=== PATIENT | male | born 1970 | race Caucasian/White ===

== ENCOUNTER 2018-03-16 13:43 | Outpatient (CLI) | payer MEDICARE, MEDICAID, SELFPAY ==
--- NOTE | 2018-03-16 13:32 | DI.RAD_ITS ---
SYMPTOM/DIAGNOSIS: RT KNEE PAIN RIGHT KNEE: Three views. Comparison 07/05/15 Mild spurring is seen at the posterior patella and medial femoral tibial joint space. The joint spaces are otherwise well maintained. The bones are intact and normally mineralized. The soft tissues are unremarkable. IMPRESSION: Mild degenerative changes of the right knee.
== END 2018-03-16 14:03 ==
PROVIDERS: PCP Family Medicine; Visit Provider Physician Assistant
DX: M25.561 Pain in right knee (principal); M17.11 Unilateral primary osteoarthritis, right knee
CPT/HCPCS: 73562

== ENCOUNTER 2018-04-29 10:59 | Outpatient (CLI) | payer MEDICARE, MEDICAID, SELFPAY ==
--- NOTE | 2018-04-29 10:54 | DI.RAD_ITS ---
SYMPTOMS/DIAGNOSIS: RT KNEE PAIN BILATERAL MERCHANT VIEWS OF THE KNEES: Comparison is made with right knee dated 3Dec18. There is mild to moderate narrowing of the right patellofemoral joint. There is some lateral patellar subluxation and lateral patellar tilt as well as periarticular spurring. The left patellar femoral joint appears well maintained. Periarticular spurring is noted to a lesser extent of the left patellofemoral joint. IMPRESSION: Lateral patellofemoral degenerative changes.
== END 2018-04-29 11:19 ==
PROVIDERS: PCP Nurse Practitioner; Visit Provider Physician Assistant
DX: M25.561 Pain in right knee (principal); M17.11 Unilateral primary osteoarthritis, right knee
CPT/HCPCS: 73565

== ENCOUNTER 2018-05-10 20:34 | Emergency (ER) | payer MEDICARE, MEDICAID, SELFPAY ==
[2018-05-10] VITALS (30 sets, daily range): BP systolic 127–162; BP diastolic 83–102; PULSE 41–69; RESP 10–19; TEMP 36.8; O2SAT 96–100
--- NOTE | 2018-05-10 20:49 | DI.CT_ITS ---
SYMPTOMS/DIAGNOSIS: CONFUSION, HX OF SHUNT, ANEURYSM, BRAIN CANCER NONCONTRAST HEAD CT: Comparison is made with [id number]. A high right frontal craniotomy defect is now present. There is a chronic appearing fluid collection in the anterior right frontal lobe. No acute hemorrhage, infarct or mass is seen. The ventricles are unchanged in size. 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 These findings appear stable. IMPRESSION: Status post right frontal craniotomy. No acute abnormality is seen. CTA OF THE HEAD: CT angiography was performed with multi slice acquisition and multi planar and 3D reconstruction. There is no evidence of vascular occlusion, dissection or significant stenosis. IMPRESSION: CT Angiography of the head.
[2018-05-10] MEDS: Omnipaque 350 MG/ML 100 ML BTL IJ (21:17)
[2018-05-10 21:18] LABS: BE (Venous) 3.3 mmol/L (-3-3); HCO3 (Venous) 29 mmol/L (22-28); O2 Sat (Venous) 77 % (70-80); TCO2 (Venous) 26 mmol/L (22-29); pCO2 (Venous) 52 mm/Hg (34-47); pH (Venous) 7.35 (7.32-7.43); pO2 (Venous) 43 mm/Hg (28-44)
[2018-05-10] MEDS: Normal Saline Flush 10 ML SYR IVP ×2 (21:18→21:46)
[2018-05-10 21:23] LABS: Abs Immature Grans 0.01 k/cumm (0.0-0.09); Absolute Basophil Count 0.02 k/cumm (0.0-0.2); Absolute Eosinophil Count 0.05 k/cumm (0.0-0.7); Absolute Lymphocyte Count 1.66 k/cumm (1.2-3.4); Absolute Monocyte Count 0.32 k/cumm (0.11-0.7); Absolute Neutrophil Count 2.51 k/cumm (1.2-6.7); Basophils % 0.4; Eosinophils % 1.1; HCT 42.8 % (40.0-50.0); HGB 15.5 g/dL (13.5-17.5); Immature Grans % 0.2; Lymphocytes % 36.3; Mean Corp. HGB Concentration 36.2 g/dL (32.0-36.0); Mean Corpuscular Hemoglobin 31.3 pg (27.0-33.0); Mean Corpuscular Volume 86.3 fL (80-95); Mean Platelet Volume 10.1 fL (8.0-11.0); Platelet Count 159 x1000/uL (130-400); RBC 4.96 m/cumm (4.50-6.00); RBC Distribution Width 12.8 % (11.8-14.1); White Blood Cell Count 4.57 k/cumm (4.4-10.8)
[2018-05-10 21:27] LABS: INR 1.1 (0.9-1.1); Prothrombin Time 11.1 sec (9.3-11.0)
[2018-05-10 21:30] LABS: Ammonia 35 umol/L (11-32)
[2018-05-10 21:38] LABS: PTT Activated 26.8 sec (21.0-31.4)
[2018-05-10 21:39] LABS: ALT 16 U/L (12-78); AST 15 U/L (15-37); Albumin 3.6 g/dL (3.4-5.0); Alkaline Phosphatase 70 U/L (46-116); Anion Gap 8.7 mmol/L (3-11); BUN 12 mg/dL (7-18); Bilirubin, Total 0.3 mg/dL (0.2-1.0); CO2 29.3 mmol/L (21.0-32.0); CREATININE 0.84 mg/dL (0.70-1.30); Chloride 91 mmol/L (98-107); Glucose 113 mg/dL (70-100); Potassium 4.3 mmol/L (3.5-5.1); Salicylate < 2.8 mg/dL (2.8-20.0); Sodium 129 mmol/L (136-145)
[2018-05-10 21:43] LABS: Acetaminophen < 2 ug/mL (10-30)
[2018-05-10] MEDS: Normal Saline 1,000 ML 1000 ML IV (21:46)
[2018-05-10 21:48] LABS: Calcium 8.7 mg/dL (8.5-10.1)
[2018-05-10 21:58] LABS: ETHANOL BLOOD < 3.0 mg/dL (<3)
--- NOTE | 2018-05-10 21:59 | DI.VRAD_ITS ---
EXAM: CT Head Without Contrast EXAM DATE/TIME: 05/10/2018 8:53 PM CLINICAL HISTORY: 47 years old, male; Signs and symptoms; Altered mental status/memory loss; Confusion or disorientation; Patient HX: Confusion, HX of shunt, aneurysm, and brain cancer. TECHNIQUE: Axial computed tomography images of the head/brain without contrast. All CT scans at this facility use at least one of these dose optimization techniques: automated exposure control; mA and/or kV adjustment per patient size (includes targeted exams where dose is matched to clinical indication); or iterative reconstruction. Coronal and sagittal reformatted images were created and reviewed. COMPARISON: CT HEAD WITHOUT CONTRAST 09/14/2017 5:53 PM FINDINGS: Brain: Right frontal ventriculostomy shunt catheter tract with surrounding gliosis. 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 No evidence for acute transcortical infarct. No midline shift. No acute extra-axial collection. No acute intracranial hemorrhage. Basal cisterns are patent. Ventricles: No ventriculomegaly. Bones/joints: Right frontal craniotomy changes. No acute calvarial fracture. Sinuses: Mucosal thickening involving the left maxillary sinus. Mastoid air cells: Normal as visualized. No mastoid effusion. Soft tissues: Normal. IMPRESSION: No evidence for acute transcortical infarct or acute intracranial hemorrhage. No midline shift. Dictated and Authenticated by: Michel Brown MD. Ordering:JORDI Davis MD
--- NOTE | 2018-05-10 22:10 | DI.VRAD_ITS ---
EXAM: CT Angiography Head With Contrast EXAM DATE/TIME: 05/10/2018 8:53 PM CLINICAL HISTORY: 47 years old, male; Signs and symptoms; Other: Confusion, HX of shunt, aneurysm, and brain CA TECHNIQUE: Axial computed tomographic angiography images of the head with intravenous contrast using CT angiography protocol. Coronal and sagittal reformatted images were subsequently obtained and reviewed. All CT scans at this facility use at least one of these dose optimization techniques: automated exposure control; mA and/or kV adjustment per patient size (includes targeted exams where dose is matched to clinical indication); or iterative reconstruction. MIP reconstructed images were created and reviewed. CONTRAST: 85 ml of Omnipaque 350 administered intravenously. COMPARISON: CT HEAD WO 05/10/2018 9:13 PM FINDINGS: Right internal carotid artery: Intracranial segment is patent with no significant stenosis. No aneurysm. Right anterior cerebral artery: No occlusion or significant stenosis. No aneurysm. Right middle cerebral artery: No occlusion or significant stenosis. No aneurysm. Right posterior cerebral artery: No occlusion or significant stenosis. No aneurysm. Right vertebral artery: No occlusion or significant stenosis. No aneurysm. Left internal carotid artery: Intracranial segment is patent with no significant stenosis. No aneurysm. Left anterior cerebral artery: No occlusion or significant stenosis. No aneurysm. Left middle cerebral artery: No occlusion or significant stenosis. No aneurysm. Left posterior cerebral artery: No occlusion or significant stenosis. No aneurysm. Left vertebral artery: No occlusion or significant stenosis. No aneurysm. Basilar artery: No occlusion or significant stenosis. No aneurysm. IMPRESSION: No significant stenosis or aneurysm. Dictated and Authenticated by: Michel Brown MD. Ordering:JORDI Davis MD
[2018-05-10 23:00] LABS: Anion Gap 5.3 mmol/L (3-11); BUN 11 mg/dL (7-18); CO2 29.7 mmol/L (21.0-32.0); CREATININE 0.86 mg/dL (0.70-1.30); Calcium 7.8 mg/dL (8.5-10.1); Chloride 94 mmol/L (98-107); Glucose 88 mg/dL (70-100); Potassium 4.6 mmol/L (3.5-5.1); Sodium 129 mmol/L (136-145)
[2018-05-10 23:14] LABS: Bilirubin Negative (Negative); Blood Trace-intact (Negative); Clarity Clear; Glucose Negative (Negative); Ketones Negative (Negative); Leukocyte Esterase Negative (Negative); Nitrite Negative (Negative); Specific Gravity 1.015 (1.005-1.025); Urobilinogen 0.2 EU/dL (Up TO 0.2)
[2018-05-10 23:15] LABS: *AMPHETAMINES SCREEN URINE Negative (Negative); *BARBITURATES SCREEN URINE Negative (Negative); *BENZODIAZEPINES SCREEN URINE Negative (Negative); Cannabinoids THC POSITIVE (Negative); Cocaine Screen,Urine Negative (Negative); METHADONE URINE SCREEN Negative (Negative); OPIATES URINE SCREEN Negative (Negative)
[2018-05-10 23:19] LABS: Tricyclic Antidepressants Negative (Negative)
[2018-05-10 23:24] LABS: Bacteria Rare HPF (Negative); C & S Indicated? No; Casts Negative LPF (Negative); Crystals Negative HPF (Negative); Epithelial Cells Rare HPF (Negative); Mucus Negative (Negative); RBC 0-2 (0-2); WBC 0-2 HPF (0-5)
--- NOTE | 2018-05-10 23:54 | ED.GENADUL_ITS ---
Discharge Plan Disposition Patient Disposition: HOME Condition: Good Discharge Details Chief Complaint: Dizzy/Sync Clinical Impression: Weakness, Acute hyponatremia Primary Care Provider: Colleen Mercado ED Provider: Ryan Rowell Home Meds and New Rx's Prescriptions: No Action clonazepam 0.5 mg tablet 0.5 mg PO BID RF: 0 meloxicam 15 mg tablet 15 mg PO DAILY PRN (Reason: right knee pain) Qty: 30 RF: 0 gabapentin 800 mg tablet 800 mg PO TID Qty: 90 RF: 5 PROVENTIL HFA 18 GM HFA.AER.AD 1 puff Inhalation Q4H PRN 7 Days Qty: 2 RF: 6 sennosides [senna] 8.6 MG tablet 2 tab-cap PO DAILY RF: 0 levetiracetam [Keppra] 500 MG tablet 500 mg PO BID RF: 0 Myrbetriq 25 MG tablet extended release 24 hr 25 mg PO DAILY 1 Days Qty: 30 RF: 11 underpads [Air Permeable Underpad] 1 EACH pad 1 ea Miscellaneous Q4H PRN PRNQty: 300 RF: 12 Depend Underwear For Women S-M 1 EACH misc 1 ea Miscellaneous Q4H PRN PRNQty: 300 RF: 12 aripiprazole [Abilify] 5 MG tablet 5 mg PO DAILY Qty: 90 RF: 3 fluoxetine 40 mg capsule 80 mg PO DAILY Qty: 60 RF: 6 tamsulosin [Flomax] 0.4 mg capsule 0.4 mg PO DAILY Qty: 90 RF: 3 clonidine HCl 0.2 mg tablet 0.4 mg PO DAILY Qty: 180 RF: 3 divalproex [Depakote ER] 500 mg tablet extended release 24 hr 1,500 mg PO HS Qty: 270 RF: 0 Discharge Instructions Instructions: Hyponatremia (ED), Weakness (ED) Additional Instructions: Please eat notably salty foods over the next 2-3 days including Ibarra's, condensed soups, or potato chips. Please follow-up with your primary care provider immediately. Case management should be calling you within the next day or 2 to help with assistance at home. If you notice any worsening of your symptoms, or any new symptoms such as vomiting, diarrhea, fever, chills, shortness of breath, chest pain, numbness, weakness, or fainting , please return immediately to the emergency department for reevaluation. Please follow up with your primary care provider as soon as possible for reassessment and reevaluation. As always, it was a pleasure participating in your medical care today. Referrals: Colleen Mercado NP [Primary Care Provider] - Medical Decision Making This is a very pleasant 47-year-old male with a concerning past medical history of brain cancer which was removed in September 2007 and aneurysm that is being watched by [facility] neurology, but has never required any intervention, who presents today for evaluation of uneasiness, mild weakness and mild fatigue for the last 2-3 days. He states that he feels slightly more confused compared to normal, but is able to remember pertinent things and is able to perform his ADLs at home without significant difficulty. Physical exam shows no significant signs of trauma. Neurologic exam is very reassuring and shows no evidence of focal neurologic deficits or abnormalities. Patient ambulates well throughout the emergency department without any signs of ataxia. He has no vertical or horizontal or rotatory nystagmus. Signs and symptoms are inconsistent with cerebellar stroke. Because of his history I am concern for potential hydrocephalus, new brain tumor, or worsening aneurysm. Signs and symptoms are clinically inconsistent with aneurysmal rupture with no symptoms of headache, nuchal rigidity, or neck tightness on exam. He does have a history of hyponatremia. We will evaluate for potential causes of mild fatigue, weakness, and mild confusion. We will get a CT scan to rule out any acute intracranial process. 11:30 PM Patient's laboratory workup demonstrates slightly low sodium at 129, normal potassium, normal renal function, normal liver function. Ammonia is minimally elevated at 35 and I feel that this is inconsistent with the cause of his symptoms. His PCO2 is minimally elevated at 52, but I also feel that this is inconsistent with his symptoms. With his sodium being slightly low at 129 this may very well be the cause of his symptomatology. Urine is negative for any signs of infection, UDS is negative for any significant abnormalities. Salicylates and acetaminophen are also negative. CT scan as well as CT angiogram of his head demonstrate no acute process. There is a chronic old well improved subdural that is stable, showing no signs of shift, or significant problem on the brain per the radiology. I did contact the radiologist and personally discussed this with him, and he feels that the findings are all consistent with chronic and improving pathology from his previous surgery. No evidence of hydrocephalus or other significant abnormalities. No evidence of acute bleed. It was given 1 L of normal saline here. After laboratory and imaging workup was completed to go and reassess the patient he continues to demonstrate normal mentation to me, normal neurologic exam and no abnormality that I can appreciate. I had a long discussion with the patient and family member who is at bedside discussing admission versus discharge, and through shared decision making process we feel that the patient be safely discharged home as not feel inpatient admission would be of any benefit to the patient at this time, with a relatively benign workup aside for mild hyponatremia. We will hold off on prescription of salt tabs, but recommend a high salt diet for the next 2-3 days with close follow-up and repeat laboratory eval. Patient and family do feel comfortable with this plan. Patient does have an outpatient MRI scheduled within the month for [facility]. We will contact case management, and have them follow-up with the patient on an outpatient basis to see if he would like any assistance. At this time family does feel safe with the patient, and the patient does feel that he is able to accomplish his home ADLs without significant difficulty. I have extensively reviewed the treatment plan and discharge instructions with the patient and their family. I have addressed all patient concerns at this time. The patient and family was made aware of what symptoms to monitor for that would warrant a return to the emergency department. Discussed the plan with the patient and family, they demonstrate verbal understanding and agreement with our assessment and plan at this time. Comparison: CT HEAD WITHOUT CONTRAST 09/14/2017 5:53 PM Findings: Brain: Right frontal ventriculostomy shunt catheter tract with surrounding gliosis. 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 No evidence for acute transcortical infarct. No midline shift. No acute extra-axial collection. No acute intracranial hemorrhage. Basal cisterns are patent. Ventricles: No ventriculomegaly. Bones/joints: Right frontal craniotomy changes. No acute calvarial fracture. Sinuses: Mucosal thickening involving the left maxillary sinus. Mastoid air cells: Normal as visualized. No mastoid effusion. Soft tissues: Normal. Impression: No evidence for acute transcortical infarct or acute intracranial hemorrhage. No midline shift. Dictated and Authenticated by: Michel Brown MD. FINDINGS: Right internal carotid artery: Intracranial segment is patent with no significant stenosis. No aneurysm. Right anterior cerebral artery: No occlusion or significant stenosis. No aneurysm. Right middle cerebral artery: No occlusion or significant stenosis. No aneurysm. Right posterior cerebral artery: No occlusion or significant stenosis. No aneurysm. Right vertebral artery: No occlusion or significant stenosis. No aneurysm. Left internal carotid artery: Intracranial segment is patent with no significant stenosis. No aneurysm. Left anterior cerebral artery: No occlusion or significant stenosis. No aneurysm. Left middle cerebral artery: No occlusion or significant stenosis. No aneurysm. Left posterior cerebral artery: No occlusion or significant stenosis. No aneurysm. Left vertebral artery: No occlusion or significant stenosis. No aneurysm. Basilar artery: No occlusion or significant stenosis. No aneurysm. IMPRESSION: No significant stenosis or aneurysm. Dictated and Authenticated by: Michel Brown MD. Ordering:JORDI Davis MD HPI General Date/Time Provider Initiated Documentation: 05/10/18 20:49 . HPI Narrative: This is a 47-year-old male with a past medical history of brain tumor, and secondary seizures and intracranial aneurysm that had no rupture, or need for intervention, and surgery back in September 2017 for his brain tumor. Past medical history is also positive for hyponatremia. Patient presents today for fatigue, mild dizziness, mild weakness for the last 2-3 days. He states that the weakness is generalized and not focal. He does admit to falling occasionally, but denies any significant trauma to his head. He denies any vomiting, diarrhea, chest pain, neck pain, headache, abdominal pain, shortness of breath, numbness, tingling. He denies any recent change to his medications. He does admit to occasional blurry vision but denies any significant visual changes in general. He denies dark curtain coming down over his vision, spots, or lack of vision in his eyes. He denies any aggravating or relieving factors. He denies any pertinent family history. He denies any IV or illicit drug use. Related Data Home Medications Medication Instructions Recorded Confirmed sennosides [Senna] 2 tab-cap PO DAILY tab-cap 10/14/17 05/10/18 levetiracetam [Keppra] 500 mg PO BID tab-cap 11/18/17 05/10/18 mirabegron [Myrbetriq] 25 mg PO DAILY 1 Days #30 tab-cap 11/19/17 05/10/18 diaper,brief,adult,disposable #300 ea 12/09/17 04/29/18 [Depend] underpads [Underpad] #300 ea 12/09/17 04/29/18 aripiprazole [Abilify] 5 mg PO DAILY #90 tab-cap 12/10/17 05/10/18 fluoxetine 40 mg capsule 80 mg PO DAILY #60 tab-cap 02/18/18 05/10/18 clonazepam 0.5 mg tablet 0.5 mg PO BID tab 02/23/18 05/10/18 tamsulosin 0.4 mg capsule 0.4 mg PO DAILY #90 tab-cap 03/11/18 05/10/18 clonidine HCl 0.2 mg tablet 0.4 mg PO DAILY #180 tab-cap 04/01/18 05/10/18 divalproex ER 500 mg 1,500 mg PO HS #270 tab-cap 04/23/18 05/10/18 tablet,extended release 24 hr gabapentin 800 mg tablet 800 mg PO TID #90 tab-cap 04/23/18 05/10/18 meloxicam 15 mg tablet 15 mg PO DAILY PRN #30 tab 04/23/18 05/10/18 Previous Rx's Medication Instructions Recorded mirabegron [Myrbetriq] 25 mg PO DAILY 1 Days #30 tab-cap 11/19/17 aripiprazole [Abilify] 5 mg PO DAILY #90 tab-cap 12/10/17 fluoxetine 40 mg capsule 80 mg PO DAILY #60 tab-cap 02/18/18 tamsulosin 0.4 mg capsule 0.4 mg PO DAILY #90 tab-cap 03/11/18 clonidine HCl 0.2 mg tablet 0.4 mg PO DAILY #180 tab-cap 04/01/18 divalproex ER 500 mg 1,500 mg PO HS #270 tab-cap 04/23/18 tablet,extended release 24 hr gabapentin 800 mg tablet 800 mg PO TID #90 tab-cap 04/23/18 meloxicam 15 mg tablet 15 mg PO DAILY PRN #30 tab 04/23/18 Allergies Allergy/AdvReac Type Severity Reaction Status Date / Time oxycodone HCl [From Percocet] AdvReac Intermediate VOMITING Verified 05/10/18 20:54 General Stated Complaint: Dizzy/Sync MIRIAM: 3 Review of Systems Review of Systems All systems reviewed & are unremarkable except as noted in HPI and below PFSH Social History adopted: No foster care: No household members: spouse and children lives independently: Yes number of children: 5 current occupational status: unemployed and disabled pets and animals: Yes pets and animals: dog(s) Smoking/Tobacco Use Status: Former Tobacco Use quit date: 09/12/17 quit status: not considering quitting alcohol intake: never substance use type: marijuana seatbelt use: always drive intox or ride w/ intox corporate driver: No water heater temp set < 120 deg: Yes working smoke detector in home: Yes carbon monox detector in home: Yes Exam Narrative Exam Narrative: 1.Const: Well-nourished, Well-developed, appearing stated age 2.Eyes: PERRL, no conjunctival injection, and symmetrical lids. No evidence of horizontal or vertical nystagmus. Cerebellar function testing is normal. 3.ENT: Atraumatic external nose and ears. Moist MM. Neck: Symmetric, trachea midline, No thyromegaly. Patient demonstrates good movement of cervical neck. There is no nuchal rigidity, no nuchal tenderness. Patient is able to flex the neck without any difficulty or significant pain. Negative Kernig's and Brudzinski sign. 4.CVS: +S1/S2, No murmurs or gallops. Peripheral pulses 2+ and equal in all extremities. Brisk capillary refill in all extremities. 5.RESP: Unlabored respiratory effort. Clear to auscultation bilaterally. No wheezes rales or rhonchi 6.GI: Soft, Nontender/Nondistended, No hepatosplenomegaly. No guarding or rebound. 7.MSK: Normocephalic/Atraumatic, Extremities w/o deformity or ttp No cyanosis or clubbing, Normal movement of all extremities 8.Skin: Warm, Dry. No rashes or lesions. Notable previous scar with the patient's right scalp secondary to his craniectomy. 9.Neuro: applied behavior science specialist II-XII grossly intact. Sensation grossly intact, no focal neurologic deficits. All 6 cardinal planes of vision are fully intact. No evidence of rotatory or vertical nystagmus. The patient demonstrated a normal [id number], good dexterity. There was no evidence of dysdiadochokinesia. Patient was able to ambulate without difficulty. There was no wide-based gait. The patient ambulates well throughout the ED. Romberg, and [id number] are both normal on testing. Sensation was intact bilaterally as well as muscle strength bilaterally for all extremities. Patient was able to verbalize butter cup with no slurring, or miss pronunciation. 10.Psych: (AAO) x3. Appropriate mood and affect Course Vital Signs Temperature 36.8 C 05/10/18 20:42 Pulse 62 05/10/18 20:42 Respiratory Rate 19 05/10/18 20:42 Blood Pressure 127/91 H 05/10/18 20:42 Pulse Oximetry 99 05/10/18 20:42 Temperature 36.8 C 05/10/18 20:42 Temperature Source Temporal Artery Scan 05/10/18 20:42 Pulse 62 05/10/18 20:42 Respiratory Rate 19 05/10/18 20:49 Respiratory Effort 05/10/18 20:49 Respiratory Depth Normal 05/10/18 20:49 Blood Pressure 127/91 H 05/10/18 20:42 Pulse Oximetry 99 05/10/18 20:42 Oxygen Delivery Method Room Air 05/10/18 20:42 Oxygen Flow Rate 0 05/10/18 20:42 Pain Level 0 05/10/18 20:42 Lab/Test Results Lab/Test Results: Laboratory Tests Range/Units 05/10/18 05/10/18 05/10/18 20:55 20:55 20:55 WBC (4.4-10.8) k/cumm RBC (4.50-6.00) m/cumm Hgb (13.5-17.5) g/dL Hct (40.0-50.0) % MCV (80-95) fL MCH (27.0-33.0) pg MCHC (32.0-36.0) g/dL RDW (11.8-14.1) % Plt Count (130-400) x1000/uL MPV (8.0-11.0) fL Immature Gran % Neutrophils % Lymphocytes % Monocytes % Eosinophils % Basophils % Absolute Neutrophils (1.2-6.7) k/cumm Absolute Lymphocytes (1.2-3.4) k/cumm Absolute Monocytes (0.11-0.7) k/cumm Absolute Eosinophils (0.0-0.7) k/cumm Absolute Basophils (0.0-0.2) k/cumm PT (9.3-11.0) sec INR (0.9-1.1) APTT (21.0-31.4) sec VBG pH (7.32-7.43) VBG pCO2 (34-47) mm/Hg VBG pO2 (28-44) mm/Hg VBG HCO3 (22-28) mmol/L VBG Total CO2 (22-29) mmol/L VBG O2 Saturation (70-80) % VBG Base Excess (-3-3) mmol/L Sodium (136-145) mmol/L 129 L Potassium (3.5-5.1) mmol/L 4.3 Chloride (98-107) mmol/L 91 L Carbon Dioxide (21.0-32.0) mmol/L 29.3 Anion Gap (3-11) mmol/L 8.7 BUN (7-18) mg/dL 12 Creatinine (0.70-1.30) mg/dL 0.84 Estimated GFR/1.73 m2 (mL/min/1.73m2) >= 60.00 Glucose (70-100) mg/dL 113 H Calcium (8.5-10.1) mg/dL 8.7 Total Bilirubin (0.2-1.0) mg/dL 0.3 AST (15-37) U/L 15 ALT (12-78) U/L 16 Alkaline Phosphatase (46-116) U/L 70 Ammonia (11-32) umol/L 35 H Total Protein (6.4-8.2) g/dL 7.0 Albumin (3.4-5.0) g/dL 3.6 Urine Color (Yellow) Urine Clarity Urine pH (5-8) Ur Specific [place] (1.005-1.025) Urine Protein (Negative) mg/dL Urine Ketones (Negative) mg/dL Urine Blood (Negative) Urine Nitrite (Negative) Urine Bilirubin (Negative) Urine Urobilinogen (Up TO 0.2) EU/dL Ur Leukocyte Esterase (Negative) Urine RBC (0-2) Urine WBC (0-5) HPF Ur Epithelial Cells (Negative) HPF Urine Crystals (Negative) HPF Urine Bacteria (Negative) HPF Urine Casts (Negative) LPF Urine Mucus (Negative) Ur Culture Indicated? Urine Glucose (Negative) mg/dL Salicylates (2.8-20.0) mg/dL < 2.8 L Urine Opiates Screen (Negative) Urine Methadone Screen (Negative) Acetaminophen (10-30) ug/mL < 2 L Ur Barbiturates Screen (Negative) Ur Tricyclics Screen (Negative) Ur Amphetamines Screen (Negative) U Benzodiazepines Scrn (Negative) Urine Cocaine Screen (Negative) Ur THC Screen (Negative) Ethyl Alcohol (<3) mg/dL < 3.0 Range/Units 05/10/18 05/10/18 05/10/18 20:55 20:55 20:55 WBC (4.4-10.8) k/cumm 4.57 RBC (4.50-6.00) m/cumm 4.96 Hgb (13.5-17.5) g/dL 15.5 Hct (40.0-50.0) % 42.8 MCV (80-95) fL 86.3 MCH (27.0-33.0) pg 31.3 MCHC (32.0-36.0) g/dL 36.2 H RDW (11.8-14.1) % 12.8 Plt Count (130-400) x1000/uL 159 MPV (8.0-11.0) fL 10.1 Immature Gran % 0.2 Neutrophils % 55.0 Lymphocytes % 36.3 Monocytes % 7.0 Eosinophils % 1.1 Basophils % 0.4 Absolute Neutrophils (1.2-6.7) k/cumm 2.51 Absolute Lymphocytes (1.2-3.4) k/cumm 1.66 Absolute Monocytes (0.11-0.7) k/cumm 0.32 Absolute Eosinophils (0.0-0.7) k/cumm 0.05 Absolute Basophils (0.0-0.2) k/cumm 0.02 PT (9.3-11.0) sec 11.1 H INR (0.9-1.1) 1.1 APTT (21.0-31.4) sec VBG pH (7.32-7.43) 7.35 VBG pCO2 (34-47) mm/Hg 52 H VBG pO2 (28-44) mm/Hg 43 VBG HCO3 (22-28) mmol/L 29 H VBG Total CO2 (22-29) mmol/L 26 VBG O2 Saturation (70-80) % 77 VBG Base Excess (-3-3) mmol/L 3.3 H Sodium (136-145) mmol/L Potassium (3.5-5.1) mmol/L Chloride (98-107) mmol/L Carbon Dioxide (21.0-32.0) mmol/L Anion Gap (3-11) mmol/L BUN (7-18) mg/dL Creatinine (0.70-1.30) mg/dL Estimated GFR/1.73 m2 (mL/min/1.73m2) Glucose (70-100) mg/dL Calcium (8.5-10.1) mg/dL Total Bilirubin (0.2-1.0) mg/dL AST (15-37) U/L ALT (12-78) U/L Alkaline Phosphatase (46-116) U/L Ammonia (11-32) umol/L Total Protein (6.4-8.2) g/dL Albumin (3.4-5.0) g/dL Urine Color (Yellow) Urine Clarity Urine pH (5-8) Ur Specific [place] (1.005-1.025) Urine Protein (Negative) mg/dL Urine Ketones (Negative) mg/dL Urine Blood (Negative) Urine Nitrite (Negative) Urine Bilirubin (Negative) Urine Urobilinogen (Up TO 0.2) EU/dL Ur Leukocyte Esterase (Negative) Urine RBC (0-2) Urine WBC (0-5) HPF Ur Epithelial Cells (Negative) HPF Urine Crystals (Negative) HPF Urine Bacteria (Negative) HPF Urine Casts (Negative) LPF Urine Mucus (Negative) Ur Culture Indicated? Urine Glucose (Negative) mg/dL Salicylates (2.8-20.0) mg/dL Urine Opiates Screen (Negative) Urine Methadone Screen (Negative) Acetaminophen (10-30) ug/mL Ur Barbiturates Screen (Negative) Ur Tricyclics Screen (Negative) Ur Amphetamines Screen (Negative) U Benzodiazepines Scrn (Negative) Urine Cocaine Screen (Negative) Ur THC Screen (Negative) Ethyl Alcohol (<3) mg/dL Range/Units 05/10/18 05/10/18 05/10/18 20:55 22:47 22:55 WBC (4.4-10.8) k/cumm RBC (4.50-6.00) m/cumm Hgb (13.5-17.5) g/dL Hct (40.0-50.0) % MCV (80-95) fL MCH (27.0-33.0) pg MCHC (32.0-36.0) g/dL RDW (11.8-14.1) % Plt Count (130-400) x1000/uL MPV (8.0-11.0) fL Immature Gran % Neutrophils % Lymphocytes % Monocytes % Eosinophils % Basophils % Absolute Neutrophils (1.2-6.7) k/cumm Absolute Lymphocytes (1.2-3.4) k/cumm Absolute Monocytes (0.11-0.7) k/cumm Absolute Eosinophils (0.0-0.7) k/cumm Absolute Basophils (0.0-0.2) k/cumm PT (9.3-11.0) sec INR (0.9-1.1) APTT (21.0-31.4) sec 26.8 VBG pH (7.32-7.43) VBG pCO2 (34-47) mm/Hg VBG pO2 (28-44) mm/Hg VBG HCO3 (22-28) mmol/L VBG Total CO2 (22-29) mmol/L VBG O2 Saturation (70-80) % VBG Base Excess (-3-3) mmol/L Sodium (136-145) mmol/L 129 L Potassium (3.5-5.1) mmol/L 4.6 Chloride (98-107) mmol/L 94 L Carbon Dioxide (21.0-32.0) mmol/L 29.7 Anion Gap (3-11) mmol/L 5.3 BUN (7-18) mg/dL 11 Creatinine (0.70-1.30) mg/dL 0.86 Estimated GFR/1.73 m2 (mL/min/1.73m2) >= 60.00 Glucose (70-100) mg/dL 88 Calcium (8.5-10.1) mg/dL 7.8 L Total Bilirubin (0.2-1.0) mg/dL AST (15-37) U/L ALT (12-78) U/L Alkaline Phosphatase (46-116) U/L Ammonia (11-32) umol/L Total Protein (6.4-8.2) g/dL Albumin (3.4-5.0) g/dL Urine Color (Yellow) Urine Clarity Urine pH (5-8) Ur Specific [place] (1.005-1.025) Urine Protein (Negative) mg/dL Urine Ketones (Negative) mg/dL Urine Blood (Negative) Urine Nitrite (Negative) Urine Bilirubin (Negative) Urine Urobilinogen (Up TO 0.2) EU/dL Ur Leukocyte Esterase (Negative) Urine RBC (0-2) Urine WBC (0-5) HPF Ur Epithelial Cells (Negative) HPF Urine Crystals (Negative) HPF Urine Bacteria (Negative) HPF Urine Casts (Negative) LPF Urine Mucus (Negative) Ur Culture Indicated? Urine Glucose (Negative) mg/dL Salicylates (2.8-20.0) mg/dL Urine Opiates Screen (Negative) Negative Urine Methadone Screen (Negative) Negative Acetaminophen (10-30) ug/mL Ur Barbiturates Screen (Negative) Negative Ur Tricyclics Screen (Negative) Negative Ur Amphetamines Screen (Negative) Negative U Benzodiazepines Scrn (Negative) Negative Urine Cocaine Screen (Negative) Negative Ur THC Screen (Negative) Positive Ethyl Alcohol (<3) mg/dL Range/Units 05/10/18 22:55 WBC (4.4-10.8) k/cumm RBC (4.50-6.00) m/cumm Hgb (13.5-17.5) g/dL Hct (40.0-50.0) % MCV (80-95) fL MCH (27.0-33.0) pg MCHC (32.0-36.0) g/dL RDW (11.8-14.1) % Plt Count (130-400) x1000/uL MPV (8.0-11.0) fL Immature Gran % Neutrophils % Lymphocytes % Monocytes % Eosinophils % Basophils % Absolute Neutrophils (1.2-6.7) k/cumm Absolute Lymphocytes (1.2-3.4) k/cumm Absolute Monocytes (0.11-0.7) k/cumm Absolute Eosinophils (0.0-0.7) k/cumm Absolute Basophils (0.0-0.2) k/cumm PT (9.3-11.0) sec INR (0.9-1.1) APTT (21.0-31.4) sec VBG pH (7.32-7.43) VBG pCO2 (34-47) mm/Hg VBG pO2 (28-44) mm/Hg VBG HCO3 (22-28) mmol/L VBG Total CO2 (22-29) mmol/L VBG O2 Saturation (70-80) % VBG Base Excess (-3-3) mmol/L Sodium (136-145) mmol/L Potassium (3.5-5.1) mmol/L Chloride (98-107) mmol/L Carbon Dioxide (21.0-32.0) mmol/L Anion Gap (3-11) mmol/L BUN (7-18) mg/dL Creatinine (0.70-1.30) mg/dL Estimated GFR/1.73 m2 (mL/min/1.73m2) Glucose (70-100) mg/dL Calcium (8.5-10.1) mg/dL Total Bilirubin (0.2-1.0) mg/dL AST (15-37) U/L ALT (12-78) U/L Alkaline Phosphatase (46-116) U/L Ammonia (11-32) umol/L Total Protein (6.4-8.2) g/dL Albumin (3.4-5.0) g/dL Urine Color (Yellow) Yellow Urine Clarity Clear Urine pH (5-8) 7.0 Ur Specific [place] (1.005-1.025) 1.015 Urine Protein (Negative) mg/dL Negative Urine Ketones (Negative) mg/dL Negative Urine Blood (Negative) Trace-intact H Urine Nitrite (Negative) Negative Urine Bilirubin (Negative) Negative Urine Urobilinogen (Up TO 0.2) EU/dL 0.2 Ur Leukocyte Esterase (Negative) Negative Urine RBC (0-2) 0-2 Urine WBC (0-5) HPF 0-2 Ur Epithelial Cells (Negative) HPF Rare Urine Crystals (Negative) HPF Negative Urine Bacteria (Negative) HPF Rare Urine Casts (Negative) LPF Negative Urine Mucus (Negative) Negative Ur Culture Indicated? No Urine Glucose (Negative) mg/dL Negative Salicylates (2.8-20.0) mg/dL Urine Opiates Screen (Negative) Urine Methadone Screen (Negative) Acetaminophen (10-30) ug/mL Ur Barbiturates Screen (Negative) Ur Tricyclics Screen (Negative) Ur Amphetamines Screen (Negative) U Benzodiazepines Scrn (Negative) Urine Cocaine Screen (Negative) Ur THC Screen (Negative) Ethyl Alcohol (<3) mg/dL
[2018-05-11 00:02] VITALS: BP 134/89; PULSE 52; RESP 14; O2SAT 98
--- NOTE | 2018-05-11 12:06 | CMPROGNOTE_ITS ---
Care Management Progress Note 05/11-Dr. Rowell requested assistance with a home health care. Colleen Mercado is PCP. Referral faxed to [facility] requesting that [facility] Transfer Pumper discuss home health services with patient and set up.
== END 2018-05-11 00:03 | disposition home or self-care (01) ==
PROVIDERS: Emergency Provider Student in an Organized Health Care Education/Training Program; PCP Nurse Practitioner
DX: R53.1 Weakness (principal); R42 Dizziness and giddiness; E87.6 Hypokalemia; R53.83 Other fatigue
CPT/HCPCS: 36415; 70496; 80048; 80053; 80307; 82805; 96360; 99285; 70450; 80320; 80329; 81003; 81015; 82140; 85025; 85610; 85730; 99284; J3490

== ENCOUNTER 2018-06-01 09:34 | Outpatient (CLI) | payer MEDICARE, MEDICAID, SELFPAY ==
[2018-06-01 11:08] LABS: Anion Gap 9.7 mmol/L (3-11); BUN 8 mg/dL (7-18); CO2 25.3 mmol/L (21.0-32.0); CREATININE 0.71 mg/dL (0.70-1.30); Calcium 8.8 mg/dL (8.5-10.1); Chloride 95 mmol/L (98-107); Glucose 83 mg/dL (70-100); Potassium 4.7 mmol/L (3.5-5.1); Sodium 130 mmol/L (136-145)
[2018-06-01 13:05] LABS: ESR 3 MM/HR (0-15)
[2018-06-02 10:48] LABS: Lyme Ab w Rflx to Lyme Confirm Negative
[2018-06-02 23:41] LABS: Anaplasma phagocytophilum Negative (Negative); B. miyamotoi PCR Negative (Negative); Babesia divergens/MO-1 Negative (Negative); Babesia duncani Negative (Negative); Babesia microti Negative (Negative); Ehrlichia chaffeensis Negative (Negative); Ehrlichia ewingii/canis Negative (Negative); Ehrlichia muris eauclairensis Negative (Negative)
== END 2018-06-01 09:54 ==
PROVIDERS: Family Medicine; PCP Nurse Practitioner; Visit Provider Nurse Practitioner
DX: M13.0 Polyarthritis, unspecified (principal); E87.1 Hypo-osmolality and hyponatremia
CPT/HCPCS: 36415; 80048; 80061; 83721; 85652; 86618; 87798

== ENCOUNTER 2018-06-02 09:31 | Emergency (ER) | payer MEDICARE, MEDICAID, SELFPAY ==
[2018-06-02] VITALS (39 sets, daily range): BP systolic 106–147; BP diastolic 71–92; PULSE 53–73; RESP 8–21; TEMP 37–37.1; O2SAT 86–100
[2018-06-02] MEDS: Normal Saline 250 ML 1000 ML IV (09:50)
--- NOTE | 2018-06-02 09:50 | DI.CT_ITS ---
SYMPTOM/DIAGNOSIS: S/P FALL, H/O BRAIN TUMOR WITH RESECTION NONCONTRAST HEAD CT: A noncontrast examination was performed. Comparison is made with 05/10/18. The ventricles and sulci are consistent with the patient's age. No intracranial hemorrhage, acute mid shift or mass effect is identified. The ventricles are intact. The basilar cisterns are patent. There is no evidence of an acute calvarial fracture. The patient has a right parietal craniotomy. Mucosal thickening is seen in the left maxillary sinus. The remaining visualized paranasal sinuses are clear. No fluid levels are seen. The mastoid air cells are well pneumatized. IMPRESSION: No acute intracranial process. CERVICAL SPINE CT: Multiple contiguous axial images of the cervical spine were obtained. Sagittal and coronal reformatted images were evaluated on the [facility]emens work station. There is normal alignment of the cervical spine. No acute fractures or subluxations are seen. Minimal degenerative changes are seen in the spine. The prevertebral soft tissues are unremarkable. The lung apices are clear. IMPRESSION: No acute fractures or subluxations in the cervical spine. The findings were discussed with the ER on the date of the examination.
--- NOTE | 2018-06-02 09:53 | ED.GENADUL_ITS ---
Discharge Plan Disposition Patient Disposition: HOME Condition: Stable Discharge Details Chief Complaint: Seizure Clinical Impression: Dizziness, Memory difficulties, Fatigue, History of brain tumor, Chronic hyponatremia, Hypoglycemia Primary Care Provider: Colleen Mercado ED Provider: Ivanna Yarbrough Home Meds and New Rx's Prescriptions: Continued clonazepam 0.5 mg tablet 0.5 mg PO BID RF: 0 meloxicam 15 mg tablet 15 mg PO DAILY PRN (Reason: right knee pain) Qty: 30 RF: 0 gabapentin 800 mg tablet 800 mg PO TID Qty: 90 RF: 5 hydrocodone-acetaminophen 5-325 mg tablet 1 tab PO BID MDD 2 tabs PRN (Reason: pain) Qty: 20 RF: 0 PROVENTIL HFA 18 GM HFA.AER.AD 1 puff Inhalation Q4H PRN 7 Days Qty: 2 RF: 6 sennosides [senna] 8.6 MG tablet 2 tab-cap PO DAILY RF: 0 levetiracetam [Keppra] 500 MG tablet 500 mg PO BID RF: 0 Myrbetriq 25 MG tablet extended release 24 hr 25 mg PO DAILY 1 Days Qty: 30 RF: 11 underpads [Air Permeable Underpad] 1 EACH pad 1 ea Miscellaneous Q4H PRN PRNQty: 300 RF: 12 Depend Underwear For Women S-M 1 EACH misc 1 ea Miscellaneous Q4H PRN PRNQty: 300 RF: 12 aripiprazole [Abilify] 5 MG tablet 5 mg PO DAILY Qty: 90 RF: 3 fluoxetine 40 mg capsule 80 mg PO DAILY Qty: 60 RF: 6 tamsulosin [Flomax] 0.4 mg capsule 0.4 mg PO DAILY Qty: 90 RF: 3 clonidine HCl 0.2 mg tablet 0.4 mg PO DAILY Qty: 180 RF: 3 divalproex [Depakote ER] 500 mg tablet extended release 24 hr 1,500 mg PO HS Qty: 270 RF: 0 Discharge Instructions Instructions: Hyponatremia (ED), Dizziness (ED), Fatigue (ED) Additional Instructions: Drink plenty of fluids. Follow a well-balanced diet. Take your regular medications as directed. Follow-up with your scheduled appointment with your neurologist on June 16. Follow-up with your primary care doctor in 1 week for reevaluation. Return immediately to the emergency department any worsening or new concerning symptoms. You will be contacted by home health regarding a follow-up evaluation. 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 Glucose 48 per EMS. Given sugar, increased to 108. Patient is cared for by ex- at home, recently refused home health after ED visit for hyponatremia and difficulty with ADLs. Vitals within normal limits. Patient is at baseline mental status per . Patient has generalized weakness. Patient states he cannot concentrate his eyes and thus unable to assess EOM. Remainder of cranial nerves and motor sensory function grossly intact. No focal deficits. No acute trauma on exam. Midline C-spine tender. Chest and abdomen nontender. Moves all extremities. Discussed with ex- that his symptoms could possibly be due to his hypoglycemia, worsening neurological status post his brain tumor resection, electrolyte abnormality, possible seizure. EKG notes a rate of 67 in sinus and no acute findings. Will place an IV, bolus IV fluids, labs, urinalysis, CT head and C-spine, chest x-ray. Records from [facility] note that patient was seen by neurosurgery in the last 2 weeks and was found to have a stable MRI brain. He was referred to follow-up with his neurologist Dr. Easley for his hyponatremia, chronic memory problems and shaking. He has a scheduled appoint with Dr. Easley on June 16. Will follow up on labs and call neurology for any recommendations. 1130 -- labs and imaging reviewed. White blood cell count 3.88, was 4.57 last month. Sodium stable at 129. Calcium 8, was 7.8 last month. Troponin negative. Urinalysis negative for infection. Negative salicylate and Tylenol. THC in UDS. CT head and chest x-ray unremarkable for acute findings. Discussed with Dr. Easley and she has no other acute recommendations regarding medication changes, and will evaluate patient on appointment on June 16. It appears that his symptoms have been chronic for the past several months. His presentation today likely associated with hypoglycemia. Presentation does not sound consistent with seizure. Patient was able to eat a tray of food and drink and appears much more alert and able to sit up. Recheck glucose 103. He states he feels good to go home. Ex- feels comfortable taking patient home. Patient had previously refused home health, but now is agreeable to this. Discussed with care management and will plan for home health evaluation for weakness and fall risk assessment. Patient instructed to drink plenty of fluids, eat a balanced diet, follow-up with his appointment with Dr. Lama on June 16 and return at any time if worse per Medical Records Medical records reviewed: Yes I reviewed the patient's medical records. Imaging Data Radiologic Study: Radiologist's impression: NONCONTRAST HEAD CT: A noncontrast examination was performed. Comparison is made with 05/10/18. The ventricles and sulci are consistent with the patient's age. No intracranial hemorrhage, acute mid shift or mass effect is identified. The ventricles are intact. The basilar cisterns are patent. There is no evidence of an acute calvarial fracture. The patient has a right parietal craniotomy. Mucosal thickening is seen in the left maxillary sinus. The remaining visualized paranasal sinuses are clear. No fluid levels are seen. The mastoid air cells are well pneumatized. IMPRESSION: No acute intracranial process. CERVICAL SPINE CT: Multiple contiguous axial images of the cervical spine were obtained. Sagittal and coronal reformatted images were evaluated on the siemens work station. There is normal alignment of the cervical spine. No acute fractures or subluxations are seen. Minimal degenerative changes are seen in the spine. The prevertebral soft tissues are unremarkable. The lung apices are clear. IMPRESSION: No acute fractures or subluxations in the cervical spine. Lab Data Lab results reviewed: Yes I reviewed the patient's lab results. Laboratory Tests Range/Units 06/02/18 06/02/18 06/02/18 09:44 09:44 10:20 WBC (4.4-10.8) k/cumm 3.88 L RBC (4.50-6.00) m/cumm 4.87 Hgb (13.5-17.5) g/dL 15.2 Hct (40.0-50.0) % 42.1 MCV (80-95) fL 86.4 MCH (27.0-33.0) pg 31.2 MCHC (32.0-36.0) g/dL 36.1 H RDW (11.8-14.1) % 13.0 Plt Count (130-400) x1000/uL 158 MPV (8.0-11.0) fL 10.1 Immature Gran % 0.3 Neutrophils % 68.1 Lymphocytes % 23.5 Monocytes % 7.5 Eosinophils % 0.3 Basophils % 0.3 Absolute Neutrophils (1.2-6.7) k/cumm 2.64 Absolute Lymphocytes (1.2-3.4) k/cumm 0.91 L Absolute Monocytes (0.11-0.7) k/cumm 0.29 Absolute Eosinophils (0.0-0.7) k/cumm 0.01 Absolute Basophils (0.0-0.2) k/cumm 0.01 Sodium Cancelled Potassium Cancelled Chloride Cancelled Carbon Dioxide Cancelled Anion Gap Cancelled BUN Cancelled Creatinine Cancelled Estimated GFR/1.73 m2 Cancelled Glucose Cancelled Calcium Cancelled Magnesium Cancelled Total Bilirubin Cancelled AST Cancelled ALT Cancelled Alkaline Phosphatase Cancelled Troponin I Cancelled Total Protein Cancelled Albumin Cancelled Urine Color (Yellow) Yellow Urine Clarity Clear Urine pH (5-8) 7.5 Ur Specific [place] (1.005-1.025) 1.015 Urine Protein (Negative) mg/dL Negative Urine Ketones (Negative) mg/dL Negative Urine Blood (Negative) Trace-intact H Urine Nitrite (Negative) Negative Urine Bilirubin (Negative) Negative Urine Urobilinogen (Up TO 0.2) EU/dL 0.2 Ur Leukocyte Esterase (Negative) Negative Urine RBC (0-2) 5-10 H Urine WBC (0-5) HPF Negative Ur Epithelial Cells (Negative) HPF Negative Urine Crystals (Negative) HPF Negative Urine Bacteria (Negative) HPF Few Urine Casts (Negative) LPF Negative Urine Mucus (Negative) Trace Ur Culture Indicated? No Urine Glucose (Negative) mg/dL 250 H Salicylates (2.8-20.0) mg/dL Urine Opiates Screen (Negative) Urine Methadone Screen (Negative) Acetaminophen (10-30) ug/mL Ur Barbiturates Screen (Negative) Ur Tricyclics Screen (Negative) Ur Amphetamines Screen (Negative) U Benzodiazepines Scrn (Negative) Urine Cocaine Screen (Negative) Ur THC Screen (Negative) Range/Units 06/02/18 06/02/18 06/02/18 10:20 10:25 10:25 WBC (4.4-10.8) k/cumm RBC (4.50-6.00) m/cumm Hgb (13.5-17.5) g/dL Hct (40.0-50.0) % MCV (80-95) fL MCH (27.0-33.0) pg MCHC (32.0-36.0) g/dL RDW (11.8-14.1) % Plt Count (130-400) x1000/uL MPV (8.0-11.0) fL Immature Gran % Neutrophils % Lymphocytes % Monocytes % Eosinophils % Basophils % Absolute Neutrophils (1.2-6.7) k/cumm Absolute Lymphocytes (1.2-3.4) k/cumm Absolute Monocytes (0.11-0.7) k/cumm Absolute Eosinophils (0.0-0.7) k/cumm Absolute Basophils (0.0-0.2) k/cumm Sodium 129 L Potassium 4.3 Chloride 96 L Carbon Dioxide 26.3 Anion Gap 6.7 BUN 8 Creatinine 0.74 Estimated GFR/1.73 m2 >= 60.00 Glucose 110 H Calcium 8.0 L Magnesium 1.8 Total Bilirubin 0.5 AST 6 L ALT 10 L Alkaline Phosphatase 53 Troponin I 0.02 Total Protein 6.2 L Albumin 3.1 L Urine Color (Yellow) Urine Clarity Urine pH (5-8) Ur Specific [place] (1.005-1.025) Urine Protein (Negative) mg/dL Urine Ketones (Negative) mg/dL Urine Blood (Negative) Urine Nitrite (Negative) Urine Bilirubin (Negative) Urine Urobilinogen (Up TO 0.2) EU/dL Ur Leukocyte Esterase (Negative) Urine RBC (0-2) Urine WBC (0-5) HPF Ur Epithelial Cells (Negative) HPF Urine Crystals (Negative) HPF Urine Bacteria (Negative) HPF Urine Casts (Negative) LPF Urine Mucus (Negative) Ur Culture Indicated? Urine Glucose (Negative) mg/dL Salicylates (2.8-20.0) mg/dL < 2.8 L Urine Opiates Screen (Negative) Negative Urine Methadone Screen (Negative) Negative Acetaminophen (10-30) ug/mL < 2 L Ur Barbiturates Screen (Negative) Negative Ur Tricyclics Screen (Negative) Negative Ur Amphetamines Screen (Negative) Negative U Benzodiazepines Scrn (Negative) Negative Urine Cocaine Screen (Negative) Negative Ur THC Screen (Negative) Positive HPI General Mode of arrival: ambulatory . Date/Time Provider Initiated Documentation: 06/02/18 09:31 . Limitations to Documentation: no limitations . Information obtained by: patient and family . 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 Ex- states that patient seemed spacey, twitchy, and shaking this morning. She states that patient laid on the couch this morning, and when she checked on him again he was lying on the ground nearby the couch unresponsive. She states he was breathing, but was not responding to voice. She states he was then able to open his eyes and communicate sounds but seemed dopey . She denies any new medications, including aspirin, Tylenol, narcotics. She states he has been taking all of his regular medications as directed except for his gabapentin which he ran out of 1 week ago. She states his last seizure was in November 2017. Patient last had an MRI at [facility] in the last 2 weeks for recheck of his brain which ex states she was told was normal. Per EMS, they checked a glucose this morning upon their arrival, and it was 48. Patient was given a shot of maple syrup and rechecked and was 108. Patient states he remembers getting up this morning and feeling weak getting out of bed, and remembers laying on the couch, and then remembers sitting up with EMS. He denies any pain from his fall, fever, vomiting, diarrhea, chest pain, shortness of breath, abdominal pain, headache, back pain. Patient was seen here last month for similar fatigue and weakness and was found to have hyponatremia of 129. He was advised to increase salt in his diet. Patient and ex- states that he has not been eating much recently. He had been referred for home health to help at home with his ADLs but ex states that patient refused this. Related Data Home Medications Medication Instructions Recorded Confirmed sennosides [senna] 2 tab-cap PO DAILY tab-cap 10/14/17 06/02/18 levetiracetam [Keppra] 500 mg PO BID tab-cap 11/18/17 06/02/18 Myrbetriq 25 mg PO DAILY 1 Days #30 tab-cap 11/19/17 06/02/18 Depend Underwear For Women S-M #300 ea 12/09/17 05/14/18 underpads [Air Permeable Underpad] #300 ea 12/09/17 05/14/18 aripiprazole [Abilify] 5 mg PO DAILY #90 tab-cap 12/10/17 06/02/18 fluoxetine 40 mg capsule 80 mg PO DAILY #60 tab-cap 02/18/18 06/02/18 clonazepam 0.5 mg tablet 0.5 mg PO BID tab 02/23/18 06/02/18 tamsulosin 0.4 mg capsule 0.4 mg PO DAILY #90 tab-cap 03/11/18 06/02/18 clonidine HCl 0.2 mg tablet 0.4 mg PO DAILY #180 tab-cap 04/01/18 06/02/18 divalproex ER 500 mg 1,500 mg PO HS #270 tab-cap 04/23/18 06/02/18 tablet,extended release 24 hr gabapentin 800 mg tablet 800 mg PO TID #90 tab-cap 04/23/18 06/02/18 meloxicam 15 mg tablet 15 mg PO DAILY PRN #30 tab 04/23/18 06/02/18 hydrocodone 5 mg-acetaminophen 325 1 tab PO BID PRN #20 tab MDD 2 tabs 05/14/18 06/02/18 mg tablet Previous Rx's Medication Instructions Recorded Myrbetriq 25 mg PO DAILY 1 Days #30 tab-cap 11/19/17 aripiprazole [Abilify] 5 mg PO DAILY #90 tab-cap 12/10/17 fluoxetine 40 mg capsule 80 mg PO DAILY #60 tab-cap 02/18/18 tamsulosin 0.4 mg capsule 0.4 mg PO DAILY #90 tab-cap 03/11/18 clonidine HCl 0.2 mg tablet 0.4 mg PO DAILY #180 tab-cap 04/01/18 divalproex ER 500 mg 1,500 mg PO HS #270 tab-cap 04/23/18 tablet,extended release 24 hr gabapentin 800 mg tablet 800 mg PO TID #90 tab-cap 04/23/18 meloxicam 15 mg tablet 15 mg PO DAILY PRN #30 tab 04/23/18 hydrocodone 5 mg-acetaminophen 325 1 tab PO BID PRN #20 tab MDD 2 tabs 05/14/18 mg tablet Allergies Allergy/AdvReac Type Severity Reaction Status Date / Time oxycodone HCl [From Percocet] AdvReac Intermediate VOMITING Verified 06/02/18 09:54 General Stated Complaint: Seizure MIRIAM: 2 Review of Systems Review of Systems All systems reviewed & are unremarkable except as noted in HPI and below Constitutional Reports as per HPI, Denies chills, Reports fatigue, Denies fever(s), Reports lethargy, Reports poor appetite and Reports weakness Eyes Denies blurry vision ENT Denies dizziness, Denies sore throat and Denies throat swelling Cardiovascular Denies chest pain and Denies dyspnea Respiratory Denies cough and Denies dyspnea Gastrointestinal Denies abdominal pain, Denies diarrhea and Denies vomiting Genitourinary Denies hematuria and Denies dysuria Musculoskeletal Denies back pain and Denies numbness Integumentary/Breasts Denies lesions and Denies rash Neurologic Denies dizziness, Denies focal weakness, Denies numbness and Reports weakness Endocrine Reports fatigue Allergic/Immunologic Denies throat swelling PFSH Medical History Right knee pain (Chronic) Knee pain (Chronic) Urinary incontinence (Chronic 11/18/17) Tourette disease (Chronic 11/19/16) Tobacco use disorder (Chronic 07/03/16) Primary osteoarthritis of right knee (Chronic 03/31/17) Meningioma, cerebral (Chronic 10/22/17) Mass, brain (Chronic 09/24/17) IVH (intraventricular hemorrhage) (Chronic 09/24/17) Cerebral tumor (Chronic 06/26/17) BPH (benign prostatic hyperplasia) (Chronic 08/13/17) Anxiety (Chronic 11/19/16) Bipolar depression (Chronic 03/31/17) Seizure disorder (Chronic 11/19/16) Hydrocephalus (Resolved 06/26/17) Migraine (Chronic 07/02/16) Anxiety Carpal tunnel syndrome Depression Diverticulitis Surgical History S/P craniotomy (Chronic 10/22/17) 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) Hernia Repair-L (04/13/94) rgt craiotomy for mass (09/24/17) Family History Mother Essential hypertension Cerebral aneurysm Father Neoplasm Maternal Grandfather Heart disease Neoplasm Maternal Grandmother Neoplasm Social History adopted: No foster care: No household members: spouse and children lives independently: Yes number of children: 5 highest education level completed: high school graduate current occupational status: unemployed and disabled pets and animals: Yes pets and animals: dog(s) current gender identity: male what type of physical activity do you participate in: none Smoking and Tabacco status: Current every day quit status: not considering quitting alcohol intake: never substance use type: marijuana Seatbelt use: always Drives intoxicated or rides with intoxicated utility worker driver: No water heater temp set < 120 deg: Yes working smoke detector in home: Yes carbon monox detector in home: Yes Exam Const General: cooperative, no acute distress, disheveled and other (smells strong of tobacco smoke) Orientation: alert, awake, oriented to person, oriented to place and not oriented to time HENMT Head: normal to inspection Ears: hearing grossly normal bilaterally, external ears normal and TM's normal bilaterally General nose exam: external nose normal Face and sinus: normal facial exam Mouth: oral mucosae normal Teeth and gingiva: poor dentition Throat: posterior oropharynx normal Eyes General: appearance normal, both eyes and all related structures Eyelids: eyelids normal Pupils: PERRL Neck Neck: normal visual inspection Lymphatic: no lymphadenopathy noted Chest Chest: normal inspection of the chest, normal palpation of entire chest wall and no tenderness Resp Effort & Inspection: normal respiratory effort and able to speak in complete sentences Auscultation: clear to auscultation bilaterally Cardio Rate: regular rate Rhythm: regular rhythm GI Inspection: normal to inspection Palpation: soft, not firm, no guarding, no hepatosplenomegaly, no masses and nontender Auscultation: normal bowel sounds Back/Spine/Pelvis Cervical Spine: No cervical muscular tenderness and cervical spinal tenderness Thoracic/Lumbar Spine: No thoracic spinal tenderness and No lumbar spinal tenderness Skin General skin exam: no rashes or lesions noted Neuro General: alert, awake and oriented Patient Orientation: Person and Place Cranial Nerves: other (not able to follow EOM, remainder of CN intact. ) Cognition: normal cognition Speech: speech normal Motor: muscle tone normal throughout and strength 5/5 throughout Sensory Exam: no sensory deficits noted Extrem General: normal to inspection, full ROM and normal capillary refill Psych Appearance: grossly normal Mental Status: mental status grossly normal Speech and Movement: speech and movement normal Affect: blunted Thought Process: normal Course Vital Signs Temperature 98.8 F 06/02/18 09:35 Pulse 65 06/02/18 09:35 Respiratory Rate 14 06/02/18 09:35 Blood Pressure 134/84 06/02/18 09:35 Pulse Oximetry 98 06/02/18 09:35 Temperature 98.8 F 06/02/18 09:35 Temperature Source Temporal Artery Scan 06/02/18 09:35 Pulse 65 06/02/18 09:35 Respiratory Rate 14 06/02/18 09:35 Respiratory Effort Non-Labored 06/02/18 09:35 Blood Pressure 134/84 06/02/18 09:35 Pulse Oximetry 98 06/02/18 09:35 Oxygen Delivery Method Room Air 06/02/18 09:35 Oxygen Flow Rate 0 06/02/18 09:35 Pain Level 0 06/02/18 09:35
[2018-06-02 10:02] LABS: Abs Immature Grans 0.01 k/cumm (0.0-0.09); Absolute Basophil Count 0.01 k/cumm (0.0-0.2); Absolute Eosinophil Count 0.01 k/cumm (0.0-0.7); Absolute Lymphocyte Count 0.91 k/cumm (1.2-3.4); Absolute Monocyte Count 0.29 k/cumm (0.11-0.7); Basophils % 0.3; Eosinophils % 0.3; HCT 42.1 % (40.0-50.0); HGB 15.2 g/dL (13.5-17.5); Immature Grans % 0.3; Lymphocytes % 23.5; Mean Corp. HGB Concentration 36.1 g/dL (32.0-36.0); Mean Corpuscular Hemoglobin 31.2 pg (27.0-33.0); Mean Corpuscular Volume 86.4 fL (80-95); Mean Platelet Volume 10.1 fL (8.0-11.0); Monocytes % 7.5; Neutrophils % 68.1; Platelet Count 158 x1000/uL (130-400); RBC 4.87 m/cumm (4.50-6.00); White Blood Cell Count 3.88 k/cumm (4.4-10.8)
[2018-06-02 10:13] LABS: Absolute Neutrophil Count 2.64 k/cumm (1.2-6.7)
[2018-06-02 10:36] LABS: Bilirubin Negative (Negative); Blood Trace-intact (Negative); Clarity Clear; Glucose 250 mg/dL (Negative); Ketones Negative (Negative); Leukocyte Esterase Negative (Negative); Nitrite Negative (Negative); Specific Gravity 1.015 (1.005-1.025); Urobilinogen 0.2 EU/dL (Up TO 0.2); pH 7.5 (5-8)
[2018-06-02 10:55] LABS: *AMPHETAMINES SCREEN URINE Negative (Negative); *BARBITURATES SCREEN URINE Negative (Negative); *BENZODIAZEPINES SCREEN URINE Negative (Negative); Cannabinoids THC POSITIVE (Negative); Cocaine Screen,Urine Negative (Negative); METHADONE URINE SCREEN Negative (Negative); OPIATES URINE SCREEN Negative (Negative)
--- NOTE | 2018-06-02 10:55 | DI.RAD_ITS ---
SYMPTOMS/DIAGNOSIS: ALTERED MENTAL STATUS, ? ACUTE PROCESS PA AND LATERAL CHEST: Comparison 09/24/14. The heart is normal in size. The lungs are clear. The mediastinal structures and pleura appear intact. CONCLUSION: Normal chest.
[2018-06-02 10:56] LABS: Tricyclic Antidepressants Negative (Negative)
[2018-06-02 10:59] LABS: ALT 10 U/L (12-78); AST 6 U/L (15-37); Albumin 3.1 g/dL (3.4-5.0); Alkaline Phosphatase 53 U/L (46-116); Anion Gap 6.7 mmol/L (3-11); BUN 8 mg/dL (7-18); Bilirubin, Total 0.5 mg/dL (0.2-1.0); CO2 26.3 mmol/L (21.0-32.0); CREATININE 0.74 mg/dL (0.70-1.30); Chloride 96 mmol/L (98-107); Glucose 110 mg/dL (70-100); Magnesium 1.8 mg/dL (1.8-2.4); Potassium 4.3 mmol/L (3.5-5.1); Salicylate < 2.8 mg/dL (2.8-20.0); Sodium 129 mmol/L (136-145); Total Protein 6.2 g/dL (6.4-8.2); Troponin I 0.02 ng/mL (0.00-0.06)
[2018-06-02 11:06] LABS: Bacteria Few HPF (Negative); C & S Indicated? No; Casts Negative LPF (Negative); Crystals Negative HPF (Negative); Epithelial Cells Negative HPF (Negative); Mucus Trace (Negative); WBC Negative HPF (0-5)
[2018-06-02 11:06] LABS: Acetaminophen < 2 ug/mL (10-30)
[2018-06-02] MEDS: Normal Saline 1,000 ML 1000 ML IV (11:51)
--- NOTE | 2018-06-02 14:46 | PDOC.ERCMPRO ---
Care Management Progress Note 06/02-Received phone call from Shahnaz, Chronic pesticide use medical coordinator at [facility]. Shahnaz stated that Colleen Mercado called patient this am with lab results. Reported that he collapsed and had a blood sugar of 40. Patient is reportedly sleeping on the bottom bunk bed in his daughter's room. Shahnaz reports that Wayne does not show up for his appts. Discussed with Dr. Yarbrough. Patient has been evaluated and is being discharged home. Please see provider note. Patient receptive to home health services, PT/OT for weakness and fall risk assessment. Face to face completed and signed by Dr. Yarbrough, faxed to home health. Called home health and spoke with Tiana to confirm receipt of face to face.
--- NOTE | 2018-06-02 14:55 | CMPROGNOTE_ITS ---
Care Management Progress Note 06/02-Received phone call from Shahnaz, Chronic air traffic coordinator at [facility]. Shahnaz stated that Colleen Mercado called patient this am with lab results. Reported that he collapsed and had a blood sugar of 40. Patient is reportedly sleeping on the bottom bunk bed in his daughter's room. Shahnaz reports that Wayne does not show up for his appts. Discussed with Dr. Yarbrough. Patient has been evaluated and is being discharged home. Please see provider note. Patient receptive to home health services, PT/OT for weakness and fall risk assessment. Face to face completed and signed by Dr. Yarbrough, faxed to home health. Called home health and spoke with Tiana to confirm receipt of face to face.
== END 2018-06-02 13:37 | disposition home or self-care (01) ==
PROVIDERS: Emergency Provider Physician Assistant; PCP Nurse Practitioner
DX: R42 Dizziness and giddiness (principal); R41.3 Other amnesia; R53.83 Other fatigue; E16.2 Hypoglycemia, unspecified; E87.1 Hypo-osmolality and hyponatremia; Z98.890 Other specified postprocedural states
CPT/HCPCS: 36415; 36416; 80053; 80307; 82962; 93005; 96360; 99285; 70450; 71046; 72125; 80329; 81003; 81015; 83735; 84484; 85025; 93010

== ENCOUNTER → 2018-06-16 08:36 | Outpatient (BNVA) | payer MEDICARE, MEDICAID, SELFPAY | PROVIDERS: PCP Nurse Practitioner; Visit Provider Psychiatry & Neurology Neurology | DX: D32.0 Benign neoplasm of cerebral meninges (principal); G43.909 Migraine, unspecified, not intractable, without status migrainosus; R56.9 Unspecified convulsions; R25.1 Tremor, unspecified; E87.1 Hypo-osmolality and hyponatremia; R41.3 Other amnesia; F32.9 Major depressive disorder, single episode, unspecified | CPT/HCPCS: 99215 ==

== ENCOUNTER 2018-06-17 12:56 | Outpatient (CLI) | payer MEDICARE, MEDICAID, SELFPAY | END 2018-06-17 13:16 | PROVIDERS: PCP Nurse Practitioner; Visit Provider Student in an Organized Health Care Education/Training Program | DX: M25.561 Pain in right knee (principal); M17.11 Unilateral primary osteoarthritis, right knee; Z01.818 Encounter for other preprocedural examination ==

== ENCOUNTER 2018-06-17 13:45 | Outpatient (CLI) | payer MEDICARE, MEDICAID, SELFPAY ==
[2018-06-17 14:06] LABS: HCT 41.5 % (40.0-50.0); Mean Corp. HGB Concentration 36.1 g/dL (32.0-36.0); Mean Corpuscular Hemoglobin 31.4 pg (27.0-33.0); Mean Platelet Volume 9.9 fL (8.0-11.0); Platelet Count 182 x1000/uL (130-400); RBC 4.77 m/cumm (4.50-6.00)
[2018-06-17 15:03] LABS: Anion Gap 4.6 mmol/L (3-11); BUN 7 mg/dL (7-18); CO2 30.4 mmol/L (21.0-32.0); CREATININE 0.75 mg/dL (0.70-1.30); Calcium 8.9 mg/dL (8.5-10.1); Chloride 91 mmol/L (98-107); Glucose 80 mg/dL (70-100); Potassium 4.6 mmol/L (3.5-5.1); Sodium 126 mmol/L (136-145)
== END 2018-06-17 14:05 ==
PROVIDERS: PCP Nurse Practitioner; Visit Provider Student in an Organized Health Care Education/Training Program
DX: Z01.812 Encounter for preprocedural laboratory examination (principal); M17.11 Unilateral primary osteoarthritis, right knee
CPT/HCPCS: 36415; 80048; 85027

== ENCOUNTER 2018-06-23 08:04 | Inpatient (IN) | payer MEDICARE, MEDICAID, SELFPAY ==
[2018-06-17 13:21] VITALS: BP 121/84; PULSE 67; RESP 19; TEMP 36.7; O2SAT 96
--- NOTE | 2018-06-17 13:44 | NUR.NOTE ---
manager revenue unavailable to see pt. Pt had gone for blood work, Renard Farah, HUMAN SERVICE SPECIALIST came down reviewed patient's record, was okay not seeing the pt, but would like records regarding cerebral meningioma. yemi whalen
[2018-06-23] VITALS (15 sets, daily range): BP systolic 71–126; BP diastolic 39–84; PULSE 65–81; RESP 11–18; TEMP 35.8–36.6; O2SAT 93–98
[2018-06-23] MEDS: Gabapentin 300 MG CAP PO (09:01)
[2018-06-23] MEDS: Acetaminophen 500 MG TAB 1000 MG PO ×3 (09:01→19:50)
[2018-06-23] MEDS: Celecoxib 200 MG CAP 400 MG PO (09:01)
[2018-06-23] MEDS: Lactated Ringers 1,000 ML 80 ML IV ×3 (09:14→17:09)
[2018-06-23] MEDS: Bupivacaine 0.5% Pres-Free 30 ML VIAL (11:10)
[2018-06-23] MEDS: Bupivacaine LIPOSOME/PF 133 MG/10 ML VIAL IJ ×2 (11:10→13:02)
[2018-06-23] MEDS: Ketorolac 30 MG/ML VIAL (13:02)
[2018-06-23] MEDS: Normal Saline 20 ML VIAL (13:02)
[2018-06-23] MEDS: Bupivacaine 0.25% Pres-Free 30 ML VIAL (13:02)
[2018-06-23] MEDS: Gabapentin 800 MG TAB PO ×2 (17:06→19:49)
[2018-06-23] MEDS: Aspirin E.C. 81 MG TABEC PO (19:50)
[2018-06-23] MEDS: Celecoxib 100 MG CAP 200 MG PO (19:50)
[2018-06-23] MEDS: Divalproex Sodium 500 MG TAB.ER.24H 1500 MG PO (21:40)
[2018-06-24 03:20] VITALS: BP 123/72; PULSE 64; RESP 16; TEMP 36.1; O2SAT 96
[2018-06-24] MEDS: Lactated Ringers 1,000 ML 80 ML IV (06:40)
[2018-06-24] MEDS: Celecoxib 100 MG CAP 200 MG PO (07:24)
[2018-06-24] MEDS: Acetaminophen 500 MG TAB 1000 MG PO (07:24)
[2018-06-24] MEDS: Gabapentin 800 MG TAB PO (07:24)
[2018-06-24] MEDS: Aspirin E.C. 81 MG TABEC PO (07:25)
[2018-06-24] MEDS: ARIPiprazole 5 MG TAB PO (07:31)
[2018-06-24] MEDS: FLUoxetine 20 MG CAP 80 MG PO (07:32)
[2018-06-24] MEDS: Tamsulosin 0.4 MG CAPCR PO (07:32)
--- NOTE | 2018-06-24 07:32 | PDOC.CMIN ---
- If Service Date Differs Date of service: 06/24/18 Time of Service: 07:32 Care Management Initial Assess REASON FOR HOSPITALIZATION:: (R) Knee DJD PAST MEDICAL HISTORY/PAST SURGICAL HISTORY:: Osteoarthritis of (R) patellofemoral joint, (R) knee pain, Urinary incontinence, Tourette disease, Tobacco use disorder, S/P Craniotomy, Primary osteoarthritis of (R) knee, Meningioma, Brain mass, IVH, Cerebral tumor, BPH, Anxiety, Bipolar depression, Seizure disorder, Hydrocephalus, Migraine PREVIOUS FUNCTIONAL STATUS/SOCIAL/FAMILY SUPPORTS:: Wayne resides in [facility] with his ex Edith and three of their adult children. Wayne states that he has four children, and that they are all supportive. Wayne does not drive, and states that he is on disability for an aneurysm. CURRENT FUNCTIONAL STATUS:: Currently Wayne is sitting up in bed eating breakfast when this technical document writer visits. He is pleasant and open to discussion. ADVANCE DIRECTIVES:: None on file Has patient been provided with information about the portal?: Yes Did the patient sign up for the portal?: No CODE STATUS:: Full Code INSURANCE COVERAGE / FINANCIAL ISSUES:: Medicare, Medicaid CURRENT HOME/COMMUNITY SERVICES/EQUIPMENT:: Currently Wayne has home health PT/OT in the community. He states that he has a cane at home for DME. PRIMARY CARE PHYSICIAN:: Colleen Mercado POTENTIAL DISCHARGE NEEDS:: F/U appointment with Dr. Hillman. PT - Home Health. DME - FWW ([facility]) per patient choice PATIENT/FAMILY EDUCATION NEEDS:: Review DC instructions, any limitations, and ongoing DC planning discussion. Discuss 'Ask Me Three' ANTICIPATED BARRIERS TO DISCHARGE:: None identified at this time TRANSPORTATION:: Wayne's son Ethel will transport when ready. PLAN:: Wayne will return home with a resumption of PT/OT services. He will F/U with Dr. Hillman and plan of care as prescribed. Wayne will require a FWW at time of DC, which will be distributed by [facility] per patient choice. His son Ethel to transport when ready.
--- NOTE | 2018-06-24 07:38 | INITIAL_ITS ---
- If Service Date Differs Date of service: 06/24/18 Time of Service: 07:32 Care Management Initial Assess REASON FOR HOSPITALIZATION:: (R) Knee DJD PAST MEDICAL HISTORY/PAST SURGICAL HISTORY:: Osteoarthritis of (R) patellofemoral joint, (R) knee pain, Urinary incontinence, Tourette disease, Tobacco use disorder, S/P Craniotomy, Primary osteoarthritis of (R) knee, Meningioma, Brain mass, IVH, Cerebral tumor, BPH, Anxiety, Bipolar depression, Seizure disorder, Hydrocephalus, Migraine PREVIOUS FUNCTIONAL STATUS/SOCIAL/FAMILY SUPPORTS:: Wayne resides in [facility] with his ex Edith and three of their adult children. Wayne states that he has four children, and that they are all supportive. Wayne does not drive, and states that he is on disability for an aneurysm. CURRENT FUNCTIONAL STATUS:: Currently Wayne is sitting up in bed eating breakfast when this junior copywriter visits. He is pleasant and open to discussion. ADVANCE DIRECTIVES:: None on file Has patient been provided with information about the portal?: Yes Did the patient sign up for the portal?: No CODE STATUS:: Full Code INSURANCE COVERAGE / FINANCIAL ISSUES:: Medicare, Medicaid CURRENT HOME/COMMUNITY SERVICES/EQUIPMENT:: Currently Wayne has home health PT/OT in the community. He states that he has a cane at home for DME. PRIMARY CARE PHYSICIAN:: Colleen Mercado POTENTIAL DISCHARGE NEEDS:: F/U appointment with Dr. Hillman. PT - Home Healt h. DME - FWW ([facility]) per patient choice PATIENT/FAMILY EDUCATION NEEDS:: Review DC instructions, any limitations, and ongoing DC planning discussion. Discuss 'Ask Me Three' ANTICIPATED BARRIERS TO DISCHARGE:: None identified at this time TRANSPORTATION:: Wayne's son Ethel will transport when ready. PLAN:: Wayne will return home with a resumption of PT/OT services. He will F/U with Dr. Hillman and plan of care as prescribed. Wayne will require a FWW at time of DC, which will be distributed by [facility] per patient choice. His son Ethel to transport when ready.
--- NOTE | 2018-06-24 07:52 | W.PM.OP ---
Date of service: 06/23/18 Time of Service: 14:52 Operative Note DATE OF PROCEDURE: 06/23/18 PRE-OP DIAGNOSIS: Right knee osteoarthritis POST-OP DIAGNOSIS: same PROCEDURE: Right knee patellofemoral replacement SURGEON: Hermes Hillman [employer]TERS DISPATCHER: Elvis Sanchez ANESTHESIA: regional and spinal ESTIMATED BLOOD LOSS: 100 PATHOLOGY: none sent TOURNIQUET TIME: 0 COMPLICATIONS: None Patient was transported to: PACU Patient's condition: stable Implants: 1. Arthrosurface PF Wave 8.5x4 trochlear component 2. Depuy Attune 35mm patella Indications: I have seen Wayne in clinic for symptoms of RIGHT knee arthritis, confirmed with radiographic findings. His pain was primarily over the anterior aspect of the knee with weightbearing, stairs, and deep flexion. Wayne has exhausted nonoperative methods and was having significant limitations in daily function and desired better function and less pain. I discussed the technical details of a patellofemoral knee replacement. I explained the risks of the procedure to include, but not limited to, bleeding, infection, pain, stiffness, fracture, damage to nerves and vessels, damage to muscles and tendons, loosening, need for repeat procedure, blood clot and cardiopulmonary demise. Despite these risks, he elected to proceed. 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 There is arthrosis seen within the trochlea, especially laterally. There is also significant arthritis of the patella. The medial lateral compartments were inspected visually and did not show any signs of full-thickness cartilage loss either focally or globally. ACL, PCL, and bilateral menisci were intact. Procedure Description: Wayne was greeted in the preoperative holding area where the correct side was identified and marked. The consent was reviewed with the patient and signed. The history and physical was updated. All questions were answered. Preoperative mediacations were administered: Acetaminophen 1000mg, Celebrex 400mg, Gabapentin 300mg. An adductor canal block was then administered by the anesthesia team in the PACU. Wayne was taken back to the operating room. General anesthetic was administered. The patient was placed into the supine position on the operating room table. A nonsterile tourniquet was placed high onto the leg but only used for cementing. Posts were placed for positioning during the procedure. All bony prominences were well padded. Prophylactic antibiotics in the form of cefazolin were administered. 1g of Tranxemic Acid was given intravenously within 30 minutes of incision. The right leg was then prepped with Chloraprep and draped in a standard fashion with impervious stockinette and extremity drape with Iodine impregnated skin protection. A timeout to confirm correct identity, side and site, procedure, allergies, anesthesia, and medical concerns was performed. With the knee in some flexion, a midline incision was made overlying the knee. Full thickness skin flaps were raised once the extensor mechanism was encountered. These were raised medially and laterally. Any bleeding was controlled with electrocautery. No tourniquet was used. Synovitis from around the patella and from around the superior aspect of the trochlear was then resected. Care was made sure to not violate either meniscus or the intermeniscal ligament. The medial and lateral compartments of the knee were inspected with retraction which did not show any full-thickness cartilage loss nor any global signs of arthritic change. The ACL, PCL, medial meniscus and lateral meniscus were intact without significant damage. The patella was able to be subluxed for exposure of the trochlear. There was notable arthritic changes seen on the trochlear, especially over the lateral aspect. The patella had a scalloped appearance, where it was riding on the lateral trochlear ridge. The trochlea itself was dysplastic with no true groove, type B. With exposure of the trochlear, we then performed the Arthrosurface trochlear component procedure. Using the placement handle, the starting point was defined. A pin was placed in the starting point. Using the starting point, the sizing guides were used to measure the size implant, which measured a size 4 in the medial lateral dimension and a size 8.5 in the superior inferior dimension. The initial reamer was then used to ream to a depth of 4 mm. The appropriately sized guide was then inserted with good positioning, and then secured into position. Using the various reamers and edge cutters the space for the trochlear implant was created. This was cleaned with a curette, as well as a rongeur and irrigated thoroughly. The trial component was then inserted and had an excellent fit into the space prepared. It was not rocking, it was secured with light mallet blows. Accessory pins were then placed to secure the trial component into position. The central hole was then drilled, reamed and then tapped. The trial components were removed. The screw was then inserted to the premeasured depth. The Arthrosurface 4x8.5 trochlear PF Wave component was then placed over the screw. Light mallet blows secured it in position. It was noted to be in an excellent position, flushly mounted to the surrounding surfaces. Attention was then turned to the patella. A patellar clamp was used to resect down the patella. Excess synovium was removed from around the patella. A size 35-mm DePuy medial body patellar component was then placed and trialed. The tracking was much improved but there still was some significant lateral tilt. Therefore a lateral release was performed of any tight connections between the IT band and the lateral patella as well as the lateral capsule of the patella. This release was done systematically with small releases, partial thickness, and advanced as needed for appropriate positioning. Once I was able to stand the patella on his medial side in the middle of the trochlea, I had reached enough release and the tracking was much improved. With this in position, the patellar component lug holes were drilled. The lateral excess of the patella was resected for a lateral facetectomy. On the back table, one batch of antibiotic laden cement was prepared, once this was mixed under vacuum as well, it was then used to implant the patellar component into the patella. It was clamped in place and held until the cement was cured. The soft tissues of the knee, both superficially and deep, were injected with a mixture of 50 cc of 0.25% bupivacaine and 10 cc of Exparel. The arthrotomy was then closed with #1-Vicryl followed by a #2-Stratafix. The deep tissues were closed with a 0-Vicryl, followed by #2-0 Vicryl, and a #3-0 Monocryl. Skin glue was applied followed by Mepilex silver dressing and a [id number] SARA wrap. A CryoCuff was applied. Wayne was transferred to the hospital bed without difficulty an suffering no apparent complication. He has a good prognosis. Physical therapy will start today and without restrictions, weight-bearing as tolerated. Aspirin 81mg BID will be used for DVT prophylaxis.
[2018-06-24 08:04] VITALS: BP 133/82; PULSE 72; RESP 16; TEMP 36.7; O2SAT 99
[2018-06-24] MEDS: HYDROmorphone 2 MG TAB PO (09:29)
[2018-06-24] MEDS: Normal Saline Flush 10 ML SYR IV (10:13)
[2018-06-24 10:29] VITALS: RESP 16
--- NOTE | 2018-06-24 10:42 | CHAPLAIN ---
Wayne was in bed when I visited. He was reserved, but engaged in conversation, telling me about his surgery. He expects family to be in to visit later today. I explained my role and offered support.
--- NOTE | 2018-06-24 11:28 | PT.INIE ---
Date of service: 06/24/18 Time of Service: 10:15 PT Notes Inpatient Physical Therapy Evaluation Date: 06/24/2018 Referring Doctor: Hermes Hillman MD PT Orders: PT CONSULT: S/P right patellofemoral replacement Precautions: Fall. Standard. Patient Profile/Admitting Diagnosis: Orders were received for this 47-year-old male status post right patellofemoral replacement due to right knee osteoarthritis on 06/23/2018. No movement restrictions given weightbearing as tolerated on the right LE. PMHX: Medical Histor :Right knee arthritis/chondromalacia, seizures, confusion, memory loss, IVH, brain lesion, acquired obstructive hydrocephalus, atypical intracranial meningioma. He smokes 1 pack/day. History of illicit druguse about 5 times per week, he utilizes alcohol. History of utilizing chewing tobacco, quit 3 years ago. Social History/Home Situation: Patient lives with ex- Edith and 2 sons in a two-story house with 12 steps to the second floor where his bedroom is, 3 steps to enter with rails on both sides. Family will be providing assistance with meal preparation and chores. Prior to admission, patient has been independent with all aspects of ADLs. Equipment Owned/DME: Straight cane Subjective: Patient states that he is a little lightheaded and could not entirely feel his left leg. He is agreeable to a PT consult though. Objective: General Observation: Patient is seen resting in bed at the time of evaluation, HOB elevated 30 degrees. IV in right UE. Posey catheter has just been removed. Mental Status: Alert and oriented x3. Pain: Denies. ROM: Right Upper Extremity: WFL Left Upper Extremity: WFL Right Lower Extremity: Patient able to slide heel upward to about 80-90 degrees of knee flexion an in that position, he is able to resist minimally rolling of the knee outward and inward without any pain. About 5 degrees of terminal knee extension lacking. He is able to do 5 straight leg raises without report of pain or discomfort. Other joints WFL. Left Lower Extremity: WFL Strength: Right Upper Extremity: WFL Left Upper Extremity: WFL Right Lower Extremity: Hip flexors 4-/5/5. Knee flexors 4-/5/5. Knee extensors 3--/5. Ankle dorsiflexors/plantar flexors 5/5. Left Lower Extremity: WFL Bed Mobility/Transfers: Rolling supervision Supine to sit supervision Sit to supine supervision Sit to stand supervision Stand to sit supervision Bed to chair SBA Chair to bed SBA Gait: Patient able to tolerate level surface ambulation of about 20-30 feet using FWW with report of lightheadedness, CGA given for safety and during directional changes, still no pain reported with activity with blood pressure at 121/70 9 mmHg, pulse at 79 bpm and oxygen saturation 97% in room air.. Patient also completed 3x4 inch steps and 2 x6 inch steps while holding on to both rails using a step to pattern, reported 1/10 pain on the right knee after activity with blood pressure at 129/80 2 mmHg, pulse 79 bpm, and oxygen saturation 97% in room air. Balance: Static Sitting: Good Dynamic Sitting: Good Static Standing: Fair Dynamic Standing: Fair Special Tests: Patient was able to perform partial sit to stand x 8 reps while holding onto Stedymachine handle Mobility Limitations Standardized Measure [facility] AM-PAC 6 clicks Basic Mobility Inpatient Short Form: Raw Score: 1 CMS Score: 29 % deficit Informed Consent/Education: Patient instructed in purpose of PT consult and plan of care. Assessment: Patient is a 47 year old female referred to physical therapy services with the diagnosis of primary unilateral osteoarthritis of the knee status post right patellofemoral replacement. Patient presents with clinical signs and symptoms consistent with mobility decline, balance impairment, and weakness as demonstrated by the following impairment level findings: 1. Impaired active range of motion both lower extremities 2. Impaired strength to right lower extremities 3. Impaired static/dynamic balance in standing 4. Reduced activity tolerance Impairments are contributing to the following functional limitations: 1. Increase dependence with bed mobility 2. Reduced independence with transfer skills 3. Decreased safety of mobility ADL 4. Increase completion time mobility ADLs 5. Increase fall risk Patient is assessed as a Moderate 51542 complexity based on the following: History: Patient is a 47-year-old female presenting with impairments and functional limitations resulting from postoperative status. Comorbidities and past medical history as noted above. Examination: Functional limitations as noted above Presentation: Evolving Decision Making: Moderate complexity 9716 Goals: Goals X1 week 1. Supine-Sit modified independent 2. Sit-Supine modified independent 3. Sit-Stand modified independent 4. Stand-Sit modified independent 5. Bed-Chair modified independent 6. Chair-Bed modified independent 7. Independent with home exercise program 8. Balance good 9. Stairs for 12 steps using B rails for support using step through pattern 10 Gait 300 feet with SC modified independent Plan of Care/Treatment Plan: 1-2x/day, 7 days/week x 1 week. Plan of care has been reviewed with the PUMPER GAGER APPRENTICE providing the service under Physical Therapy direction. Initiate Physical Therapy intervention for strengthening, bed mobility, transfers, gait, stairs, balance training, use of assistive device. DISCHARGE RECOMMENDATIONS: Return home with family as previously. Patient has a cane at home which she may be able to use. Patient may benefit from a short-term home health services once discharged in order to facilitate a smoother transition to home, to evaluate home safety, and to reduce fall risk. TREATMENT CODE/TIME: 82101 25 minutes, 35096 20 minutes, 93608 10 minutes beginning at 10:15 AM and 10:41 AM. Thank you for this referral. Pinky Hopper, PT, DPT, CLT [facility]
--- NOTE | 2018-06-24 11:34 | IN_ITS ---
Date of service: 06/24/18 Time of Service: 10:15 PT Notes Inpatient Physical Therapy Evaluation Date: 06/24/2018 Referring Doctor: Hermes Hillman MD PT Orders: PT CONSULT: S/P right patellofemoral replacement Precautions: Fall. Standard. Patient Profile/Admitting Diagnosis: Orders were received for this 47-year-old male status post right patellofemoral replacement due to right knee osteoarthritis on 06/23/2018. No movement restrictions given weightbearing as tolerated on the right LE. PMHX: Medical Histor :Right knee arthritis/chondromalacia, seizures, confusion, memory loss, IVH, brain lesion, acquired obstructive hydrocephalus, atypical intracranial meningioma. He smokes 1 pack/day. History of illicit druguse about 5 times per week, he utilizes alcohol. History of utilizing chewing tobacco, quit 3 years ago. Social History/Home Situation: Patient lives with ex- Edith and 2 sons in a two-story house with 12 steps to the second floor where his bedroom is, 3 steps to enter with rails on both sides. Family will be providing assistance with meal preparation and chores. Prior to admission, patient has been independent with all aspects of ADLs. Equipment Owned/DME: Straight cane Subjective: Patient states that he is a little lightheaded and could not entirely feel his left leg. He is agreeable to a PT consult though. Objective: General Observation: Patient is seen resting in bed at the time of evaluation, HOB elevated 30 degrees. IV in right UE. Posey catheter has just been removed. Mental Status: Alert and oriented x3. Pain: Denies. ROM: Right Upper Extremity: WFL Left Upper Extremity: WFL Right Lower Extremity: Patient able to slide heel upward to about 80-90 degrees of knee flexion an in that position, he is able to resist minimally rolling of the knee outward and inward without any pain. About 5 degrees of terminal knee extension lacking. He is able to do 5 straight leg raises without report of pain or discomfort. Other joints WFL. Left Lower Extremity: WFL Strength: Right Upper Extremity: WFL Left Upper Extremity: WFL Right Lower Extremity: Hip flexors 4-/5/5. Knee flexors 4-/5/5. Knee extensors 3--/5. Ankle dorsiflexors/plantar flexors 5/5. Left Lower Extremity: WFL Bed Mobility/Transfers: Rolling supervision Supine to sit supervision Sit to supine supervision Sit to stand supervision Stand to sit supervision Bed to chair SBA Chair to bed SBA Gait: Patient able to tolerate level surface ambulation of about 20-30 feet using FWW with report of lightheadedness, CGA given for safety and during directional changes, still no pain reported with activity with blood pressure at 121/70 9 mmHg, pulse at 79 bpm and oxygen saturation 97% in room air.. Patient also completed 3x4 inch steps and 2 x6 inch steps while holding on to both rails using a step to pattern, reported 1/10 pain on the right knee after activity with blood pressure at 129/80 2 mmHg, pulse 79 bpm, and oxygen saturation 97% in room air. Balance: Static Sitting: Good Dynamic Sitting: Good Static Standing: Fair Dynamic Standing: Fair Special Tests: Patient was able to perform partial sit to stand x 8 reps while holding onto Stedymachine handle Mobility Limitations Standardized Measure [facility] AM-PAC 6 clicks Basic Mobility Inpatient Short Form: Raw Score: 1 CMS Score: 29 % deficit Informed Consent/Education: Patient instructed in purpose of PT consult and plan of care. Assessment: Patient is a 47 year old female referred to physical therapy services with the diagnosis of primary unilateral osteoarthritis of the knee status post right patellofemoral replacement. Patient presents with clinical signs and symptoms consistent with mobility decline, balance impairment, and weakness as demonstrated by the following impairment level findings: 1. Impaired active range of motion both lower extremities 2. Impaired strength to right lower extremities 3. Impaired static/dynamic balance in standing 4. Reduced activity tolerance Impairments are contributing to the following functional limitations: 1. Increase dependence with bed mobility 2. Reduced independence with transfer skills 3. Decreased safety of mobility ADL 4. Increase completion time mobility ADLs 5. Increase fall risk Patient is assessed as a Moderate 43212 complexity based on the following: History: Patient is a 47-year-old female presenting with impairments and functional limitations resulting from postoperative status. Comorbidities and past medical history as noted above. Examination: Functional limitations as noted above Presentation: Evolving Decision Making: Moderate complexity 9716 Goals: Goals X1 week 1. Supine-Sit modified independent 2. Sit-Supine modified independent 3. Sit-Stand modified independent 4. Stand-Sit modified independent 5. Bed-Chair modified independent 6. Chair-Bed modified independent 7. Independent with home exercise program 8. Balance good 9. Stairs for 12 steps using B rails for support using step through pattern 10 Gait 300 feet with SC modified independent Plan of Care/Treatment Plan: 1-2x/day, 7 days/week x 1 week. Plan of care has been reviewed with the DIVISION OPERATIONS MANAGER providing the service under Physical Therapy direction. Initiate Physical Therapy intervention for strengthening, bed mobility, transfers, gait, stairs, balance training, use of assistive device. DISCHARGE RECOMMENDATIONS: Return home with family as previously. Patient has a cane at home which she may be able to use. Patient may benefit from a short- term home health services once discharged in order to facilitate a smoother transition to home, to evaluate home safety, and to reduce fall risk. TREATMENT CODE/TIME: 15863 25 minutes, 36748 20 minutes, 67778 10 minutes beginning at 10:15 AM and 10:41 AM. Thank you for this referral. Pinky Hopper, PT, DPT, CLT [facility]
--- NOTE | 2018-06-24 12:15 | PT.INIE ---
Date of service: 06/24/18 Time of Service: 10:15 PT Notes Physical Therapy Inpatient Evaluation Date: 06/24/2018 Referring Doctor: Hermes Hillman MD PT Orders: PT CONSULT: S/P right patellofemoral replacement Precautions: Fall. Standard. Patient Profile/Admitting Diagnosis: Orders were received for this 47-year-old male status post right patellofemoral replacement due to right knee osteoarthritis on 06/23/2018. No movement restrictions given weightbearing as tolerated on the right LE. PMHX: Medical Histor :Right knee arthritis/chondromalacia, seizures, confusion, memory loss, IVH, brain lesion, acquired obstructive hydrocephalus, atypical intracranial meningioma. He smokes 1 pack/day. History of illicit drug use about 5 times per week. History of ETOH use. History of utilizing chewing tobacco, quit 3 years ago. Social History/Home Situation: Patient lives with ex- Edith and 2 sons in a two-story house with 12 steps to the second floor where his bedroom is, 3 steps to enter with rails on both sides. Family will be providing assistance with meal preparation and chores. Prior to admission, patient has been independent with all aspects of ADLs. Equipment Owned/DME: Straight cane Subjective: Patient states that he is a little lightheaded and could not entirely feel his left leg. He is agreeable to a PT consult though. Objective: General Observation: Patient is seen resting in bed at the time of evaluation, HOB elevated 30 degrees. IV in right UE. Posey catheter has just been removed. Mental Status: Alert and oriented x3. Pain: Denies. ROM: Right Upper Extremity: WFL Left Upper Extremity: WFL Right Lower Extremity: Patient able to slide heel upward to about 80-90 degrees of knee flexion an in that position, he is able to resist minimally rolling of the knee outward and inward without any pain. About 5 degrees of terminal knee extension lacking. He is able to do 5 straight leg raises without report of pain or discomfort. Other joints WFL. Left Lower Extremity: WFL Strength: Right Upper Extremity: WFL Left Upper Extremity: WFL Right Lower Extremity: Hip flexors 4-/5/5. Knee flexors 4-/5/5. Knee extensors 3--/5. Ankle dorsiflexors/plantar flexors 5/5. Left Lower Extremity: WFL Bed Mobility/Transfers: Rolling supervision Supine to sit supervision Sit to supine supervision Sit to stand supervision Stand to sit supervision Bed to chair SBA Chair to bed SBA Gait: Patient able to tolerate level surface ambulation of about 20-30 feet using FWW with report of lightheadedness, CGA given for safety and during directional changes, still no pain reported with activity, blood pressure at 121/70 9 mmHg, pulse at 79 bpm and oxygen saturation 97% in room air. Patient also completed 3x4 inch steps and 2 x6 inch steps while holding on to both rails using a step to pattern, reported 1/10 pain on the right knee after activity with blood pressure at 129/80 2 mmHg, pulse 79 bpm, and oxygen saturation 97% in room air. Balance: Static Sitting: Good Dynamic Sitting: Good Static Standing: Fair Dynamic Standing: Fair Special Tests: Patient was able to perform partial sit to stand x 8 reps while holding onto Stedymachine handle Mobility Limitations Standardized Measure [facility] AM-PAC 6 clicks Basic Mobility Inpatient Short Form: Raw Score: 21 CMS Score: 29 % deficit Informed Consent/Education: Patient instructed in purpose of PT consult and plan of care. Assessment: Patient is a 47 year old male referred to physical therapy services with the diagnosis of primary unilateral osteoarthritis of the knee status post right patellofemoral replacement. Patient presents with clinical signs and symptoms consistent with mobility decline, balance impairment, and weakness as demonstrated by the following impairment level findings: 1. Impaired active range of motion both lower extremities 2. Impaired strength to right lower extremities 3. Impaired static/dynamic balance in standing 4. Reduced activity tolerance Impairments are contributing to the following functional limitations: 1. Increase dependence with bed mobility 2. Reduced independence with transfer skills 3. Decreased safety of mobility ADL 4. Increase completion time mobility ADLs 5. Increase fall risk Patient is assessed as a Moderate 50328 complexity based on the following: History: Patient is a 47-year-old male presenting with impairments and functional limitations resulting from postoperative status. Co-morbidities and past medical history as noted above. Examination: Functional limitations as noted above Presentation: Evolving Decision Making: Moderate complexity 9716 Goals: Goals X1 week 1. Supine-Sit modified independent 2. Sit-Supine modified independent 3. Sit-Stand modified independent 4. Stand-Sit modified independent 5. Bed-Chair modified independent 6. Chair-Bed modified independent 7. Independent with home exercise program 8. Balance good 9. Stairs for 12 steps using B rails for support using step through pattern 10 Gait 300 feet with SC modified independent Plan of Care/Treatment Plan: 1-2x/day, 7 days/week x 1 week. Plan of care has been reviewed with the SENIOR RESEARCH EXECUTIVE providing the service under Physical Therapy direction. Initiate Physical Therapy intervention for strengthening, bed mobility, transfers, gait, stairs, balance training, use of assistive device. DISCHARGE RECOMMENDATIONS: Return home with family as previously. Patient has a cane at home which she may be able to use. Patient may benefit from a short-term home health services once discharged in order to facilitate a smoother transition to home, to evaluate home safety, and to reduce fall risk. TREATMENT CODE/TIME: 69563 25 minutes, 21924 20 minutes, 17654 10 minutes beginning at 10:15 AM and 10:41 AM. Thank you for this referral. Pinky Hopper, PT, DPT, CLT [facility]
--- NOTE | 2018-06-24 12:20 | IN_ITS ---
Date of service: 06/24/18 Time of Service: 10:15 PT Notes Physical Therapy Inpatient Evaluation Date: 06/24/2018 Referring Doctor: Hermes Hillman MD PT Orders: PT CONSULT: S/P right patellofemoral replacement Precautions: Fall. Standard. Patient Profile/Admitting Diagnosis: Orders were received for this 47-year-old male status post right patellofemoral replacement due to right knee osteoarthritis on 06/23/2018. No movement restrictions given weightbearing as tolerated on the right LE. PMHX: Medical Histor :Right knee arthritis/chondromalacia, seizures, confusion, memory loss, IVH, brain lesion, acquired obstructive hydrocephalus, atypical intracranial meningioma. He smokes 1 pack/day. History of illicit drug use about 5 times per week. History of ETOH use. History of utilizing chewing tobacco, quit 3 years ago. Social History/Home Situation: Patient lives with ex- Edith and 2 sons in a two-story house with 12 steps to the second floor where his bedroom is, 3 steps to enter with rails on both sides. Family will be providing assistance with meal preparation and chores. Prior to admission, patient has been independent with all aspects of ADLs. Equipment Owned/DME: Straight cane Subjective: Patient states that he is a little lightheaded and could not entirely feel his left leg. He is agreeable to a PT consult though. Objective: General Observation: Patient is seen resting in bed at the time of evaluation, HOB elevated 30 degrees. IV in right UE. Posey catheter has just been removed. Mental Status: Alert and oriented x3. Pain: Denies. ROM: Right Upper Extremity: WFL Left Upper Extremity: WFL Right Lower Extremity: Patient able to slide heel upward to about 80-90 degrees of knee flexion an in that position, he is able to resist minimally rolling of the knee outward and inward without any pain. About 5 degrees of terminal knee extension lacking. He is able to do 5 straight leg raises without report of pain or discomfort. Other joints WFL. Left Lower Extremity: WFL Strength: Right Upper Extremity: WFL Left Upper Extremity: WFL Right Lower Extremity: Hip flexors 4-/5/5. Knee flexors 4-/5/5. Knee extensors 3--/5. Ankle dorsiflexors/plantar flexors 5/5. Left Lower Extremity: WFL Bed Mobility/Transfers: Rolling supervision Supine to sit supervision Sit to supine supervision Sit to stand supervision Stand to sit supervision Bed to chair SBA Chair to bed SBA Gait: Patient able to tolerate level surface ambulation of about 20-30 feet using FWW with report of lightheadedness, CGA given for safety and during directional changes, still no pain reported with activity, blood pressure at 121/70 9 mmHg, pulse at 79 bpm and oxygen saturation 97% in room air. Patient also completed 3x4 inch steps and 2 x6 inch steps while holding on to both rails using a step to pattern, reported 1/10 pain on the right knee after activity with blood pressure at 129/80 2 mmHg, pulse 79 bpm, and oxygen saturation 97% in room air. Balance: Static Sitting: Good Dynamic Sitting: Good Static Standing: Fair Dynamic Standing: Fair Special Tests: Patient was able to perform partial sit to stand x 8 reps while holding onto Stedymachine handle Mobility Limitations Standardized Measure [facility] AM-PAC 6 clicks Basic Mobility Inpatient Short Form: Raw Score: 21 CMS Score: 29 % deficit Informed Consent/Education: Patient instructed in purpose of PT consult and plan of care. Assessment: Patient is a 47 year old male referred to physical therapy services with the diagnosis of primary unilateral osteoarthritis of the knee status post right patellofemoral replacement. Patient presents with clinical signs and symptoms consistent with mobility decline, balance impairment, and weakness as demonstrated by the following impairment level findings: 1. Impaired active range of motion both lower extremities 2. Impaired strength to right lower extremities 3. Impaired static/dynamic balance in standing 4. Reduced activity tolerance Impairments are contributing to the following functional limitations: 1. Increase dependence with bed mobility 2. Reduced independence with transfer skills 3. Decreased safety of mobility ADL 4. Increase completion time mobility ADLs 5. Increase fall risk Patient is assessed as a Moderate 05129 complexity based on the following: History: Patient is a 47-year-old male presenting with impairments and functional limitations resulting from postoperative status. Co-morbidities and past medical history as noted above. Examination: Functional limitations as noted above Presentation: Evolving Decision Making: Moderate complexity 9716 Goals: Goals X1 week 1. Supine-Sit modified independent 2. Sit-Supine modified independent 3. Sit-Stand modified independent 4. Stand-Sit modified independent 5. Bed-Chair modified independent 6. Chair-Bed modified independent 7. Independent with home exercise program 8. Balance good 9. Stairs for 12 steps using B rails for support using step through pattern 10 Gait 300 feet with SC modified independent Plan of Care/Treatment Plan: 1-2x/day, 7 days/week x 1 week. Plan of care has been reviewed with the TALENT SOLUTIONS MANAGER providing the service under Physical Therapy direction. Initiate Physical Therapy intervention for strengthening, bed mobility, transfers, gait, stairs, balance training, use of assistive device. DISCHARGE RECOMMENDATIONS: Return home with family as previously. Patient has a cane at home which she may be able to use. Patient may benefit from a short- term home health services once discharged in order to facilitate a smoother transition to home, to evaluate home safety, and to reduce fall risk. TREATMENT CODE/TIME: 45522 25 minutes, 70776 20 minutes, 43049 10 minutes beginning at 10:15 AM and 10:41 AM. Thank you for this referral. Pinky Hopper, PT, DPT, CLT [facility]
--- NOTE | 2018-06-24 12:31 | W.PM.DS.N ---
Date of service: 06/24/18 Time of Service: 12:31 DS: Diagnosis Discharge Diagnosis (1) Osteoarthritis of right patellofemoral joint: Status: Chronic Discharge Plan Disposition Patient Disposition: HOME Condition: Good Discharge Details Reason For Visit: RIGHT KNEE DJD Admit Date/Time: 06/23/18 08:04 Admit Provider: Hermes Hillman Attending Provider: Hermes Hillman Primary Care Provider: Colleen Mercado Hospital Course Hospital Course: Patient was admitted to the medical/surgical floor following the procedure. It was tolerated well without any notable medical, surgical, or anesthetic complications. Mobilization began postoperatively. The kraft catheter was removed and voiding spontaneously. Vitals were stable. Physical therapy worked with the patient and was cleared for discharge home. No acute medical issues. Home Meds and New Rx's Prescriptions: New acetaminophen 500 mg tablet 500 mg PO Q6H PRN PRN (Reason: pain) Qty: 90 RF: 3 hydromorphone 2 mg tablet 2 mg PO Q4H PRN (Reason: pain) Qty: 18 RF: 0 aspirin [Aspir-81] 81 mg tablet,delayed release (DR/EC) 81 mg PO BID PRN (Reason: dvt) Qty: 60 RF: 0 meloxicam 7.5 mg tablet 7.5 mg PO BID Qty: 60 RF: 0 Continued clonazepam 0.5 mg tablet 0.5 mg PO BID PRNRF: 0 gabapentin 800 mg tablet 800 mg PO TID Qty: 90 RF: 5 PROVENTIL HFA 18 GM HFA.AER.AD 1 puff Inhalation Q4H PRN 7 Days Qty: 2 RF: 6 levetiracetam [Keppra] 500 MG tablet 500 mg PO BID RF: 0 Myrbetriq 25 MG tablet extended release 24 hr 25 mg PO DAILY 1 Days Qty: 30 RF: 11 underpads [Air Permeable Underpad] 1 EACH pad 1 ea Miscellaneous Q4H PRN PRNQty: 300 RF: 12 Depend Underwear For Women S-M 1 EACH misc 1 ea Miscellaneous Q4H PRN PRNQty: 300 RF: 12 aripiprazole [Abilify] 5 MG tablet 5 mg PO DAILY Qty: 90 RF: 3 fluoxetine 40 mg capsule 80 mg PO DAILY Qty: 60 RF: 6 tamsulosin [Flomax] 0.4 mg capsule 0.4 mg PO DAILY Qty: 90 RF: 3 divalproex [Depakote ER] 500 mg tablet extended release 24 hr 1,500 mg PO HS Qty: 270 RF: 0 Discontinued meloxicam 15 mg tablet 15 mg PO DAILY PRN (Reason: right knee pain) Qty: 30 RF: 0 Discharge Instructions Instructions: Knee Replacement (DC) Additional Instructions: Dr. Hillman?s Total Knee Discharge Instructions Activity: The most important activity is to walk. You should try to take short walks a few times a day. It is important that when resting you work on keeping the knee straight. Avoid putting a pillow behind the knee as this will encourage flexion. Work on range of motion exercises as provided by Physical Therapy. - Start home health physical therapy. - You should wear the BEATRICE hose on both legs for 4 weeks. Dressing: Keep the surgical dressing in place for at least one week. After the first week it may be removed and replace with light gauze and tape or nothing. It may get wet after 3 days but avoid soaking the dressing. If it gets wet, just lightly pat dry. Medications: - You should take Tylenol and anti-inflammatory (Meloxicam) as your primary pain control medications - You have been prescribed a stronger pain medication (Dilaudid) for breakthrough pain, take as needed as prescribed. - You will be taking Aspirin 81mg twice a day for DVT prevention unless instructed otherwise. - If you have constipation you should take Colace or Miralax (both [id number]). It takes most people 3-4 days to have a bowel movement. Follow-up: 2 weeks 1. Encounter Date and Reason I certify that WAYNE HUDSON was seen by Hermes Hillman MD on 06/24/18 and that I had a [id number] encounter with this patient that meets the physician face to face encounter requirements. 2. Clinical Findings Supporting Skilled Need and Homebound Status I certify that home health services are medically necessary, include either intermittent long-term and/or physical/speech therapy, and that this patient is homebound in that absences from the home require considerable and taxing effort and are infrequent or of short duration, or are attributable to the need to receive medical care. [X] (a) Attached documentation from encounter provides clinical findings supporting skilled need and homebound status (including what assistance patient requires to leave the home). The encounter with the patient was in whole, or in part, for the following medical condition, which is the primary reason for home health care: RIGHT KNEE DJD Alf: Physical Therapy: Wayne requires home based physical therapy to assist with recovery after a right patellofemoral replacement. He has significant weakness and motion restrictions which limit his ability to ambulate and perform activities of daily living without significant assistance. Exercise should focus primarily on range of motion to start, with an emphasis on extension, followed by gradual strengthening. Speech Therapy: Homebound: Wayne is unable to leave home due to significant limitations with gait and strength. He is also unable to drive due to other medical issues. He is unable to leave his home without assistance. 3. Certification and Authentication I certify that I composed the above information based on my clinical judgement relating to this patient's medical condition and, if applicable, clinical findings communicated to me by the NPP or inpatient physician who performed the Home Health Referral. All further orders will be obtained through Dr. Hillman Stand Alone Forms: Nursing Discharge Form Referrals: Hermes Hillman MD [ [facility] ST[facility]FF PHYSICIAN] - (r knee 2 weeks) Activity:: Activity as Tolerated Equipment/Supplies:: Walker Diet:: As Tolerated Discharge Orders Discharge Orders: Discharge Order (Routine); Ordered 06/24/18 Ordered By: Hermes Hillman DS: Data Vitals/I&O Vitals and I&O: Vital Signs Temperature 36.7 C 06/24/18 08:04 Temperature Source Tympanic 06/24/18 08:04 Pulse 72 06/24/18 08:04 Pulse Rhythm Regular 06/24/18 07:52 Respiratory Rate 16 06/24/18 10:29 Respiratory Effort Non-Labored 06/24/18 07:52 Respiratory Depth Normal 06/24/18 07:52 Respiratory Pattern Normal 06/24/18 07:52 Blood Pressure 133/82 06/24/18 08:04 Pulse Oximetry 99 06/24/18 08:04 Oxygen Delivery Method Room Air 06/24/18 08:04 Oxygen Flow Rate 0 06/24/18 08:04 Pain Level 0 06/24/18 10:29 Intake & Output 06/23/18 06/24/18 06/24/18 23:59 11:59 23:59 Intake Total 2036.667 / 2086.667 1674.667 / 1674.667 Output Total 1275 / 1275 1400 / 1400 Balance 761.667 / 811.667 274.667 / 274.667 Intake: IV 2036.667 / 2086.667 1284.667 / 1284.667 Oral 390 / 390 Output: Urine 1175 / 1175 1400 / 1400 Estimated Blood Loss 100 / 100 Other: Urine Color Yellow Yellow Urine Appearance Clear Clear Urine Odor Normal Comment PACU. Emesis Description None Voiding Methods Urinal [facility] Medical History Right knee pain (Chronic) Knee pain (Chronic) Urinary incontinence (Chronic 11/18/17) Tourette disease (Chronic 11/19/16) Tobacco use disorder (Chronic 07/03/16) Primary osteoarthritis of right knee (Chronic 03/31/17) Meningioma, cerebral (Chronic 10/22/17) Mass, brain (Chronic 09/24/17) IVH (intraventricular hemorrhage) (Chronic 09/24/17) Cerebral tumor (Chronic 06/26/17) BPH (benign prostatic hyperplasia) (Chronic 08/13/17) Anxiety (Chronic 11/19/16) Bipolar depression (Chronic 03/31/17) Seizure disorder (Chronic 11/19/16) Hydrocephalus (Resolved 06/26/17) Migraine (Chronic 07/02/16) Anxiety Carpal tunnel syndrome Depression Diverticulitis Surgical History S/P craniotomy (Chronic 10/22/17) 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) Hernia Repair-L (04/13/94) rgt craiotomy for mass (09/24/17) Family History Mother Essential hypertension Cerebral aneurysm Father Neoplasm Maternal Grandfather Heart disease Neoplasm Maternal Grandmother Neoplasm Social History adopted: No foster care: No household members: spouse and children lives independently: Yes number of children: 5 highest education level completed: high school graduate current occupational status: unemployed and disabled pets and animals: Yes pets and animals: dog(s) current gender identity: male what type of physical activity do you participate in: none Smoking and Tabacco status: Current every day quit status: not considering quitting alcohol intake: never substance use type: marijuana Seatbelt use: always Drives intoxicated or rides with intoxicated courtesy driver: No water heater temp set < 120 deg: Yes working smoke detector in home: Yes carbon monox detector in home: Yes
--- NOTE | 2018-06-25 15:06 | PT.INDS ---
Date of service: 06/25/18 PT Notes Inpatient Physical Therapy Discharge Summary Date: 06/24/2018 Referring Doctor: Hermes Hillman MD PT Orders: PT CONSULT: S/P right patellofemoral replacement Precautions: Fall. Standard. Patient Profile/Admitting Diagnosis: Orders were received for this 47-year-old male status post right patellofemoral replacement due to right knee osteoarthritis on 06/23/2018. No movement restrictions given, weightbearing as tolerated on the right LE. PMHX: Medical Histor :Right knee arthritis/chondromalacia, seizures, confusion, memory loss, IVH, brain lesion, acquired obstructive hydrocephalus, atypical intracranial meningioma. He smokes 1 pack/day. History of illicit drug use about 5 times per week. History of ETOH use. History of utilizing chewing tobacco, quit 3 years ago. Social History/Home Situation: Patient lives with ex- Edith and 2 sons in a two-story house with 12 steps to the second floor where his bedroom is, 3 steps to enter with rails on both sides. Family will be providing assistance with meal preparation and chores. Prior to admission, patient has been independent with all aspects of ADLs. Equipment Owned/DME: Straight cane Subjective: Patient states that he is a little lightheaded and could not entirely feel his left leg. He is agreeable to a PT consult though. Objective: General Observation: Patient is seen resting in bed at the time of evaluation, HOB elevated 30 degrees. IV in right UE. Posey catheter has just been removed. Mental Status: Alert and oriented x3. Pain: Denies. ROM: Right Upper Extremity: WFL Left Upper Extremity: WFL Right Lower Extremity: Patient able to slide heel upward to about 80-90 degrees of knee flexion an in that position, he is able to resist minimally rolling of the knee outward and inward without any pain. About 5 degrees of terminal knee extension lacking. He is able to do 5 straight leg raises without report of pain or discomfort. Other joints WFL. Left Lower Extremity: WFL Strength: Right Upper Extremity: WFL Left Upper Extremity: WFL Right Lower Extremity: Hip flexors 4-/5. Knee flexors 4-/5. Knee extensors 3-/5. Ankle dorsiflexors/plantar flexors 5/5. Left Lower Extremity: WFL Bed Mobility/Transfers: Rolling supervision Supine to sit supervision Sit to supine supervision Sit to stand supervision Stand to sit supervision Bed to chair SBA Chair to bed SBA Gait: Patient able to tolerate level surface ambulation of about 20-30 feet using FWW with report of lightheadedness, CGA given for safety and during directional changes, still no pain reported with activity, blood pressure at 121/70 9 mmHg, pulse at 79 bpm and oxygen saturation 97% in room air. Patient also completed 3x4 inch steps and 2 x6 inch steps while holding on to both rails using a step to pattern, reported 1/10 pain on the right knee after activity with blood pressure at 129/80 2 mmHg, pulse 79 bpm, and oxygen saturation 97% in room air. Balance: Static Sitting: Good Dynamic Sitting: Good Static Standing: Fair Dynamic Standing: Fair Special Tests: Patient was able to perform partial sit to stand x 8 reps while holding onto Stedymachine handle Mobility Limitations Standardized Measure [facility] AM-PAC 6 clicks Basic Mobility Inpatient Short Form: Raw Score: 21 CMS Score: 29 % deficit Informed Consent/Education: Patient instructed in purpose of PT consult and plan of care. Assessment: Patient is a 47 year old male referred to physical therapy services with the diagnosis of primary unilateral osteoarthritis of the knee status post right patellofemoral replacement. Patient presents with clinical signs and symptoms consistent with mobility decline, balance impairment, and weakness as demonstrated by the following impairment level findings: 1. Impaired active range of motion both lower extremities 2. Impaired strength to right lower extremities 3. Impaired static/dynamic balance in standing 4. Reduced activity tolerance Impairments are contributing to the following functional limitations: 1. Increase dependence with bed mobility 2. Reduced independence with transfer skills 3. Decreased safety of mobility ADL 4. Increase completion time mobility ADLs 5. Increase fall risk Patient is assessed as a Moderate 34808 complexity based on the following: History: Patient is a 47-year-old male presenting with impairments and functional limitations resulting from postoperative status. Co-morbidities and past medical history as noted above. Examination: Functional limitations as noted above Presentation: Evolving Decision Making: Moderate complexity 19207 Goals: Goals X1 week 1. Supine-Sit modified independent NOT MET 2. Sit-Supine modified independent NOT MET 3. Sit-Stand modified independent NOT MET 4. Stand-Sit modified independent NOT MET 5. Bed-Chair modified independent NOT MET 6. Chair-Bed modified independent NOT MET 7. Independent with home exercise program NOT MET 8. Balance good NOT MET 9. Stairs for 12 steps using B rails for support using step through pattern MET 10 Gait 300 feet with SC modified independent NOT MET DISCHARGE RECOMMENDATIONS: Patient goes home today with significant other to place of residence as previously. Patient has a cane at home which he may be able to use. Patient may benefit from a short-term home health services once discharged in order to facilitate a smoother transition to home, to evaluate home safety, and to reduce fall risk. TREATMENT CODE/TIME: 17441 25 minutes, 20873 20 minutes, 02754 10 minutes beginning at 10:15 AM and 10:41 AM. Thank you for this referral. Pinky Hopper, PT, DPT, CLT [facility]
--- NOTE | 2018-06-25 15:11 | INDS_ITS ---
Date of service: 06/25/18 PT Notes Inpatient Physical Therapy Discharge Summary Date: 06/24/2018 Referring Doctor: Hermes Hillman MD PT Orders: PT CONSULT: S/P right patellofemoral replacement Precautions: Fall. Standard. Patient Profile/Admitting Diagnosis: Orders were received for this 47-year-old male status post right patellofemoral replacement due to right knee osteoarthritis on 06/23/2018. No movement restrictions given, weightbearing as tolerated on the right LE. PMHX: Medical Histor :Right knee arthritis/chondromalacia, seizures, confusion, memory loss, IVH, brain lesion, acquired obstructive hydrocephalus, atypical intracranial meningioma. He smokes 1 pack/day. History of illicit drug use about 5 times per week. History of ETOH use. History of utilizing chewing tobacco, quit 3 years ago. Social History/Home Situation: Patient lives with ex- Edith and 2 sons in a two-story house with 12 steps to the second floor where his bedroom is, 3 steps to enter with rails on both sides. Family will be providing assistance with meal preparation and chores. Prior to admission, patient has been independent with all aspects of ADLs. Equipment Owned/DME: Straight cane Subjective: Patient states that he is a little lightheaded and could not entirely feel his left leg. He is agreeable to a PT consult though. Objective: General Observation: Patient is seen resting in bed at the time of evaluation, HOB elevated 30 degrees. IV in right UE. Posey catheter has just been removed. Mental Status: Alert and oriented x3. Pain: Denies. ROM: Right Upper Extremity: WFL Left Upper Extremity: WFL Right Lower Extremity: Patient able to slide heel upward to about 80-90 degrees of knee flexion an in that position, he is able to resist minimally rolling of the knee outward and inward without any pain. About 5 degrees of terminal knee extension lacking. He is able to do 5 straight leg raises without report of pain or discomfort. Other joints WFL. Left Lower Extremity: WFL Strength: Right Upper Extremity: WFL Left Upper Extremity: WFL Right Lower Extremity: Hip flexors 4-/5. Knee flexors 4-/5. Knee extensors 3- /5. Ankle dorsiflexors/plantar flexors 5/5. Left Lower Extremity: WFL Bed Mobility/Transfers: Rolling supervision Supine to sit supervision Sit to supine supervision Sit to stand supervision Stand to sit supervision Bed to chair SBA Chair to bed SBA Gait: Patient able to tolerate level surface ambulation of about 20-30 feet using FWW with report of lightheadedness, CGA given for safety and during directional changes, still no pain reported with activity, blood pressure at 121/70 9 mmHg, pulse at 79 bpm and oxygen saturation 97% in room air. Patient also completed 3x4 inch steps and 2 x6 inch steps while holding on to both rails using a step to pattern, reported 1/10 pain on the right knee after activity with blood pressure at 129/80 2 mmHg, pulse 79 bpm, and oxygen saturation 97% in room air. Balance: Static Sitting: Good Dynamic Sitting: Good Static Standing: Fair Dynamic Standing: Fair Special Tests: Patient was able to perform partial sit to stand x 8 reps while holding onto Stedymachine handle Mobility Limitations Standardized Measure [facility] AM-PAC 6 clicks Basic Mobility Inpatient Short Form: Raw Score: 21 CMS Score: 29 % deficit Informed Consent/Education: Patient instructed in purpose of PT consult and plan of care. Assessment: Patient is a 47 year old male referred to physical therapy services with the diagnosis of primary unilateral osteoarthritis of the knee status post right patellofemoral replacement. Patient presents with clinical signs and symptoms consistent with mobility decline, balance impairment, and weakness as demonstrated by the following impairment level findings: 1. Impaired active range of motion both lower extremities 2. Impaired strength to right lower extremities 3. Impaired static/dynamic balance in standing 4. Reduced activity tolerance Impairments are contributing to the following functional limitations: 1. Increase dependence with bed mobility 2. Reduced independence with transfer skills 3. Decreased safety of mobility ADL 4. Increase completion time mobility ADLs 5. Increase fall risk Patient is assessed as a Moderate 99312 complexity based on the following: History: Patient is a 47-year-old male presenting with impairments and functional limitations resulting from postoperative status. Co-morbidities and past medical history as noted above. Examination: Functional limitations as noted above Presentation: Evolving Decision Making: Moderate complexity 71549 Goals: Goals X1 week 1. Supine-Sit modified independent NOT MET 2. Sit-Supine modified independent NOT MET 3. Sit-Stand modified independent NOT MET 4. Stand-Sit modified independent NOT MET 5. Bed-Chair modified independent NOT MET 6. Chair-Bed modified independent NOT MET 7. Independent with home exercise program NOT MET 8. Balance good NOT MET 9. Stairs for 12 steps using B rails for support using step through pattern MET 10 Gait 300 feet with SC modified independent NOT MET DISCHARGE RECOMMENDATIONS: Patient goes home today with significant other to place of residence as previously. Patient has a cane at home which he may be able to use. Patient may benefit from a short-term home health services once discharged in order to facilitate a smoother transition to home, to evaluate home safety, and to reduce fall risk. TREATMENT CODE/TIME: 03750 25 minutes, 02504 20 minutes, 84313 10 minutes beginning at 10:15 AM and 10:41 AM. Thank you for this referral. Pinky Hopper, PT, DPT, CLT [facility]
== END 2018-06-24 13:25 | disposition home or self-care (01) | DRG 470 ==
LOC: PDS 10:47 → MS 16:06
PROVIDERS: Admitting Provider Student in an Organized Health Care Education/Training Program; PCP Nurse Practitioner; Visit Provider Student in an Organized Health Care Education/Training Program
PROC: 0SRC0N9 Replacement of Right Knee Joint with Patellofemoral Synthetic Substitute, Cemented, Open Approach (ICD-10-PCS; CPT 27447; principal; 2018-06-23 11:30)
DX: M17.11 Unilateral primary osteoarthritis, right knee (principal); Z96.651 Presence of right artificial knee joint; F17.210 Nicotine dependence, cigarettes, uncomplicated; F32.9 Major depressive disorder, single episode, unspecified
CPT/HCPCS: 27442; 64447; 76942; 97110; 97162; 97530; NC; J0690; J1100; J1885; J2370; J2405; J3490

== ENCOUNTER → 2018-06-23 08:10 | Outpatient (BNVA) | payer MEDICARE, MEDICAID, SELFPAY | PROVIDERS: PCP Nurse Practitioner; Referring Provider Nurse Practitioner; Visit Provider Student in an Organized Health Care Education/Training Program | DX: R69 Illness, unspecified (principal) | CPT/HCPCS: 27442 ==

== ENCOUNTER 2018-08-05 12:18 | Outpatient (REF) | payer MEDICAID, SELFPAY ==
[2018-08-05 12:45] LABS: Clarity CLEAR; Nucleated Cells 283 /MM3 (0-0); Source R KNEE
[2018-08-05 13:28] LABS: Mononuclear Cells 85 % (0-0); Polynuclear Cells 12 % (0-0)
[2018-08-05 13:29] LABS: Other Cells 3 0 (0-0)
== END 2018-08-05 12:38 ==
LOC: LBN 12:18
PROVIDERS: PCP Nurse Practitioner; Visit Provider Student in an Organized Health Care Education/Training Program
DX: M25.461 Effusion, right knee (principal); T84.84XA Pain due to internal orthopedic prosthetic devices, implants and grafts, initial encounter
CPT/HCPCS: 87070; 87205; 89051

== ENCOUNTER 2018-08-13 09:19 | Outpatient (CLI) | payer MEDICARE, MEDICAID, SELFPAY ==
[2018-08-13 09:47] LABS: VALPROIC ACID 117.7 ug/mL (50-100)
== END 2018-08-13 09:39 ==
PROVIDERS: PCP Nurse Practitioner; Visit Provider Psychiatry & Neurology Neurology
DX: F31.30 Bipolar disorder, current episode depressed, mild or moderate severity, unspecified (principal); Z51.81 Encounter for therapeutic drug level monitoring
CPT/HCPCS: 36415; 80164

== ENCOUNTER → 2018-08-24 12:40 | Outpatient (BNVA) | payer MEDICARE, MEDICAID, SELFPAY | PROVIDERS: PCP Nurse Practitioner; Visit Provider Psychiatry & Neurology Neurology | DX: D32.0 Benign neoplasm of cerebral meninges (principal); G40.909 Epilepsy, unspecified, not intractable, without status epilepticus; G43.909 Migraine, unspecified, not intractable, without status migrainosus; E22.2 Syndrome of inappropriate secretion of antidiuretic hormone; R25.1 Tremor, unspecified; R53.83 Other fatigue; E87.1 Hypo-osmolality and hyponatremia; R41.3 Other amnesia | CPT/HCPCS: 99214 ==

== ENCOUNTER 2018-08-26 16:45 | Outpatient (REF) | payer MEDICARE, MEDICAID, SELFPAY ==
[2018-08-26 19:41] LABS: Anion Gap 8.6 mmol/L (3-11); BUN 5 mg/dL (7-18); CO2 26.4 mmol/L (21.0-32.0); CREATININE 0.62 mg/dL (0.70-1.30); Calcium 8.7 mg/dL (8.5-10.1); Chloride 91 mmol/L (98-107); Glucose 91 mg/dL (70-100); Potassium 4.4 mmol/L (3.5-5.1); Sodium 126 mmol/L (136-145)
== END 2018-08-26 17:05 ==
LOC: LBN 16:45
PROVIDERS: PCP Nurse Practitioner; Visit Provider Nurse Practitioner
DX: E87.1 Hypo-osmolality and hyponatremia (principal)
CPT/HCPCS: 80048

== ENCOUNTER 2018-08-31 04:17 | Inpatient (IN) | payer MEDICARE, MEDICAID, SELFPAY ==
[2018-08-31] VITALS (24 sets, daily range): BP systolic 106–122; BP diastolic 62–90; PULSE 55–79; RESP 12–16; TEMP 35.5–36.6; O2SAT 95–99
--- NOTE | 2018-08-31 04:32 | DI.CT_ITS ---
SYMPTOMS/DIAGNOSIS: SEIZURE-LIKE ACTIVITY, H/O CEREBRAL TUMOR S/P CRANIOTOMY IN 09/[address]: Comparison is made with May,. A right superior frontal craniotomy is again noted. There is a stable area of encephalomalacia in the superior right frontal region, which may be related to a previous ventricular shunt. No acute hemorrhage, mass or infarct is seen. There is no change in ventricular size. The orbits, sinuses and mastoid air cells are unremarkable. IMPRESSION: Right frontal craniotomy and small area of encephalomalacia. No acute abnormality.
--- NOTE | 2018-08-31 04:33 | W.ED.GENAD ---
Discharge Plan Disposition Patient Disposition: [facility] INPATIENT Condition: Stable Discharge Details Chief Complaint: Seizure Clinical Impression: Acute hyponatremia Admit Date/Time: 08/31/18 05:47 Admit Provider: Jamie Mireles Attending Provider: Jamie Mireles Primary Care Provider: Colleen Mercado ED Provider: Luis Duvall Discharge Data Discharge Date/Time-TO BE ENTERED AT DEPARTURE: 08/31/18 06:19 Medical Decision Making 47-year-old male presents from home with his partner. He has a history of partial complex seizures in which he closes his eyes and is unresponsive. He will note a recent taper off of Depakote while continuing levetiracetam. Tonight he had a series of seizures at home in which he became unresponsive and appeared mildly confused. There was no tonic-clonic seizure. He arrives with normal vital signs, he is interactive and conversant. Differential diagnosis includes hyponatremia, breakthrough seizure, dehydration. IV access established, patient given fluid bolus, referred for laboratory testing. CT of the head obtained given history of meningioma. CT scan without acute intra-or cranial findings. There is right frontal encephalomalacia. Patient sodium is 121. 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 I do feel this merits admission criteria as it is moderate to severe hyponatremia. Levetiracetam level is pending. The valproic acid level is 62. Lab Data Lab results reviewed: Yes I reviewed the patient's lab results. Laboratory Results - last 24 hr 08/31/18 08/31/18 08/31/18 04:20 04:20 04:20 WBC 5.88 RBC 4.86 Hgb 15.3 Hct 41.9 MCV 86.2 MCH 31.5 MCHC 36.5 H RDW 13.1 Plt Count 197 MPV 9.8 Immature Gran % 0.2 Neutrophils % 62.5 Lymphocytes % 28.2 Monocytes % 7.8 Eosinophils % 1.0 Basophils % 0.3 Absolute Neutrophils 3.67 Absolute Lymphocytes 1.66 Absolute Monocytes 0.46 Absolute Eosinophils 0.06 Absolute Basophils 0.02 Sodium 121 L* Potassium 4.2 Chloride 87 L Carbon Dioxide 25.9 Anion Gap 8.1 BUN 11 Creatinine 0.78 Estimated GFR/1.73 m2 >= 60.00 Glucose 91 Calcium 8.6 Magnesium 1.8 Total Bilirubin 0.5 AST 11 L ALT 14 Alkaline Phosphatase 73 Total Protein 7.1 Albumin 4.0 Total Valproic Acid 62.4 HPI General Mode of arrival: ambulatory. Date/Time Provider Initiated Documentation: 08/31/18 04:23. Limitations to Documentation: no limitations. Information obtained by: patient and family. History of Present Illness 47 year old M presents to the emergency department with the chief complaint of Seizure-like activity at home, recent decrease in Depakote, described as moderate, Patient started experiencing this hour(s) and it has been intermittent. No relieving factors improve symptom(s), No exacerbating factors reported . Patient notes no other symptoms.; denies fever/chills and headaches. Patient did receive the following treatments prior to arrival, none Related Data Home Medications Medication Instructions Recorded Confirmed Depend Underwear For Women S-M #300 ea 12/09/17 08/26/18 underpads [Air Permeable Underpad] #300 ea 12/09/17 08/26/18 naloxone [Narcan] 1 spray KRYSTAL ONCE PRN #2 each 06/24/18 08/31/18 aripiprazole 5 mg tablet 5 mg PO DAILY #30 tab-cap 07/29/18 08/31/18 fluoxetine 40 mg capsule 80 mg PO DAILY #60 tab-cap 07/29/18 08/31/18 levetiracetam 500 mg tablet 500 mg PO BID #60 tab-cap 07/29/18 08/31/18 mirabegron ER 25 mg 25 mg PO DAILY 1 Days #30 tab-cap 07/29/18 08/31/18 tablet,extended release 24 hr tamsulosin 0.4 mg capsule 0.4 mg PO DAILY #30 tab-cap 07/29/18 08/31/18 hydrocodone 5 mg-acetaminophen 325 1 tab PO Q8H PRN #15 tab MDD 15mg 08/24/18 08/31/18 mg tablet methylphenidate 10 mg tablet 10 mg PO DIRECTED #60 tab MDD 08/24/18 08/31/18 20mg daily meloxicam 7.5 mg PO DAILY PRN 08/31/18 08/31/18 Previous Rx's Medication Instructions Recorded naloxone [Narcan] 1 spray KRYSTAL ONCE PRN #2 each 06/24/18 aripiprazole 5 mg tablet 5 mg PO DAILY #30 tab-cap 07/29/18 fluoxetine 40 mg capsule 80 mg PO DAILY #60 tab-cap 07/29/18 levetiracetam 500 mg tablet 500 mg PO BID #60 tab-cap 07/29/18 mirabegron ER 25 mg 25 mg PO DAILY 1 Days #30 tab-cap 07/29/18 tablet,extended release 24 hr tamsulosin 0.4 mg capsule 0.4 mg PO DAILY #30 tab-cap 07/29/18 hydrocodone 5 mg-acetaminophen 325 1 tab PO Q8H PRN #15 tab MDD 15mg 08/24/18 mg tablet methylphenidate 10 mg tablet 10 mg PO DIRECTED #60 tab MDD 08/24/18 20mg daily Allergies Allergy/AdvReac Type Severity Reaction Status Date / Time oxycodone HCl [From Percocet] AdvReac Intermediate VOMITING Verified 08/31/18 04:28 General Stated Complaint: CVA/TIA MIRIAM: 2 Review of Systems Review of Systems No fever, no fall, no injury. Has chronic low sodium. 6 systems reviewed and otherwise - [facility] Medical History Right knee pain (Chronic) Knee pain (Chronic) Urinary incontinence (Chronic 11/18/17) Tourette disease (Chronic 11/19/16) Tobacco use disorder (Chronic 07/03/16) Primary osteoarthritis of right knee (Chronic 03/31/17) Meningioma, cerebral (Chronic 10/22/17) Mass, brain (Chronic 09/24/17) IVH (intraventricular hemorrhage) (Chronic 09/24/17) Cerebral tumor (Chronic 06/26/17) BPH (benign prostatic hyperplasia) (Chronic 08/13/17) Anxiety (Chronic 11/19/16) Bipolar depression (Chronic 03/31/17) Seizure disorder (Chronic 11/19/16) Hydrocephalus (Resolved 06/26/17) Migraine (Chronic 07/02/16) Anxiety Carpal tunnel syndrome Depression Diverticulitis Surgical History S/P craniotomy (Chronic 10/22/17) 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) Hernia Repair-L (04/13/94) rgt craiotomy for mass (09/24/17) Family History Mother Essential hypertension Cerebral aneurysm Father Neoplasm Maternal Grandfather Heart disease Neoplasm Maternal Grandmother Neoplasm Social History Smoking/Tobacco Use Status: Current every day Tobacco Type: cigarettes Quit status: not considering quitting Alcohol Intake: never Drug use: Never Substance use type: marijuana Adopted: No Foster care: No Household members: spouse and children Number of Children: 5 Pets and animals: Yes Pets and animals: dog(s) Current gender identity: male What type of physical activity do you participate in: none Seatbelt use: always Drive intox or ride w/intox subway train driver: No Water heater temp set <120 deg: Yes Working smoke detector in home: Yes Carbon monox detector in home: Yes Do you feel safe at home: Yes Do you feel safe in your relationship?: Yes Exam Narrative Exam Narrative: GEN: awake, alert, oriented 3. Pleasant, well groomed, interactive. HEAD: Normocephalic, atraumatic ENT: Mucous membranes moist, oropharynx unremarkable, External ear exam unremarkable EYES: PERRL, EOMI NECK: Full ROM, no JAYSHREE, no menigismus CHEST/RESP: Nontender, good air movement bilaterally with few scattered bilateral end expiratory wheeze wheeze. CARDIOVASCULAR: RRR, no murmur, rub trudy. 2+ Rad pulse bilateral ABDOMEN: Soft, nontender, no mass. +Bowel sounds EXT: Full ROM, no edema, no rash Neuro: Grossly normal neurologic exam, conversant, interactive. Psych: Speech fluent, thoughts congruent, affect flat Course Vital Signs Temperature 36.5 C 08/31/18 04:23 Pulse 67 08/31/18 04:23 Respiratory Rate 14 08/31/18 04:23 Blood Pressure 119/82 08/31/18 04:23 Pulse Oximetry 99 08/31/18 04:23 Temperature 36.5 C 08/31/18 04:23 Temperature Source Skin 08/31/18 04:23 Pulse 67 08/31/18 04:23 Respiratory Rate 14 08/31/18 04:23 Respiratory Effort Non-Labored 08/31/18 04:25 Blood Pressure 119/82 08/31/18 04:23 Blood Pressure Position Supine 08/31/18 04:23 Pulse Oximetry 99 08/31/18 04:23 Oxygen Delivery Method Room Air 08/31/18 04:23 Oxygen Flow Rate 0 08/31/18 04:23 Pain Level 0 08/31/18 04:23
--- NOTE | 2018-08-31 04:36 | ED.GENADUL_ITS ---
Discharge Plan Disposition Patient Disposition: [facility] INPATIENT Condition: Stable Discharge Details Chief Complaint: Seizure Clinical Impression: Acute hyponatremia Admit Date/Time: 08/31/18 05:47 Admit Provider: Jamie Mireles Attending Provider: Jamie Mireles Primary Care Provider: Colleen Mercado ED Provider: Luis Duvall Discharge Data Discharge Date/Time-TO BE ENTERED AT DEPARTURE: 08/31/18 06:19 Medical Decision Making 47-year-old male presents from home with his partner. He has a history of partial complex seizures in which he closes his eyes and is unresponsive. He will note a recent taper off of Depakote while continuing levetiracetam. Tonight he had a series of seizures at home in which he became unresponsive and appeared mildly confused. There was no tonic-clonic seizure. He arrives with normal vital signs, he is interactive and conversant. Differential diagnosis includes hyponatremia, breakthrough seizure, dehydration. IV access established, patient given fluid bolus, referred for laboratory testing. CT of the head obtained given history of meningioma. CT scan without acute intra-or cranial findings. There is right frontal encephalomalacia. Patient sodium is 121. 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 I do feel this merits admission criteria as it is moderate to severe hyponatremia. Levetiracetam leve l is pending. The valproic acid level is 62. Lab Data Lab results reviewed: Yes I reviewed the patient's lab results. Laboratory Results - last 24 hr 08/31/18 08/31/18 08/31/18 04:20 04:20 04:20 WBC 5.88 RBC 4.86 Hgb 15.3 Hct 41.9 MCV 86.2 MCH 31.5 MCHC 36.5 H RDW 13.1 Plt Count 197 MPV 9.8 Immature Gran % 0.2 Neutrophils % 62.5 Lymphocytes % 28.2 Monocytes % 7.8 Eosinophils % 1.0 Basophils % 0.3 Absolute Neutrophils 3.67 Absolute Lymphocytes 1.66 Absolute Monocytes 0.46 Absolute Eosinophils 0.06 Absolute Basophils 0.02 Sodium 121 L* Potassium 4.2 Chloride 87 L Carbon Dioxide 25.9 Anion Gap 8.1 BUN 11 Creatinine 0.78 Estimated GFR/1.73 m2 >= 60.00 Glucose 91 Calcium 8.6 Magnesium 1.8 Total Bilirubin 0.5 AST 11 L ALT 14 Alkaline Phosphatase 73 Total Protein 7.1 Albumin 4.0 Total Valproic Acid 62.4 HPI General Mode of arrival: ambulatory . Date/Time Provider Initiated Documentation: 08/31/18 04:23 . Limitations to Documentation: no limitations . Information obtained by: patient and family . History of Present Illness 47 year old M presents to the emergency department with the chief complaint of Seizure-like activity at home, recent decrease in Depakote, described as moderate, Patient started experiencing this hour(s) and it has been intermittent. No relieving factors improve symptom(s), No exacerbating factors reported . Patient notes no other symptoms.; denies fever/chills and headaches. Patient did receive the following treatments prior to arrival, none Related Data Home Medications Medication Instructions Recorded Confirmed Depend Underwear For Women S-M #300 ea 12/09/17 08/26/18 underpads [Air Permeable Underpad] #300 ea 12/09/17 08/26/18 naloxone [Narcan] 1 spray KRYSTAL ONCE PRN #2 each 06/24/18 08/31/18 aripiprazole 5 mg tablet 5 mg PO DAILY #30 tab-cap 07/29/18 08/31/18 fluoxetine 40 mg capsule 80 mg PO DAILY #60 tab-cap 07/29/18 08/31/18 levetiracetam 500 mg tablet 500 mg PO BID #60 tab-cap 07/29/18 08/31/18 mirabegron ER 25 mg 25 mg PO DAILY 1 Days #30 tab-cap 07/29/18 08/31/18 tablet,extended release 24 hr tamsulosin 0.4 mg capsule 0.4 mg PO DAILY #30 tab-cap 07/29/18 08/31/18 hydrocodone 5 mg-acetaminophen 325 1 tab PO Q8H PRN #15 tab MDD 15mg 08/24/18 08/31/18 mg tablet methylphenidate 10 mg tablet 10 mg PO DIRECTED #60 tab MDD 08/24/18 08/31/18 20mg daily meloxicam 7.5 mg PO DAILY PRN 08/31/18 08/31/18 Previous Rx's Medication Instructions Recorded naloxone [Narcan] 1 spray KRYSTAL ONCE PRN #2 each 06/24/18 aripiprazole 5 mg tablet 5 mg PO DAILY #30 tab-cap 07/29/18 fluoxetine 40 mg capsule 80 mg PO DAILY #60 tab-cap 07/29/18 levetiracetam 500 mg tablet 500 mg PO BID #60 tab-cap 07/29/18 mirabegron ER 25 mg 25 mg PO DAILY 1 Days #30 tab-cap 07/29/18 tablet,extended release 24 hr tamsulosin 0.4 mg capsule 0.4 mg PO DAILY #30 tab-cap 07/29/18 hydrocodone 5 mg-acetaminophen 325 1 tab PO Q8H PRN #15 tab MDD 15mg 08/24/18 mg tablet methylphenidate 10 mg tablet 10 mg PO DIRECTED #60 tab MDD 08/24/18 20mg daily Allergies Allergy/AdvReac Type Severity Reaction Status Date / Time oxycodone HCl [From Percocet] AdvReac Intermediate VOMITING Verified 08/31/18 04:28 General Stated Complaint: CVA/TIA MIRIAM: 2 Review of Systems Review of Systems No fever, no fall, no injury. Has chronic low sodium. 6 systems reviewed and otherwise - [facility] Medical History Right knee pain (Chronic) Knee pain (Chronic) Urinary incontinence (Chronic 11/18/17) Tourette disease (Chronic 11/19/16) Tobacco use disorder (Chronic 07/03/16) Primary osteoarthritis of right knee (Chronic 03/31/17) Meningioma, cerebral (Chronic 10/22/17) Mass, brain (Chronic 09/24/17) IVH (intraventricular hemorrhage) (Chronic 09/24/17) Cerebral tumor (Chronic 06/26/17) BPH (benign prostatic hyperplasia) (Chronic 08/13/17) Anxiety (Chronic 11/19/16) Bipolar depression (Chronic 03/31/17) Seizure disorder (Chronic 11/19/16) Hydrocephalus (Resolved 06/26/17) Migraine (Chronic 07/02/16) Anxiety Carpal tunnel syndrome Depression Diverticulitis Surgical History S/P craniotomy (Chronic 10/22/17) 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) Hernia Repair-L (04/13/94) rgt craiotomy for mass (09/24/17) Family History Mother Essential hypertension Cerebral aneurysm Father Neoplasm Maternal Grandfather Heart disease Neoplasm Maternal Grandmother Neoplasm Social History Smoking/Tobacco Use Status: Current every day Tobacco Type: cigarettes Quit status: not considering quitting Alcohol Intake: never Drug use: Never Substance use type: marijuana Adopted: No Foster care: No Household members: spouse and children Number of Children: 5 Pets and animals: Yes Pets and animals: dog(s) Current gender identity: male What type of physical activity do you participate in: none Seatbelt use: always Drive intox or ride w/intox cdl company flatbed driver: No Water heater temp set <120 deg: Yes Working smoke detector in home: Yes Carbon monox detector in home: Yes Do you feel safe at home: Yes Do you feel safe in your relationship?: Yes Exam Narrative Exam Narrative: GEN: awake, alert, oriented 3. Pleasant, well groomed, interactive. HEAD: Normocephalic, atraumatic ENT: Mucous membranes moist, oropharynx unremarkable, External ear exam unrema rkable EYES: PERRL, EOMI NECK: Full ROM, no JAYSHREE, no menigismus CHEST/RESP: Nontender, good air movement bilaterally with few scattered bilateral end expiratory wheeze wheeze. CARDIOVASCULAR: RRR, no murmur, rub trudy. 2+ Rad pulse bilateral ABDOMEN: Soft, nontender, no mass. +Bowel sounds EXT: Full ROM, no edema, no rash Neuro: Grossly normal neurologic exam, conversant, interactive. Psych: Speech fluent, thoughts congruent, affect flat Course Vital Signs Temperature 36.5 C 08/31/18 04:23 Pulse 67 08/31/18 04:23 Respiratory Rate 14 08/31/18 04:23 Blood Pressure 119/82 08/31/18 04:23 Pulse Oximetry 99 08/31/18 04:23 Temperature 36.5 C 08/31/18 04:23 Temperature Source Skin 08/31/18 04:23 Pulse 67 08/31/18 04:23 Respiratory Rate 14 08/31/18 04:23 Respiratory Effort Non-Labored 08/31/18 04:25 Blood Pressure 119/82 08/31/18 04:23 Blood Pressure Position Supine 08/31/18 04:23 Pulse Oximetry 99 08/31/18 04:23 Oxygen Delivery Method Room Air 08/31/18 04:23 Oxygen Flow Rate 0 08/31/18 04:23 Pain Level 0 08/31/18 04:23
[2018-08-31] MEDS: Normal Saline 1,000 ML 1000 ML IV (04:37)
[2018-08-31 04:47] LABS: Abs Immature Grans 0.01 k/cumm (0.0-0.09); Absolute Basophil Count 0.02 k/cumm (0.0-0.2); Absolute Eosinophil Count 0.06 k/cumm (0.0-0.7); Absolute Lymphocyte Count 1.66 k/cumm (1.2-3.4); Absolute Monocyte Count 0.46 k/cumm (0.11-0.7); Absolute Neutrophil Count 3.67 k/cumm (1.2-6.7); Basophils % 0.3; HCT 41.9 % (40.0-50.0); HGB 15.3 g/dL (13.5-17.5); Immature Grans % 0.2; Lymphocytes % 28.2; Mean Corp. HGB Concentration 36.5 g/dL (32.0-36.0); Mean Corpuscular Hemoglobin 31.5 pg (27.0-33.0); Mean Corpuscular Volume 86.2 fL (80-95); Mean Platelet Volume 9.8 fL (8.0-11.0); Monocytes % 7.8; Neutrophils % 62.5; Platelet Count 197 x1000/uL (130-400); RBC 4.86 m/cumm (4.50-6.00); RBC Distribution Width 13.1 % (11.8-14.1); White Blood Cell Count 5.88 k/cumm (4.4-10.8)
[2018-08-31 05:06] LABS: VALPROIC ACID 62.4 ug/mL (50-100)
--- NOTE | 2018-08-31 05:07 | DI.VRAD_ITS ---
EXAM: CT Head Without Contrast EXAM DATE/TIME: 08/31/2018 4:34 AM CLINICAL HISTORY: 47 years old, male; Signs and symptoms; Other: Seizure like activity; Prior surgery; Surgery date: 6+ months; Surgery type: Craniotomy for mass, multiple surgeries 09/2017; Patient HX: HX of cerebral mass TECHNIQUE: Imaging protocol: Axial computed tomography images of the head without contrast. Coronal and sagittal reformatted images were created and reviewed. Radiation optimization: All CT scans at this facility use at least one of these dose optimization techniques: automated exposure control; mA and/or kV adjustment per patient size (includes targeted exams where dose is matched to clinical indication); or iterative reconstruction. COMPARISON: CT HEAD CERVICAL SPINE WO 06/02/2018 10:37 AM FINDINGS: Brain: Minimal right frontal encephalomalacia may be from a prior ENVIRONMENTAL EMERGENCIES ASSISTANT shunt.. No hemorrhage. No evidence of acute infarct. No mass. Ventricles: No ventriculomegaly. Bones/joints: Right frontal craniotomy changes. Sinuses: No sinus fluid. Mastoid air cells: Unremarkable. Soft tissues: Unremarkable. IMPRESSION: No evidence of any acute intracranial process. Dictated and Authenticated by: Shahid Chris MD. Ordering:GLORIA Smith MD
[2018-08-31 05:08] LABS: ALT 14 U/L (12-78); AST 11 U/L (15-37); Alkaline Phosphatase 73 U/L (46-116); Anion Gap 8.1 mmol/L (3-11); BUN 11 mg/dL (7-18); Bilirubin, Total 0.5 mg/dL (0.2-1.0); CO2 25.9 mmol/L (21.0-32.0); CREATININE 0.78 mg/dL (0.70-1.30); Calcium 8.6 mg/dL (8.5-10.1); Chloride 87 mmol/L (98-107); Glucose 91 mg/dL (70-100); Magnesium 1.8 mg/dL (1.8-2.4); Potassium 4.2 mmol/L (3.5-5.1); Total Protein 7.1 g/dL (6.4-8.2)
[2018-08-31 05:15] LABS: Sodium 121 mmol/L (136-145)
--- NOTE | 2018-08-31 06:34 | W.PM.HP.N ---
Date of service: 08/31/18 Time of Service: 06:34 Assessment and Plan (1) Hyponatremia: Start date: 08/31/18 Current visit: Yes Status: Acute Patient does have chronic hyponatremia but more in the range of just below 130 now at 120. He does have SIADH and does not drink water at home according to the patient with questioning. This most likely is not causing seizure activity but may be altering his mental status. Will hydrate with IV normal saline at 150 cc an hour and follow-up lab closely. Consider further evaluation if persists. CT scan of the head is stable. The been no recent procedures which would have caused the fluid fluctuation though he has had a recent right TKA. (2) SIADH (syndrome of inappropriate ADH production): Start date: 08/31/18 Current visit: Yes Status: Chronic Continue fluid restriction of free water to 1000 cc/day and follow-up clinically. (3) Seizure disorder: Start date: 08/31/18 Current visit: Yes Status: Chronic Partial complex seizures with acute exacerbation according to family though not a new type of seizure this is having increased frequency the director financial analysis of admission. Consider consultation with his local neurologist and for now continue present medical regimen of Depakote and on Keppra. History of Present Illness Chief Complaint: Hyponatremia, Uncontrolled Seizures, Right Meningioma Resection Narrative: This is a 47-year-old gentleman with a history of a right frontal meningioma which was resected and partial complex seizures with recent weaning off of Depakote though he still has a blood level and continuation of Keppra. About 1 in the morning the patient began to have increased amount of seizures according to his partner which are manifested by his eyes being closed and the patient becoming more confused. He has no tonic-clonic type seizures. He was brought to emergency room for evaluation and in the emergency room was found to have a stable CT of the head and hyponatremia which had worsened. He does have SIADH on fluid restrictions at home. Because of his hyponatremia and increased seizures he was admitted for IV fluids with normal saline at 150 cc an hour and we could consider having his neurologist consulted. His medication list at this time does not include Depakote. When I interviewed the patient without his partner present, he had his eyes closed but was responding to questions appropriately. Was also responding to verbal demands during the exam. He was not able to offer any further complaints. I did review the ED review of systems where his partner was interviewed as well. Review of Systems Review of Systems 13 point review of systems otherwise unrevealing or stable with patient not able to offer further review of systems other than review of the ED report. [facility] Medical History Right knee pain (Chronic) Knee pain (Chronic) Urinary incontinence (Chronic 11/18/17) Tourette disease (Chronic 11/19/16) Tobacco use disorder (Chronic 07/03/16) Primary osteoarthritis of right knee (Chronic 03/31/17) Meningioma, cerebral (Chronic 10/22/17) Mass, brain (Chronic 09/24/17) IVH (intraventricular hemorrhage) (Chronic 09/24/17) Cerebral tumor (Chronic 06/26/17) BPH (benign prostatic hyperplasia) (Chronic 08/13/17) Anxiety (Chronic 11/19/16) Bipolar depression (Chronic 03/31/17) Seizure disorder (Chronic 11/19/16) Hydrocephalus (Resolved 06/26/17) Migraine (Chronic 07/02/16) Anxiety Carpal tunnel syndrome Depression Diverticulitis Surgical History S/P craniotomy (Chronic 10/22/17) 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) Hernia Repair-L (04/13/94) rgt craiotomy for mass (09/24/17) Family History Mother Essential hypertension Cerebral aneurysm Father Neoplasm Maternal Grandfather Heart disease Neoplasm Maternal Grandmother Neoplasm Social History Smoking/Tobacco Use Status: Current every day Tobacco Type: cigarettes Quit status: not considering quitting Alcohol Intake: never Drug use: Never Substance use type: marijuana Adopted: No Foster care: No Household members: spouse and children Number of Children: 5 Pets and animals: Yes Pets and animals: dog(s) Current gender identity: male What type of physical activity do you participate in: none Seatbelt use: always Drive intox or ride w/intox dedicated intermodal truck driver: No Water heater temp set <120 deg: Yes Working smoke detector in home: Yes Carbon monox detector in home: Yes Do you feel safe at home: Yes Do you feel safe in your relationship?: Yes Meds Home Medications Medication Instructions Recorded Confirmed Type Proventil Hfa 1 puff INHALATION Q4H PRN 7 Days 06/03/17 08/31/18 Clinic #2 inhaler Depend Underwear For Women S-M #300 ea 12/09/17 08/26/18 History underpads [Air Permeable Underpad] #300 ea 12/09/17 08/26/18 History naloxone [Narcan] 1 spray KRYSTAL ONCE PRN #2 each 06/24/18 08/31/18 Rx aripiprazole 5 mg tablet 5 mg PO DAILY #30 tab-cap 07/29/18 08/31/18 Rx fluoxetine 40 mg capsule 80 mg PO DAILY #60 tab-cap 07/29/18 08/31/18 Rx levetiracetam 500 mg tablet 500 mg PO BID #60 tab-cap 07/29/18 08/31/18 Rx mirabegron ER 25 mg 25 mg PO DAILY 1 Days #30 tab-cap 07/29/18 08/31/18 Rx tablet,extended release 24 hr tamsulosin 0.4 mg capsule 0.4 mg PO DAILY #30 tab-cap 07/29/18 08/31/18 Rx hydrocodone 5 mg-acetaminophen 325 1 tab PO Q8H PRN #15 tab MDD 15mg 08/24/18 08/31/18 Rx mg tablet methylphenidate 10 mg tablet 10 mg PO DIRECTED #60 tab MDD 08/24/18 08/31/18 Rx 20mg daily meloxicam 7.5 mg PO DAILY PRN 08/31/18 08/31/18 History Allergies Allergy/AdvReac Type Severity Reaction Status Date / Time oxycodone HCl [From Percocet] AdvReac Intermediate VOMITING Verified 08/31/18 04:28 Exam Narrative Exam Narrative: General: Patient is lying in bed with his eyes closed but does respond to questions appropriately and follows commands appropriately. He appears to be in no acute distress with flattened affect. He is at least oriented to place and person. He does not appear to be postictal at this time. HEENT: Normocephalic with eyes closed but when opened pupils are equal and reactive to light symmetrically and extraocular movement is intact and conjugate. Sclera anicteric. Oropharynx with dry oral mucosa. External ears normal. Neck: Supple without JVD. No carotid bruits. Back: Slightly stooped posture. Lungs: Fair aeration and clear to auscultation with no focalizing rales or rhonchi. Heart: Regular rate and rhythm with no appreciable murmurs or gallop. Heart sounds are distant. Abdomen: Obese contour and slightly protuberant, soft and nontender with no palpable hepatosplenomegaly or masses. Genitalia and rectal: Deferred. Extremities: Without clubbing cyanosis or pitting edema. Right knee is swollen with effusion and recent surgical scar which is clean and healed. Neuro: Patient moves all extremities but when left alone lie still in bed with his eyes closed. Cranial nerves II through XII appear to be grossly intact. Motor strength testing grossly normal with no focalizing. There are no Babinski's. Skin: Slightly pale, warm and dry. Psych: Flattened affect with memory testing not possible with patient's withdrawn state. Results Imaging Imaging Studies: EXAM: CT Head Without Contrast EXAM DATE/TIME: 08/31/2018 4:34 AM CLINICAL HISTORY: 47 years old, male; Signs and symptoms; Other: Seizure like activity; Prior surgery; Surgery date: 6+ months; Surgery type: Craniotomy for mass, multiple surgeries 09/2017; Patient HX: HX of cerebral mass TECHNIQUE: Imaging protocol: Axial computed tomography images of the head without contrast. Coronal and sagittal reformatted images were created and reviewed. Radiation optimization: All CT scans at this facility use at least one of these dose optimization techniques: automated exposure control; mA and/or kV adjustment per patient size (includes targeted exams where dose is matched to clinical indication); or iterative reconstruction. COMPARISON: CT HEAD CERVICAL SPINE WO 06/02/2018 10:37 AM FINDINGS: Brain: Minimal right frontal encephalomalacia may be from a prior MANAGER GYN shunt.. No hemorrhage. No evidence of acute infarct. No mass. Ventricles: No ventriculomegaly. Bones/joints: Right frontal craniotomy changes. Sinuses: No sinus fluid. Mastoid air cells: Unremarkable. Soft tissues: Unremarkable. IMPRESSION: No evidence of any acute intracranial process. Dictated and Authenticated by: Shahid Chris MD. Labs : 08/31/18 04:20 08/31/18 04:20 Laboratory Results - last 24 hr 08/31/18 08/31/18 08/31/18 04:20 04:20 04:20 WBC 5.88 RBC 4.86 Hgb 15.3 Hct 41.9 MCV 86.2 MCH 31.5 MCHC 36.5 H RDW 13.1 Plt Count 197 MPV 9.8 Immature Gran % 0.2 Neutrophils % 62.5 Lymphocytes % 28.2 Monocytes % 7.8 Eosinophils % 1.0 Basophils % 0.3 Absolute Neutrophils 3.67 Absolute Lymphocytes 1.66 Absolute Monocytes 0.46 Absolute Eosinophils 0.06 Absolute Basophils 0.02 Sodium 121 L* Potassium 4.2 Chloride 87 L Carbon Dioxide 25.9 Anion Gap 8.1 BUN 11 Creatinine 0.78 Estimated GFR/1.73 m2 >= 60.00 Glucose 91 Calcium 8.6 Magnesium 1.8 Total Bilirubin 0.5 AST 11 L ALT 14 Alkaline Phosphatase 73 Total Protein 7.1 Albumin 4.0 Total Valproic Acid 62.4 Last Vital Signs Temp 36.5 C 08/31/18 04:23 Pulse 55 L 08/31/18 05:30 Resp 15 08/31/18 05:40 BP 107/74 08/31/18 05:30 Pulse Ox 95 08/31/18 05:40
[2018-08-31] MEDS: Normal Saline 1,000 ML 150 ML IV (07:13)
[2018-08-31] MEDS: FLUoxetine 20 MG CAP 80 MG PO (08:08)
[2018-08-31] MEDS: Tamsulosin 0.4 MG CAPCR PO (08:08)
[2018-08-31] MEDS: levETIRAcetam 500 MG TAB PO (08:08)
[2018-08-31] MEDS: Methylphenidate 10 MG TAB PO (08:08)
[2018-08-31] MEDS: Heparin 5,000 UNITS/ML VIAL 5000 UNITS SC ×2 (08:09→16:35)
[2018-08-31] MEDS: Mirabegron 25 MG TABCR PO (09:05)
[2018-08-31] MEDS: ARIPiprazole 5 MG TAB PO (09:05)
[2018-08-31 10:37] LABS: *AMPHETAMINES SCREEN URINE Negative (Negative); *BARBITURATES SCREEN URINE Negative (Negative); *BENZODIAZEPINES SCREEN URINE Negative (Negative); Cannabinoids THC POSITIVE (Negative); Cocaine Screen,Urine Negative (Negative); METHADONE URINE SCREEN Negative (Negative); OPIATES URINE SCREEN Negative (Negative)
[2018-08-31 10:38] LABS: Tricyclic Antidepressants Negative (Negative)
[2018-08-31 10:42] LABS: Anion Gap 8.4 mmol/L (3-11); BUN 8 mg/dL (7-18); CO2 25.6 mmol/L (21.0-32.0); CREATININE 0.55 mg/dL (0.70-1.30); Calcium 8.2 mg/dL (8.5-10.1); Chloride 94 mmol/L (98-107); Glucose 98 mg/dL (70-100); Sodium 128 mmol/L (136-145)
[2018-08-31] MEDS: Meloxicam 15 MG TAB 7.5 MG PO (12:57)
[2018-08-31] MEDS: Acetaminophen 500 MG TAB PO (14:32)
--- NOTE | 2018-08-31 14:50 | CHAPLAIN ---
Wayne was visiting with family when I stopped in. I introduced myself, explained my role and offered support.
--- NOTE | 2018-08-31 14:57 | W.NEUROCONSU ---
Date of service: 08/31/18 Time of Service: 14:57 Assessment and Plan (1) Hyponatremia: Current visit: Yes Status: Acute (2) Seizure disorder: Current visit: Yes Status: Chronic Mr. 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 He was admitted for acute on chronic hyponatremia as well as questionable seizures. He has not been taking a salt tablet outpatient and, in my opinion, cannot comply with fluid restriction as an outpatient given his mood and memory deficits. His sodium and cognition have improved. Will defer to the hospitalist service on treatment of his SIADH. Otherwise, based on the description of events provided by his ex-, the events overnight do not sound epileptic to me. He has had various spells throughout the years with no epileptic findings thus far. However, he has multiple risk factors for epileptic seizures. Therefore, to be prudent, I would recommend increasing Keppra to 1000 mg twice daily. He should discontinue Depakote. He should follow-up in the neurology clinic in the next several weeks as scheduled. Please call with any further questions or concerns. DISCLAIMER: This note was created using [employer] voice recognition software. History of Present Illness Chief Complaint: seizures Narrative: Handedness: right. HPI: Mr. 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 He is well-known to me as I see him in clinic on a regular basis and in fact had just seen him last week on August 24, 2018. Recommendations at that time were to wean off Depakote for parkinsonian features on exam and severe tremors clinically though not ever seen on exam. He was on Keppra 500 mg twice daily in addition to Depakote for seizure control. He has had extensive EEG monitoring in 2016 and 2017, all of which was unremarkable. He has not had any EEG monitoring since his hemorrhage. He has a known history of psychogenic spells and is thought to likely have epileptic seizures as well, though this has never been confirmed. He reduced his Depakote to 500 mg at bedtime x1 week and took his last dose last night. At around midnight last night, his ex- noticed several events. He was sitting and suddenly collapsed in his chair with eyes closed. He had some mild tremulousness of his body. This lasted approximately 1 minute. She was able to move him inside and lay him down. He proceeded to have recurrent events of unresponsiveness with eyes closed and generalized mild twitching for the next 3 hours. She reports approximately 8-9 total events. As the night went on, he seemed to be somewhat confused, so she called 911. He was brought to the [facility] emergency room and later admitted. He had a CT head which I was able to review and was unremarkable. Laboratory work-up was significant for sodium of 120 which has since increased to 128. His urine drug screen was positive for THC. His Depakote level was 62.4. His mental status seems improved with IV fluids today. He has not had any further events. Consults Requesting physician: Georgia Sung Review of Systems Review of Systems All systems reviewed & are unremarkable except as noted in HPI and below PFSH Medical History Right knee pain (Chronic) Knee pain (Chronic) Urinary incontinence (Chronic 11/18/17) Tourette disease (Chronic 11/19/16) Tobacco use disorder (Chronic 07/03/16) Primary osteoarthritis of right knee (Chronic 03/31/17) Meningioma, cerebral (Chronic 10/22/17) Mass, brain (Chronic 09/24/17) IVH (intraventricular hemorrhage) (Chronic 09/24/17) Cerebral tumor (Chronic 06/26/17) BPH (benign prostatic hyperplasia) (Chronic 08/13/17) Anxiety (Chronic 11/19/16) Bipolar depression (Chronic 03/31/17) Seizure disorder (Chronic 11/19/16) Hydrocephalus (Resolved 06/26/17) Migraine (Chronic 07/02/16) Anxiety Carpal tunnel syndrome Depression Diverticulitis Surgical History S/P craniotomy (Chronic 10/22/17) 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) Hernia Repair-L (04/13/94) rgt craiotomy for mass (09/24/17) Family History Mother Essential hypertension Cerebral aneurysm Father Neoplasm Maternal Grandfather Heart disease Neoplasm Maternal Grandmother Neoplasm Social History Smoking/Tobacco Use Status: Current every day Tobacco Type: cigarettes Quit status: not considering quitting Alcohol Intake: never Drug use: Never Substance use type: marijuana Adopted: No Foster care: No Household members: spouse and children Number of Children: 5 Pets and animals: Yes Pets and animals: dog(s) Current gender identity: male What type of physical activity do you participate in: none Seatbelt use: always Drive intox or ride w/intox compactor driver: No Water heater temp set <120 deg: Yes Working smoke detector in home: Yes Carbon monox detector in home: Yes Do you feel safe at home: Yes Do you feel safe in your relationship?: Yes Visit Medication and Allergies Active Medications Generic Name Dose Route Start Last Admin Trade Name Freq PRN Reason Stop Dose Admin Acetaminophen 0 mg 08/31/18 14:19 08/31/18 14:32 Tylenol PO 1,000 mg Q4H PRN PRN Administration Hydrocodone Bitart/Acetaminophen 1 tab 08/31/18 08:30 [place] 5/325 PO Q8H PRN PRN pain Al Hydrox/Mg Hydrox/Simethicone 30 ml 08/31/18 06:27 Mylanta Liquid PO Q2H PRN PRN Albuterol Sulfate 2 puff 08/31/18 06:45 Ventolin Hfa IH Q4H PRN PRN Aripiprazole 5 mg 08/31/18 08:30 08/31/18 09:05 Abilify PO 5 mg DAILY ELIS Administration Dimethicone/Zinc Oxide 0 gm 08/31/18 06:27 Yuli Protect Cream TP PRN PRN Docusate Sodium 100 mg 08/31/18 06:27 Colace PO TID PRN PRN Fluoxetine HCl 80 mg 08/31/18 08:30 08/31/18 08:08 Prozac PO 80 mg QAM ELIS Administration Heparin Sodium (Porcine) 5,000 units 08/31/18 08:00 08/31/18 08:09 SC 5,000 units Q8H ELIS Administration IV Miscellaneous Supplies 1 each 08/31/18 06:00 IV DIRECTED ELIS Levetiracetam 500 mg 08/31/18 08:30 08/31/18 08:08 Keppra PO 500 mg BID ELIS Administration Magnesium Hydroxide 30 ml 08/31/18 06:27 Milk Of Magnesia PO DAILY PRN PRN Meloxicam 7.5 mg 08/31/18 08:30 08/31/18 12:57 Mobic PO 7.5 mg DAILY PRN PRN Administration Inflammation Methylphenidate HCl 10 mg 08/31/18 08:30 08/31/18 08:08 Ritalin PO 10 mg DAILY ELIS Administration Methylphenidate HCl 10 mg 08/31/18 12:00 Ritalin PO DAILY PRN PRN Mirabegron 25 mg 08/31/18 08:30 08/31/18 09:05 Myrbetriq PO 25 mg DAILY ELIS Administration Polyethylene Glycol 17 gm 08/31/18 06:27 Miralax PO DAILY PRN PRN Constipation Sodium Chloride 0 ml 08/31/18 05:46 Saline Flush 10 Ml Syringe IVP PRN PRN Tamsulosin HCl 0.4 mg 08/31/18 08:30 08/31/18 08:08 Flomax PO 0.4 mg DAILY ELIS Administration Allergies oxycodone HCl [From Percocet] Adverse Reaction (Intermediate, Verified 08/31/18 04:28) VOMITING Exam Narrative Exam Narrative: Physical Exam: Gen: Patient of apparent stated age, NAD Head and face: no facial or cranial abnormalities Neck: Supple, no meningismus, no occipital tenderness CV: + S1, S2, RRR, no murmur Resp: CTA B/L Abd: soft, nontender, nondistended Ext: No edema. No clubbing or cyanosis. No bony deformity. Neuro Exam: Language: fluency, naming, repetition, and comprehension intact; Mental Status: AAOx3, current events intact, fund of knowledge intact; Speech: no dysarthria Cranial nerves: Funduscopy: not performed CN II: visual sherman intact CN III, IV, : extraocular movements intact, sustained left end-gaze horizontal nystagmus, pupils symmetric and reactive to light CN V: face sensation intact to LT CN VII: no facial asymmetry noted CN VIII: hearing intact bilaterally CN IX, X: palate rises symmetrically CN XI: trapezius/SCM 5/5 bilaterally CN XII: protrudes tongue symmetrically Sensory: intact to LT in all extremities Motor: bulk intact. Mild R>L UE cogwheel rigidity. Fine motor movements intact bilaterally. No pronator drift. Strength 5/5 throughout including the deltoids, biceps, triceps, wrist extensors, hip flexors, knee flexors, knee extensors, ankle flexors, and ankle extensors. No significant postural or action tremor. Reflexes: hypreflexic throughout; toes down going bilaterally; Coordination: FTN intact bilaterally Gait: deferred Results Last Vital Signs Temp 35.9 C L 08/31/18 11:30 Pulse 72 08/31/18 11:30 Resp 16 08/31/18 11:30 BP 120/90 08/31/18 11:30 Pulse Ox 99 08/31/18 11:30 Labs : 08/31/18 04:20 08/31/18 16:17 Laboratory Results - last 24 hr 08/31/18 08/31/18 08/31/18 04:20 04:20 04:20 WBC 5.88 RBC 4.86 Hgb 15.3 Hct 41.9 MCV 86.2 MCH 31.5 MCHC 36.5 H RDW 13.1 Plt Count 197 MPV 9.8 Immature Gran % 0.2 Neutrophils % 62.5 Lymphocytes % 28.2 Monocytes % 7.8 Eosinophils % 1.0 Basophils % 0.3 Absolute Neutrophils 3.67 Absolute Lymphocytes 1.66 Absolute Monocytes 0.46 Absolute Eosinophils 0.06 Absolute Basophils 0.02 Sodium 121 L* Potassium 4.2 Chloride 87 L Carbon Dioxide 25.9 Anion Gap 8.1 BUN 11 Creatinine 0.78 Estimated GFR/1.73 m2 >= 60.00 Glucose 91 Calcium 8.6 Magnesium 1.8 Total Bilirubin 0.5 AST 11 L ALT 14 Alkaline Phosphatase 73 Total Protein 7.1 Albumin 4.0 Urine Opiates Screen Urine Methadone Screen Ur Barbiturates Screen Total Valproic Acid 62.4 Ur Tricyclics Screen Ur Amphetamines Screen U Benzodiazepines Scrn Urine Cocaine Screen Ur THC Screen 08/31/18 08/31/18 10:00 10:15 WBC RBC Hgb Hct MCV MCH MCHC RDW Plt Count MPV Immature Gran % Neutrophils % Lymphocytes % Monocytes % Eosinophils % Basophils % Absolute Neutrophils Absolute Lymphocytes Absolute Monocytes Absolute Eosinophils Absolute Basophils Sodium 128 L Potassium 4.0 Chloride 94 L Carbon Dioxide 25.6 Anion Gap 8.4 BUN 8 Creatinine 0.55 L Estimated GFR/1.73 m2 >= 60.00 Glucose 98 Calcium 8.2 L Magnesium Total Bilirubin AST ALT Alkaline Phosphatase Total Protein Albumin Urine Opiates Screen Negative Urine Methadone Screen Negative Ur Barbiturates Screen Negative Total Valproic Acid Ur Tricyclics Screen Negative Ur Amphetamines Screen Negative U Benzodiazepines Scrn Negative Urine Cocaine Screen Negative Ur THC Screen Positive
--- NOTE | 2018-08-31 16:38 | PHARADMIT ---
Admission Pharmacy Clinical Review hyponatremia Code Status Full Code Current Weight 79.8 kg Renally Cleared and Narrow Therapeutic Index Meds Crcl ~110.0 mL/min current meds okay QTc Value / Action Taken none BP Control, Fever BP 120/90 afebrile Electrolytes reviewed Na 128 (up from 121) Cl 94 DVT Prophylaxis heparin Opiate Usage / Scheduled Bowel Regimen Ordered prn/prn Plt/SCr for Heparin / Enoxaparin plt 197 SCr 0.55 INR for Warfarin n/a H/H stable, WBC/Bands h/h 15.3/41.9 WBC 5.88 Antibiotic appropriateness n/a Cultures and Sensitivities n/a Surgical ABX d/c within 24 hr n/a DM control / Insulin Dosing BG 98 none Heart Failure (Check EF%) (SARA's, B-Block, Diuretics) none IV to PO Switch n/a Home Meds Reviewed -multiple [employer] depressants- hydrocodone/APAP, aripiprazole, clonidine, cyclobenzaprine, gabapentin, levetiracetam, -fluoxetine may enhance the adverse/toxic effects of aripiprazole -fluoxetine may enhance the antiplatelet effects of meloxicam Home Meds Not Ordered clonidine, cyclobenzaprine, divalproex(see neuro note), gabapentin, naloxone Comments continue to watch Na levels neuro consult note recommends increasing levetiracetam dose and discontinuing divalproex dose.
[2018-08-31 16:56] LABS: Anion Gap 6.8 mmol/L (3-11); BUN 9 mg/dL (7-18); CO2 26.2 mmol/L (21.0-32.0); CREATININE 0.74 mg/dL (0.70-1.30); Calcium 8.3 mg/dL (8.5-10.1); Chloride 96 mmol/L (98-107); Glucose 88 mg/dL (70-100); Potassium 4.5 mmol/L (3.5-5.1); Sodium 129 mmol/L (136-145)
--- NOTE | 2018-08-31 18:19 | W.PM.PROGNOT ---
Date of Service Date of service: 08/31/18 Time of Service: 18:19 Subjective Interval history since last seen: Patient seen and examined; labs reviewed, and case was discussed with Dr Easley. His sodium improved to 128 from 121 just after 6 hours of NS. NS was d/c'ed immediately after results became known. F/u Sodium was 129. Patient's mentation has improved tremendously. He is A&Ox3, following commands, denies any numbness/tingling/headache/visual changes, able to move all 4 extremities. I do note an expiratory wheeze and I have ordered a CXR as well as a neb treatment. Per Dr Easley's recommendation, I have increased his keppra to 1000 mg PO BID. She also informed me that the patient used to take salt tablets - but had been off them for a while. These will have to be resumed tomorrow. Objective Objective Clinical Data: Abnormal lab results 08/31/18 08/31/18 08/31/18 Range/Units 04:20 04:20 10:15 MCHC 36.5 H (32.0-36.0) g/dL Sodium 121 L* 128 L (136-145) mmol/L Chloride 87 L 94 L (98-107) mmol/L Creatinine 0.55 L (0.70-1.30) mg/dL Calcium 8.2 L (8.5-10.1) mg/dL AST 11 L (15-37) U/L 08/31/18 Range/Units 16:17 MCHC (32.0-36.0) g/dL Sodium 129 L (136-145) mmol/L Chloride 96 L (98-107) mmol/L Creatinine (0.70-1.30) mg/dL Calcium 8.3 L (8.5-10.1) mg/dL AST (15-37) U/L Vital Signs Temperature 35.9 C L 08/31/18 11:30 Temperature Source Tympanic 08/31/18 11:30 Pulse 71 08/31/18 15:15 Pulse Rhythm Regular 08/31/18 16:04 Pulse 56 L 08/31/18 05:40 Respiratory Rate 16 08/31/18 11:30 Respiratory Effort Non-Labored 08/31/18 16:04 Respiratory Depth Normal 08/31/18 16:04 Respiratory Pattern Normal 08/31/18 16:04 Blood Pressure 120/90 08/31/18 11:30 Blood Pressure Mean 82 08/31/18 05:30 Blood Pressure Position Supine 08/31/18 04:23 Pulse Oximetry 99 08/31/18 11:30 Oxygen Delivery Method Room Air 08/31/18 11:30 Oxygen Flow Rate 0 08/31/18 11:30 Pain Level 8 08/31/18 14:32 Intake & Output 08/30/18 08/31/18 08/31/18 23:59 11:59 23:59 Intake Total 1580 / 2612.5 1032.5 / 2612.5 Output Total 2210 / 3050 840 / 3050 Balance -630 / -437.5 192.5 / -437.5 Weight 79.8 kg Intake: IV 1000 / 1792.5 792.5 / 1792.5 Oral 580 / 820 240 / 820 Output: Urine 2210 / 3050 840 / 3050 Other: Urine Color Pale Pale Yellow Yellow Urine Appearance Clear Clear Urine Odor Normal Normal Voiding Methods Urinal Urinal Laboratory Results WBC 5.88 k/cumm (4.4-10.8) 08/31/18 04:20 RBC 4.86 m/cumm (4.50-6.00) 08/31/18 04:20 Hgb 15.3 g/dL (13.5-17.5) 08/31/18 04:20 Hct 41.9 % (40.0-50.0) 08/31/18 04:20 MCV 86.2 fL (80-95) 08/31/18 04:20 MCH 31.5 pg (27.0-33.0) 08/31/18 04:20 MCHC 36.5 g/dL (32.0-36.0) H 08/31/18 04:20 RDW 13.1 % (11.8-14.1) 08/31/18 04:20 Plt Count 197 x1000/uL (130-400) 08/31/18 04:20 MPV 9.8 fL (8.0-11.0) 08/31/18 04:20 Immature Gran % 0.2 08/31/18 04:20 Neutrophils % 62.5 08/31/18 04:20 Lymphocytes % 28.2 08/31/18 04:20 Monocytes % 7.8 08/31/18 04:20 Eosinophils % 1.0 08/31/18 04:20 Basophils % 0.3 08/31/18 04:20 Absolute Neutrophils 3.67 k/cumm (1.2-6.7) 08/31/18 04:20 Absolute Lymphocytes 1.66 k/cumm (1.2-3.4) 08/31/18 04:20 Absolute Monocytes 0.46 k/cumm (0.11-0.7) 08/31/18 04:20 Absolute Eosinophils 0.06 k/cumm (0.0-0.7) 08/31/18 04:20 Absolute Basophils 0.02 k/cumm (0.0-0.2) 08/31/18 04:20 Sodium 129 mmol/L (136-145) L 08/31/18 16:17 Potassium 4.5 mmol/L (3.5-5.1) 08/31/18 16:17 Chloride 96 mmol/L (98-107) L 08/31/18 16:17 Carbon Dioxide 26.2 mmol/L (21.0-32.0) 08/31/18 16:17 Anion Gap 6.8 mmol/L (3-11) 08/31/18 16:17 BUN 9 mg/dL (7-18) 08/31/18 16:17 Creatinine 0.74 mg/dL (0.70-1.30) 08/31/18 16:17 Estimated GFR/1.73 m2 >= 60.00 (mL/min/1.73m2) 08/31/18 16:17 Glucose 88 mg/dL (70-100) 08/31/18 16:17 Calcium 8.3 mg/dL (8.5-10.1) L 08/31/18 16:17 Magnesium 1.8 mg/dL (1.8-2.4) 08/31/18 04:20 Total Bilirubin 0.5 mg/dL (0.2-1.0) 08/31/18 04:20 AST 11 U/L (15-37) L 08/31/18 04:20 ALT 14 U/L (12-78) 08/31/18 04:20 Alkaline Phosphatase 73 U/L (46-116) 08/31/18 04:20 Total Protein 7.1 g/dL (6.4-8.2) 08/31/18 04:20 Albumin 4.0 g/dL (3.4-5.0) 08/31/18 04:20 Urine Opiates Screen Negative (Negative) 08/31/18 10:00 Urine Methadone Screen Negative (Negative) 08/31/18 10:00 Ur Barbiturates Screen Negative (Negative) 08/31/18 10:00 Total Valproic Acid 62.4 ug/mL (50-100) 08/31/18 04:20 Ur Tricyclics Screen Negative (Negative) 08/31/18 10:00 Ur Amphetamines Screen Negative (Negative) 08/31/18 10:00 U Benzodiazepines Scrn Negative (Negative) 08/31/18 10:00 Urine Cocaine Screen Negative (Negative) 08/31/18 10:00 Ur THC Screen Positive (Negative) 08/31/18 10:00
[2018-08-31] MEDS: levETIRAcetam 500 MG TAB 1000 MG PO (19:35)
--- NOTE | 2018-08-31 20:15 | DI.RAD_ITS ---
SYMPTOM/DIAGNOSIS: WHEEZING PORTABLE AP CHEST: The heart is normal in size. The lungs are clear. The mediastinal structures and pleura appear intact. CONCLUSION: Normal chest. No evidence of acute cardiopulmonary disease.
--- NOTE | 2018-08-31 20:36 | DI.VRAD_ITS ---
EXAM: XR Chest, 1 View EXAM DATE/TIME: 08/31/2018 6:22 PM CLINICAL HISTORY: 47 years old, male; Signs and symptoms; Wheezing TECHNIQUE: Imaging protocol: XR of the chest, 1 view. COMPARISON: CR XR CHEST 2V PA LATERAL 06/02/2018 10:43 AM FINDINGS: Lungs: No infiltrates. Question mild bronchial thickening which may relate to bronchitis. Pleural space: No pleural effusion. No pneumothorax. Heart/Mediastinum: Heart size normal. No mediastinal widening. Pulmonary vaculature normal. No tracheal shift. Bones/joints: No acute osseous abnormalities are identified. IMPRESSION: 1. No infiltrates. 2. Mild peribronchial thickening suspicious for bronchitis. Dictated and Authenticated by: Beny Cervantes MD. Ordering:LAVELLE Ho MD
[2018-08-31 22:17] LABS: Anion Gap 5.8 mmol/L (3-11); BUN 10 mg/dL (7-18); CO2 27.2 mmol/L (21.0-32.0); CREATININE 0.68 mg/dL (0.70-1.30); Calcium 8.4 mg/dL (8.5-10.1); Chloride 98 mmol/L (98-107); Glucose 88 mg/dL (70-100); Potassium 4.4 mmol/L (3.5-5.1); Sodium 131 mmol/L (136-145)
[2018-09-01] MEDS: Heparin 5,000 UNITS/ML VIAL 5000 UNITS SC ×2 (00:28→08:24)
[2018-09-01 03:01] VITALS: PULSE 66
[2018-09-01 03:16] VITALS: BP 123/85; PULSE 65; RESP 17; TEMP 37; O2SAT 97
[2018-09-01] MEDS: HYDROcodone 5/Acetaminophen 325 TAB PO (03:28)
[2018-09-01 07:05] VITALS: PULSE 60
[2018-09-01 07:05] LABS: HCT 41.5 % (40.0-50.0); HGB 14.8 g/dL (13.5-17.5); Mean Corp. HGB Concentration 35.7 g/dL (32.0-36.0); Mean Corpuscular Hemoglobin 31.3 pg (27.0-33.0); Mean Corpuscular Volume 87.7 fL (80-95); Mean Platelet Volume 9.9 fL (8.0-11.0); Platelet Count 170 x1000/uL (130-400); RBC 4.73 m/cumm (4.50-6.00); RBC Distribution Width 13.1 % (11.8-14.1); White Blood Cell Count 3.16 k/cumm (4.4-10.8)
[2018-09-01 07:22] LABS: Anion Gap 7.9 mmol/L (3-11); BUN 9 mg/dL (7-18); CO2 27.1 mmol/L (21.0-32.0); CREATININE 0.59 mg/dL (0.70-1.30); Calcium 8.4 mg/dL (8.5-10.1); Chloride 97 mmol/L (98-107); Glucose 79 mg/dL (70-100); Potassium 4.1 mmol/L (3.5-5.1); Sodium 132 mmol/L (136-145)
[2018-09-01 07:25] VITALS: BP 149/94; PULSE 60; RESP 17; TEMP 37; O2SAT 96
[2018-09-01] MEDS: levETIRAcetam 500 MG TAB 1000 MG PO (08:22)
[2018-09-01] MEDS: Docusate Sodium 100 MG CAP PO (08:23)
[2018-09-01] MEDS: Mirabegron 25 MG TABCR PO (08:23)
[2018-09-01] MEDS: FLUoxetine 20 MG CAP 80 MG PO (08:23)
[2018-09-01] MEDS: Tamsulosin 0.4 MG CAPCR PO (08:23)
[2018-09-01] MEDS: Methylphenidate 10 MG TAB PO (08:23)
[2018-09-01] MEDS: ARIPiprazole 5 MG TAB PO (08:23)
[2018-09-01] MEDS: Normal Saline Flush 10 ML SYR IVP (08:24)
--- NOTE | 2018-09-01 11:11 | W.PM.DS.N ---
Date of service: 09/01/18 Time of Service: 11:11 DS: Diagnosis Discharge Diagnosis (1) Hyponatremia: Status: Chronic Asessment and Plan: Acute on chronic, Likely SIADH (2) Seizure disorder: Status: Chronic Discharge Plan Disposition Patient Disposition: HOME Condition: Stable Discharge Details Reason For Visit: HYPONATREMIA Admit Date/Time: 08/31/18 05:47 Admit Provider: Jamie Mireles Attending Provider: Jamie Mireles Primary Care Provider: Colleen Mercado Hospital Course Hospital Course: Mr Salazar is a 47 year old male with PMHx of seizure disorder, hyponatremia presumably due to SIADH, h/o IVH and hydrocephalus, s/p meningioma resection, who was admitted to [facility] on 08/31/18 with encephalopathy in setting of recent anticonvulsant change as outpatient as well as reported increased seizure activity by . On admission, he was found to have a sodium of 121. He was initiated on NS, which within several hours had improved the sodium to the point that IVF had to be stopped. With this, the patient's mental status also improved, also raising the possibility that his mental status was affected by sodium shifts. He was evaluated by Dr Easley, who recommended that, in addition to correcting the patient's sodium, we increase his keppra to 1000 mg PO BID. By hospital day 2, the patient's sodium is 132, he is at his neurologic baseline and feels ready for discharge. He does request sodium tablets rather than dietary sodium to keep his sodium levels stable. He verbalizes understanding of my instructions to have bloodwork checked on 09/03/18. 35 minutes were spent on assessment of the patient on the day of discharge as well as the discharge process. Home Meds and New Rx's Prescriptions: New levetiracetam [Keppra] 1,000 mg tablet 1,000 mg PO BID Qty: 60 RF: 0 sodium chloride 1 gram tablet 1,000 mg PO BID Qty: 60 RF: 0 Continued methylphenidate HCl 10 mg tablet 10 mg PO DIRECTED MDD 20mg daily Qty: 60 RF: 0 aripiprazole [Abilify] 5 mg tablet 5 mg PO DAILY Qty: 30 RF: 12 fluoxetine 40 mg capsule 80 mg PO DAILY Qty: 60 RF: 6 Myrbetriq 25 mg tablet extended release 24 hr 25 mg PO DAILY 1 Days Qty: 30 RF: 11 tamsulosin [Flomax] 0.4 mg capsule 0.4 mg PO DAILY Qty: 30 RF: 12 PROVENTIL HFA 18 GM HFA.AER.AD 1 puff Inhalation Q4H PRN 7 Days Qty: 2 RF: 6 underpads [Air Permeable Underpad] 1 EACH pad 1 ea Miscellaneous Q4H PRN PRNQty: 300 RF: 12 Depend Underwear For Women S-M 1 EACH misc 1 ea Miscellaneous Q4H PRN PRNQty: 300 RF: 12 hydrocodone-acetaminophen 5-325 mg tablet 1 tab PO Q8H MDD 15mg PRN (Reason: pain) Qty: 15 RF: 0 Narcan 4 mg/actuation spray,non-aerosol 1 spray KRYSTAL ONCE PRN (Reason: opioid overdose) Qty: 2 RF: 0 meloxicam 7.5 mg tablet 7.5 mg PO DAILY PRN (Reason: Inflammation) RF: 0 Discontinued levetiracetam [Keppra] 500 mg tablet 500 mg PO BID Qty: 60 RF: 6 Discharge Instructions Instructions: Levetiracetam (By mouth), Hyponatremia (DC), Recurrent Seizures in Adults (DC) Additional Instructions: Return to the hospital with any more uncontrollable seizures, fever, bleeding, chest pain, or shortness of breath. Follow up with your PCP as below. Follow up with Dr Easley in 2-4 weeks as scheduled. Stand Alone Forms: Nursing Discharge Form Referrals: Colleen Mercado NP [Primary Care Provider] - 09/10/18 9:30 am Activity:: Activity as Tolerated Equipment/Supplies:: No Equipment Needed Diet:: Normal Diet Discharge Orders Discharge Orders: Discharge Order (Routine); Ordered 09/01/18 Ordered By: Georgia Sung Other Ambulatory Orders: Basic Metabolic Panel (Routine) Timeframe: [id number] Facility: [facility] - Location: Laboratory Outpatient Ordered By: Georgia Sung Exam Narrative Exam Narrative: General: Very pleasant middle-aged male, A&Ox3, laying comfortably in bed, conversant, very alert, able to follow commands, move all 4 extremities HEENT: EOMI, MMM Heart: RRR, no m/r/g Lungs: CTAB GI: adbomen is soft, nontender, nondistended Extremities: no e/c/c BLE's DS: Data Vitals/I&O Vitals and I&O: Vital Signs Temperature 37.0 C 09/01/18 07:25 Temperature Source Tympanic 09/01/18 07:25 Pulse 60 09/01/18 07:25 Pulse Rhythm Regular 09/01/18 08:20 Pulse 56 L 08/31/18 05:40 Respiratory Rate 17 09/01/18 07:25 Respiratory Effort Non-Labored 09/01/18 08:20 Respiratory Depth Normal 09/01/18 08:20 Respiratory Pattern Normal 09/01/18 08:20 Blood Pressure 149/94 H 09/01/18 07:25 Blood Pressure Mean 82 08/31/18 05:30 Blood Pressure Position Supine 08/31/18 04:23 Pulse Oximetry 96 09/01/18 07:25 Oxygen Delivery Method Room Air 09/01/18 07:25 Oxygen Flow Rate 0 09/01/18 07:25 Pain Level 7 09/01/18 07:25 Intake & Output 08/31/18 08/31/18 09/01/18 11:59 23:59 11:59 Intake Total 1580 / 2662.5 1082.5 / 2662.5 240 / 240 Output Total 2210 / 3820 1610 / 3820 400 / 400 Balance -630 / -1157.5 -527.5 / -1157.5 -160 / -160 Weight 79.8 kg 80.1 kg Intake: IV 1000 / 1792.5 792.5 / 1792.5 Oral 580 / 870 290 / 870 240 / 240 Output: Urine 2210 / 3820 1610 / 3820 400 / 400 Other: Urine Color Pale Yellow Yellow Yellow Urine Appearance Clear Clear Clear Urine Odor Normal Normal Normal Voiding Methods Urinal Urinal Urinal Completed studies during hospitalization [Text1]: CT head w/o contrast: Right frontal craniotomy and small area of encephalomalacia. No acute abnormality. CXR: Normal chest. No evidence of acute cardiopulmonary disease. Pending studies at discharge: [facility] 09/03/18 - results to Colleen Mercado Labs on day of discharge: Labs from last 24 hours 09/01/18 09/01/18 08/31/18 06:22 06:22 21:55 WBC 3.16 L D RBC 4.73 Hgb 14.8 Hct 41.5 MCV 87.7 MCH 31.3 MCHC 35.7 RDW 13.1 Plt Count 170 MPV 9.9 Sodium 132 L 131 L Potassium 4.1 4.4 Chloride 97 L 98 Carbon Dioxide 27.1 27.2 Anion Gap 7.9 5.8 BUN 9 10 Creatinine 0.59 L 0.68 L Estimated GFR/1.73 m2 >= 60.00 >= 60.00 Glucose 79 88 Calcium 8.4 L 8.4 L 08/31/18 16:17 WBC RBC Hgb Hct MCV MCH MCHC RDW Plt Count MPV Sodium 129 L Potassium 4.5 Chloride 96 L Carbon Dioxide 26.2 Anion Gap 6.8 BUN 9 Creatinine 0.74 Estimated GFR/1.73 m2 >= 60.00 Glucose 88 Calcium 8.3 L PFSH Medical History Right knee pain (Chronic) Knee pain (Chronic) Urinary incontinence (Chronic 11/18/17) Tourette disease (Chronic 11/19/16) Tobacco use disorder (Chronic 07/03/16) Primary osteoarthritis of right knee (Chronic 03/31/17) Meningioma, cerebral (Chronic 10/22/17) Mass, brain (Chronic 09/24/17) IVH (intraventricular hemorrhage) (Chronic 09/24/17) Cerebral tumor (Chronic 06/26/17) BPH (benign prostatic hyperplasia) (Chronic 08/13/17) Anxiety (Chronic 11/19/16) Bipolar depression (Chronic 03/31/17) Seizure disorder (Chronic 11/19/16) Hydrocephalus (Resolved 06/26/17) Migraine (Chronic 07/02/16) Anxiety Carpal tunnel syndrome Depression Diverticulitis Surgical History S/P craniotomy (Chronic 10/22/17) 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) Hernia Repair-L (04/13/94) rgt craiotomy for mass (09/24/17) Family History Mother Essential hypertension Cerebral aneurysm Father Neoplasm Maternal Grandfather Heart disease Neoplasm Maternal Grandmother Neoplasm Social History Smoking/Tobacco Use Status: Current every day Tobacco Type: cigarettes Quit status: not considering quitting Alcohol Intake: never Drug use: Never Substance use type: marijuana Adopted: No Foster care: No Household members: spouse and children Number of Children: 5 Pets and animals: Yes Pets and animals: dog(s) Current gender identity: male What type of physical activity do you participate in: none Seatbelt use: always Drive intox or ride w/intox tractor driver: No Water heater temp set <120 deg: Yes Working smoke detector in home: Yes Carbon monox detector in home: Yes Do you feel safe at home: Yes Do you feel safe in your relationship?: Yes
[2018-09-01 11:25] VITALS: BP 135/90; PULSE 70; RESP 18; TEMP 36; O2SAT 96
[2018-09-01 11:55] VITALS: PULSE 70
[2018-09-01 14:01] LABS: Levetiracetam 8.5 mcg/mL
--- NOTE | 2018-09-01 16:23 | PT.INIE ---
Date of service: 09/02/18 Time of Service: 12:26 PT Notes Inpatient Physical Therapy Evaluation Date: 09/01/2018 Referring Doctor: Georgia Sung MD PT Orders: PT CONSULT: Evaluate ambulation/safety of discharge Precautions: Fall. Standard. Recurrent seizures. Patient Profile/Admitting Diagnosis: Referral for physical therapy was received on 09/01/2018 at 11:18 AM for assessment of appropriate assistive ambulatory device to ensure safety of discharge. Patient presented at the ED on 08/31/2018 with chief complaints of hyponatremia and uncontrolled seizures. PMHX: Medical History Right knee pain (Chronic) Knee pain (Chronic) Urinary incontinence (Chronic 11/18/17) Tourette disease (Chronic 11/19/16) Tobacco use disorder (Chronic 07/03/16) Primary osteoarthritis of right knee (Chronic 03/31/17) Meningioma, cerebral (Chronic 10/22/17) Mass, brain (Chronic 09/24/17) IVH (intraventricular hemorrhage) (Chronic 09/24/17) Cerebral tumor (Chronic 06/26/17) BPH (benign prostatic hyperplasia) (Chronic 08/13/17) Anxiety (Chronic 11/19/16) Bipolar depression (Chronic 03/31/17) Seizure disorder (Chronic 11/19/16) Hydrocephalus (Resolved 06/26/17) Migraine (Chronic 07/02/16) Anxiety Carpal tunnel syndrome Depression Diverticulitis Surgical History S/P craniotomy (Chronic 10/22/17) 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) Hernia Repair-L (04/13/94) rgt craiotomy for mass (09/24/17) Social History/Home Situation: Lives with ex- in an apartment with a flight of stairs. Current Functional Limitations: Requires use of assistive device for all ambulation task performance to reduce fall risk. Equipment Owned/DME: [employer], [employer] Subjective: Patient looks forward to going home today and is receptive to home health PT physical therapy come in and in order to further assess home safety. Objective: General Observation: Patient seen sitting on chair all dressed up ready to go home with ex- inside the room as well. Mental Status: Alert and oriented x3 Pain: Report mild pain on the right knee aggravated by weightbearing ROM: Right Upper Extremity: Shoulder Flexion WFL. Shoulder abduction WFL. Elbow flexion WFL. Wrist flexion WFL. Functional opening and closing of hand WFL. Left Upper Extremity: Shoulder Flexion WFL. Shoulder abduction WFL. Elbow flexion WFL. Wrist flexion WFL. Functional opening and closing of hand WFL. Right Lower Extremity: Hip flexion WFL. Hip abduction WFL. Knee flexion 0-105. Ankle dorsiflexion WFL. Ankle plantarflexion WFL. Left Lower Extremity: Hip flexion WFL. Hip abduction WFL. Knee flexion WFL. Ankle dorsiflexion WFL. Ankle plantarflexion WFL. Strength: Right Upper Extremity: Shoulder flexors 5/5. Shoulder abductors 5/5. Elbow flexors 5/5. Elbow extensors 5/5. Aircraft Delivery Checker strong. Left Upper Extremity: Shoulder flexors 5/5. Shoulder abductors 5/5. Elbow flexors 5/5. Elbow extensors 5/5. Aircraft Delivery Checker strong. Right Lower Extremity: Hip flexors 4/5. Hip abductors 4/5. Knee flexors 3-/5. Knee extensors 4/5. Ankle dorsiflexors 4/5. Ankle plantarflexors 4/5. Left Lower Extremity:Hip flexors 4/5. Hip abductors 4/5. Knee flexors 4/5. Knee extensors 4/5. Ankle dorsiflexors 4/5. Ankle plantarflexors 4/5. Bed Mobility/Transfers: Patient requires standby assist for all transfer task performance using straight cane. Gait: He was able to tolerate level surface ambulation of about 30 feet using the straight cane requiring standby assist by this PT. Balance: Static Sitting: Good Dynamic Sitting: Good Static Standing: Fair Dynamic Standing: Fair Informed Consent/Education: Patient instructed in purpose of PT consult and plan of care. Patient was instructed on safe strategies during turning using SC and on making sure that needed rest is taken in order to reduce seizure recurrence, maximize activity tolerance, and reduce onset of fatigue. Assessment: Patient presents with clinical signs and symptoms consistent with current/admitting diagnoses that have resulted to mobility limitations, gait instability, generalized weakness, and impairment of motor control as demonstrated by the following impairment level findings: 1. Decreased strength to B LE major muscle groups 2. Impaired sitting/standing balance 3. Impaired activity tolerance 4. Limitation of joint range of motion in right knee Impairments are contributing to the following functional limitations: 1. Inability to safely ambulate without assistive device and physical assistance 2. Increase completion time for mobility ADL performance 3. Increased fall risk 4. Inability to negotiate steps alone safely Patient is assessed as a 22387 moderate complexity based on the following: History: 47-year-old female requiring assessment for appropriate ambulatory device in order to reduce fall risk at home Examination: Underlying impairments and functional limitations as noted above Presentation: Stable Decision Makin moderate complexity Plan of Care/Treatment Plan: Patient goes home today with ex-. He states he has a straight cane that he can use at home for safety and stability. DISCHARGE RECOMMENDATIONS: Patient will benefit from home health PT services in order to progress mobility level using least restrictive assistive ambulatory device/using no device, assess home safety, identify additional equipment needs, and establish a functional maintenance program that will increase ability of patient to remain at home. TREATMENT CODE/TIME: 71025 x26 minutes beginning at 12:26 PM. Thank you very much for this referral. Pinky Hopper PT, DPT, CLT [facility]
== END 2018-09-01 13:34 | disposition home or self-care (01) | DRG 92 ==
LOC: ER 06:01 → MS 06:26
PROVIDERS: Admitting Provider Family Medicine; Emergency Provider Emergency Medicine; PCP Nurse Practitioner; Visit Provider Internal Medicine
DX: G92 Toxic encephalopathy (principal); E87.1 Hypo-osmolality and hyponatremia; E22.2 Syndrome of inappropriate secretion of antidiuretic hormone; T42.75XA Adverse effect of unspecified antiepileptic and sedative-hypnotic drugs, initial encounter; R06.2 Wheezing; Z86.69 Personal history of other diseases of the nervous system and sense organs; Z98.890 Other specified postprocedural states; F17.210 Nicotine dependence, cigarettes, uncomplicated; N40.0 Benign prostatic hyperplasia without lower urinary tract symptoms; Z91.19 Patient's noncompliance with other medical treatment and regimen; G40.909 Epilepsy, unspecified, not intractable, without status epilepticus
CPT/HCPCS: 36415; 80048; 80053; 80307; 85027; 96360; 97162; 99223; 99239; 99285; NC; 70450; 71045; 80164; 80177; 83735; 85025; 99284; J1644

== ENCOUNTER 2018-09-03 11:38 | Outpatient (CLI) | payer MEDICARE, MEDICAID, SELFPAY ==
[2018-09-03 12:53] LABS: Anion Gap 9.3 mmol/L (3-11); BUN 6 mg/dL (7-18); CO2 25.7 mmol/L (21.0-32.0); CREATININE 0.65 mg/dL (0.70-1.30); Calcium 8.8 mg/dL (8.5-10.1); Chloride 95 mmol/L (98-107); Glucose 100 mg/dL (70-100); Potassium 4.3 mmol/L (3.5-5.1); Sodium 130 mmol/L (136-145)
== END 2018-09-03 11:58 ==
PROVIDERS: PCP Nurse Practitioner; Visit Provider Internal Medicine
DX: E22.2 Syndrome of inappropriate secretion of antidiuretic hormone (principal); E87.1 Hypo-osmolality and hyponatremia
CPT/HCPCS: 36415; 80048

== ENCOUNTER → 2018-09-04 08:20 | Outpatient (BNVA) | payer MEDICARE, MEDICAID, SELFPAY | PROVIDERS: PCP Nurse Practitioner; Referring Provider Nurse Practitioner; Visit Provider Student in an Organized Health Care Education/Training Program | DX: Z47.1 Aftercare following joint replacement surgery (principal); M25.561 Pain in right knee; M25.461 Effusion, right knee; Z96.651 Presence of right artificial knee joint | CPT/HCPCS: 20610; 99211; J1040 ==

== ENCOUNTER 2018-09-21 11:57 | Outpatient (REF) | payer MEDICARE, MEDICAID, SELFPAY ==
[2018-09-21 19:10] LABS: HCT 42.2 % (40.0-50.0); HGB 15.1 g/dL (13.5-17.5); Mean Corp. HGB Concentration 35.8 g/dL (32.0-36.0); Mean Corpuscular Hemoglobin 31.5 pg (27.0-33.0); Mean Corpuscular Volume 87.9 fL (80-95); Mean Platelet Volume 10.4 fL (8.0-11.0); Platelet Count 258 x1000/uL (130-400); RBC Distribution Width 13.3 % (11.8-14.1); White Blood Cell Count 4.29 k/cumm (4.4-10.8)
[2018-09-21 19:14] LABS: Chloride 96 mmol/L (98-107); Potassium 4.6 mmol/L (3.5-5.1)
[2018-09-21 19:26] LABS: Anion Gap 9.3 mmol/L (3-11); BUN 9 mg/dL (7-18); CO2 25.7 mmol/L (21.0-32.0); CREATININE 0.65 mg/dL (0.70-1.30); Calcium 9.3 mg/dL (8.5-10.1); Glucose 94 mg/dL (70-100); Sodium 131 mmol/L (136-145)
== END 2018-09-21 12:17 ==
LOC: LBN 11:57
PROVIDERS: PCP Nurse Practitioner; Visit Provider Nurse Practitioner
DX: E87.1 Hypo-osmolality and hyponatremia (principal); R79.9 Abnormal finding of blood chemistry, unspecified
CPT/HCPCS: 80048; 85027

== ENCOUNTER → 2018-10-02 09:12 | Outpatient (BNVA) | payer MEDICARE, MEDICAID, SELFPAY | PROVIDERS: PCP Nurse Practitioner; Referring Provider Nurse Practitioner; Visit Provider Student in an Organized Health Care Education/Training Program | DX: Z98.890 Other specified postprocedural states (principal); M17.11 Unilateral primary osteoarthritis, right knee; M25.461 Effusion, right knee; Z09 Encounter for follow-up examination after completed treatment for conditions other than malignant neoplasm; M25.561 Pain in right knee; G89.29 Other chronic pain; Z47.89 Encounter for other orthopedic aftercare | CPT/HCPCS: 99213 ==

== ENCOUNTER 2018-10-05 10:47 | Outpatient (CLI) | payer MEDICARE, MEDICAID, SELFPAY ==
[2018-10-05 12:09] LABS: Anion Gap 8.9 mmol/L (3-11); BUN 5 mg/dL (7-18); CO2 26.1 mmol/L (21.0-32.0); CREATININE 0.71 mg/dL (0.70-1.30); Calcium 9.2 mg/dL (8.5-10.1); Chloride 100 mmol/L (98-107); Glucose 97 mg/dL (70-100); Potassium 4.5 mmol/L (3.5-5.1); Sodium 135 mmol/L (136-145)
== END 2018-10-05 11:07 ==
PROVIDERS: PCP Nurse Practitioner; Visit Provider Nurse Practitioner
DX: E87.1 Hypo-osmolality and hyponatremia (principal)
CPT/HCPCS: 36415; 80048

== ENCOUNTER → 2018-10-07 13:15 | Outpatient (BNVA) | payer MEDICARE, MEDICAID, SELFPAY | PROVIDERS: PCP Nurse Practitioner; Visit Provider Psychiatry & Neurology Neurology | DX: R56.9 Unspecified convulsions (principal); D32.0 Benign neoplasm of cerebral meninges; R40.0 Somnolence; R41.3 Other amnesia; E87.1 Hypo-osmolality and hyponatremia; E22.2 Syndrome of inappropriate secretion of antidiuretic hormone; R25.1 Tremor, unspecified; R53.83 Other fatigue; G43.709 Chronic migraine without aura, not intractable, without status migrainosus | CPT/HCPCS: 99214 ==

== ENCOUNTER 2018-10-30 15:28 | Observation (INO) | payer MEDICARE, MEDICAID, SELFPAY ==
[2018-10-30] VITALS (48 sets, daily range): BP systolic 92–136; BP diastolic 62–95; PULSE 44–78; RESP 8–18; TEMP 35.7–36.8; O2SAT 94–100
[2018-10-30] MEDS: Normal Saline 1,000 ML 125 ML IV ×2 (15:45→21:13)
--- NOTE | 2018-10-30 15:48 | DI.CT_ITS ---
SYMPTOM/DIAGNOSIS: H/O BRAIN TUMOR, ASSESS FOR MASS/EDEMA CT BRAIN: Noncontrast examination. Comparison 08/2017 The ventricles and sulci are consistent with the patient's age. There is an area of encephalomalacia in the right frontal lobe. There is unchanged size of the ventricular system. No acute intracranial hemorrhage, midline shift or mass effect is identified. Areas of decreased attenuation are seen in the white matter which might reflect small vessel ischemic disease. The visualized paranasal sinuses show no fluid levels. There is nonmucosal thickening in the left maxillary sinus. The mastoid air cells are well pneumatized. No acute fracture seen. There is an old right frontal craniotomy defect. IMPRESSION: No acute intracranial process.
[2018-10-30 16:00] LABS: Abs Immature Grans 0.01 k/cumm (0.0-0.09); Absolute Basophil Count 0.03 k/cumm (0.0-0.2); Absolute Eosinophil Count 0.05 k/cumm (0.0-0.7); Absolute Lymphocyte Count 1.66 k/cumm (1.2-3.4); Absolute Monocyte Count 0.42 k/cumm (0.11-0.7); Absolute Neutrophil Count 2.76 k/cumm (1.2-6.7); Basophils % 0.6; HCT 40.2 % (40.0-50.0); HGB 14.2 g/dL (13.5-17.5); Immature Grans % 0.2; Lymphocytes % 33.7; Mean Corp. HGB Concentration 35.3 g/dL (32.0-36.0); Mean Corpuscular Hemoglobin 30.7 pg (27.0-33.0); Mean Platelet Volume 10.1 fL (8.0-11.0); Monocytes % 8.5; Platelet Count 267 x1000/uL (130-400); RBC 4.62 m/cumm (4.50-6.00); RBC Distribution Width 13.1 % (11.8-14.1); White Blood Cell Count 4.93 k/cumm (4.4-10.8)
--- NOTE | 2018-10-30 16:03 | W.ED.GENAD ---
Discharge Plan Disposition Patient Disposition: [facility] INPATIENT Condition: Stable Discharge Details Chief Complaint: GenMedical Clinical Impression: Dizziness, Somnolence, History of brain tumor Admit Date/Time: 10/30/18 19:14 Admit Provider: Jamie Zambrano Attending Provider: Jamie Zambrano Primary Care Provider: Colleen Mercado ED Provider: Ivanna Yarbrough Hospital Course Hospital Course: Chief Complaint: Fatigue HPI: 47 year old man with a prior history significant for Bipolar Disorder and anxiety, with chronic complains of fatigue, admitted from [facility] Emergency Department on 10/30 with a complaint of fatigue. Mr. Salazar has a prior history of Meningioma s/p resection with a reported subsequent Seizure Disorder on AED. He also has noted prior history of Hydrocephalus and Intraventricular Hemorrhage, SIADH, Bipolar disorder, and anxiety. He presented to the ED with complaints of fatigue, dizziness, and nonspecific weakness. He was however neurologically intact and following commands. Work-up included a normal CBC, CMP (Minimal Hyponatremia that appears chronic), negative troponin, normal TSH, and a negative urinalysis. His Urine Drug Screen was positive for THC only, which he reports to chronically using. Imaging with a CXR was unremarkable, and CT of the head was stable, unchanged, and without acute findings. He was admitted overnight for observation. This morning Mr. Salazar admits to chronic fatigue, ongoing for at least one year. He also reports improvement since time of admission. As he has remains stable and without any obvious acute source for his symptoms, the patient is being discharged in stable condition. Of note, the patient is also chronically maintained on Clonidine and SSRI therapy as 2 potential sources of his fatigue. A Tick Panel was also sent but not yet available for review at time of discharge. Patient was advised to follow-up with his PCP and neurologist regarding his symptoms. Discharge Instructions Instructions: Weakness (GEN) Additional Instructions: Please see your primary care provider within 1-2 weeks of discharge. Forms: Nursing Discharge Form Referrals: Colleen Mercado, JOSEPH [Primary Care Provider] - (Please call the office first thing Friday morning to schedule a follow up appointment for 1-2 weeks) Discharge Data Discharge Date/Time-TO BE ENTERED AT DEPARTURE: 10/30/18 19:56 Medical Decision Making Patient is a 47-year-old male with a history of meningioma, previous history of hydrocephalus and intraventricular hemorrhage who presents with fatigue, dizziness and generalized weakness since last night. States his presentation is similar as to when he has low sodium Blood pressure mildly low, systolic in the 90s, remainder vitals within normal limits. Patient appears very drowsy. He is able to open his eyes and follow commands and demonstrates no focal deficits. EKG notes a rate of 67, sinus, no acute ST elevation or depression. Differential diagnosis includes hyponatremia, other metabolic disturbance, dehydration, infection, stroke. Will place an IV, start normal saline infusion, check screening labs, CT head, chest x-ray. 1800 -- CT head and chest x-ray negative. Labs reviewed and unremarkable. Sodium 134. Normal white blood cell count. Trop negative. UA negative. Pt denies any alcohol or drug use. He has vicodin on his list but states he hasn't had any for 2 days. He is c/o spinning sensation. Ex- states this is different from pt's baseline. He is still quite drowsy. Arousable and able to answer questions. No signs of airway compromise. Will give dose of meclizine, continue IVF, check UDS and admit for somnolence and altered mental status in setting of h/o brain tumor/surgery for observation to see if symptoms improve with fluids. 1830 -- d/w hospitalist - accepts pt for admission. Medical Records Medical records reviewed: Yes I reviewed the patient's medical records. Imaging Data Radiologic Study: Radiologist's impression: XR Chest, 2 Views EXAM DATE/TIME: 10/30/2018 4:37 PM CLINICAL HISTORY: 47 years old, male; Pain; Other: Lethargyweakness R/O acute disease; Additional info: H/o brain tumor; Assess for mass/edema TECHNIQUE: Imaging protocol: XR of the chest, 2 views. COMPARISON: SC XR PORTABLE CHEST AP 08/31/2018 8:16 PM FINDINGS: Lungs: Unremarkable. No consolidation. Pleural space: Unremarkable. No pleural effusion. No pneumothorax. Heart/Mediastinum: Unremarkable. No cardiomegaly. Bones/joints: Degenerative changes are seen in the thoracic spine IMPRESSION: No acute findings. CT Head Without Contrast EXAM DATE/TIME: 10/30/2018 3:50 PM CLINICAL HISTORY: 47 years old, male; Dizziness and other: Drowsiness, general weakness; Patient HX: Drowsiness, dizziness, fatigue since today; Additional info: H/o brain tumor; Assess for mass/edema TECHNIQUE: Imaging protocol: Computed tomography images of the head without contrast. Coronal and sagittal reformatted images were created and reviewed. COMPARISON: CT HEAD WO 08/31/2018 4:38 AM FINDINGS: Brain: Ventricles and sulci are unchanged when compared with the patient's prior exam. There is cavitary encephalomalacia noted in the right frontal lobe extending to the right lateral ventricle. This was also previously identified. There is minimal low attenuation also seen within the right frontal periventricular and subcortical white matter. There is mild ex vacuo enlargement of the frontal horn of the left lateral ventricle. The ventricles and sulci are unchanged. There is no acute hemorrhage, mass or shift. There is no evidence of acute cortical or major vascular territory infarct. No new extra-axial collections are identified. Ventricles: Ventricular size is stable Bones/joints: There is no acute bony abnormality. There is a remote right frontal craniotomy which is unchanged. Sinuses: There is no significant sinus opacification. Minimal mucoperiosteal thickening is seen in the left maxillary antrum. Mastoid air cells: There is no significant mastoid opacification Soft tissues: Unremarkable. IMPRESSION: Stable CT appearance of the head. No new or acute findings identified. Lab Data Lab results reviewed: Yes I reviewed the patient's lab results. Laboratory Tests Range/Units 10/30/18 10/30/18 10/30/18 15:50 15:50 16:55 WBC (4.4-10.8) k/cumm 4.93 RBC (4.50-6.00) m/cumm 4.62 Hgb (13.5-17.5) g/dL 14.2 Hct (40.0-50.0) % 40.2 MCV (80-95) fL 87.0 MCH (27.0-33.0) pg 30.7 MCHC (32.0-36.0) g/dL 35.3 RDW (11.8-14.1) % 13.1 Plt Count (130-400) x1000/uL 267 MPV (8.0-11.0) fL 10.1 Immature Gran % 0.2 Neutrophils % 56.0 Lymphocytes % 33.7 Monocytes % 8.5 Eosinophils % 1.0 Basophils % 0.6 Absolute Neutrophils (1.2-6.7) k/cumm 2.76 Absolute Lymphocytes (1.2-3.4) k/cumm 1.66 Absolute Monocytes (0.11-0.7) k/cumm 0.42 Absolute Eosinophils (0.0-0.7) k/cumm 0.05 Absolute Basophils (0.0-0.2) k/cumm 0.03 Sodium (136-145) mmol/L 134 L Potassium (3.5-5.1) mmol/L 3.9 Chloride (98-107) mmol/L 99 Carbon Dioxide (21.0-32.0) mmol/L 26.7 Anion Gap (3-11) mmol/L 8.3 BUN (7-18) mg/dL 8 Creatinine (0.70-1.30) mg/dL 0.65 L Estimated GFR/1.73 m2 (mL/min/1.73m2) >= 60.00 Glucose (70-100) mg/dL 99 Calcium (8.5-10.1) mg/dL 8.6 Magnesium (1.8-2.4) mg/dL 1.9 Total Bilirubin (0.2-1.0) mg/dL 0.4 AST (15-37) U/L 7 L ALT (12-78) U/L 17 Alkaline Phosphatase (46-116) U/L 81 Troponin I (0.00-0.06) ng/mL < 0.05 Total Protein (6.4-8.2) g/dL 6.3 L Albumin (3.4-5.0) g/dL 3.4 Urine Color (Yellow) Yellow Urine Clarity (Clear) Clear Urine pH (5-8) 6.5 Ur Specific [place] (1.005-1.025) 1.015 Urine Protein (Negative) mg/dL Negative Urine Ketones (Negative) mg/dL Negative Urine Blood (Negative) Negative Urine Nitrite (Negative) Negative Urine Bilirubin (Negative) Negative Urine Urobilinogen (Up TO 0.2) EU/dL 0.2 Ur Leukocyte Esterase (Negative) Negative Urine Glucose (Negative) mg/dL 100 ECG Data Attestation: I personally reviewed and interpreted this ECG (s) as follows: Interpretation: #1 --Rate of 67, sinus, interpreted as ST elevation in V2 and V3 but this appears consistent with repolarization and has been seen in previous EKG. No acute ST depression. QTc 393. QRS 90. Repeat EKG done to reassess ST segments and appears unchanged and both appear similar to previous EKG May 2018 #2 -- heart rate 46, sinus, appears consistent with early repolarization. No acute ST elevation or depression. QTc 385. QRS 92 HPI General Mode of arrival: ambulatory. Date/Time Provider Initiated Documentation: 10/30/18 15:30. Limitations to Documentation: no limitations. Information obtained by: patient. HPI Narrative: Patient is a 47-year-old male with a history of meningioma and prior craniotomy with history of intraventricular hemorrhage who presents with excessive fatigue, lethargy, dizziness and weakness since yesterday, worse this morning. He denies fever, blurry vision, sore throat, chest pain, shortness of breath, abdominal pain, vomiting, diarrhea, urinary symptoms, headache, unilateral extremity weakness or numbness. Ex- who presents with patient states that patient has had similar symptoms in the past with low sodium so they wanted this to be checked in him to be evaluated. Ex- states that patient's excessive fatigue is unlike his baseline. She states that with his history of brain tumor and surgery he can occasionally have muscle jerks but usually not this excessive fatigue. Related Data Home Medications Medication Instructions Recorded Confirmed Depend Underwear For Women S-M #300 ea 12/09/17 10/30/18 underpads [Air Permeable Underpad] #300 ea 12/09/17 10/30/18 Narcan 1 spray KRYSTAL ONCE PRN #2 each 06/24/18 10/30/18 aripiprazole 5 mg tablet 5 mg PO HS #30 tab-cap 07/29/18 10/30/18 fluoxetine 40 mg capsule 80 mg PO DAILY #60 tab-cap 07/29/18 10/30/18 mirabegron 25 mg tablet,extended 25 mg PO DAILY 1 Days #30 tab-cap 07/29/18 10/30/18 release 24 hr tamsulosin 0.4 mg capsule 0.4 mg PO HS #30 tab-cap 07/29/18 10/30/18 meloxicam 7.5 mg PO DAILY PRN 08/31/18 10/30/18 sodium chloride 1,000 mg PO BID #60 tab 09/01/18 10/30/18 clonidine HCl 0.2 mg tablet 0.4 mg PO BID #120 tab 09/10/18 10/30/18 levetiracetam 1,000 mg tablet 1,000 mg PO BID #60 tab 09/10/18 10/30/18 albuterol sulfate 90 mcg/actuation 2 inh IH Q6H PRN #1 each 09/21/18 10/30/18 breath activated powder inhaler hydrocodone 5 mg-acetaminophen 325 1 tab PO Q8H PRN #12 tab MDD 15mg 10/22/18 10/30/18 mg tablet methylphenidate HCl 10 mg tablet 10 mg PO DIRECTED #60 tab MDD 10/22/18 10/30/18 20mg daily Previous Rx's Medication Instructions Recorded Narcan 1 spray KRYSTAL ONCE PRN #2 each 06/24/18 aripiprazole 5 mg tablet 5 mg PO HS #30 tab-cap 07/29/18 fluoxetine 40 mg capsule 80 mg PO DAILY #60 tab-cap 07/29/18 mirabegron 25 mg tablet,extended 25 mg PO DAILY 1 Days #30 tab-cap 07/29/18 release 24 hr tamsulosin 0.4 mg capsule 0.4 mg PO HS #30 tab-cap 07/29/18 sodium chloride 1,000 mg PO BID #60 tab 09/01/18 clonidine HCl 0.2 mg tablet 0.4 mg PO BID #120 tab 09/10/18 levetiracetam 1,000 mg tablet 1,000 mg PO BID #60 tab 09/10/18 albuterol sulfate 90 mcg/actuation 2 inh IH Q6H PRN #1 each 09/21/18 breath activated powder inhaler hydrocodone 5 mg-acetaminophen 325 1 tab PO Q8H PRN #12 tab MDD 15mg 10/22/18 mg tablet methylphenidate HCl 10 mg tablet 10 mg PO DIRECTED #60 tab MDD 10/22/18 20mg daily Allergies Allergy/AdvReac Type Severity Reaction Status Date / Time oxycodone HCl [From Percocet] AdvReac Intermediate VOMITING Verified 10/30/18 15:34 General Stated Complaint: GenMedical MIRIAM: 3 Review of Systems Review of Systems All systems reviewed & are unremarkable except as noted in HPI and below Constitutional Reports as per HPI, Denies chills, Reports fatigue, Denies fever(s), Reports headache(s) and Reports weakness Eyes Denies blurry vision ENT Reports dizziness, Reports headache(s), Denies sore throat and Denies throat swelling Cardiovascular Reports chest pain and Reports dyspnea Respiratory Denies cough and Reports dyspnea Gastrointestinal Denies abdominal pain, Denies diarrhea and Denies vomiting Genitourinary Denies hematuria and Denies dysuria Musculoskeletal Denies back pain and Denies numbness Integumentary/Breasts Denies lesions and Denies rash Neurologic Reports dizziness, Reports headache(s), Denies focal weakness, Denies numbness and Reports weakness Endocrine Reports fatigue Allergic/Immunologic Denies throat swelling PFSH Medical History Anxiety (Chronic 11/19/16) Bipolar depression (Chronic 03/31/17) BPH (benign prostatic hyperplasia) (Chronic 08/13/17) Carpal tunnel syndrome Cerebral tumor (Chronic 06/26/17) Chronic fatigue (Acute) Depression Diverticulitis Hydrocephalus (Resolved 06/26/17) IVH (intraventricular hemorrhage) (Chronic 09/24/17) Knee pain (Chronic) Mass, brain (Chronic 09/24/17) Meningioma, cerebral (Chronic 10/22/17) Migraine (Chronic 07/02/16) Primary osteoarthritis of right knee (Chronic 03/31/17) Right knee pain (Chronic) Seizure disorder (Chronic 11/19/16) Tobacco use disorder (Chronic 07/03/16) Tourette disease (Chronic 11/19/16) Urinary incontinence (Chronic 11/18/17) Surgical History 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) Hernia Repair-L (04/13/94) rgt craiotomy for mass (09/24/17) S/P craniotomy (Chronic 10/22/17) Family History Mother Essential hypertension Cerebral aneurysm Father Neoplasm Maternal Grandfather Heart disease Neoplasm Maternal Grandmother Neoplasm Social History Smoking/Tobacco Use Status: Former Tobacco Use Quit Date: 10/12/18 Quit status: not considering quitting Alcohol Intake: never Drug use: Daily Substance use type: marijuana Details: uses marijuana for pain Adopted: No Foster care: No Household members: spouse and children Number of Children: 5 Pets and animals: Yes Pets and animals: dog(s) Current gender identity: male What type of physical activity do you participate in: none Seatbelt use: always Drive intox or ride w/intox 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 Water heater temp set <120 deg: Yes Working smoke detector in home: Yes Carbon monox detector in home: Yes Do you feel safe at home: Yes Do you feel safe in your relationship?: Yes Exam Const General: cooperative and healthy appearing Orientation: alert and awake HENMA Head: normal to inspection Ears: hearing grossly normal bilaterally, external ears normal and TM's normal bilaterally General nose exam: external nose normal Face and sinus: normal facial exam Mouth: oral mucosae normal Teeth and gingiva: dentition normal Throat: posterior oropharynx normal Eyes General: appearance normal, both eyes and all related structures Eyelids: eyelids normal Pupils: PERRL EOM: EOM intact bilaterally Neck Neck: normal visual inspection Lymphatic: no lymphadenopathy noted Chest Chest: normal inspection of the chest Resp Effort & Inspection: normal respiratory effort and able to speak in complete sentences Auscultation: clear to auscultation bilaterally Cardio Rate: regular rate Rhythm: regular rhythm GI Inspection: normal to inspection Palpation: soft, not firm, no guarding, no hepatosplenomegaly, no masses and nontender Auscultation: normal bowel sounds Back/Spine/Pelvis Back: no CVA tenderness Skin General skin exam: no rashes or lesions noted Neuro General: oriented x3 and other (lethargic, drowsy but arousable) Cranial Nerves: CN's II-XI intact bilaterally Cognition: normal cognition Speech: speech normal Motor: muscle tone normal throughout and strength 5/5 throughout Sensory Exam: no sensory deficits noted Extrem General: normal to inspection, full ROM and normal capillary refill Psych Appearance: grossly normal Mental Status: mental status grossly normal Speech and Movement: speech and movement normal Affect: normal affect Thought Process: normal Course Vital Signs Temperature 98.2 F 10/30/18 15:31 Pulse 62 10/30/18 15:31 Respiratory Rate 13 10/30/18 15:31 Blood Pressure 106/73 10/30/18 15:31 Pulse Oximetry 97 10/30/18 15:31 Temperature 98.2 F 10/30/18 15:31 Temperature Source Temporal Artery Scan 10/30/18 15:31 Pulse 63 10/30/18 15:46 Pulse 66 10/30/18 15:46 Respiratory Rate 13 10/30/18 16:00 Respiratory Effort Non-Labored 10/30/18 16:00 Respiratory Depth Normal 10/30/18 16:00 Respiratory Pattern Normal 10/30/18 16:00 Blood Pressure 92/63 L 10/30/18 15:46 Blood Pressure Mean 70 10/30/18 15:46 Blood Pressure Position Sitting 10/30/18 15:31 Pulse Oximetry 96 10/30/18 15:46 Pain Level 0 10/30/18 15:31 Lab/Test Results Lab/Test Results: Laboratory Tests Range/Units 10/30/18 15:50 WBC (4.4-10.8) k/cumm 4.93 RBC (4.50-6.00) m/cumm 4.62 Hgb (13.5-17.5) g/dL 14.2 Hct (40.0-50.0) % 40.2 MCV (80-95) fL 87.0 MCH (27.0-33.0) pg 30.7 MCHC (32.0-36.0) g/dL 35.3 RDW (11.8-14.1) % 13.1 Plt Count (130-400) x1000/uL 267 MPV (8.0-11.0) fL 10.1 Immature Gran % 0.2 Neutrophils % 56.0 Lymphocytes % 33.7 Monocytes % 8.5 Eosinophils % 1.0 Basophils % 0.6 Absolute Neutrophils (1.2-6.7) k/cumm 2.76 Absolute Lymphocytes (1.2-3.4) k/cumm 1.66 Absolute Monocytes (0.11-0.7) k/cumm 0.42 Absolute Eosinophils (0.0-0.7) k/cumm 0.05 Absolute Basophils (0.0-0.2) k/cumm 0.03
[2018-10-30 16:18] LABS: ALT 17 U/L (12-78); AST 7 U/L (15-37); Albumin 3.4 g/dL (3.4-5.0); Alkaline Phosphatase 81 U/L (46-116); Anion Gap 8.3 mmol/L (3-11); BUN 8 mg/dL (7-18); Bilirubin, Total 0.4 mg/dL (0.2-1.0); CO2 26.7 mmol/L (21.0-32.0); CREATININE 0.65 mg/dL (0.70-1.30); Calcium 8.6 mg/dL (8.5-10.1); Chloride 99 mmol/L (98-107); Glucose 99 mg/dL (70-100); Magnesium 1.9 mg/dL (1.8-2.4); Potassium 3.9 mmol/L (3.5-5.1); Sodium 134 mmol/L (136-145); Total Protein 6.3 g/dL (6.4-8.2)
[2018-10-30 16:19] LABS: Troponin I < 0.05 ng/mL (0.00-0.06)
--- NOTE | 2018-10-30 16:36 | DI.RAD_ITS ---
SYMPTOM/DIAGNOSIS: LETHARGY, WEAKNESS, R/O ACUTE DISEASE CHEST X-RAY: Frontal and lateral views. Comparison 08/31/18 The heart is normal in size. The lungs are clear. The mediastinal structures and pleura appear intact. CONCLUSION: Normal chest.
--- NOTE | 2018-10-30 16:40 | DI.VRAD_ITS ---
EXAM: CT Head Without Contrast EXAM DATE/TIME: 10/30/2018 3:50 PM CLINICAL HISTORY: 47 years old, male; Dizziness and other: Drowsiness, general weakness; Patient HX: Drowsiness, dizziness, fatigue since today; Additional info: H/o brain tumor; Assess for mass/edema TECHNIQUE: Imaging protocol: Computed tomography images of the head without contrast. Coronal and sagittal reformatted images were created and reviewed. COMPARISON: CT HEAD WO 08/31/2018 4:38 AM FINDINGS: Brain: Ventricles and sulci are unchanged when compared with the patient's prior exam. There is cavitary encephalomalacia noted in the right frontal lobe extending to the right lateral ventricle. This was also previously identified. There is minimal low attenuation also seen within the right frontal periventricular and subcortical white matter. There is mild ex vacuo enlargement of the frontal horn of the left lateral ventricle. The ventricles and sulci are unchanged. There is no acute hemorrhage, mass or shift. There is no evidence of acute cortical or major vascular territory infarct. No new extra-axial collections are identified. Ventricles: Ventricular size is stable Bones/joints: There is no acute bony abnormality. There is a remote right frontal craniotomy which is unchanged. Sinuses: There is no significant sinus opacification. Minimal mucoperiosteal thickening is seen in the left maxillary antrum. Mastoid air cells: There is no significant mastoid opacification Soft tissues: Unremarkable. IMPRESSION: Stable CT appearance of the head. No new or acute findings identified. Dictated and Authenticated by: Maria De Jesus Lane MD. Ordering:MARLENY Goncalves MD
[2018-10-30 17:03] LABS: Bilirubin Negative (Negative); Blood Negative (Negative); Clarity Clear (Clear); Glucose 100 mg/dL (Negative); Ketones Negative (Negative); Leukocyte Esterase Negative (Negative); Nitrite Negative (Negative); Specific Gravity 1.015 (1.005-1.025); Urobilinogen 0.2 EU/dL (Up TO 0.2); pH 6.5 (5-8)
--- NOTE | 2018-10-30 17:14 | DI.VRAD_ITS ---
EXAM: XR Chest, 2 Views EXAM DATE/TIME: 10/30/2018 4:37 PM CLINICAL HISTORY: 47 years old, male; Pain; Other: Lethargyweakness R/O acute disease; Additional info: H/o brain tumor; Assess for mass/edema TECHNIQUE: Imaging protocol: XR of the chest, 2 views. COMPARISON: SC XR PORTABLE CHEST AP 08/31/2018 8:16 PM FINDINGS: Lungs: Unremarkable. No consolidation. Pleural space: Unremarkable. No pleural effusion. No pneumothorax. Heart/Mediastinum: Unremarkable. No cardiomegaly. Bones/joints: Degenerative changes are seen in the thoracic spine IMPRESSION: No acute findings Dictated and Authenticated by: Maria De Jesus Lane MD. Ordering:MARLENY Goncalves MD
--- NOTE | 2018-10-30 18:59 | HPE_ITS ---
Date of service: 10/30/18 Time of Service: 18:59 Assessment and Plan (1) Lethargy: Current visit: Yes Status: Acute Lethargy, etiology not evident. R/O early infection; r/o toxic (on any number of meds with potential ACCOUNT SERVICES REPRESENTATIVE toxicity, but no h/o to suggest this; need to also r/o illicit drug use). Will obtain UDS and otherwise observe overnight. Will hold meds that can be safely withheld that could be contributing (Abilify, will decrease Clonidine, hold Prozac, will continue Keppra as is but check level). History of Present Illness Chief Complaint: sleepiness Narrative: 47 male with h/o meningioma, seizure disorder, depression, anxiety and chrronic pain -- here with one day of drrowsiness. Work up in ER essentially negative, including head CT, CBC, metabolic paneel, U/A. Patient denies any new medications, cchange in dosing or illicit drrug use (save for marijuana). Does have h/o prn opiates for chronic pain but syas last dose onew week ago (ex- confirms). Due to continued sleepiness he was admittedd for further observation. Review of Systems Review of Systems All systems reviewed & are unremarkable except as noted in HPI and below PFSH Medical History Anxiety Anxiety (Chronic 11/19/16) Bipolar depression (Chronic 03/31/17) BPH (benign prostatic hyperplasia) (Chronic 08/13/17) Carpal tunnel syndrome Cerebral tumor (Chronic 06/26/17) Depression Diverticulitis Hydrocephalus (Resolved 06/26/17) IVH (intraventricular hemorrhage) (Chronic 09/24/17) Knee pain (Chronic) Mass, brain (Chronic 09/24/17) Meningioma, cerebral (Chronic 10/22/17) Migraine (Chronic 07/02/16) Primary osteoarthritis of right knee (Chronic 03/31/17) Right knee pain (Chronic) Seizure disorder (Chronic 11/19/16) Tobacco use disorder (Chronic 07/03/16) Tourette disease (Chronic 11/19/16) Urinary incontinence (Chronic 11/18/17) Surgical History 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) Hernia Repair-L (04/13/94) rgt craiotomy for mass (09/24/17) S/P craniotomy (Chronic 10/22/17) Family History Mother Essential hypertension Cerebral aneurysm Father Neoplasm Maternal Grandfather Heart disease Neoplasm Maternal Grandmother Neoplasm Social History Smoking/Tobacco Use Status: Former Tobacco Use Quit Date: 10/12/18 Quit status: not considering quitting Alcohol Intake: never Drug use: Daily Substance use type: marijuana Details: uses marijuana for pain Adopted: No Foster care: No Household members: spouse and children Number of Children: 5 Pets and animals: Yes Pets and animals: dog(s) Current gender identity: male What type of physical activity do you participate in: none Seatbelt use: always Drive intox or ride w/intox driver utility 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: No Water heater temp set <120 deg: Yes Working smoke detector in home: Yes Carbon monox detector in home: Yes Do you feel safe at home: Yes Do you feel safe in your relationship?: Yes Meds Home Medications Medication Instructions Recorded Confirmed Type Depend Underwear For Women S-M #300 ea 12/09/17 10/30/18 History underpads [Air Permeable Underpad] #300 ea 12/09/17 10/30/18 History Narcan 1 spray KRYSTAL ONCE PRN #2 each 06/24/18 10/30/18 Rx aripiprazole 5 mg tablet 5 mg PO HS #30 tab-cap 07/29/18 10/30/18 Rx fluoxetine 40 mg capsule 80 mg PO DAILY #60 tab-cap 07/29/18 10/30/18 Rx mirabegron 25 mg tablet,extended 25 mg PO DAILY 1 Days #30 tab-cap 07/29/18 10/30/18 Rx release 24 hr tamsulosin 0.4 mg capsule 0.4 mg PO HS #30 tab-cap 07/29/18 10/30/18 Rx meloxicam 7.5 mg PO DAILY PRN 08/31/18 10/30/18 History sodium chloride 1,000 mg PO BID #60 tab 09/01/18 10/30/18 Rx clonidine HCl 0.2 mg tablet 0.4 mg PO BID #120 tab 09/10/18 10/30/18 Rx levetiracetam 1,000 mg tablet 1,000 mg PO BID #60 tab 09/10/18 10/30/18 Rx albuterol sulfate 90 mcg/actuation 2 inh IH Q6H PRN #1 each 09/21/18 10/30/18 Rx breath activated powder inhaler hydrocodone 5 mg-acetaminophen 325 1 tab PO Q8H PRN #12 tab MDD 15mg 10/22/18 10/30/18 Rx mg tablet methylphenidate HCl 10 mg tablet 10 mg PO DIRECTED #60 tab MDD 10/22/18 10/30/18 Rx 20mg daily Allergies Allergy/AdvReac Type Severity Reaction Status Date / Time oxycodone HCl [From Percocet] AdvReac Intermediate VOMITING Verified 10/30/18 15:34 Exam Narrative Exam Narrative: 120/84, 69, 12, 36.8. HEENT atraumatic; neck supple; lungs scattered wheeze; heart RRR w/o M/R/G; abdomen soft NT; /rectal deferred; extr no edema; neuro: sleepy but easily arrouses to voice, Ox3, pupils 3 mm/reacctive, EOMI w/o nystagmus, no facial asymmetry, moves all 4s Results Labs : 10/30/18 15:50 10/30/18 15:50 Laboratory Results - last 24 hr 10/30/18 10/30/18 10/30/18 15:50 15:50 16:55 WBC 4.93 RBC 4.62 Hgb 14.2 Hct 40.2 MCV 87.0 MCH 30.7 MCHC 35.3 RDW 13.1 Plt Count 267 MPV 10.1 Immature Gran % 0.2 Neutrophils % 56.0 Lymphocytes % 33.7 Monocytes % 8.5 Eosinophils % 1.0 Basophils % 0.6 Absolute Neutrophils 2.76 Absolute Lymphocytes 1.66 Absolute Monocytes 0.42 Absolute Eosinophils 0.05 Absolute Basophils 0.03 Sodium 134 L Potassium 3.9 Chloride 99 Carbon Dioxide 26.7 Anion Gap 8.3 BUN 8 Creatinine 0.65 L Estimated GFR/1.73 m2 >= 60.00 Glucose 99 Calcium 8.6 Magnesium 1.9 Total Bilirubin 0.4 AST 7 L ALT 17 Alkaline Phosphatase 81 Troponin I < 0.05 Total Protein 6.3 L Albumin 3.4 Urine Color Yellow Urine Clarity Clear Urine pH 6.5 Ur Specific [place] 1.015 Urine Protein Negative Urine Ketones Negative Urine Blood Negative Urine Nitrite Negative Urine Bilirubin Negative Urine Urobilinogen 0.2 Ur Leukocyte Esterase Negative Urine Glucose 100 Last Vital Signs Temp 36.8 C 10/30/18 15:31 Pulse 69 10/30/18 18:46 Resp 12 10/30/18 18:46 BP 120/84 10/30/18 18:46 Pulse Ox 96 10/30/18 18:46
[2018-10-30] MEDS: Meclizine 25 MG TAB PO (19:01)
[2018-10-30 19:24] LABS: *AMPHETAMINES SCREEN URINE Negative (Negative); *BARBITURATES SCREEN URINE Negative (Negative); *BENZODIAZEPINES SCREEN URINE Negative (Negative); Cannabinoids THC POSITIVE (Negative); Cocaine Screen,Urine Negative (Negative); METHADONE URINE SCREEN Negative (Negative); OPIATES URINE SCREEN Negative (Negative)
[2018-10-30 20:06] LABS: Tricyclic Antidepressants Negative (Negative)
[2018-10-30] MEDS: Tamsulosin 0.4 MG CAPCR PO (21:14)
[2018-10-30] MEDS: cloNIDine 0.1 MG TAB 0.2 MG PO (21:14)
[2018-10-30] MEDS: Normal Saline Flush 10 ML SYR IVP (21:14)
[2018-10-30] MEDS: levETIRAcetam 500 MG TAB 1000 MG PO (21:14)
[2018-10-31] MEDS: Normal Saline 1,000 ML 125 ML IV ×2 (04:15→11:54)
--- NOTE | 2018-10-31 08:13 | PHARADMIT ---
Admission Pharmacy Clinical Review LETHARGY Code Status Full Code Current Weight Wgt- 78.4 kg Renally Cleared and Narrow Therapeutic Index Meds CrCl~ 114 mL/min Meds-OK QTc Value / Action Taken None current BP Control, Fever BP- 136/84 Tmax- 35.7C Electrolytes reviewed Na-134 K+3.9 Mag-1.9 DVT Prophylaxis None Opiate Usage / Scheduled Bowel Regimen Ordered No No Plt/SCr for Heparin / Enoxaparin Plts-267 SCr-0.65 INR for Warfarin NA H/H stable, WBC/Bands H&H- 14.2/40.2 WBC- 4.93 Antibiotic appropriateness none Cultures and Sensitivities none Surgical ABX d/c within 24 hr NA DM control / Insulin Dosing BG-99 Heart Failure (Check EF%) (SARA's, B-Block, Diuretics) Clonidine, IV to PO Switch No Home Meds Reviewed Yes Home Meds Not Ordered Abilify, Flexeril, Depakote-ER, Prozac, Gabapentin Comments
[2018-10-31 08:17] VITALS: BP 126/80; PULSE 95; RESP 17; TEMP 36.7; O2SAT 99
[2018-10-31 08:39] LABS: TSH 1.96 uIU/mL (0.358-3.74)
[2018-10-31] MEDS: Methylphenidate 10 MG TAB PO (09:14)
[2018-10-31] MEDS: Salt Supplement (BUFFERED) TAB 1 TAB PO (09:14)
[2018-10-31] MEDS: levETIRAcetam 500 MG TAB 1000 MG PO (09:14)
[2018-10-31] MEDS: Mirabegron 25 MG TABCR PO (09:15)
[2018-10-31] MEDS: cloNIDine 0.1 MG TAB 0.2 MG PO (09:15)
--- NOTE | 2018-10-31 13:05 | DSE_ITS ---
Date of service: 10/31/18 Time of Service: 13:05 Discharge Plan Disposition Patient Disposition: HOME Condition: Stable Discharge Details Chief Complaint: GenMedical Clinical Impression: Dizziness, Somnolence, History of brain tumor Reason For Visit: LETHARGY Admit Date/Time: 10/30/18 19:14 Admit Provider: Jamie Zambrano Attending Provider: Jamie Zambrano Primary Care Provider: Colleen Mercado ED Provider: Ivanna Yarbrough Hospital Course Hospital Course: Chief Complaint: Fatigue HPI: 47 year old man with a prior history significant for Bipolar Disorder and anxiety, with chronic complains of fatigue, admitted from [facility] Emergency Department on 10/30 with a complaint of fatigue. Mr. Salazar has a prior history of Meningioma s/p resection with a reported subsequent Seizure Disorder on AED. He also has noted prior history of Hydrocephalus and Intraventricular Hemorrhage, SIADH, Bipolar disorder, and anxiety. He presented to the ED with complaints of fatigue, dizziness, and nonspecific weakness. He was however neurologically intact and following commands. Work-up included a normal CBC, CMP (Minimal Hyponatremia that appears chronic), negative troponin, normal TSH, and a negative urinalysis. His Urine Drug Screen was positive for THC only, which he reports to chronically using. Imaging with a CXR was unremarkable, and CT of the head was stable, unchanged, and without acute findings. He was admitted overnight for observation. This morning Mr. Salazar admits to chronic fatigue, ongoing for at least one year. He also reports improvement since time of admission. As he has remains stable and without any obvious acute source for his symptoms, the patient is being discharged in stable condition. Of note, the patient is also chronically maintained on Clonidine and SSRI therapy as 2 potential sources of his fatigue. A Tick Panel was also sent but not yet available for review at time of discharge. Patient was advised to follow-up with his PCP and neurologist regarding his symptoms. Home Meds and New Rx's Prescriptions: Continued aripiprazole [Abilify] 5 mg tablet 5 mg PO HS Qty: 30 RF: 12 fluoxetine 40 mg capsule 80 mg PO DAILY Qty: 60 RF: 6 Myrbetriq 25 mg tablet extended release 24 hr 25 mg PO DAILY 1 Days Qty: 30 RF: 11 tamsulosin [Flomax] 0.4 mg capsule 0.4 mg PO HS Qty: 30 RF: 12 albuterol sulfate 90 mcg/actuation aerosol powdr breath activated 2 inh IH Q6H PRN (Reason: shortness of breath or wheezing) Qty: 1 RF: 12 (DME) underpads [Air Permeable Underpad] 1 EACH pad 1 ea Miscellaneous Q4H PRN Qty: 300 RF: 12 (DME) Depend Underwear For Women S-M 1 EACH misc 1 ea Miscellaneous Q4H PRN Qty: 300 RF: 12 levetiracetam [Keppra] 1,000 mg tablet 1,000 mg PO BID Qty: 60 RF: 3 clonidine HCl 0.2 mg tablet 0.4 mg PO BID Qty: 120 RF: 3 hydrocodone-acetaminophen 5-325 mg tablet 1 tab PO Q8H MDD 15mg PRN (Reason: pain) Qty: 12 RF: 0 methylphenidate HCl 10 mg tablet 10 mg PO DIRECTED MDD 20mg daily Qty: 60 RF: 0 Narcan 4 mg/actuation spray,non-aerosol 1 spray KRYSTAL ONCE PRN (Reason: opioid overdose) Qty: 2 RF: 0 meloxicam 7.5 mg tablet 7.5 mg PO DAILY PRN (Reason: Inflammation) RF: 0 sodium chloride 1 gram tablet 1,000 mg PO BID Qty: 60 RF: 0 Discharge Instructions Additional Instructions: Please see your primary care provider within 1-2 weeks of discharge. Activity:: No strenuous activity Equipment/Supplies:: No Equipment Needed Diet:: As Tolerated Discharge Orders Discharge Orders: Discharge Order (Routine); Ordered 10/31/18 Ordered By: Geovanny Zambrano DS: Data Vitals/I&O Vitals and I&O: Vital Signs Temperature 36.7 C 10/31/18 08:17 Temperature Source Tympanic 10/31/18 08:17 Pulse 95 H 10/31/18 08:17 Pulse Rhythm Regular 10/31/18 09:15 Pulse 72 10/30/18 19:01 Respiratory Rate 17 10/31/18 08:17 Respiratory Effort 10/31/18 09:15 Respiratory Depth Normal 10/31/18 09:15 Respiratory Pattern Normal 10/31/18 09:15 Blood Pressure 126/80 10/31/18 08:17 Blood Pressure Mean 102 10/30/18 19:01 Blood Pressure Position Sitting 10/30/18 15:31 Pulse Oximetry 99 10/31/18 08:17 Oxygen Delivery Method Room Air 10/31/18 08:17 Oxygen Flow Rate 0 10/31/18 08:17 Pain Level 0 10/31/18 09:15 Intake & Output 10/30/18 10/31/18 10/31/18 23:59 11:59 23:59 Intake Total 1000.000 / 1220.249 2236.417 / 1935.417 Output Total 1375 / 1375 Balance 1000.000 / 1000.000 560.417 / 560.417 Weight 78.4 kg Intake: IV 1000.000 / 2034.733 3299.417 / 1835.417 Oral 100 / 100 Output: Urine 1375 / 1375 Other: Urine Color Pale Yellow Urine Appearance Clear Clear Urine Odor None Voiding Methods Urinal Completed studies during hospitalization [Text1]: Exam(s) EXAM: CT Head Without Contrast EXAM DATE/TIME: 10/30/2018 3:50 PM CLINICAL HISTORY: 47 years old, male; Dizziness and other: Drowsiness, general weakness; Patient HX: Drowsiness, dizziness, fatigue since today; Additional info: H/o brain tumor; Assess for mass/edema TECHNIQUE: Imaging protocol: Computed tomography images of the head without contrast. Coronal and sagittal reformatted images were created and reviewed. COMPARISON: CT HEAD WO 08/31/2018 4:38 AM FINDINGS: Brain: Ventricles and sulci are unchanged when compared with the patient's prior exam. There is cavitary encephalomalacia noted in the right frontal lobe extending to the right lateral ventricle. This was also previously identified. There is minimal low attenuation also seen within the right frontal periventricular and subcortical white matter. There is mild ex vacuo enlargement of the frontal horn of the left lateral ventricle. The ventricles and sulci are unchanged. There is no acute hemorrhage, mass or shift. There is no evidence of acute cortical or major vascular territory infarct. No new extra-axial collections are identified. Ventricles: Ventricular size is stable Bones/joints: There is no acute bony abnormality. There is a remote right frontal craniotomy which is unchanged. Sinuses: There is no significant sinus opacification. Minimal mucoperiosteal thickening is seen in the left maxillary antrum. Mastoid air cells: There is no significant mastoid opacification Soft tissues: Unremarkable. IMPRESSION: Stable CT appearance of the head. No new or acute findings identified. --------- EXAM: XR Chest, 2 Views EXAM DATE/TIME: 10/30/2018 4:37 PM CLINICAL HISTORY: 47 years old, male; Pain; Other: Lethargyweakness R/O acute disease; Additional info: H/o brain tumor; Assess for mass/edema TECHNIQUE: Imaging protocol: XR of the chest, 2 views. COMPARISON: SC XR PORTABLE CHEST AP 08/31/2018 8:16 PM FINDINGS: Lungs: Unremarkable. No consolidation. Pleural space: Unremarkable. No pleural effusion. No pneumothorax. Heart/Mediastinum: Unremarkable. No cardiomegaly. Bones/joints: Degenerative changes are seen in the thoracic spine IMPRESSION: No acute findings Labs on day of discharge: Labs from last 24 hours 10/31/18 10/30/18 10/30/18 11:45 16:55 16:55 WBC RBC Hgb Hct MCV MCH MCHC RDW Plt Count MPV Immature Gran % Neutrophils % Lymphocytes % Monocytes % Eosinophils % Basophils % Absolute Neutrophils Absolute Lymphocytes Absolute Monocytes Absolute Eosinophils Absolute Basophils Sodium Potassium Chloride Carbon Dioxide Anion Gap BUN Creatinine Estimated GFR/1.73 m2 Glucose Calcium Magnesium Total Bilirubin AST ALT Alkaline Phosphatase Troponin I Total Protein Albumin TSH Urine Color Yellow Urine Clarity Clear Urine pH 6.5 Ur Specific [place] 1.015 Urine Protein Negative Urine Ketones Negative Urine Blood Negative Urine Nitrite Negative Urine Bilirubin Negative Urine Urobilinogen 0.2 Ur Leukocyte Esterase Negative Urine Glucose 100 Urine Opiates Screen Negative Urine Methadone Screen Negative Ur Barbiturates Screen Negative Ur Tricyclics Screen Negative Levetiracetam Ur Amphetamines Screen Negative U Benzodiazepines Scrn Negative Urine Cocaine Screen Negative Ur THC Screen Positive A.phagocytophil DNA PCR Pending B. divergens/MO-1 PCR Pending Babesia duncani (PCR) Pending Babesia microti DNA PCR Pending Borrelia (PCR) Pending Lyme Disease Antibody Pending E.chaffeensis DNA (PCR) Pending E.ewingii/canis DNA PCR Pending E. muris-like DNA (PCR) Pending 10/30/18 10/30/18 10/30/18 15:50 15:50 15:50 WBC 4.93 RBC 4.62 Hgb 14.2 Hct 40.2 MCV 87.0 MCH 30.7 MCHC 35.3 RDW 13.1 Plt Count 267 MPV 10.1 Immature Gran % 0.2 Neutrophils % 56.0 Lymphocytes % 33.7 Monocytes % 8.5 Eosinophils % 1.0 Basophils % 0.6 Absolute Neutrophils 2.76 Absolute Lymphocytes 1.66 Absolute Monocytes 0.42 Absolute Eosinophils 0.05 Absolute Basophils 0.03 Sodium Potassium Chloride Carbon Dioxide Anion Gap BUN Creatinine Estimated GFR/1.73 m2 Glucose Calcium Magnesium Total Bilirubin AST ALT Alkaline Phosphatase Troponin I Total Protein Albumin TSH 1.96 Urine Color Urine Clarity Urine pH Ur Specific [place] Urine Protein Urine Ketones Urine Blood Urine Nitrite Urine Bilirubin Urine Urobilinogen Ur Leukocyte Esterase Urine Glucose Urine Opiates Screen Urine Methadone Screen Ur Barbiturates Screen Ur Tricyclics Screen Levetiracetam Pending Ur Amphetamines Screen U Benzodiazepines Scrn Urine Cocaine Screen Ur THC Screen A.phagocytophil DNA PCR B. divergens/MO-1 PCR Babesia duncani (PCR) Babesia microti DNA PCR Borrelia (PCR) Lyme Disease Antibody E.chaffeensis DNA (PCR) E.ewingii/canis DNA PCR E. muris-like DNA (PCR) 10/30/18 15:50 WBC RBC Hgb Hct MCV MCH MCHC RDW Plt Count MPV Immature Gran % Neutrophils % Lymphocytes % Monocytes % Eosinophils % Basophils % Absolute Neutrophils Absolute Lymphocytes Absolute Monocytes Absolute Eosinophils Absolute Basophils Sodium 134 L Potassium 3.9 Chloride 99 Carbon Dioxide 26.7 Anion Gap 8.3 BUN 8 Creatinine 0.65 L Estimated GFR/1.73 m2 >= 60.00 Glucose 99 Calcium 8.6 Magnesium 1.9 Total Bilirubin 0.4 AST 7 L ALT 17 Alkaline Phosphatase 81 Troponin I < 0.05 Total Protein 6.3 L Albumin 3.4 TSH Urine Color Urine Clarity Urine pH Ur Specific [place] Urine Protein Urine Ketones Urine Blood Urine Nitrite Urine Bilirubin Urine Urobilinogen Ur Leukocyte Esterase Urine Glucose Urine Opiates Screen Urine Methadone Screen Ur Barbiturates Screen Ur Tricyclics Screen Levetiracetam Ur Amphetamines Screen U Benzodiazepines Scrn Urine Cocaine Screen Ur THC Screen A.phagocytophil DNA PCR B. divergens/MO-1 PCR Babesia duncani (PCR) Babesia microti DNA PCR Borrelia (PCR) Lyme Disease Antibody E.chaffeensis DNA (PCR) E.ewingii/canis DNA PCR E. muris-like DNA (PCR) PFSH Medical History Anxiety (Chronic 11/19/16) Bipolar depression (Chronic 03/31/17) BPH (benign prostatic hyperplasia) (Chronic 08/13/17) Carpal tunnel syndrome Cerebral tumor (Chronic 06/26/17) Chronic fatigue (Acute) Depression Diverticulitis Hydrocephalus (Resolved 06/26/17) IVH (intraventricular hemorrhage) (Chronic 09/24/17) Knee pain (Chronic) Mass, brain (Chronic 09/24/17) Meningioma, cerebral (Chronic 10/22/17) Migraine (Chronic 07/02/16) Primary osteoarthritis of right knee (Chronic 03/31/17) Right knee pain (Chronic) Seizure disorder (Chronic 11/19/16) Tobacco use disorder (Chronic 07/03/16) Tourette disease (Chronic 11/19/16) Urinary incontinence (Chronic 11/18/17) Surgical History 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) Hernia Repair-L (04/13/94) rgt craiotomy for mass (09/24/17) S/P craniotomy (Chronic 10/22/17) Family History Mother Essential hypertension Cerebral aneurysm Father Neoplasm Maternal Grandfather Heart disease Neoplasm Maternal Grandmother Neoplasm Social History Smoking/Tobacco Use Status: Former Tobacco Use Quit Date: 10/12/18 Quit status: not considering quitting Alcohol Intake: never Drug use: Daily Substance use type: marijuana Details: uses marijuana for pain Adopted: No Foster care: No Household members: spouse and children Number of Children: 5 Pets and animals: Yes Pets and animals: dog(s) Current gender identity: male What type of physical activity do you participate in: none Seatbelt use: always Drive intox or ride w/intox 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
--- NOTE | 2018-10-31 13:37 | PDOC.CMIN ---
Care Management Initial Assess REASON FOR HOSPITALIZATION:: Lethargy PAST MEDICAL HISTORY/PAST SURGICAL HISTORY:: MEDICAL: Anxiety (Chronic 11/19/16), Bipolar depression (Chronic 03/31/17). BPH (benign prostatic hyperplasia) (Chronic 08/13/17), Carpal tunnel syndrome, Cerebral tumor (Chronic 06/26/17), Depression, Diverticulitis. Hydrocephalus (Resolved 06/26/17), IVH (intraventricular hemorrhage) (Chronic 09/24/17), Knee pain (Chronic), Mass, brain (Chronic 09/24/17). Meningioma, cerebral (Chronic 10/22/17), Migraine (Chronic 07/02/16). Primary osteoarthritis of right knee (Chronic 03/31/17), Right knee pain (Chronic), Seizure disorder (Chronic 11/19/16), Tobacco use disorder (Chronic 07/03/16), Tourette disease (Chronic 11/19/16), Urinary incontinence (Chronic 11/18/17),. Surgical: Amputation, Arthroplasty of knee (10/28/16), Hernia Repair-L (04/13/94), rgt crainotomy for mass (09/24/17), S/P craniotomy (Chronic 10/22/17). PREVIOUS FUNCTIONAL STATUS/SOCIAL/FAMILY SUPPORTS:: Wayne resides in [facility] with his ex Edith and three of their adult children. Wayne states that he has four children, and that they are all supportive. Wayne does not drive, and states that he is on disability for an aneurysm. CURRENT FUNCTIONAL STATUS:: Currently Wayne is sitting up in bed visiting with Edith and one of his daughters. He is pleasant and open to discussion. ADVANCE DIRECTIVES:: None on file Has patient been provided with information about the portal?: No Did the patient sign up for the portal?: No CODE STATUS:: Full Code INSURANCE COVERAGE / FINANCIAL ISSUES:: Medicare, Medicaid CURRENT HOME/COMMUNITY SERVICES/EQUIPMENT:: Currently Wayne has home health PT/OT in the community. He states that he has a FWW and a cane at home for DME. PRIMARY CARE PHYSICIAN:: Colleen Mercado NP POTENTIAL DISCHARGE NEEDS:: F/U appointment with PCP to discuss lab testing results. PATIENT/FAMILY EDUCATION NEEDS:: Review DC instructions, any limitations, and ongoing DC planning discussion. Discuss 'Ask Me Three' ANTICIPATED BARRIERS TO DISCHARGE:: None identified at this time TRANSPORTATION:: Family PLAN:: Return home with Edith when medically cleared for discharge. No services needed.
--- NOTE | 2018-10-31 14:07 | PDOC.CMDIS ---
LACE Index Scoring Tool - Questions: Length of Stay (in days): 1 Acuity (Admit via E.D.?): Yes Comorbidities: Diabetes w/o Complication E.D. Visits: 5 - Answers: Total Score: 9 Risk of Readmission: Low Risk Care Management Discharge Reason for Hospitalization: Lethargy Discharge Plan: Home and no services needed at this time. Edith will transport when medically cleared for discharge. Patient/Family Education Needs: Discharge instructions. Importance of following up with PCP to discuss results of lab tests.
[2018-11-02 11:30] LABS: Lyme Ab w Rflx to Lyme Confirm Negative
[2018-11-02 15:59] LABS: Levetiracetam 17.1 mcg/mL
[2018-11-02 22:53] LABS: Anaplasma phagocytophilum Negative (Negative); B. miyamotoi PCR Negative (Negative); Babesia divergens/MO-1 Negative (Negative); Babesia duncani Negative (Negative); Babesia microti Negative (Negative); Ehrlichia chaffeensis Negative (Negative); Ehrlichia ewingii/canis Negative (Negative); Ehrlichia muris eauclairensis Negative (Negative)
== END 2018-10-31 14:11 | disposition home or self-care (01) ==
LOC: ER 19:18 → MS 19:55
PROVIDERS: Admitting Provider General Practice; Emergency Provider Physician Assistant; PCP Nurse Practitioner; Visit Provider Internal Medicine
DX: R53.83 Other fatigue (principal); Z85.841 Personal history of malignant neoplasm of brain; F31.9 Bipolar disorder, unspecified; G40.909 Epilepsy, unspecified, not intractable, without status epilepticus
CPT/HCPCS: 36415; 80053; 80307; 87798; 93005; 96360; 96361; 99217; 99222; 99285; 70450; 71046; 80177; 81003; 83735; 84443; 84484; 85025; 86618; 93010; 99219; G0378

== ENCOUNTER 2018-11-03 10:47 | Day surgery (SDC) | payer MEDICARE, MEDICAID, SELFPAY ==
--- NOTE | 2018-10-29 15:44 | DSU.FORM ---
10/29/18 Wayne's medication is in a blister pack. The pharmacy was called and Wayne will bring his medications to the pharmacy and they will pull the medications anesthesia wants him to take. The patient agreed with the plan.
[2018-11-03] VITALS (9 sets, daily range): BP systolic 101–123; BP diastolic 66–87; PULSE 52–69; RESP 10–18; TEMP 35.7–36.6; O2SAT 96–99
[2018-11-03] MEDS: Acetaminophen 500 MG TAB 1000 MG PO (11:22)
[2018-11-03] MEDS: Celecoxib 200 MG CAP 400 MG PO (11:23)
[2018-11-03] MEDS: Gabapentin 300 MG CAP PO (11:23)
[2018-11-03] MEDS: Lactated Ringers 1,000 ML 80 ML IV ×3 (11:44→14:52)
--- NOTE | 2018-11-03 11:54 | HPE_ITS ---
Date of service: 11/03/18 Time of Service: 11:54 Assessment and Plan (1) Osteoarthritis of right patellofemoral joint: Current visit: No Status: Chronic Dr. Hillman recommended partial lateral release with the possibility of tibial tubercle transfer if the correct position cannot be achieved. Patient had opportunity of questions answered to his satisfaction by Dr. Hillman. After discussion patient elected to continue with surgical intervention. He will contact office if issues arise. Patient will be scheduled for surgery at his convenience. History of Present Illness Chief Complaint: Chronic Right Knee Pain Narrative: 47 y/o male with history of seizure disorder, bipolar depression, anxiety and chronic pain presents with chronic right knee pain s/p patellofemoral replacement, physical therapy and steriod injection. He was evaluated by Dr. Hillman and was offered surgical intervention. X-ray showed a lateral tilt of the patella, which Dr. Hillman recommended partial lateral release with possibility of tibial tubercle transfer if the correct position cannot be achieved. He has elected to continue with surgical intervention. Of note Mr. Chandler was recently hospitalized overnight on 10/30/18 for fatigue to r/o infection or toxic cause. He was d/c in stable condition and reports that his symptoms have improved since his admission. He reports that he recently quit smoking ~1 month ago. Reports use of marijuana daily. Denies use of ETOH, recreational or illegal drugs. Review of Systems Constitutional Denies chills, Denies excessive sweating, Denies fever(s) and Denies night sweats Eyes Denies blurry vision, Denies change in vision and Denies diplopia ENT Denies dysphagia, Denies hearing loss, Denies nasal congestion, Denies nasal obstruction and Denies neck pain Cardiovascular Denies chest pain, Denies chest pain with activity, Denies syncope, Denies palpitations, Denies dyspnea and Denies dyspnea on exertion Respiratory Denies cough, Denies dyspnea and Denies dyspnea on exertion Comments: History of asthma which he uses PRN inhalers. Last use of inhalers was several months ago. Gastrointestinal Denies abdominal pain, Denies bloating, Denies dysphagia, Denies nausea and Denies vomiting Genitourinary Denies urinary frequency, Denies urinary hesitancy and Denies urinary urgency Musculoskeletal Denies neck pain Comments: Chronic right knee pain that Integumentary/Breasts Denies changing lesions, Denies non-healing lesions and Denies unusual bruising Neurologic Denies syncope and Reports tremor(s) Endocrine Denies excessive sweating and Denies palpitations Hematologic/Lymphatic Denies easy bleeding and Denies easy bruising PFSH Medical History Anxiety (Chronic 11/19/16) Bipolar depression (Chronic 03/31/17) BPH (benign prostatic hyperplasia) (Chronic 08/13/17) Carpal tunnel syndrome Cerebral tumor (Chronic 06/26/17) Chronic fatigue (Acute) Depression Diverticulitis Hydrocephalus (Resolved 06/26/17) IVH (intraventricular hemorrhage) (Chronic 09/24/17) Knee pain (Chronic) Mass, brain (Chronic 09/24/17) Meningioma, cerebral (Chronic 10/22/17) Migraine (Chronic 07/02/16) Primary osteoarthritis of right knee (Chronic 03/31/17) Right knee pain (Chronic) Seizure disorder (Chronic 11/19/16) Tobacco use disorder (Chronic 07/03/16) Tourette disease (Chronic 11/19/16) Urinary incontinence (Chronic 11/18/17) Surgical History (Updated 11/03/18 @ 11:02 by Edna Diaz RN) 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) Hernia Repair-L (04/13/94) rgt craiotomy for mass (09/24/17) S/P craniotomy (Chronic 10/22/17) Social History Smoking/Tobacco Use Status: Former Tobacco Use Quit Date: 10/12/18 Quit status: not considering quitting Alcohol Intake: never Drug use: Daily Substance use type: marijuana Details: uses marijuana for pain, last used 11/02 Adopted: No Foster care: No Household members: spouse and children Number of Children: 5 Pets and animals: Yes Pets and animals: dog(s) Current gender identity: male What type of physical activity do you participate in: none Seatbelt use: always Drive 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 Water heater temp set <120 deg: Yes Working smoke detector in home: Yes Carbon monox detector in home: Yes Do you feel safe at home: Yes Meds Home Medications Medication Instructions Recorded Confirmed Type Depend Underwear For Women S-M #300 ea 12/09/17 10/30/18 History underpads [Air Permeable Underpad] #300 ea 12/09/17 10/30/18 History Narcan 1 spray KRYSTAL ONCE PRN #2 each 06/24/18 11/03/18 Rx aripiprazole 5 mg tablet 5 mg PO HS #30 tab-cap 07/29/18 11/03/18 Rx fluoxetine 40 mg capsule 80 mg PO DAILY #60 tab-cap 07/29/18 11/03/18 Rx mirabegron 25 mg tablet,extended 25 mg PO DAILY 1 Days #30 tab-cap 07/29/18 11/03/18 Rx release 24 hr tamsulosin 0.4 mg capsule 0.4 mg PO HS #30 tab-cap 07/29/18 11/03/18 Rx sodium chloride 1,000 mg PO BID #60 tab 09/01/18 11/03/18 Rx clonidine HCl 0.2 mg tablet 0.4 mg PO BID #120 tab 09/10/18 11/03/18 Rx levetiracetam 1,000 mg tablet 1,000 mg PO BID #60 tab 09/10/18 11/03/18 Rx albuterol sulfate 90 mcg/actuation 2 inh IH Q6H PRN #1 each 09/21/18 11/03/18 Rx breath activated powder inhaler methylphenidate HCl 10 mg tablet 10 mg PO DIRECTED #60 tab MDD 10/22/18 11/03/18 Rx 20mg daily acetaminophen 1,000 mg PO Q8H PRN #90 tab 11/03/18 Rx aspirin 81 mg PO BID #60 tab 11/03/18 Rx hydromorphone 2 mg PO Q4H PRN #12 tab 11/03/18 Rx meloxicam 7.5 mg PO BID #60 tab 11/03/18 Rx Allergies Allergy/AdvReac Type Severity Reaction Status Date / Time oxycodone HCl [From Percocet] AdvReac Intermediate VOMITING Verified 10/30/18 15:34 Exam Const General: cooperative, healthy appearing and comfortable Nutritional Appearance: average body habitus Orientation: alert and oriented x3 HENMT Head: normal to inspection Ears: hearing grossly normal bilaterally General nose exam: external nose normal Face and sinus: normal facial exam Eyes General: appearance normal, both eyes and all related structures Alignment and Position: alignment normal Eyelids: eyelids normal Conjunctivae: conjunctivae normal Sclera: sclerae normal Cornea: corneas normal Neck Neck: normal visual inspection and no lymphadenopathy Resp Effort & Inspection: normal respiratory effort, no audible wheezes and no cough Auscultation: clear to auscultation bilaterally and no wheezes Cardio Jugular venous pressure: no JVD Rate: regular rate Rhythm: regular rhythm Heart Sounds: S1 normal, S2 normal and no murmurs Pulses: dorsalis pedis pulses present GI Inspection: normal to inspection and non-distended Palpation: soft, no guarding and nontender Auscultation: normal bowel sounds Skin General skin exam: no rashes or lesions noted Extrem General: normal to inspection and normal capillary refill Upper/lower leg/hip images: 1. Right knee efffusion Results Last Vital Signs Temp 35.7 C L 11/03/18 11:07 Pulse 61 11/03/18 11:07 Resp 18 11/03/18 11:07 BP 105/75 11/03/18 11:07 Pulse Ox 96 11/03/18 11:07
[2018-11-03] MEDS: Bupivacaine 0.25% Pres-Free 10 ML VIAL (13:33)
[2018-11-03] MEDS: Bupivacaine LIPOSOME/PF 133 MG/10 ML VIAL IJ ×2 (13:33→14:38)
[2018-11-03] MEDS: ceFAZolin 2 GM/50 ML BAG IVPB (13:50)
[2018-11-03] MEDS: Bupivacaine 0.25% Pres-Free 30 ML VIAL (14:38)
[2018-11-03] MEDS: Ketorolac 30 MG/ML VIAL (14:38)
--- NOTE | 2018-11-03 14:46 | PDOC.DSDIS_ITS ---
Discharge Plan Disposition Patient Disposition: HOME Condition: Good Discharge Details Reason For Visit: Right Patella Maltracking Attending Provider: Hermes Hillman Primary Care Provider: Colleen Mercado Home Meds and New Rx's Prescriptions: New aspirin 81 mg tablet,delayed release (DR/EC) 81 mg PO BID Qty: 60 RF: 0 acetaminophen 500 mg tablet 1,000 mg PO Q8H PRN (Reason: pain) Qty: 90 RF: 3 hydromorphone 2 mg tablet 2 mg PO Q4H PRN (Reason: pain) Qty: 12 RF: 0 Continued aripiprazole [Abilify] 5 mg tablet 5 mg PO HS Qty: 30 RF: 12 fluoxetine 40 mg capsule 80 mg PO DAILY Qty: 60 RF: 6 Myrbetriq 25 mg tablet extended release 24 hr 25 mg PO DAILY 1 Days Qty: 30 RF: 11 tamsulosin [Flomax] 0.4 mg capsule 0.4 mg PO HS Qty: 30 RF: 12 albuterol sulfate 90 mcg/actuation aerosol powdr breath activated 2 inh IH Q6H PRN (Reason: shortness of breath or wheezing) Qty: 1 RF: 12 (DME) underpads [Air Permeable Underpad] 1 EACH pad 1 ea Miscellaneous Q4H PRN Qty: 300 RF: 12 (DME) Depend Underwear For Women S-M 1 EACH misc 1 ea Miscellaneous Q4H PRN Qty: 300 RF: 12 levetiracetam [Keppra] 1,000 mg tablet 1,000 mg PO BID Qty: 60 RF: 3 clonidine HCl 0.2 mg tablet 0.4 mg PO BID Qty: 120 RF: 3 methylphenidate HCl 10 mg tablet 10 mg PO DIRECTED MDD 20mg daily Qty: 60 RF: 0 Narcan 4 mg/actuation spray,non-aerosol 1 spray KRYSTAL ONCE PRN (Reason: opioid overdose) Qty: 2 RF: 0 sodium chloride 1 gram tablet 1,000 mg PO BID Qty: 60 RF: 0 Changed meloxicam 7.5 mg tablet 7.5 mg PO BID Qty: 60 RF: 0 Discontinued hydrocodone-acetaminophen 5-325 mg tablet 1 tab PO Q8H MDD 15mg PRN (Reason: pain) Qty: 12 RF: 0 Discharge Instructions Additional Instructions: Dr. Hillman?s Discharge Instructions Activity: You may walk but do so in the knee immobilizer. You may remove it for comfort but I recommend keeping the knee straight until your follow-up appointment. Dressing: Keep the surgical dressing in place for at least one week. The SARA wrap may be removed after 2 days. After the first week it may be removed and replace with light gauze and tape or nothing. It may get wet after 3 days but avoid soaking the dressing. If it gets wet, just lightly pat dry. Medications: - You should take Tylenol and anti-inflammatory Meloxicam as your primary pain control medications - You have been prescribed a stronger pain medication Hydromorphone for breakthrough pain, take as needed as prescribed. - You will be taking Aspirin 81mg twice a day for DVT prevention unless instructed otherwise. - If you have constipation you should take Colace or Miralax (both [id number]). It takes most people 3-4 days to have a bowel movement. Follow-up: 2 weeks Referrals: Hermes Hillman MD [ [facility] STAFF PHYSICIAN] - Activity:: Elevate Remove Dressings/Wound Care:: 72 hours Shower/Bathe:: 72 hours Diet:: As Tolerated Discharge Orders Discharge Orders: Discharge Order (Routine); Ordered 11/03/18 Ordered By: Hermes Hillman DS: Diagnosis Discharge Diagnosis (1) Osteoarthritis of right patellofemoral joint: Status: Chronic
[2018-11-03] MEDS: HYDROmorphone 2 MG TAB PO (17:23)
--- NOTE | 2018-11-05 07:13 | W.PM.OP ---
Date of service: 11/03/18 Time of Service: 15:13 Operative Note DATE OF PROCEDURE: 11/03/18 PRE-OP DIAGNOSIS: Right knee patellar maltracking, right knee synovitis POST-OP DIAGNOSIS: same PROCEDURE: Right knee open synovectomy with soft tissue realignment of the patella SURGEON: Hermes Hillman REFRACTORY GRINDER OPERATOR: Elvis Sanchez ANESTHESIA: regional and spinal ESTIMATED BLOOD LOSS: 50 PATHOLOGY: none sent COMPLICATIONS: None Patient was transported to: PACU Patient's condition: stable Indications: I have seen Wayne in clinic for symptoms of RIGHT knee pain after patellofemoral replacement. [place] views demonstrated a maltracking patella with lateral tilt. He also had recurrent effusion. Given these findings, I recommended surgical fixation after failure of conservative treatment options. I explained the risks of the procedure to include, but not limited to, bleeding, infection, pain, stiffness, fracture, damage to nerves and vessels, damage to muscles and tendons, loosening, need for repeat procedure, blood clot and cardiopulmonary demise. Despite these risks, Wayne elected to proceed. Findings: There was significant signs of arthritis throughout the knee. Procedure Description: Wayne was greeted in the preoperative holding area where the correct side was identified and marked. The consent was reviewed with the patient and signed. The history and physical was updated. All questions were answered. Preoperative mediacations were administered: Acetaminophen 1000mg, Celebrex 400mg, Gabapentin 300mg, and Oxycontin 10mg. An adductor canal block was then administered by the anesthesia team in the PACU. Wayne was taken back to the operating room. A general anesthetic was administered. The patient was placed into the supine position on the operating room table. A nonsterile tourniquet was placed high onto the leg but only used for cementing. Posts were placed for positioning during the procedure. All bony prominences were well padded. Prophylactic antibiotics in the form of cefazolin were administered. 1g of Tranxemic Acid was given intravenously within 30 minutes of incision. The right leg was then prepped with Chloraprep and draped in a standard fashion with impervious stockinette and extremity drape with Iodine impregnated skin protection. A timeout to confirm correct identity, side and site, procedure, allergies, anesthesia, and medical concerns was performed. With the knee in some flexion, a midline incision was made overlying the knee. Full thickness skin flaps were raised once the extensor mechanism was encountered. These were raised medially and laterally. Any bleeding was controlled with electrocautery. Once the extensor mechanism was fully exposed, a medial parapatellar arthrotomy was performed in a flexed position, noting the previous arthrotomy. All bleeding from the arthrotomy and the geniculate arteries was coagulated. If there is significant amount of synovial fluid which was clear. No purulence. No necrotic tissue. There was some hypertrophic synovium but nothing too extreme. An aggressive synovectomy was then performed starting medially working superiorly and then going laterally. This was taken out in bulk from the knee. The trochlear component was then inspected. There is no signs of loosening. It appeared to be well-seated within the femur. The patella was clearly tracking laterally. There is excessive lateral tilt. The patella component was well fixed and not loose. It did appear that the patella cut may be slightly angled and under resected. However, I did not want to remove the patella due to possible patella fracture and risk with patellar revision. I then performed a lateral release working in 2 separate planes to create a Z-type lengthening of the lateral retinaculum. This was taken for the entire length of the lateral patella. This allowed significant excursion of the patella back into the central portion of the knee. Once his lengthening was performed and was able to have the patella mobilized to the trochlea, I performed a medial imbrication. This was done by taking the medial retinaculum and tying it onto the medial patella and then completing with a another suture more lateral. This belt over suspender imbrication technique nicely brought the patella centrally within the knee. This was performed over the entire length of the medial aspect of the patella. The remainder of the arthrotomy was closed in standard technique with a #1 Vicryl. The Z-lengthening on the lateral side was loosely reapproximated between the deeper layer and superficial layer to create closure to the gap of the lateral soft tissues. The knee was taken through range of motion from 0 to 90 degrees with the patella tracking well and no notable gapping of the arthrotomy closure. The knee was thoroughly irrigated before and after the arthrotomy closure. A mixture of 0.5% bupivacaine, 30 mg ketorolac, 10 cc of Exparel were then injected into the deep tissues of the knee including the periosteum. Deep tissues were then reapproximated with 0 Vicryl and 2-0 Vicryl. The skin was closed with a running 3-0 Monocryl in a subcuticular fashion. This was reinforced with skin glue. A Mepilex silver dressing was applied along with a [id number] SARA wrap. A CryoCuff was applied. Wayne was transferred to the stretcher without difficulty and suffering no apparent complication. Wayne has a good prognosis. Physical therapy will start today and without restrictions, weight-bearing as tolerated. Aspirin 81mg BID will be used for DVT prophylaxis.
== END 2018-11-03 18:25 | disposition home or self-care (01) ==
PROVIDERS: PCP Nurse Practitioner; Visit Provider Student in an Organized Health Care Education/Training Program
PROC: (CPT 27418; principal; 2018-11-03 11:45)
DX: M65.9 Synovitis and tenosynovitis, unspecified (principal); M25.561 Pain in right knee; T84.022A Instability of internal right knee prosthesis, initial encounter; Z96.651 Presence of right artificial knee joint; G89.18 Other acute postprocedural pain
CPT/HCPCS: 27334; 27425; NC; J0690; J1885; J2250; J2405; L1830

== ENCOUNTER 2018-11-18 16:07 | Outpatient (CLI) | payer MEDICARE, MEDICAID, SELFPAY ==
--- NOTE | 2018-11-18 14:17 | DI.RAD_ITS ---
SYMPTOM/DIAGNOSIS: S/P RIGHT PATELLA MALTRACKING SURGERY RIGHT KNEE: Comparison is made with 05 August 2018. A single patellar view is performed. There is again noted to be lateral patellar tilt. Soft tissue swelling remains present anterior to the patella. It appears less prominent when compared with previous exam.
== END 2018-11-18 16:27 ==
PROVIDERS: PCP Nurse Practitioner; Referring Provider Nurse Practitioner; Visit Provider Student in an Organized Health Care Education/Training Program
DX: M22.2X1 Patellofemoral disorders, right knee (principal); M79.89 Other specified soft tissue disorders; Z47.89 Encounter for other orthopedic aftercare
CPT/HCPCS: 73560

== ENCOUNTER → 2018-12-08 10:38 | Outpatient (BNVA) | payer MEDICARE, MEDICAID, SELFPAY | PROVIDERS: PCP Nurse Practitioner; Visit Provider Psychiatry & Neurology Neurology | DX: D32.0 Benign neoplasm of cerebral meninges; R40.0 Somnolence; R41.3 Other amnesia; E87.1 Hypo-osmolality and hyponatremia; R25.1 Tremor, unspecified; R53.83 Other fatigue; G40.909 Epilepsy, unspecified, not intractable, without status epilepticus; G43.909 Migraine, unspecified, not intractable, without status migrainosus; Z91.14 Patient's other noncompliance with medication regimen | CPT/HCPCS: 99214 ==

== ENCOUNTER → 2018-12-17 11:33 | Outpatient (BNVA) | payer MEDICARE, MEDICAID, SELFPAY | PROVIDERS: PCP Nurse Practitioner; Referring Provider Nurse Practitioner; Visit Provider Student in an Organized Health Care Education/Training Program | DX: Z47.89 Encounter for other orthopedic aftercare; M17.11 Unilateral primary osteoarthritis, right knee; M25.461 Effusion, right knee | CPT/HCPCS: 20610; J1040 ==

== ENCOUNTER 2018-12-28 15:09 | Outpatient (CLI) | payer MEDICARE, MEDICAID, SELFPAY ==
[2018-12-28 15:57] LABS: Anion Gap 10.3 mmol/L (3-11); BUN 11 mg/dL (7-18); CO2 26.7 mmol/L (21.0-32.0); CREATININE 0.78 mg/dL (0.70-1.30); Calcium 8.6 mg/dL (8.5-10.1); Chloride 99 mmol/L (98-107); Glucose 94 mg/dL (70-100); Potassium 4.4 mmol/L (3.5-5.1); Sodium 136 mmol/L (136-145)
== END 2018-12-28 15:29 ==
PROVIDERS: PCP Nurse Practitioner; Visit Provider Nurse Practitioner
DX: E87.1 Hypo-osmolality and hyponatremia (principal)
CPT/HCPCS: 36415; 80048

== ENCOUNTER → 2019-01-28 10:29 | Outpatient (BNVA) | payer MEDICARE, MEDICAID, SELFPAY | PROVIDERS: PCP Nurse Practitioner; Referring Provider Nurse Practitioner; Visit Provider Student in an Organized Health Care Education/Training Program | DX: M25.40 Effusion, unspecified joint; Z47.89 Encounter for other orthopedic aftercare ==

== ENCOUNTER → 2019-02-01 08:37 | Outpatient (BNVA) | payer MEDICARE, MEDICAID, SELFPAY | PROVIDERS: PCP Nurse Practitioner; Referring Provider Nurse Practitioner; Visit Provider Psychiatry & Neurology Neurology | DX: R56.9 Unspecified convulsions (principal); D32.0 Benign neoplasm of cerebral meninges; R40.0 Somnolence; R53.83 Other fatigue; R41.3 Other amnesia; R51 Headache | CPT/HCPCS: 99215 ==

== ENCOUNTER → 2019-03-09 11:08 | Outpatient (BNVA) | payer MEDICARE, MEDICAID, SELFPAY | PROVIDERS: PCP Nurse Practitioner; Referring Provider Nurse Practitioner; Visit Provider Urology | DX: N39.498 Other specified urinary incontinence (principal) | CPT/HCPCS: 99213 ==

== ENCOUNTER 2019-03-29 15:09 | Outpatient (CLI) | payer MEDICARE, MEDICAID, SELFPAY ==
--- NOTE | 2019-03-29 15:26 | DI.RAD_ITS ---
EXAM: XR KNEE RT 1V INDICATION: right knee effusion after fall,? fluid. COMPARISON: XR knee RT 3V AP,lat,shine from 08/05/2018 XR knee RT 1V from 11/18/2018 TECHNIQUE: 2D digital imaging was performed. FINDINGS: A single patellar view was again performed. There is again noted to be narrowing of the lateral femo rotibial joint and lateral spurring. There is a patellofemoral prosthesis. There is lateral patellar tilt, unchanged. There is medial and anterior soft tissue swelling. There is no significant change from the previous exam.
[2019-03-29 18:30] LABS: Clarity CLOUDY; Mononuclear Cells 40 % (0-0); Nucleated Cells 1517 /MM3 (0-0); Polynuclear Cells 60 % (0-0); Source R KNEE
== END 2019-03-29 15:29 ==
PROVIDERS: PCP Nurse Practitioner; Referring Provider Nurse Practitioner; Visit Provider Student in an Organized Health Care Education/Training Program
DX: M17.11 Unilateral primary osteoarthritis, right knee (principal); M79.89 Other specified soft tissue disorders; Z96.651 Presence of right artificial knee joint; M25.461 Effusion, right knee; M25.561 Pain in right knee
CPT/HCPCS: 20610; 99213; 73560; 87070; 87205; 89051

== ENCOUNTER → 2019-04-01 09:42 | Outpatient (BNVA) | payer MEDICARE, MEDICAID, SELFPAY | PROVIDERS: PCP Nurse Practitioner; Referring Provider Nurse Practitioner; Visit Provider Psychiatry & Neurology Neurology | DX: D32.0 Benign neoplasm of cerebral meninges (principal); R25.1 Tremor, unspecified; R53.82 Chronic fatigue, unspecified; G43.009 Migraine without aura, not intractable, without status migrainosus | CPT/HCPCS: 99214 ==

== ENCOUNTER 2019-04-06 02:47 | Outpatient (CLI) | payer MEDICARE, MEDICAID, SELFPAY ==
--- NOTE | 2019-04-06 15:55 | DI.CT_ITS ---
EXAM: CT LOWER EXTREMITY RT WO CLINICAL HISTORY: evaluate TT-TG distance and component position M25.561 PAIN RT KNEE TECHNIQUE: The exam was performed according to the usual protocol. COMPARISON: No exams were available for comparison FINDINGS: The patient has a patellofemoral joint replacement. The femoral and patellar component appear to be in good position. The bones are intact and normally mineralized. No evidence of loosening is seen. There is a large joint effusion. The soft tissues are unremarkable. IMPRESSION: Intact patellofemoral joint replacement. Large joint effusion.
== END 2019-04-06 03:07 ==
PROVIDERS: PCP Nurse Practitioner; Visit Provider Physician Assistant
DX: M25.561 Pain in right knee (principal); M25.461 Effusion, right knee; Z96.651 Presence of right artificial knee joint
CPT/HCPCS: 73700

== ENCOUNTER 2019-04-08 11:21 | Outpatient (REF) | payer MEDICARE, MEDICAID, SELFPAY ==
[2019-04-08 12:41] LABS: ALT 19 U/L (16-63); AST 16 U/L (15-37); Alkaline Phosphatase 87 U/L (46-116); Anion Gap 8.9 mmol/L (3-11); BUN 7 mg/dL (7-18); Bilirubin, Total 0.9 mg/dL (0.2-1.0); CO2 26.1 mmol/L (21.0-32.0); CREATININE 0.83 mg/dL (0.70-1.30); Calcium 8.9 mg/dL (8.5-10.1); Calculated LDL 104 mg/dL; Chloride 99 mmol/L (98-107); Cholesterol 156 mg/dL (<200); Glucose 94 mg/dL (74-106); HDL Cholesterol 33 mg/dL (40-60); Potassium 4.5 mmol/L (3.5-5.1); Sodium 134 mmol/L (136-145); Total Protein 6.9 g/dL (6.4-8.2); Triglyceride 96 mg/dL (<150)
== END 2019-04-08 11:41 ==
LOC: LBN 11:21
PROVIDERS: PCP Nurse Practitioner; Visit Provider Nurse Practitioner
DX: E78.5 Hyperlipidemia, unspecified (principal); E22.2 Syndrome of inappropriate secretion of antidiuretic hormone; I61.5 Nontraumatic intracerebral hemorrhage, intraventricular
CPT/HCPCS: 80053; 80061

== ENCOUNTER 2019-04-23 14:30 | Outpatient (CLI) | payer MEDICARE, MEDICAID, SELFPAY ==
--- NOTE | 2019-04-27 08:25 | PDOC.EEG ---
Neurology EEG EEG: [facility] Department of Neurology LONG-TERM AMBULATORY EEG REPORT Date of Recordin04/23/19 at 15:03:23 to 04/24/19 at 15:00:07 Interpreting Physician: Dr. Bridget Easley PCP/Referring Provider: Colleen Mercado NP Reason for study: Mr. 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 He had a recent sleep study during which he had epileptic discharges throughout the night. An ambulatory EEG was performed to assess amount of epileptic activity and whether it could have an affect on his daytime sleepiness. Current Medications: Home Medications Medication Instructions Recorded Confirmed Type Depend Underwear For Women S-M #300 ea 12/09/17 04/01/19 History underpads [Air Permeable Underpad] #300 ea 12/09/17 04/01/19 History Narcan 1 spray KRYSTAL ONCE PRN #2 each 06/24/18 04/01/19 Rx aripiprazole 5 mg tablet 5 mg PO HS #30 tab-cap 07/29/18 04/01/19 Rx fluoxetine 40 mg capsule 80 mg PO DAILY #60 tab-cap 07/29/18 04/01/19 Rx tamsulosin 0.4 mg capsule 0.4 mg PO HS #30 tab-cap 07/29/18 04/01/19 Rx clonidine HCl 0.2 mg tablet 0.4 mg PO BID #120 tab 09/10/18 04/01/19 Rx albuterol sulfate 90 mcg/actuation 2 inh IH Q6H PRN #1 each 09/21/18 04/01/19 Rx breath activated powder inhaler acetaminophen 1,000 mg PO Q8H PRN #90 tab 11/03/18 04/01/19 Rx aspirin 81 mg PO BID #60 tab 11/03/18 04/01/19 Rx meloxicam 7.5 mg PO BID #60 tab 11/03/18 04/01/19 Rx levetiracetam 1,000 mg tablet 1,000 mg PO BID #60 tab 12/08/18 04/01/19 Rx sodium chloride 1 gram tablet 1,000 mg PO BID #60 tab 12/08/18 04/01/19 Rx mirabegron 50 mg tablet,extended 50 mg PO DAILY #30 tab 03/09/19 04/01/19 Rx release 24 hr gabapentin 800 mg tablet 800 mg PO TID #90 tab 04/08/19 04/08/19 Rx cyclobenzaprine 10 mg tablet 10 mg PO BID PRN #30 tab-cap 04/19/19 Rx methylphenidate HCl 10 mg tablet 10 mg PO DIRECTED #60 tab MDD 04/26/19 Rx 20mg daily METHODS: An 18-channel digitized electroencephalogram was recorded in the ambulatory setting with video. The 10/20 international system of electrode placement was used and bipolar and referential electrode montages were recorded. In addition to EEG the patient was monitored for EKG and by video. Activation procedures of photic stimulation and hyperventilation were performed if applicable. The duration of the recording was ~24 hours. DESCRIPTION OF EEG: Waking background activity: During maximal wakefulness an 8.5-Hz posterior background rhythm was present which was well-modulated, symmetrical, reactive to eye opening, and of moderate voltage. Faster frequencies were present in the bilateral anterior head regions. There was a normal anterior-posterior voltage gradient. Drowsy and sleeping background activity: During drowsiness, there was attenuation of the posterior dominant background rhythm and vertex waves. Normal stage II and III sleep was present with symmetrical sleep spindles, K-complexes, and vertex waves with slowing of the background rhythm to delta/theta frequencies. REM sleep manifested by rapid lateral eye movements and faster background rhythms was recorded. Arousal was unremarkable. Interictal abnormalities: none. Ictal findings: No events were captured. Activating Procedures: Photic stimulation was performed which produced a symmetrical posterior driving response at various flash frequencies. Hyperventilation was not performed. EKG: EKG revealed normal sinus rhythm. INTERPRETATION: This long-term EEG is normal during the awake and sleep states as well as during the activation procedure. PRIOR EEG: -October 2015 at [facility] [place]: normal -Amb September 2016 at [facility] [place]: normal. No events. -vEEG at [facility] [place] Feb 2017: no events captured, no interictal abnormalities. CLINICAL CORRELATION: No focal regions of cerebral dysfunction or epileptiform activity was present. Epilepsy remains a clinical diagnosis and a normal EEG does not rule out epilepsy. Clinical correlation is advised. Bridget Easley MD
== END 2019-04-23 14:50 ==
PROVIDERS: PCP Nurse Practitioner; Visit Provider Psychiatry & Neurology Neurology
DX: R69 Illness, unspecified (principal)
CPT/HCPCS: 95714

== ENCOUNTER → 2019-04-27 07:28 | Outpatient (BNVA) | payer MEDICARE, MEDICAID, SELFPAY | PROVIDERS: PCP Nurse Practitioner; Referring Provider Nurse Practitioner; Visit Provider Psychiatry & Neurology Neurology | DX: R68.89 Other general symptoms and signs (principal) | CPT/HCPCS: 95720 ==

== ENCOUNTER → 2019-04-28 07:28 | Outpatient (BNVA) | payer MEDICARE, MEDICAID, SELFPAY | PROVIDERS: PCP Nurse Practitioner; Referring Provider Nurse Practitioner; Visit Provider Psychiatry & Neurology Neurology | DX: R69 Illness, unspecified (principal) ==

== ENCOUNTER → 2019-05-28 09:37 | Outpatient (BNVA) | payer MEDICARE, MEDICAID, SELFPAY | PROVIDERS: PCP Nurse Practitioner; Referring Provider Nurse Practitioner; Visit Provider Student in an Organized Health Care Education/Training Program | DX: M25.40 Effusion, unspecified joint; M17.11 Unilateral primary osteoarthritis, right knee | CPT/HCPCS: 99213 ==

== ENCOUNTER 2019-06-23 13:55 | Emergency (ER) | payer MEDICARE, MEDICAID, SELFPAY ==
[2019-06-23 13:58] VITALS: BP 130/82; PULSE 62; RESP 16; TEMP 36.9; O2SAT 100
--- NOTE | 2019-06-23 14:30 | DI.US_ITS ---
EXAM: US LOWER EXTREMITY VENOUS RT CLINICAL HISTORY: PAIN, SWELLING, NO INJURY. TECHNIQUE: Lower extremity venous ultrasound performed using grayscale, color-flow, and spectral Dop pler analysis. COMPARISON: No exams were available for comparison FINDINGS: The common femoral, femoral and popliteal veins demonstrate normal compressibility, augmentation, and color Doppler. The posterior tibial veins are patent. The saphenous vein appears free of thrombus. No dilated venous varicosities are seen. There is a popliteal fossa cyst measuring 4.2 x 2.1 x 0.9 c m. Inferior to this is a collection measuring 6.6 x 2.7 x 5.8 cm with increased echogenicity, which could represent hemorrhage in a ruptured Cody's cyst versus hematoma. IMPRESSION: No evidence of DVT. Ruptured Cody's cyst versus hematoma in the medial calf. DATA REPOSITORY:
--- NOTE | 2019-06-23 15:27 | W.ED.GENAD ---
Discharge Plan Disposition Patient Disposition: HOME Condition: Stable Discharge Details Chief Complaint: Orthopedic Clinical Impression: Cody's cyst, ruptured Primary Care Provider: Colleen Mercado ED Provider: Yves Blair Home Meds and New Rx's Prescriptions: No Action levetiracetam [Keppra] 1,000 mg tablet 1,000 mg PO BID Qty: 60 RF: 11 sodium chloride 1 gram tablet 1,000 mg PO BID Qty: 60 RF: 11 mirabegron 50 mg tablet extended release 24 hr 50 mg PO DAILY Qty: 30 RF: 11 aripiprazole [Abilify] 5 mg tablet 5 mg PO HS Qty: 30 RF: 12 fluoxetine 40 mg capsule 80 mg PO DAILY Qty: 60 RF: 6 albuterol sulfate 90 mcg/actuation aerosol powdr breath activated 2 inh IH Q6H PRN (Reason: shortness of breath or wheezing) Qty: 1 RF: 12 gabapentin 800 mg tablet 800 mg PO TID Qty: 90 RF: 5 (DME) underpads [Air Permeable Underpad] 1 EACH pad 1 ea Miscellaneous Q4H PRN Qty: 300 RF: 12 (DME) Depend Underwear For Women S-M 1 EACH misc 1 ea Miscellaneous Q4H PRN Qty: 300 RF: 12 tamsulosin [Flomax] 0.4 mg capsule 0.4 mg PO HS Qty: 30 RF: 12 clonidine HCl 0.2 mg tablet 0.4 mg PO BID Qty: 120 RF: 3 cyclobenzaprine 10 mg tablet 10 mg PO BID PRN (Reason: muscle spasm) Qty: 30 RF: 0 methylphenidate HCl 10 mg tablet 10 mg PO DIRECTED MDD 20mg daily Qty: 60 RF: 0 Narcan 4 mg/actuation spray,non-aerosol 1 spray KRYSTAL ONCE PRN (Reason: opioid overdose) Qty: 2 RF: 0 acetaminophen 500 mg tablet 1,000 mg PO Q8H PRN (Reason: pain) Qty: 90 RF: 3 meloxicam 7.5 mg tablet 7.5 mg PO BID Qty: 60 RF: 0 aspirin 81 mg tablet,delayed release (DR/EC) 81 mg PO DAILY RF: 0 Discharge Instructions Instructions: Bakers Cyst (ED) Additional Instructions: It appears you had a Cody's cyst that ruptured, no evidence of blood clot. Rest, elevate, cool and/or warm compresses as tolerated. [id number] medications as directed for discomfort. Please watch for new or worsening symptoms and return to the ER for any concerns. Discharge Data Discharge Date/Time-TO BE ENTERED AT DEPARTURE: 06/23/19 15:49 Medical Decision Making 48-year-old gentleman with chronic right knee issues presents for 24-hour history of increased pain and swelling to his right lower extremity. No evidence of erythema, warmth. No evidence of cellulitis or pointing abscess. Certainly concerning for potential DVT. Patient appears well, nontoxic. Lungs are clear to auscultation. Neuro, vascular, tendon intact. No indication for emergent laboratory values unless his ultrasound returned positive for DVT. Will initiate ultrasound reassess Ultrasound reveals ruptured Cody's cyst. Made patient aware of these findings. He is relieved and has no additional questions or concerns. I was actually able to speak with Dr. Hillman, he is aware of the patient's visit and diagnosis. He recommends elevation and he will be happy to the patient in his office. I did relay this to the patient Medical Records Medical records reviewed: Yes I reviewed the patient's medical records. Imaging Data Radiologic Study: Imaging: Ultrasound Radiologist's impression: Right lower extremity Doppler, ruptured Cody's cyst. No DVT HPI General Mode of arrival: ambulatory. Date/Time Provider Initiated Documentation: 06/23/19 14:28. Limitations to Documentation: no limitations. Information obtained by: patient. HPI Narrative: 48-year-old gentleman with history of chronic right knee pain, scheduled for a total knee replacement in 2 months, presents to the ER for 24-hour history of increased right leg pain. He reports the pain is just below the knee along the posterior aspect. He admits to swelling but no redness or warmth. Denies numbness, tingling, weakness. Denies prolonged travel. Denies chest pain or shortness of breath. No history of DVT. Patient typically ambulates with a cane. Reports the pain is moderate at rest but more severe with movement or ambulation Related Data Home Medications Medication Instructions Recorded Confirmed Depend Underwear For Women S-M #300 ea 12/09/17 05/28/19 underpads [Air Permeable Underpad] #300 ea 12/09/17 05/28/19 Narcan 1 spray KRYSTAL ONCE PRN #2 each 06/24/18 06/23/19 aripiprazole 5 mg tablet 5 mg PO HS #30 tab-cap 07/29/18 06/23/19 fluoxetine 40 mg capsule 80 mg PO DAILY #60 tab-cap 07/29/18 06/23/19 albuterol sulfate 90 mcg/actuation 2 inh IH Q6H PRN #1 each 09/21/18 06/23/19 breath activated powder inhaler acetaminophen 1,000 mg PO Q8H PRN #90 tab 11/03/18 06/23/19 meloxicam 7.5 mg PO BID #60 tab 11/03/18 06/23/19 levetiracetam 1,000 mg tablet 1,000 mg PO BID #60 tab 12/08/18 06/23/19 sodium chloride 1 gram tablet 1,000 mg PO BID #60 tab 12/08/18 06/23/19 mirabegron 50 mg tablet,extended 50 mg PO DAILY #30 tab 03/09/19 06/23/19 release 24 hr gabapentin 800 mg tablet 800 mg PO TID #90 tab 04/08/19 06/23/19 tamsulosin 0.4 mg capsule 0.4 mg PO HS #30 tab-cap 05/03/19 06/23/19 clonidine HCl 0.2 mg tablet 0.4 mg PO BID #120 tab 05/04/19 06/23/19 cyclobenzaprine 10 mg tablet 10 mg PO BID PRN #30 tab-cap 05/31/19 06/23/19 methylphenidate HCl 10 mg tablet 10 mg PO DIRECTED #60 tab MDD 06/01/19 06/23/19 20mg daily aspirin 81 mg PO DAILY 06/23/19 06/23/19 Previous Rx's Medication Instructions Recorded Narcan 1 spray KRYSTAL ONCE PRN #2 each 06/24/18 aripiprazole 5 mg tablet 5 mg PO HS #30 tab-cap 07/29/18 fluoxetine 40 mg capsule 80 mg PO DAILY #60 tab-cap 07/29/18 albuterol sulfate 90 mcg/actuation 2 inh IH Q6H PRN #1 each 09/21/18 breath activated powder inhaler acetaminophen 1,000 mg PO Q8H PRN #90 tab 11/03/18 meloxicam 7.5 mg PO BID #60 tab 11/03/18 levetiracetam 1,000 mg tablet 1,000 mg PO BID #60 tab 12/08/18 sodium chloride 1 gram tablet 1,000 mg PO BID #60 tab 12/08/18 mirabegron 50 mg tablet,extended 50 mg PO DAILY #30 tab 03/09/19 release 24 hr gabapentin 800 mg tablet 800 mg PO TID #90 tab 04/08/19 tamsulosin 0.4 mg capsule 0.4 mg PO HS #30 tab-cap 05/03/19 clonidine HCl 0.2 mg tablet 0.4 mg PO BID #120 tab 05/04/19 cyclobenzaprine 10 mg tablet 10 mg PO BID PRN #30 tab-cap 05/31/19 methylphenidate HCl 10 mg tablet 10 mg PO DIRECTED #60 tab MDD 06/01/19 20mg daily Allergies Allergy/AdvReac Type Severity Reaction Status Date / Time oxycodone HCl [From Percocet] AdvReac Intermediate VOMITING Verified 06/23/19 14:03 General Stated Complaint: Orthopedic MIRIAM: 3 Review of Systems Constitutional Constitutional: Denies fever(s) Cardiovascular Cardiovascular: Denies chest pain and Denies dyspnea Respiratory Respiratory: Denies cough and Denies dyspnea Musculoskeletal Musculoskeletal: Reports back pain, Denies numbness and Denies tingling Integumentary/Breasts Skin/Breast: Denies rash Neurologic Neurologic: Denies numbness and Denies tingling PFSH Medical History Anxiety (Chronic 11/19/16) Bipolar depression (Chronic 03/31/17) BPH (benign prostatic hyperplasia) (Chronic 08/13/17) Carpal tunnel syndrome a. Diagnosed in 2010 by nerve conduction studies. b. Underwent right carpal tunnel release but did not have any improvement in symptoms. Chronic fatigue (Acute) Depression Diverticulitis H/O alcohol abuse (Acute) Hydrocephalus (Resolved 06/26/17) IVH (intraventricular hemorrhage) (Chronic 09/24/17) Knee pain (Chronic) Wayne comes in today for a follow up. I have refilled his Clonazepam for him. He will f/u with NSX and neurology. I asked him to question them about his urinary incontinence. He would like to see urology again for the incontinence, although I am not sure much can be done through them, but I will arrange it for him. We will check on the ortho f/u. I will have him f/u here with me in a month, or sooner should he need anything prior to that. Meningioma, cerebral (Chronic 10/22/17) a. Previously causing hydrocephalus s/p partial resection and EVD. b. hemorrhaged into 3rd ventricle in 2018, s/p resection Migraine (Chronic 07/02/16) Primary osteoarthritis of right knee (Chronic 03/31/17) Right knee pain (Chronic) Aspiration and injection: 09/04/2018 Aspiration: 08/05/2018 Seizure disorder (Chronic 11/19/16) Wayne is here today to follow up from recent hospital stay at [facility] from 08/31- for recent seizure and hyponatremia. Tobacco use disorder (Chronic 07/03/16) Tourette disease (Chronic 11/19/16) Urinary incontinence (Chronic 11/18/17) Surgical History Amputation right Index Arthroplasty of knee (10/28/16) Dr Sheela Gomez knee-- chondroplasty of the patella and open lateral retinacular release Hernia Repair-L (04/13/94) rgt craiotomy for mass (09/24/17) S/P craniotomy (Chronic 10/22/17) a. Endoscopic third ventriculostomy with fenestration of septum pellucidum, brian hole craniotomy with coagulation of the choroid plexus, and EVD placement in September 2014 b. craniotomy with 3rd ventricle mass excision September 2017. S/P right knee arthroscopy (Acute) Subluxation of patella (Acute) s/p replacement 06/2018; 2nd surgery 11/03/18 with Rafy Family History Mother Essential hypertension Cerebral aneurysm Father Neoplasm Lung Maternal Grandfather Heart disease Neoplasm Colorectal & Prostate Maternal Grandmother Neoplasm Colorectal Social History Smoking/Tobacco Use Status: Former Tobacco Use Quit Date: 10/12/18 Quit status: not considering quitting Alcohol Intake: never Drug use: Daily Substance use type: marijuana Details: uses marijuana for pain, last used 11/02 Adopted: No Foster care: No Household members: spouse and children Number of Children: 5 Communication Needs: None 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; 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 Pets and animals: Yes Pets and animals: dog(s) Current gender identity: male What is your relationship status?: Panel score (0-1 are the most socially isolated patients): 0 What type of physical activity do you participate in: none Seatbelt use: always Drive intox or ride w/intox 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 Water heater temp set <120 deg: Yes Working smoke detector in home: Yes Carbon monox detector in home: Yes Do you feel safe at home: Yes Do you feel safe in your relationship?: Yes Additional Social history: Lives with ex- Edith Exam Const General: cooperative, healthy appearing, comfortable and no acute distress Orientation: alert and awake HENMN Head: normal to inspection, normocephalic and atraumatic Mouth: moist mucous membranes Eyes Conjunctivae: conjunctivae normal Neck Neck: normal visual inspection, trachea midline and supple Resp Effort & Inspection: normal respiratory effort and able to speak in complete sentences Auscultation: clear to auscultation bilaterally Cardio Rate: regular rate Rhythm: regular rhythm Skin General skin exam: no rashes or lesions noted Neuro General: alert, awake, moves all extremities and no focal motor deficits Sensory Exam: no sensory deficits noted Extrem Right lower extremity: knee Details: tenderness, swelling (Posterior medial aspect just inferior to the knee. No erythema.), normal ROM and knee ligament exam normal; no ecchymosis and no unusual warmth Psych Appearance: grossly normal Mental Status: mental status grossly normal Course Vital Signs Vital signs: Vital Signs Temperature 36.9 C 06/23/19 13:58 Pulse 62 06/23/19 13:58 Respiratory Rate 16 06/23/19 13:58 Blood Pressure 130/82 06/23/19 13:58 Pulse Oximetry 100 06/23/19 13:58 Temperature 36.9 C 06/23/19 13:58 Temperature Source Skin 06/23/19 13:58 Pulse 62 06/23/19 13:58 Respiratory Rate 16 06/23/19 13:58 Respiratory Effort 06/23/19 14:05 Blood Pressure 130/82 06/23/19 13:58 Blood Pressure Position Sitting 06/23/19 13:58 Pulse Oximetry 100 06/23/19 13:58 Oxygen Delivery Method Room Air 06/23/19 13:58 Oxygen Flow Rate 0 06/23/19 13:58 Pain Level 10 06/23/19 14:24 Comment 06/23/19 13:58
[2019-06-23 15:46] VITALS: BP 134/91; PULSE 70; TEMP 36.5; O2SAT 97
== END 2019-06-23 15:49 | disposition home or self-care (01) ==
PROVIDERS: Emergency Provider Physician Assistant; PCP Nurse Practitioner
DX: M66.0 Rupture of popliteal cyst (principal)
CPT/HCPCS: 99284; 93971; 99283

== ENCOUNTER 2019-06-28 17:45 | Emergency (ER) | payer MEDICARE, MEDICAID, SELFPAY ==
[2019-06-28 17:48] VITALS: BP 90/67; PULSE 83; RESP 16; TEMP 36.5; O2SAT 100
--- NOTE | 2019-06-28 18:31 | ED.GENADUL_ITS ---
Discharge Plan Disposition Patient Disposition: HOME Condition: Stable Discharge Details Chief Complaint: Orthopedic Clinical Impression: Ruptured Bakers cyst Primary Care Provider: Colleen Mercado ED Provider: Dyllan Bella Home Meds and New Rx's Prescriptions: Continued levetiracetam [Keppra] 1,000 mg tablet 1,000 mg PO BID Qty: 60 RF: 11 sodium chloride 1 gram tablet 1,000 mg PO BID Qty: 60 RF: 11 mirabegron 50 mg tablet extended release 24 hr 50 mg PO DAILY Qty: 30 RF: 11 aripiprazole [Abilify] 5 mg tablet 5 mg PO HS Qty: 30 RF: 12 fluoxetine 40 mg capsule 80 mg PO DAILY Qty: 60 RF: 6 albuterol sulfate 90 mcg/actuation aerosol powdr breath activated 2 inh IH Q6H PRN (Reason: shortness of breath or wheezing) Qty: 1 RF: 12 gabapentin 800 mg tablet 800 mg PO TID Qty: 90 RF: 5 (DME) underpads [Air Permeable Underpad] 1 EACH pad 1 ea Miscellaneous Q4H PRN Qty: 300 RF: 12 (DME) Depend Underwear For Women S-M 1 EACH misc 1 ea Miscellaneous Q4H PRN Qty: 300 RF: 12 tamsulosin [Flomax] 0.4 mg capsule 0.4 mg PO HS Qty: 30 RF: 12 clonidine HCl 0.2 mg tablet 0.4 mg PO BID Qty: 120 RF: 3 cyclobenzaprine 10 mg tablet 10 mg PO BID PRN (Reason: muscle spasm) Qty: 30 RF: 0 methylphenidate HCl 10 mg tablet 10 mg PO DIRECTED MDD 20mg daily Qty: 60 RF: 0 Narcan 4 mg/actuation spray,non-aerosol 1 spray KRYSTAL ONCE PRN (Reason: opioid overdose) Qty: 2 RF: 0 acetaminophen 500 mg tablet 1,000 mg PO Q8H PRN (Reason: pain) Qty: 90 RF: 3 meloxicam 7.5 mg tablet 7.5 mg PO BID Qty: 60 RF: 0 aspirin 81 mg tablet,delayed release (DR/EC) 81 mg PO DAILY RF: 0 Discharge Instructions Instructions: Bakers Cyst (ED) Additional Instructions: Please contact your primary care physician to arrange follow-up as needed. Return to the ER for any worsening or new concerning symptoms. Referrals: Jess,Colleen, THERMODYNAMICS PROFESSOR [Primary Care Provider] - Discharge Data Discharge Date/Time-TO BE ENTERED AT DEPARTURE: 06/28/19 18:37 Medical Decision Making 48-year-old male who was seen here on 06/23/2019 and diagnosed with a ruptured Cody's cyst right leg, returns today with concern that his leg appears yellow. Patient has some ecchymosis proximal posterior right lower leg related to ruptured cyst. No signs of infection. Supportive care recommended. Usual customary discharge instructions were provided and reviewed with the patient. HPI General Mode of arrival: ambulatory . Date/Time Provider Initiated Documentation: 06/28/19 18:01 . Limitations to Documentation: no limitations . Information obtained by: patient . HPI Narrative: 48-year-old male who was seen here on 06/23/2019 with posterior right knee pain. He had an ultrasound that was performed that showed ruptured Cody's cyst. He returns today with concern that area is yellow. Moderate severity with no modifiers. No change in discomfort. No fever. No numbness and tingling of the distal right lower leg. Related Data Home Medications Medication Instructions Recorded Confirmed Depend Underwear For Women S-M #300 ea 12/09/17 05/28/19 underpads [Air Permeable Underpad] #300 ea 12/09/17 05/28/19 Narcan 1 spray KRYSTAL ONCE PRN #2 each 06/24/18 06/28/19 aripiprazole 5 mg tablet 5 mg PO HS #30 tab-cap 07/29/18 06/28/19 fluoxetine 40 mg capsule 80 mg PO DAILY #60 tab-cap 07/29/18 06/28/19 albuterol sulfate 90 mcg/actuation 2 inh IH Q6H PRN #1 each 09/21/18 06/28/19 breath activated powder inhaler acetaminophen 1,000 mg PO Q8H PRN #90 tab 11/03/18 06/28/19 meloxicam 7.5 mg PO BID #60 tab 11/03/18 06/28/19 levetiracetam 1,000 mg tablet 1,000 mg PO BID #60 tab 12/08/18 06/28/19 sodium chloride 1 gram tablet 1,000 mg PO BID #60 tab 12/08/18 06/28/19 mirabegron 50 mg tablet,extended 50 mg PO DAILY #30 tab 11/26/19 03/16/20 release 24 hr gabapentin 800 mg tablet 800 mg PO TID #90 tab 04/08/19 06/28/19 tamsulosin 0.4 mg capsule 0.4 mg PO HS #30 tab-cap 05/03/19 06/28/19 clonidine HCl 0.2 mg tablet 0.4 mg PO BID #120 tab 05/04/19 06/28/19 cyclobenzaprine 10 mg tablet 10 mg PO BID PRN #30 tab-cap 05/31/19 06/28/19 aspirin 81 mg PO DAILY 06/23/19 06/28/19 methylphenidate HCl 10 mg tablet 10 mg PO DIRECTED #60 tab MDD 06/28/19 06/28/19 20mg daily Previous Rx's Medication Instructions Recorded Narcan 1 spray KRYSTAL ONCE PRN #2 each 06/24/18 aripiprazole 5 mg tablet 5 mg PO HS #30 tab-cap 07/29/18 fluoxetine 40 mg capsule 80 mg PO DAILY #60 tab-cap 07/29/18 albuterol sulfate 90 mcg/actuation 2 inh IH Q6H PRN #1 each 09/21/18 breath activated powder inhaler acetaminophen 1,000 mg PO Q8H PRN #90 tab 11/03/18 meloxicam 7.5 mg PO BID #60 tab 11/03/18 levetiracetam 1,000 mg tablet 1,000 mg PO BID #60 tab 12/08/18 sodium chloride 1 gram tablet 1,000 mg PO BID #60 tab 12/08/18 mirabegron 50 mg tablet,extended 50 mg PO DAILY #30 tab 03/09/19 release 24 hr gabapentin 800 mg tablet 800 mg PO TID #90 tab 04/08/19 tamsulosin 0.4 mg capsule 0.4 mg PO HS #30 tab-cap 05/03/19 clonidine HCl 0.2 mg tablet 0.4 mg PO BID #120 tab 05/04/19 cyclobenzaprine 10 mg tablet 10 mg PO BID PRN #30 tab-cap 05/31/19 methylphenidate HCl 10 mg tablet 10 mg PO DIRECTED #60 tab MDD 06/28/19 20mg daily Allergies Allergy/AdvReac Type Severity Reaction Status Date / Time oxycodone HCl [From Percocet] AdvReac Intermediate VOMITING Verified 06/28/19 17:53 General Stated Complaint: Orthopedic MIRIAM: 3 Review of Systems Constitutional Constitutional: Denies fever(s) Integumentary/Breasts Skin/Breast: Reports as per [facility] Medical History Anxiety (Chronic 11/19/16) Bipolar depression (Chronic 03/31/17) BPH (benign prostatic hyperplasia) (Chronic 08/13/17) Carpal tunnel syndrome a. Diagnosed in 2010 by nerve conduction studies. b. Underwent right carpal tunnel release but did not have any improvement in symptoms. Chronic fatigue (Acute) Depression Diverticulitis H/O alcohol abuse (Acute) Hydrocephalus (Resolved 06/26/17) IVH (intraventricular hemorrhage) (Chronic 09/24/17) Knee pain (Chronic) Wayne comes in today for a follow up. I have refilled his Clonazepam for him. He will f/u with NSX and neurology. I asked him to question them about his urinary incontinence. He would like to see urology again for the incontinence, although I am not sure much can be done through them, but I will arrange it for him. We will check on the ortho f/u. I will have him f/u here with me in a month, or sooner should he need anything prior to that. Meningioma, cerebral (Chronic 10/22/17) a. Previously causing hydrocephalus s/p partial resection and EVD. b. hemorrhaged into 3rd ventricle in 2018, s/p resection Migraine (Chronic 07/02/16) Primary osteoarthritis of right knee (Chronic 03/31/17) Right knee pain (Chronic) Aspiration and injection: 09/04/2018 Aspiration: 08/05/2018 Seizure disorder (Chronic 11/19/16) Wayne is here today to follow up from recent hospital stay at [facility] from 08/31- for recent seizure and hyponatremia. Tobacco use disorder (Chronic 07/03/16) Tourette disease (Chronic 11/19/16) Urinary incontinence (Chronic 11/18/17) Surgical History Amputation right Index Arthroplasty of knee (10/28/16) Dr Sheela Gomez knee-- chondroplasty of the patella and open lateral retinacular release Hernia Repair-L (04/13/94) rgt craiotomy for mass (09/24/17) S/P craniotomy (Chronic 10/22/17) a. Endoscopic third ventriculostomy with fenestration of septum pellucidum, brian hole craniotomy with coagulation of the choroid plexus, and EVD placement in September 2014 b. craniotomy with 3rd ventricle mass excision September 2017. S/P right knee arthroscopy (Acute) Subluxation of patella (Acute) s/p replacement 06/2018; 2nd surgery 11/03/18 with Rafy Family History Mother Essential hypertension Cerebral aneurysm Father Neoplasm Lung Maternal Grandfather Heart disease Neoplasm Colorectal & Prostate Maternal Grandmother Neoplasm Colorectal Social History Smoking/Tobacco Use Status: Former Tobacco Use Quit Date: 10/12/18 Quit status: not considering quitting Alcohol Intake: never Drug use: Daily Substance use type: marijuana Details: uses marijuana for pain Adopted: No Foster care: No Household members: spouse and children Number of Children: 5 Communication Needs: None 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; 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 Pets and animals: Yes Pets and animals: dog(s) Current gender identity: male What is your relationship status?: Panel score (0-1 are the most socially isolated patients): 0 What type of physical activity do you participate in: none Seatbelt use: always Drive intox or ride w/intox 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: No Water heater temp set <120 deg: Yes Working smoke detector in home: Yes Carbon monox detector in home: Yes Do you feel safe at home: Yes Do you feel safe in your relationship?: Yes Additional Social history: Lives with ex- Edith Exam Const General: cooperative and no acute distress Cardio Rate: regular rate and not tachycardic Rhythm: regular rhythm Pulses: dorsalis pedis present on the right 2+ Extrem Right lower extremity: lower leg Details: localized swelling Location: of the proximal lower leg and ecchymosis (Posterior proximal lower leg); no erythema and no palpable cords Course Vital Signs Vital signs: Vital Signs Temperature 36.5 C 06/28/19 17:48 Pulse 83 06/28/19 17:48 Respiratory Rate 16 06/28/19 17:48 Blood Pressure 90/67 L 06/28/19 17:48 Pulse Oximetry 100 06/28/19 17:48 Temperature 36.5 C 06/28/19 17:48 Pulse 83 06/28/19 17:48 Respiratory Rate 16 06/28/19 17:48 Respiratory Effort 06/28/19 17:53 Blood Pressure 90/67 L 06/28/19 17:48 Blood Pressure Position Sitting 06/28/19 17:48 Pulse Oximetry 100 06/28/19 17:48 Oxygen Delivery Method Room Air 06/28/19 17:48 Oxygen Flow Rate 0 06/28/19 17:48 Pain Level 5 06/28/19 17:54 Comment pt asymptomatic 06/28/19 17:48
== END 2019-06-28 18:37 | disposition home or self-care (01) ==
PROVIDERS: Emergency Provider Student in an Organized Health Care Education/Training Program; PCP Nurse Practitioner
DX: M66.0 Rupture of popliteal cyst (principal)
CPT/HCPCS: 99281; 99282

== ENCOUNTER → 2019-07-01 09:55 | Outpatient (BNVA) | payer MEDICARE, MEDICAID, SELFPAY | PROVIDERS: PCP Nurse Practitioner; Referring Provider Nurse Practitioner; Visit Provider Psychiatry & Neurology Neurology | DX: R41.3 Other amnesia (principal); E87.1 Hypo-osmolality and hyponatremia; R25.1 Tremor, unspecified; D32.0 Benign neoplasm of cerebral meninges; G40.909 Epilepsy, unspecified, not intractable, without status epilepticus; G43.009 Migraine without aura, not intractable, without status migrainosus; G47.10 Hypersomnia, unspecified | CPT/HCPCS: 99213 ==

== ENCOUNTER → 2019-08-09 10:36 | Outpatient (BNVA) | payer MEDICARE, MEDICAID, SELFPAY | PROVIDERS: PCP Nurse Practitioner; Referring Provider Nurse Practitioner; Visit Provider Student in an Organized Health Care Education/Training Program | DX: M17.11 Unilateral primary osteoarthritis, right knee (principal); M17.5 Other unilateral secondary osteoarthritis of knee | CPT/HCPCS: 99213 ==

== ENCOUNTER 2019-08-12 11:09 | Emergency (ER) | payer MEDICARE, MEDICAID, SELFPAY ==
[2019-08-12 11:14] VITALS: BP 132/95; PULSE 71; TEMP 36.6; O2SAT 97
--- NOTE | 2019-08-12 11:19 | W.ED.GENAD ---
Discharge Plan Disposition Patient Disposition: HOME Condition: Stable Discharge Details Chief Complaint: Trauma Clinical Impression: Abrasion of face and extremities, Fall (on)(from) sidewalk curb, initial encounter Primary Care Provider: Colleen Mercado ED Provider: Allison Chiu Home Meds and New Rx's Prescriptions: New triamcinolone acetonide [24 Hour Nasal Allergy] 55 mcg aerosol,spray 1 spray KRYSTAL DAILY 7 Days Qty: 10.8 RF: 0 Continued sodium chloride 1 gram tablet 1,000 mg PO BID Qty: 60 RF: 11 mirabegron 50 mg tablet extended release 24 hr 50 mg PO DAILY Qty: 30 RF: 11 aripiprazole [Abilify] 5 mg tablet 5 mg PO HS Qty: 30 RF: 12 albuterol sulfate 90 mcg/actuation aerosol powdr breath activated 2 inh IH Q6H PRN (Reason: shortness of breath or wheezing) Qty: 1 RF: 12 gabapentin 800 mg tablet 800 mg PO TID Qty: 90 RF: 5 levetiracetam [Keppra] 1,000 mg tablet 1,000 mg PO BID Qty: 60 RF: 11 (DME) underpads [Air Permeable Underpad] 1 EACH pad 1 ea Miscellaneous Q4H PRN Qty: 300 RF: 12 (DME) Depend Underwear For Women S-M 1 EACH misc 1 ea Miscellaneous Q4H PRN Qty: 300 RF: 12 tamsulosin [Flomax] 0.4 mg capsule 0.4 mg PO HS Qty: 30 RF: 12 clonidine HCl 0.2 mg tablet 0.4 mg PO BID Qty: 120 RF: 3 cyclobenzaprine 10 mg tablet 10 mg PO BID PRN (Reason: muscle spasm) Qty: 30 RF: 0 fluoxetine 40 mg capsule 80 mg PO DAILY Qty: 60 RF: 6 methylphenidate HCl 10 mg tablet 10 mg PO DIRECTED MDD 20mg daily Qty: 60 RF: 0 acetaminophen 500 mg tablet 1,000 mg PO Q8H PRN (Reason: pain) Qty: 90 RF: 3 Discharge Instructions Instructions: Abrasion (ED), Fall Prevention (ED) Additional Instructions: Keep wounds clean and dry. Allow Steri-Strips to fall off on their own. Return for any worsening dizziness, vomiting or concerns. Watch for signs of infection including increased redness, swelling, drainage or red streaks. Leave dressings in place for the first 12 to 24 hours and then wash under running soap and water daily. No soaking. Take Tylenol or ibuprofen as needed for pain. You are up-to-date on your tetanus shot. Follow up with primary care provider in 3-5 days. Return to ED sooner if any worsening or concerns. Increase oral fluids. Referrals: Colleen Mercado NP [Primary Care Provider] - Medical Decision Making 48-year-old male presents after trip and fall. 48-year-old male presents to the ED status post trip and fall approximately 45 minutes prior to arrival. He states that he was walking and tripped over a pipe sticking out of the ground while carrying a hamster cage and fell face first onto concrete. He denies LOC, he does report headache, neck pain, and slight blurry vision. He does have a laceration noted to the bridge of his nose and abrasion to his forehead multiple superficial abrasions to his hands and left knee. He has a history of cerebral tumor, brain mass, cerebral meningioma, status post craniotomy, seizure disorder. C-collar was placed upon arrival to department. At this time CT head neck and maxillofacial bones ordered to rule out bleeding or underlying trauma. Will perform wound care. Patient's last tetanus shot was 2013. CT Cervical Spine: Bones: No acute fracture or subluxation. There are mild degenerative changes seen in the cervical spine. The odontoid is intact. The lateral masses are well aligned. Soft Tissues: Unremarkable. Lung Apices: Clear. IMPRESSION: 1. No acute intracranial process. 2. No acute fracture or subluxation in the cervical spine. 3. No evidence of a facial fracture. 4. Mild soft tissue swelling overlying the left frontal bone. 5. The findings were discussed with the emergency department on the date of the examination. 1238: CT head facial bones and neck negative for anything acute at this time. Wound care performed by staff field engineer abrasions being cleaned. Band-Aids applied Steri-Strips applied to the bridge of patient's nose. Laceration appears nonsuturable at this time. C-collar removed. Patient discharged home with strict return instructions, verbalized understanding. This text was generated using [email or web address] system, please disregard any oddities of phrase or misspellings. HPI General Mode of arrival: ambulatory. Date/Time Provider Initiated Documentation: 08/12/19 11:12. Limitations to Documentation: no limitations. Information obtained by: patient. HPI Narrative: 48-year-old male presents to the ED status post trip and fall approximately 45 minutes prior to arrival. He states that he was walking and tripped over a pipe sticking out of the ground while carrying a hamster cage and fell face first onto concrete. He denies LOC, he does report headache, neck pain, and slight blurry vision. He does have a laceration noted to the bridge of his nose and abrasion to his forehead multiple superficial abrasions to his hands and left knee. He has a history of cerebral tumor, brain mass, cerebral meningioma, status post craniotomy, seizure disorder. Related Data Home Medications Medication Instructions Recorded Confirmed Depend Underwear For Women S-M #300 ea 12/09/17 08/09/19 underpads [Air Permeable Underpad] #300 ea 12/09/17 08/09/19 aripiprazole 5 mg tablet 5 mg PO HS #30 tab-cap 07/29/18 08/12/19 albuterol sulfate 90 mcg/actuation 2 inh IH Q6H PRN #1 each 09/21/18 08/12/19 breath activated powder inhaler acetaminophen 1,000 mg PO Q8H PRN #90 tab 11/03/18 08/12/19 sodium chloride 1 gram tablet 1,000 mg PO BID #60 tab 12/08/18 08/12/19 mirabegron 50 mg tablet,extended 50 mg PO DAILY #30 tab 03/09/19 08/12/19 release 24 hr tamsulosin 0.4 mg capsule 0.4 mg PO HS #30 tab-cap 05/03/19 08/12/19 clonidine HCl 0.2 mg tablet 0.4 mg PO BID #120 tab 05/04/19 08/12/19 cyclobenzaprine 10 mg tablet 10 mg PO BID PRN #30 tab-cap 05/31/19 08/12/19 gabapentin 800 mg tablet 800 mg PO TID #90 tab 07/01/19 08/12/19 levetiracetam 1,000 mg tablet 1,000 mg PO BID #60 tab 07/01/19 08/12/19 fluoxetine 40 mg capsule 80 mg PO DAILY #60 tab-cap 07/12/19 08/12/19 methylphenidate HCl 10 mg tablet 10 mg PO DIRECTED #60 tab MDD 07/29/19 08/12/19 20mg daily triamcinolone acetonide [24 Hour 1 spray KRYSTAL DAILY 7 Days #10.8 ml 08/12/19 Nasal Allergy] Previous Rx's Medication Instructions Recorded aripiprazole 5 mg tablet 5 mg PO HS #30 tab-cap 07/29/18 albuterol sulfate 90 mcg/actuation 2 inh IH Q6H PRN #1 each 09/21/18 breath activated powder inhaler acetaminophen 1,000 mg PO Q8H PRN #90 tab 11/03/18 sodium chloride 1 gram tablet 1,000 mg PO BID #60 tab 12/08/18 mirabegron 50 mg tablet,extended 50 mg PO DAILY #30 tab 03/09/19 release 24 hr tamsulosin 0.4 mg capsule 0.4 mg PO HS #30 tab-cap 05/03/19 clonidine HCl 0.2 mg tablet 0.4 mg PO BID #120 tab 05/04/19 cyclobenzaprine 10 mg tablet 10 mg PO BID PRN #30 tab-cap 05/31/19 gabapentin 800 mg tablet 800 mg PO TID #90 tab 07/01/19 levetiracetam 1,000 mg tablet 1,000 mg PO BID #60 tab 07/01/19 fluoxetine 40 mg capsule 80 mg PO DAILY #60 tab-cap 07/12/19 methylphenidate HCl 10 mg tablet 10 mg PO DIRECTED #60 tab MDD 07/29/19 20mg daily triamcinolone acetonide [24 Hour 1 spray KRYSTAL DAILY 7 Days #10.8 ml 08/12/19 Nasal Allergy] Allergies Allergy/AdvReac Type Severity Reaction Status Date / Time oxycodone HCl [From Percocet] AdvReac Intermediate VOMITING Verified 08/12/19 11:33 General Stated Complaint: Trauma MIRIAM: 3 Review of Systems Narrative: Constitutional: Negative for weight loss, alert and oriented, well groomed, normal body habitus, appears comfortable. HEENT: Denies trauma, headaches, blurry vision, nasal discharge, sore throat, trouble swallowing. Chest: Denies chest pain, palpitations, irregular rhythm, hypertension. Respiratory: Denies Shortness of breath, cough, hemoptysis. GI: Denies abdominal pain, nausea, vomiting, diarrhea, constipation. : Denies dysuria, hematuria, flank pain, rectal bleeding. Neuro: Denies dizziness, blurry vision, weakness, syncope, headache or facial numbness. Hematologic: Denies easy bruising, intolerance to heat or cold, hair loss. PENDING SALE TO [facility] Medical History Anxiety (Chronic 11/19/16) Bipolar depression (Chronic 03/31/17) BPH (benign prostatic hyperplasia) (Chronic 08/13/17) Carpal tunnel syndrome a. Diagnosed in 2010 by nerve conduction studies. b. Underwent right carpal tunnel release but did not have any improvement in symptoms. Chronic fatigue (Acute) Depression Diverticulitis H/O alcohol abuse (Acute) Hydrocephalus (Resolved 06/26/17) Hypersomnia (Acute) Multifactorial from hydrocephalus, hyponatremia, mood disorder, and substance abuse (marijuana). IVH (intraventricular hemorrhage) (Chronic 09/24/17) Knee pain (Chronic) Wayne comes in today for a follow up. I have refilled his Clonazepam for him. He will f/u with NSX and neurology. I asked him to question them about his urinary incontinence. He would like to see urology again for the incontinence, although I am not sure much can be done through them, but I will arrange it for him. We will check on the ortho f/u. I will have him f/u here with me in a month, or sooner should he need anything prior to that. Meningioma, cerebral (Chronic 10/22/17) a. Previously causing hydrocephalus s/p partial resection and EVD. b. hemorrhaged into 3rd ventricle in 2018, s/p resection Migraine (Chronic 07/02/16) Primary osteoarthritis of right knee (Chronic 03/31/17) Right knee pain (Chronic) Aspiration and injection: 09/04/2018 Aspiration: 08/05/2018 Seizure disorder (Chronic 11/19/16) Wayne is here today to follow up from recent hospital stay at [facility] from 08/31- for recent seizure and hyponatremia. Tobacco use disorder (Chronic 07/03/16) Tourette disease (Chronic 11/19/16) Urinary incontinence (Chronic 11/18/17) Surgical History Amputation right Index Arthroplasty of knee (10/28/16) Dr Sheela Gomez knee-- chondroplasty of the patella and open lateral retinacular release Hernia Repair-L (04/13/94) rgt craiotomy for mass (09/24/17) S/P craniotomy (Chronic 10/22/17) a. Endoscopic third ventriculostomy with fenestration of septum pellucidum, brian hole craniotomy with coagulation of the choroid plexus, and EVD placement in September 2014 b. craniotomy with 3rd ventricle mass excision September 2017. S/P right knee arthroscopy (Acute) Subluxation of patella (Acute) s/p replacement 06/2018; 2nd surgery 11/03/18 with Rafy Family History Mother Essential hypertension Cerebral aneurysm Father Neoplasm Lung Maternal Grandfather Heart disease Neoplasm Colorectal & Prostate Maternal Grandmother Neoplasm Colorectal Social History Smoking/Tobacco Use Status: Former Tobacco Use Quit status: not considering quitting Alcohol Intake: never Drug use: Daily Substance use type: marijuana Details: uses marijuana for pain Adopted: No Foster care: No Household members: spouse and children Number of Children: 5 Communication Needs: None 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; 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 Pets and animals: Yes Pets and animals: dog(s) Current gender identity: male What is your relationship status?: Panel score (0-1 are the most socially isolated patients): 0 What type of physical activity do you participate in: none Seatbelt use: always Drive intox or ride w/intox vending route driver: No Water heater temp set <120 deg: Yes Working smoke detector in home: Yes Carbon monox detector in home: Yes Do you feel safe at home: Yes Do you feel safe in your relationship?: Yes Additional Social history: Lives with ex- Edith Exam Narrative Exam Narrative: Constitutional: Alert and oriented x3. Appears stated age. Normal body habitus. Head: Normocephalic, horizontal laceration noted to the bridge of his nose, no swelling, bleeding from left nare. Which is controlled. Superficial abrasion noted to the left forehead. Eyes: Pupils PERRLA, Red reflex noted, EOM's intact. Eyelids symmetrical without lesions, discharge, or swelling. No nystagmus. ENT: Bilateral TM's WNL, no hemotympanum external ear normal to inspection, no mastoid TTP, swelling, or erythema, nasal swelling blood noted to the left nare, no septal hematoma. Poor dentition. Posterior pharynx WNL, no exudate. Chest: RRR, Normal S1, S2, distal pulses intact. Resp: Lungs clear to auscultation bilaterally, no wheezes, rales, or rhonchi. Musculoskeletal: Normal gait, 5/5 strength to all four extremities. Midline C-spine tenderness no midline T or L-spine tenderness. He has superficial abrasion noted to his left knee, multiple superficial abrasions noted to his bilateral hands and knuckles. Skin: No suspicious rashes or lesions. Capillary refill less than 2 sec. see trauma noted above. Neurologic: Cranial nerves II-XII intact. Alert and oriented x 3. DTR's intact. Reports blurry vision pupils are PERRLA. Hematologic/Lymphatic: No ecchymosis, no lymphadenopathy. Course Vital Signs Vital signs: Vital Signs Temperature 36.6 C 08/12/19 11:14 Pulse 71 08/12/19 11:14 Blood Pressure 132/95 H 08/12/19 11:14 Pulse Oximetry 97 08/12/19 11:14 Temperature 36.6 C 08/12/19 11:14 Temperature Source Temporal Artery Scan 08/12/19 11:14 Pulse 71 08/12/19 11:14 Blood Pressure 132/95 H 08/12/19 11:14 Pulse Oximetry 97 08/12/19 11:14 Oxygen Delivery Method Room Air 08/12/19 11:14 Oxygen Flow Rate 0 08/12/19 11:14 Pain Level 8 08/12/19 11:14
[2019-08-12] MEDS: Ibuprofen 600 MG TAB PO (11:55)
--- NOTE | 2019-08-12 12:03 | DI.CT_ITS ---
EXAM: CT HEAD CERV SPINE FACIAL WO CLINICAL HISTORY: Fall, neck pain, nose injury. TECHNIQUE: Imaging Protocol: Axial computed tomography images with coronal and sagittal reformatted images were created and reviewed COMPARISON: CT HEAD WO from 10/30/2018 FINDINGS: CT Head: Ventricles and Extra axial spaces: Normal in size and morphology for the patient's age. Hemorrhage: None. Cerebral parenchyma: There is an unchanged area of encephalomalacia in the right cerebral hemisphere. Midline shift: None. Brainstem/Cerebellum: Normal. Calvarium: There is an old right frontal craniotomy defect. No acute calvarial fracture. Visualized Paranasal sinuses/Mastoids: Mild mucosal thickening in the maxillary sinuses. No fluid le vels are present. Mastoid air cells are well pneumatized. Soft Tissues: Unremarkable. CT Face: Facial Bones: No definite fracture is noted in facial bones. Sinuses and Mastoids: Mucosal thickening is seen in the maxillary sinuses. No fluid levels are pres ent. Globes, extraocular muscles, optic nerves and retrobulbar fat: Normal. Upper aerodigestive tract: Normal. Mandible and bilateral temporomandibular joints: Normal. Soft tissues: Mild soft tissue swelling overlying the left frontal bone. CT Cervical Spine: Bones: No acute fracture or subluxation. There are mild degenerative changes seen in the cervical spi ne. The odontoid is intact. The lateral masses are well aligned. Soft Tissues: Unremarkable. Lung Apices: Clear. IMPRESSION: 1. No acute intracranial process. 2. No acute fracture or subluxation in the cervical spine. 3. No evidence of a facial fracture. 4. Mild soft tissue swelling overlying the left frontal bone. 5. The findings were discussed with the emergency department on the date of the examination. RADIATION DOSE DELIVERED: Total DLP DATA REPOSITORY: All CT scans at this facility are submitted to the National Radiology Data Registry (NRDR) Dose Index Registry (DIR) with the [employer] (ACR). RADIATION OPTIMIZATION: All CT scans at this facility use at least one of these dose optimization te chniques: automated exposure control; mA and/or kV adjustment per patient size (includes targeted exa ms where dose is matched to clinical indication); or iterative reconstruction.
== END 2019-08-12 12:50 | disposition home or self-care (01) ==
PROVIDERS: Emergency Provider Registered Nurse Emergency; PCP Nurse Practitioner
DX: S01.21XA Laceration without foreign body of nose, initial encounter (principal); S80.212A Abrasion, left knee, initial encounter; S60.511A Abrasion of right hand, initial encounter; S60.512A Abrasion of left hand, initial encounter; W10.1XXA Fall (on)(from) sidewalk curb, initial encounter; Z85.841 Personal history of malignant neoplasm of brain
CPT/HCPCS: 99284; 70450; 70486; 72125; L0172

== ENCOUNTER → 2019-09-30 09:10 | Outpatient (BNVA) | payer MEDICARE, MEDICAID, SELFPAY | PROVIDERS: PCP Nurse Practitioner; Referring Provider Nurse Practitioner; Visit Provider Psychiatry & Neurology Neurology | DX: R41.3 Other amnesia (principal); E22.2 Syndrome of inappropriate secretion of antidiuretic hormone; R25.1 Tremor, unspecified; D32.0 Benign neoplasm of cerebral meninges; G40.909 Epilepsy, unspecified, not intractable, without status epilepticus; G43.009 Migraine without aura, not intractable, without status migrainosus; G47.10 Hypersomnia, unspecified | CPT/HCPCS: 99214 ==

== ENCOUNTER 2020-02-21 17:55 | Outpatient (REF) | payer MEDICARE, MEDICAID, SELFPAY ==
[2020-02-24 16:54] LABS: Patient Race White; SARS-CoV-2 RNA Undetected (Undetected); SARS-CoV-2 Specimen Source Nasal
== END 2020-02-21 18:15 ==
LOC: NCHCN 17:55
PROVIDERS: PCP Nurse Practitioner; Visit Provider Nurse Practitioner Family
DX: Z20.828 Contact with and (suspected) exposure to other viral communicable diseases (principal)
CPT/HCPCS: U0003

== ENCOUNTER → 2020-03-06 10:27 | Outpatient (BNVA) | payer MEDICARE, MEDICAID, SELFPAY | PROVIDERS: PCP Nurse Practitioner; Referring Provider Nurse Practitioner; Visit Provider Nurse Practitioner Gerontology | DX: N39.498 Other specified urinary incontinence (principal) | CPT/HCPCS: 99213 ==

== ENCOUNTER → 2020-03-30 07:52 | Outpatient (BNVA) | payer MEDICARE, MEDICAID, SELFPAY | PROVIDERS: PCP Nurse Practitioner; Referring Provider Nurse Practitioner; Visit Provider Psychiatry & Neurology Neurology | DX: R69 Illness, unspecified (principal) ==

== ENCOUNTER → 2020-04-03 10:49 | Outpatient (BNVA) | payer MEDICARE, MEDICAID, SELFPAY | PROVIDERS: PCP Nurse Practitioner; Referring Provider Nurse Practitioner; Visit Provider Psychiatry & Neurology Neurology | DX: G43.009 Migraine without aura, not intractable, without status migrainosus (principal); G40.909 Epilepsy, unspecified, not intractable, without status epilepticus; Z86.011 Personal history of benign neoplasm of the brain; E22.2 Syndrome of inappropriate secretion of antidiuretic hormone; R41.3 Other amnesia; G47.10 Hypersomnia, unspecified | CPT/HCPCS: 99213; 99441 ==

== ENCOUNTER 2020-09-23 18:06 | Emergency (ER) | payer MEDICARE, MEDICAID, SELFPAY ==
[2020-09-23 18:12] VITALS: BP 110/72; PULSE 57; RESP 16; TEMP 36.4; O2SAT 96
--- NOTE | 2020-09-23 18:16 | ED.GENADUL_ITS ---
Discharge Plan Disposition Patient Disposition: HOME Condition: Stable Discharge Details Clinical Impression: Tick bite of back Primary Care Provider: Colleen Mercado ED Provider: Allison Chiu Home Meds and New Rx's Prescriptions: New doxycycline hyclate 100 mg capsule 100 mg PO BID 9 Days Qty: 18 RF: 0 Continued levetiracetam [Keppra] 1,000 mg tablet 1,000 mg PO BID Qty: 60 RF: 11 albuterol sulfate 90 mcg/actuation aerosol powdr breath activated 2 inh IH Q6H PRN (Reason: shortness of breath or wheezing) Qty: 1 RF: 12 doxycycline hyclate 100 mg capsule 200 mg PO ONCE Qty: 2 RF: 0 mirabegron 50 mg tablet extended release 24 hr 50 mg PO DAILY Qty: 30 RF: 11 (DME) underpads [Air Permeable Underpad] 1 EACH pad 1 ea Miscellaneous Q4H PRN Qty: 300 RF: 12 (DME) Depend Underwear For Women S-M 1 EACH misc 1 ea Miscellaneous Q4H PRN Qty: 300 RF: 12 cyclobenzaprine 10 mg tablet 10 mg PO BID PRN (Reason: muscle spasm) Qty: 30 RF: 0 aripiprazole [Abilify] 5 mg tablet 5 mg PO HS Qty: 30 RF: 12 sodium chloride 1 gram tablet 1,000 mg PO BID Qty: 60 RF: 11 clonidine HCl 0.2 mg tablet 0.4 mg PO BID Qty: 120 RF: 5 tamsulosin [Flomax] 0.4 mg capsule 0.4 mg PO HS Qty: 30 RF: 12 fluoxetine 40 mg capsule 80 mg PO DAILY Qty: 60 RF: 6 gabapentin 800 mg tablet 800 mg PO TID Qty: 90 RF: 5 methylphenidate HCl 10 mg tablet 10 mg PO DIRECTED MDD 20mg daily Qty: 60 RF: 0 acetaminophen 500 mg tablet 1,000 mg PO Q8H PRN (Reason: pain) Qty: 90 RF: 3 Discharge Instructions Instructions: Tick Bite (ED) Additional Instructions: Take antibiotic as directed. Take full 10 days of the antibiotic twice daily. Return to the ED for any muscle cramps, vomiting, fever, spreading or worsening rash or any concerns. Give the antibiotics 3 days to begin working. No soaking. You may apply topical Benadryl gel or mild hydrocortisone if needed. Keep clean and dry. Follow up with primary care provider in 3-5 days. Return to ED sooner if any w orsening or concerns. Increase oral fluids. Referrals: Colleen Mercado NP [Primary Care Provider] - Medical Decision Making Patient placed on 10 days of Doxycycline 100mg PO BID. Redness marked by air liaison and special staff and strict return instructions discussed. Patient verbalized understanding. HPI General Mode of arrival: ambulatory . Date/Time Provider Initiated Documentation: 09/23/20 18:11 . Limitations to Documentation: no limitations . Information obtained by: patient . HPI Narrative: Patient reports removing a t ick from his left posterior back yesterday, was seen by primary care yesterday received 200 mg of doxycycline x1. Today he noticed increased redness, induration and a red streak which travels around to the anterior chest. Denies any fever no other rash anywhere no other associated symptoms. We will elizabeth the area of erythema and place him on 10 days of doxycycline 100 mg twice daily. Related Data Home Medications Medication Instructions Recorded Confirmed Depend Underwear For Women S-M #300 ea 12/09/17 09/23/20 underpads [Air Permeable Underpad] #300 ea 12/09/17 09/23/20 acetaminophen 1,000 mg PO Q8H PRN #90 tab 11/03/18 09/23/20 cyclobenzaprine 10 mg tablet 10 mg PO BID PRN #30 tab-cap 08/16/19 09/23/20 mirabegron 50 mg tablet,extended 50 mg PO DAILY #30 tab 03/06/20 09/23/20 release 24 hr aripiprazole 5 mg tablet 5 mg PO HS #30 tab-cap 03/15/20 09/23/20 sodium chloride 1 gram tablet 1,000 mg PO BID #60 tab 03/15/20 09/23/20 levetiracetam 1,000 mg tablet 1,000 mg PO BID #60 tab 04/03/20 09/23/20 albuterol sulfate 90 mcg/actuation 2 inh IH Q6H PRN #1 each 04/19/20 09/23/20 breath activated powder inhaler clonidine HCl 0.2 mg tablet 0.4 mg PO BID #120 tab 05/23/20 09/23/20 tamsulosin 0.4 mg capsule 0.4 mg PO HS #30 tab-cap 06/07/20 09/23/20 fluoxetine 40 mg capsule 80 mg PO DAILY #60 tab-cap 06/19/20 09/23/20 gabapentin 800 mg tablet 800 mg PO TID #90 tab 07/03/20 09/23/20 methylphenidate HCl 10 mg tablet 10 mg PO DIRECTED #60 tab MDD 09/20/20 09/23/20 20mg daily doxycycline hyclate 100 mg capsule 200 mg PO ONCE #2 cap 09/22/20 09/23/20 doxycycline hyclate 100 mg PO BID 9 Days #18 cap 09/23/20 Previous Rx's Medication Instructions Recorded acetaminophen 1,000 mg PO Q8H PRN #90 tab 11/03/18 cyclobenzaprine 10 mg tablet 10 mg PO BID PRN #30 tab-cap 08/16/19 mirabegron 50 mg tablet,extended 50 mg PO DAILY #30 tab 03/06/20 release 24 hr aripiprazole 5 mg tablet 5 mg PO HS #30 tab-cap 03/15/20 sodium chloride 1 gram tablet 1,000 mg PO BID #60 tab 03/15/20 levetiracetam 1,000 mg tablet 1,000 mg PO BID #60 tab 04/03/20 albuterol sulfate 90 mcg/actuation 2 inh IH Q6H PRN #1 each 04/19/20 breath activated powder inhaler clonidine HCl 0.2 mg tablet 0.4 mg PO BID #120 tab 05/23/20 tamsulosin 0.4 mg capsule 0.4 mg PO HS #30 tab-cap 06/07/20 fluoxetine 40 mg capsule 80 mg PO DAILY #60 tab-cap 06/19/20 gabapentin 800 mg tablet 800 mg PO TID #90 tab 07/03/20 methylphenidate HCl 10 mg tablet 10 mg PO DIRECTED #60 tab MDD 09/20/20 20mg daily doxycycline hyclate 100 mg capsule 200 mg PO ONCE #2 cap 09/22/20 doxycycline hyclate 100 mg PO BID 9 Days #18 cap 09/23/20 Allergies Allergy/AdvReac Type Severity Reaction Status Date / Time oxycodone HCl [From Percocet] AdvReac Intermediate VOMITING Verified 09/23/20 18:16 General MIRIAM: 3 Review of Systems All systems reviewed & are unremarkable except as noted in HPI and below Integumentary/Breasts Skin/Breast: Reports as per HPI, Reports erythema, Reports skin swelling and Reports sores (tick bite) [facility] Medical History Anxiety (11/19/16) Bipolar depression (03/31/17) BPH (benign prostatic hyperplasia) (08/13/17) Carpal tunnel syndrome a. Diagnosed in 2010 by nerve conduction studies. b. Underwent right carpal tunnel release but did not have any improvement in symptoms. Chronic fatigue Depression Diverticulitis H/O alcohol abuse Hydrocephalus (06/26/17) Hypersomnia Multifactorial from hydrocephalus, hyponatremia, mood disorder, and substance abuse (marijuana). IVH (intraventricular hemorrhage) (09/24/17) Knee pain Wayne comes in today for a follow up. I have refilled his Clonazepam for him. He will f/u with NSX and neurology. I asked him to question them about his urinary incontinence. He would like to see urology again for the incon tinence, although I am not sure much can be done through them, but I will arrange it for him. We will check on the ortho f/u. I will have him f/u here with me in a month, or sooner should he need anything prior to that. Left knee pain Malnutrition compromising bodily function Much due to terrible dentition Meningioma, cerebral (10/22/17) a. Previously causing hydrocephalus s/p partial resection and EVD. b. hemorrhaged into 3rd ventricle in 2018, s/p resection Migraine (07/02/16) Primary osteoarthritis of right knee (03/31/17) Right knee pain Aspiration and injection: 09/04/2018 Aspiration: 08/05/2018 Seizure disorder (11/19/16) Wayne is here today to follow up from recent hospital stay at [facility] from 08/31- for recent seizure and hyponatremia. Tobacco use disorder (07/03/16) Tooth decay Tourette disease (11/19/16) Urinary incontinence (11/18/17) Surgical History Amputation right Index Arthroplasty of knee (10/28/16) Dr Sheela Gomez knee-- chondroplasty of the patella and open lateral retinacular release Hernia Repair-L (04/13/94) rgt craiotomy for mass (09/24/17) S/P craniotomy (10/22/17) a. Endoscopic third ventriculostomy with fenestration of septum pellucidum, brian hole craniotomy with coagulation of the choroid plexus, and EVD placement in September 2014 b. craniotomy with 3rd ventricle mass excision September 2017. S/P right knee arthroscopy Subluxation of patella s/p replacement 06/2018; 2nd surgery 11/03/18 with Rafy Family History Mother Essential hypertension Cerebral aneurysm Father Neoplasm Lung Maternal Grandfather Heart disease Neoplasm Colorectal & Prostate Maternal Grandmother Neoplasm Colorectal Social History Smoking/Tobacco Use Status: Former Tobacco Use Quit status: not considering quitting Smoking risk assessment performed?: Yes Alcohol Intake: never Drug use: Daily Substance use type: marijuana Details: uses marijuana for pain Adopted: No Foster care: No Household members: spouse and children Number of Children: 5 Communication Needs: None 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; 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 Pets and animals: Yes Pets and animals: dog(s) Current gender identity: male What is your relationship status?: Panel score (0-1 are the most socially isolated patients): 0 What type of physical activity do you participate in: none Seatbelt use: always Drive intox or ride w/intox 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 Erythema, surrounding induration, puncture wound 2. Red streaks 3. Erythema
[2020-09-23] MEDS: Doxycycline Hyclate 100 MG CAP PO (18:22)
[2020-09-23] MEDS: Doxycycline Hyclate 100 MG, 2 CAPS/BTL PO (18:23)
== END 2020-09-23 18:30 | disposition home or self-care (01) ==
PROVIDERS: Emergency Provider Registered Nurse Emergency; PCP Nurse Practitioner
DX: S20.462A Insect bite (nonvenomous) of left back wall of thorax, initial encounter (principal); W57.XXXA Bitten or stung by nonvenomous insect and other nonvenomous arthropods, initial encounter; L53.9 Erythematous condition, unspecified
CPT/HCPCS: 99283

== ENCOUNTER 2020-09-24 11:49 | Emergency (ER) | payer MEDICARE, MEDICAID, SELFPAY ==
--- OUTSIDE RECORDS SUMMARY | 2020-09-24 11:54 | XMS_ITS ---
:1970 Author Care Team Providers Name Role Phone [facility] Primary Care Provider [phone] MATT HARRISON MD Neurologist [phone] [facility] Primary Care Provider [phone] Allergies Code Code System Name Reaction Severity Status Onset 4546 RxNorm Oxycodone ? ? Active ? Medications Name Status Start Date Stop Date ? ? aripiprazole 5 mg tablet Active ? Not chris ilable Take 1 tablet every day by oral route. fluoxetine 40 mg capsule Active ? Not chris ilable Take 1 capsule every day by oral route. hydrocodone 5 mg-acetaminophen 325 mg tablet Completed ? 03/01/2019 Take 1 tablet every 6 hours by oral route. levetiracetam 500 mg tablet Active ? Not available Take 1 tablet twice a day by oral route. meloxicam 7.5 mg tablet Active ? Not avai lable Take 1 tablet twice a day by oral route. methylphenidate 10 mg tablet Active ? Not available Take 1 tablet twice a day by oral route. mirabegron ER 25 mg tablet,extended release 24 hr Active ? Not available Take 1 tablet every day by oral route. Narcan Active ? Not available tamsulosin 0.4 mg capsule Active ? Not av ailable Take 1 capsule every day by oral route. zolpidem 5 mg tablet Active ? Not availab le take 1 PO night of sleep study Problems Name Status Onset Date Source ? Cerebral Meningioma Active 11/23/2018 ? Neoplasm of Cerebrum Active 11/23/2018 ? Hypo-osmolality and or Hyponatremia Active 11/23/2018 ? Bipolar Disorder Active 11/23/2018 ? Disturbance in Mood Active 11/23/2018 ? Anxiety Active 11/23/2018 ? Tobacco User Active 11/23/2018 ? Arron De La Tourette's Syndrome Active 11/23/2018 ? Depressive Disorder Active 11/23/2018 ? Hypersomnia Active 11/23/2018 ? Hydrocephalus Active 11/23/2018 ? Epilepsy Active 11/23/2018 ? Migraine Active 11/23/2018 ? Carpal Tunnel Syndrome Active 11/23/2018 ? Diverticulitis Active 11/23/2018 ? Benign Prostatic Hyperplasia Active 11/23/2018 ? Knee Pain Active 11/23/2018 ? Intraventricular Hemorrhage Active 11/23/2018 ? Fatigue Active 11/23/2018 ? Amnesia Active 11/23/2018 ? Tremor Active 11/23/2018 ? Urinary Incontinence Active 11/23/2018 ? Amputee Active 11/23/2018 ? Long-term Memory within Normal Limits Active 11/23/2018 ? Mass of Left Frontal Lobe of Brain Active 11/23/2018 ? Daytime Somnolence Active 05/24/2019 ? Procedures None recorded. Results Lab Results None recorded. Past Encounters 05/24/2019 Daytime Somnolence Diandra Oconnor [employer]: [address] [place] [phone], Ph. Social History Tobacco Smoking Status Former Smoker Notes: Quit a few months Vaccine List None recorded. Plan of Care Reminders Provider Appointments None ? ? recorded. Lab None ? ? recorded. Referral None ? ? recorded. Procedures None ? ? recorded. Surgeries None ? ? recorded. Imaging None ? ? recorded. Vitals 05/24/2019 01:15PM Office 30 Height Weight BMI Blood Pressure 175.26 cm 94.35 kg 30.7 kg/m2 130/74 mm[Hg] 03/01/2019 12:30PM New Patient 45 Height Weight BMI Blood Pressure 175.26 cm 89.81 kg 29.2 kg/m2 124/80 mm[Hg]
[2020-09-24 11:55] VITALS: BP 106/72; PULSE 84; RESP 18; TEMP 36.6; O2SAT 97
--- NOTE | 2020-09-24 12:21 | ED.GENADUL_ITS ---
Discharge Plan Disposition Patient Disposition: HOME Condition: Stable Discharge Details Clinical Impression: Tick bite of back, Cellulitis Primary Care Provider: Colleen Mercado ED Provider: Karoline Melo Home Meds and New Rx's Prescriptions: Continued levetiracetam [Keppra] 1,000 mg tablet 1,000 mg PO BID Qty: 60 RF: 11 albuterol sulfate 90 mcg/actuation aerosol powdr breath activated 2 inh IH Q6H PRN (Reason: shortness of breath or wheezing) Qty: 1 RF: 12 doxycycline hyclate 100 mg capsule 200 mg PO ONCE Qty: 2 RF: 0 mirabegron 50 mg tablet extended release 24 hr 50 mg PO DAILY Qty: 30 RF: 11 (DME) underpads [Air Permeable Underpad] 1 EACH pad 1 ea Miscellaneous Q4H PRN Qty: 300 RF: 12 (DME) Depend Underwear For Women S-M 1 EACH misc 1 ea Miscellaneous Q4H PRN Qty: 300 RF: 12 cyclobenzaprine 10 mg tablet 10 mg PO BID PRN (Reason: muscle spasm) Qty: 30 RF: 0 aripiprazole [Abilify] 5 mg tablet 5 mg PO HS Qty: 30 RF: 12 sodium chloride 1 gram tablet 1,000 mg PO BID Qty: 60 RF: 11 clonidine HCl 0.2 mg tablet 0.4 mg PO BID Qty: 120 RF: 5 tamsulosin [Flomax] 0.4 mg capsule 0.4 mg PO HS Qty: 30 RF: 12 fluoxetine 40 mg capsule 80 mg PO DAILY Qty: 60 RF: 6 gabapentin 800 mg tablet 800 mg PO TID Qty: 90 RF: 5 methylphenidate HCl 10 mg tablet 10 mg PO DIRECTED MDD 20mg daily Qty: 60 RF: 0 acetaminophen 500 mg tablet 1,000 mg PO Q8H PRN (Reason: pain) Qty: 90 RF: 3 doxycycline hyclate 100 mg capsule 100 mg PO BID 9 Days Qty: 18 RF: 0 Discharge Instructions Instructions: Cellulitis (ED), Tick Bite (ED) Additional Instructions: The redness has gone beyond the line the area from yesterday. However, I believe this is because the antibiotics have not had long enough to work yet. The doxycycline should cover this infection well. Please continue take the doxycycline as previously prescribed. You need to be reevaluated tomorrow. Please call primary care tomorrow to schedule follow-up. If you are unable to be seen a primary care tomorrow please return for reevaluation in the emergency department. If you develop fever/chills, significant increase in symptoms or other new/worsening symptoms please seek care urgently once again. Referrals: Colleen Mercado NP [Primary Care Provider] - Discharge Data Discharge Date/Time-TO BE ENTERED AT DEPARTURE: 09/24/20 13:09 Medical Decision Making Patient is a pleasant 49-year-old gentleman presenting today for reevaluation of his back. He was seen here yesterday after removing a tick from himself that was quite engorged. There was noted to be surrounding erythema and warmth. Patient reports that it is uncomfortable and itchy. Patient was started on twice daily doxycycline. He presents today because the redness has spread. He continues to feel systemically well. Afebrile. On exam, patient appears nontoxic. He does have a notable erythematous area that is well demarcated red-purple marker applied yesterday. This spread just beyond this today. The area of the bite itself is approximately 2 mm in diameter and does appear blackened. I did evaluate the area as it was quite swollen with an ultrasound did not see any collection of fluid. No evidence of abscess at this time. Patient I discussed concerns with worsening redness. Doxycycline should provide excellent coverage and I am hesitant to add more. I advised that likely has not been on the antibiotic long enough to have improvement of his symptoms. I would like for him to get rechecked tomorrow. I advised to call primary care first thing tomorrow morning to see if he can schedule appointment. If he is not able to be evaluated by them, he will return here for reevaluation. Return precautions were discussed. All his questions and concerns were addressed and he is in agreement this plan. HPI General Mode of arrival: ambulatory . Date/Time Provider Initiated Documentation: 09/24/20 12:01 . Limitations to Documentation: no limitations . Information obtained by: patient, RN notes reviewed and old records reviewed . History of Present Illness 49 year old M presents to the emergency department with the chief complaint of tick bite on left side of back, described as mild (denies pain currently), and is localized to the back. Patient reports radiation to (erythema is radiating around toward chest). Patient started experiencing this day(s) and it has been constant. No relieving factors improve symptom(s), No exacerbating factors reported . Patient notes no other symptoms.. Patient did receive the following treatments prior to arrival, other (doxycycline) Related Data Home Medications Medication Instructions Recorded Confirmed Depend Underwear For Women S-M #300 ea 12/09/17 09/23/20 underpads [Air Permeable Underpad] #300 ea 12/09/17 09/23/20 acetaminophen 1,000 mg PO Q8H PRN #90 tab 11/03/18 09/24/20 cyclobenzaprine 10 mg tablet 10 mg PO BID PRN #30 tab-cap 08/16/19 09/24/20 mirabegron 50 mg tablet,extended 50 mg PO DAILY #30 tab 03/06/20 09/24/20 release 24 hr aripiprazole 5 mg tablet 5 mg PO HS #30 tab-cap 03/15/20 09/24/20 sodium chloride 1 gram tablet 1,000 mg PO BID #60 tab 03/15/20 09/24/20 levetiracetam 1,000 mg tablet 1,000 mg PO BID #60 tab 04/03/20 09/24/20 albuterol sulfate 90 mcg/actuation 2 inh IH Q6H PRN #1 each 04/19/20 09/24/20 breath activated powder inhaler clonidine HCl 0.2 mg tablet 0.4 mg PO BID #120 tab 05/23/20 09/24/20 tamsulosin 0.4 mg capsule 0.4 mg PO HS #30 tab-cap 06/07/20 09/24/20 fluoxetine 40 mg capsule 80 mg PO DAILY #60 tab-cap 06/19/20 09/24/20 gabapentin 800 mg tablet 800 mg PO TID #90 tab 07/03/20 09/24/20 methylphenidate HCl 10 mg tablet 10 mg PO DIRECTED #60 tab MDD 09/20/20 09/24/20 20mg daily doxycycline hyclate 100 mg capsule 200 mg PO ONCE #2 cap 09/22/20 09/24/20 doxycycline hyclate 100 mg PO BID 9 Days #18 cap 09/23/20 09/24/20 Previous Rx's Medication Instructions Recorded acetaminophen 1,000 mg PO Q8H PRN #90 tab 11/03/18 cyclobenzaprine 10 mg tablet 10 mg PO BID PRN #30 tab-cap 08/16/19 mirabegron 50 mg tablet,extended 50 mg PO DAILY #30 tab 03/06/20 release 24 hr aripiprazole 5 mg tablet 5 mg PO HS #30 tab-cap 03/15/20 sodium chloride 1 gram tablet 1,000 mg PO BID #60 tab 03/15/20 levetiracetam 1,000 mg tablet 1,000 mg PO BID #60 tab 04/03/20 albuterol sulfate 90 mcg/actuation 2 inh IH Q6H PRN #1 each 04/19/20 breath activated powder inhaler clonidine HCl 0.2 mg tablet 0.4 mg PO BID #120 tab 05/23/20 tamsulosin 0.4 mg capsule 0.4 mg PO HS #30 tab-cap 06/07/20 fluoxetine 40 mg capsule 80 mg PO DAILY #60 tab-cap 06/19/20 gabapentin 800 mg tablet 800 mg PO TID #90 tab 07/03/20 methylphenidate HCl 10 mg tablet 10 mg PO DIRECTED #60 tab MDD 09/20/20 20mg daily doxycycline hyclate 100 mg capsule 200 mg PO ONCE #2 cap 09/22/20 doxycycline hyclate 100 mg PO BID 9 Days #18 cap 09/23/20 Allergies Allergy/AdvReac Type Severity Reaction Status Date / Time oxycodone HCl [From Percocet] AdvReac Intermediate VOMITING Verified 09/24/20 11:56 General Stated Complaint: Cellulitis MIRIAM: 4 Review of Systems Constitutional Constitutional: Reports as per HPI, Denies chills and Denies fever(s) Musculoskeletal Musculoskeletal: Reports as per HPI Integumentary/Breasts Skin/Breast: Reports as per HPI Neurologic Neurologic: Reports as per HPI, Denies sensory deficit and Denies paresthesias [facility] Medical History Anxiety (11/19/16) Bipolar depression (03/31/17) BPH (benign prostatic hyperplasia) (08/13/17) Carpal tunnel syndrome a. Diagnosed in 2010 by nerve conduction studies. b. Underwent right carpal tunnel release but did not have any improvement in symptoms. Chronic fatigue Depression Diverticulitis H/O alcohol abuse Hydrocephalus (06/26/17) Hypersomnia Multifactorial from hydrocephalus, hyponatremia, mood disorder, and substance abuse (marijuana). IVH (intraventricular hemorrhage) (09/24/17) Knee pain Wayne comes in today for a follow up. I have refilled his Clonazepam for him. He will f/u with NSX and neurology. I asked him to question them about his urinary incontinence. He would like to see urology again for the incontinence, although I am not sure much can be done through them, but I will arrange it for him. We will check on the ortho f/u. I will have him f/u here with me in a month, or sooner should he need anything prior to that. Left knee pain Malnutrition compromising bodily function Much due to terrible dentition Meningioma, cerebral (10/22/17) a. Previously causing hydrocephalus s/p partial resection and EVD. b. hemorrhaged into 3rd ventricle in 2018, s/p resection Migraine (07/02/16) Primary osteoarthritis of right knee (03/31/17) Right knee pain Aspiration and injection: 09/04/2018 Aspiration: 08/05/2018 Seizure disorder (11/19/16) Wayne is here today to follow up from recent hospital stay at [facility] from 08/31- for recent seizure and hyponatremia. Tobacco use disorder (07/03/16) Tooth decay Tourette disease (11/19/16) Urinary incontinence (11/18/17) Surgical History Amputation right Index Arthroplasty of knee (10/28/16) Dr Sheela Gomez knee-- chondroplasty of the patella and open lateral retinacular release Hernia Repair-L (04/13/94) rgt craiotomy for mass (09/24/17) S/P craniotomy (10/22/17) a. Endoscopic third ventriculostomy with fenestration of septum pellucidum, brian hole craniotomy with coagulation of the choroid plexus, and EVD placement in September 2014 b. craniotomy with 3rd ventricle mass excision September 2017. S/P right knee arthroscopy Subluxation of patella s/p replacement 06/2018; 2nd surgery 11/03/18 with [facility] Family History Mother Essential hypertension Cerebral aneurysm Father Neoplasm Lung Maternal Grandfather Heart disease Neoplasm Colorectal & Prostate Maternal Grandmother Neoplasm Colorectal Social History Smoking/Tobacco Use Status: Former Tobacco Use Quit status: not considering quitting Smoking risk assessment performed?: Yes Alcohol Intake: never Drug use: Daily Substance use type: marijuana Details: uses marijuana for pain Adopted: No Foster care: No Household members: spouse and children Number of Children: 5 Communication Needs: None 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; 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 Pets and animals: Yes Pets and animals: dog(s) Current gender identity: male What is your relationship status?: Panel score (0-1 are the most socially isolated patients): 0 What type of physical activity do you participate in: none Seatbelt use: always Drive intox or ride w/intox route salesman and driver: No Water heater temp set <120 deg: Yes Working smoke detector in home: Yes Carbon monox detector in home: Yes Do you feel safe at home: Yes Do you feel safe in your relationship?: Yes Additional Social history: Lives with ex- Edith Exam Const General: cooperative, healthy appearing, comfortable, no acute distress and well developed Nutritional Appearance: average body habitus and well nourished Orientation: alert and awake Resp Effort & Inspection: normal respiratory effort, able to speak in complete sentences and no respiratory distress Cardio Rate: regular rate Rhythm: regular rhythm Back/Spine/Pelvis Back/spine/pelvis image: 1. patient has a bite with small blackened central area consistent with where tick was. Surrounding area is oval in shape, has swelling but no induration or fluctuance. Erythema is in the marked area and wraps around anteriorly. No signficant pain with palpation. Neuro General: patient alert and patient awake Cognition: normal cognition Speech: speech normal Gait: normal gait Sensory Exam: no sensory deficits noted Psych Appearance: grossly normal and well kempt Mental Status: mental status grossly normal Speech and Movement: speech and movement normal Course Vital Signs Vital signs: Vital Signs Temperature 36.6 C 09/24/20 11:55 Pulse 84 09/24/20 11:55 Respiratory Rate 18 09/24/20 11:55 Blood Pressure 106/72 09/24/20 11:55 Pulse Oximetry 97 09/24/20 11:55 Temperature 36.6 C 09/24/20 11:55 Temperature Source Skin 09/24/20 11:55 Pulse 84 09/24/20 11:55 Respiratory Rate 18 09/24/20 11:55 Respiratory Effort Non-Labored 09/24/20 11:57 Blood Pressure 106/72 09/24/20 11:55 Blood Pressure Position Sitting 09/24/20 11:55 Pulse Oximetry 97 09/24/20 11:55 Oxygen Delivery Method Room Air 09/24/20 11:55 Oxygen Flow Rate 0 09/24/20 11:55 Pain Level 0 09/24/20 11:55
== END 2020-09-24 13:09 | disposition home or self-care (01) ==
PROVIDERS: Emergency Provider Physician Assistant; PCP Nurse Practitioner
DX: S20.462D Insect bite (nonvenomous) of left back wall of thorax, subsequent encounter (principal); L03.312 Cellulitis of back [any part except buttock and flank]; W57.XXXD Bitten or stung by nonvenomous insect and other nonvenomous arthropods, subsequent encounter
CPT/HCPCS: 99281; 99282

== ENCOUNTER → 2020-10-25 12:16 | Outpatient (BNVA) | payer MEDICARE, MEDICAID, SELFPAY | PROVIDERS: PCP Nurse Practitioner; Referring Provider Nurse Practitioner; Visit Provider Psychiatry & Neurology Neurology | DX: G43.009 Migraine without aura, not intractable, without status migrainosus (principal); G40.909 Epilepsy, unspecified, not intractable, without status epilepticus; D32.0 Benign neoplasm of cerebral meninges; E22.2 Syndrome of inappropriate secretion of antidiuretic hormone; R41.3 Other amnesia; G47.10 Hypersomnia, unspecified | CPT/HCPCS: 99213 ==

== ENCOUNTER 2021-04-24 16:11 | Emergency (ER) | payer MEDICARE, MEDICAID, SELFPAY ==
[2021-04-24 16:16] VITALS: BP 142/76; PULSE 92; RESP 18; O2SAT 98
[2021-04-24] MEDS: Bupivacaine 0.5% Pres-Free 30 ML VIAL (16:26)
--- NOTE | 2021-04-24 16:30 | DI.RAD_ITS ---
Exam(s) XR FINGER RT LITTLE EXAM: XR FINGER RT LITTLE CLINICAL HISTORY: Deformity. TECHNIQUE: 2D digital imaging was performed. COMPARISON: CR RIGHT HAND COMPLETE from 01/15/2010 FINDINGS: Three dedicated views of the right 5th finger reveal dislocation at the proximal interphalangeal join t. The middle phalanx is dislocated posteriorly and medial. There is some impaction at this level. There is a small 1 millimeter osteophytic density which may be a fracture fragment at this level, be st seen on the AP view. IMPRESSION: Posterior dislocation at the PIP joint level. The middle phalanx is dislocated posteriorly and media lly relative to the head of the proximal phalanx. DATA REPOSITORY: RADIATION DOSE DELIVERED:
--- NOTE | 2021-04-24 16:33 | ED.GENADUL_ITS ---
Discharge Plan Disposition Patient Disposition: HOME Condition: Stable Discharge Details Clinical Impression: Closed dislocation of right little finger Primary Care Provider: Colleen Mercado ED Provider: Allison Chiu Home Meds and New Rx's Prescriptions: Continued albuterol sulfate 90 mcg/actuation aerosol powdr breath activated 2 inh IH Q6H PRN (Reason: shortness of breath or wheezing) Qty: 1 RF: 12 levetiracetam [Keppra] 1,000 mg tablet 1,000 mg PO BID Qty: 180 RF: 3 gabapentin 800 mg tablet 800 mg PO TID Qty: 270 RF: 3 aripiprazole [Abilify] 5 mg tablet 5 mg PO HS Qty: 30 RF: 12 tamsulosin [Flomax] 0.4 mg capsule 0.4 mg PO HS Qty: 30 RF: 12 cyclobenzaprine 10 mg tablet 10 mg PO BID PRN (Reason: muscle spasm) Qty: 30 RF: 0 pantoprazole 20 mg tablet,delayed release (DR/EC) 20 mg PO DAILY RF: 0 aspirin [Adult Low Dose Aspirin] 81 mg tablet,delayed release (DR/EC) 81 mg PO BID RF: 0 methylphenidate HCl 10 mg tablet 10 mg PO DIRECTED MDD 20mg daily Qty: 60 RF: 0 acetaminophen 500 mg tablet 1,000 mg PO Q8H PRN (Reason: pain) Qty: 90 RF: 3 No Action clonidine HCl 0.2 mg tablet 0.4 mg PO BID Qty: 120 RF: 5 fluoxetine 40 mg capsule 80 mg PO DAILY Qty: 60 RF: 12 mirabegron 50 mg tablet extended release 24 hr 50 mg PO DAILY Qty: 30 RF: 11 sodium chloride 1 gram tablet 1,000 mg PO BID Qty: 60 RF: 11 (DME) underpads [Air Permeable Underpad] 1 EACH pad 1 ea Miscellaneous Q4H PRN Qty: 300 RF: 12 (DME) Depend Underwear For Women S-M 1 EACH misc 1 ea Miscellaneous Q4H PRN Qty: 300 RF: 12 Discharge Instructions Instructions: Closed Reduction (ED), Finger Dislocation (ED) Additional Instructions: Wear splint for the next week. Rest, ice, compression, elevation. Please take Tylenol or Ibuprofen with food every 4-6 hours as needed for pain and swelling. Please follow-up with Ortho if any concerns in the next 1 to 2-week. Follow up with primary care provider in 3-5 days. Return to ED sooner if any worsening or concerns. Increase oral fluids. Referrals: Antonio Abbott MD [ [facility] STAFF PHYSICIAN] - 1 week Colleen Mercado NP [Primary Care Provider] - Discharge Data Discharge Date/Time-TO BE ENTERED AT DEPARTURE: 04/24/21 17:41 Medical Decision Making 50-year-old male presents the ER with chief complaint of right pinky finger injury status post a slip and fall on the ice just approximately 20 minutes prior to arrival. Patient has an obviously deformed right middle finger. It is angulated laterally. Denies any wrist injury or any other injuries. He is up-to-date on his tetanus vaccination. He does have a small abrasion noted to the medial aspect of the finger. Upon initial examination patient received a digital block which he verbally consented to. I did try to manually reduce the finger which was unsuccessful. Patient tolerated well. I did request the presence of Dr. Rowell after unsuccessful reduction manually. Reduction was unsuccessful. We will obtain imaging and then attempt reduction again. 1715: Placed in finger trap to gravity 1724: Finger was reduced with the assistance of Dr. Rowell with traction countertraction. Patient is able to bend post procedure. He is still numb from the digital block. Cap refill less than [address] in a finger splint and instruct patient on rest ice compression elevation Tylenol ibuprofen. We will have patient follow-up with Ortho if any concerns. HPI General Mode of arrival: ambulatory . Date/Time Provider Initiated Documentation: 04/24/21 16:12 . Limitations to Documentation: no limitations . Information obtained by: patient, RN notes reviewed and old records reviewed . HPI Narrative: 50-year-old male presents the ER with chief complaint of right pinky finger injury status post a slip and fall on the ice just approximately 20 minutes prior to arrival. Patient has an obviously deformed right middle finger. It is angulated laterally. Denies any wrist injury or any other injuries. He is up-to-date on his tetanus vaccination. He does have a small abrasion noted to the medial aspect of the finger. Upon initial examination patient received a digital block which he verbally consented to. I did try to manually reduce the finger which was unsuccessful. Patient tolerated well. Related Data Home Medications Medication Instructions Recorded Confirmed Depend Underwear For Women S-M #300 ea 12/09/17 04/24/21 underpads [Air Permeable Underpad] #300 ea 12/09/17 04/24/21 acetaminophen 1,000 mg PO Q8H PRN #90 tab 11/03/18 04/24/21 cyclobenzaprine 10 mg tablet 10 mg PO BID PRN #30 tab-cap 08/16/19 04/24/21 albuterol sulfate 90 mcg/actuation 2 inh IH Q6H PRN #1 each 04/19/20 04/24/21 breath activated powder inhaler gabapentin 800 mg tablet 800 mg PO TID #270 tab 10/25/20 04/24/21 levetiracetam 1,000 mg tablet 1,000 mg PO BID #180 tab 10/25/20 04/24/21 aspirin 81 mg tablet,delayed 81 mg PO BID tab 12/11/20 04/24/21 release pantoprazole 20 mg tablet,delayed 20 mg PO DAILY 12/11/20 04/24/21 release aripiprazole 5 mg tablet 5 mg PO HS #30 tab-cap 03/29/21 04/24/21 clonidine HCl 0.2 mg tablet 0.4 mg PO BID #120 tab 03/29/21 04/24/21 fluoxetine 40 mg capsule 80 mg PO DAILY #60 tab-cap 03/29/21 04/24/21 mirabegron 50 mg tablet,extended 50 mg PO DAILY #30 tab 03/29/21 04/24/21 release 24 hr sodium chloride 1 gram tablet 1,000 mg PO BID #60 tab 03/29/21 04/24/21 tamsulosin 0.4 mg capsule 0.4 mg PO HS #30 tab-cap 03/29/21 04/24/21 methylphenidate HCl 10 mg tablet 10 mg PO DIRECTED #60 tab MDD 04/16/21 04/24/21 20mg daily Previous Rx's Medication Instructions Recorded acetaminophen 1,000 mg PO Q8H PRN #90 tab 11/03/18 cyclobenzaprine 10 mg tablet 10 mg PO BID PRN #30 tab-cap 08/16/19 albuterol sulfate 90 mcg/actuation 2 inh IH Q6H PRN #1 each 04/19/20 breath activated powder inhaler gabapentin 800 mg tablet 800 mg PO TID #270 tab 10/25/20 levetiracetam 1,000 mg tablet 1,000 mg PO BID #180 tab 10/25/20 aripiprazole 5 mg tablet 5 mg PO HS #30 tab-cap 03/29/21 clonidine HCl 0.2 mg tablet 0.4 mg PO BID #120 tab 03/29/21 fluoxetine 40 mg capsule 80 mg PO DAILY #60 tab-cap 03/29/21 mirabegron 50 mg tablet,extended 50 mg PO DAILY #30 tab 03/29/21 release 24 hr sodium chloride 1 gram tablet 1,000 mg PO BID #60 tab 03/29/21 tamsulosin 0.4 mg capsule 0.4 mg PO HS #30 tab-cap 03/29/21 methylphenidate HCl 10 mg tablet 10 mg PO DIRECTED #60 tab MDD 04/16/21 20mg daily Allergies Allergy/AdvReac Type Severity Reaction Status Date / Time oxycodone HCl [From Percocet] AdvReac Intermediate VOMITING Verified 04/24/21 16:27 General Stated Complaint: Orthopedic MIRIAM: 3 Review of Systems Musculoskeletal Musculoskeletal: Reports as per HPI, Reports deformity and Reports arthralgias PFSH All Active Problems (Updated 04/24/21 @ 17:27 by Allison Chiu) Closed dislocation of right little finger (Acute) Bipolar depression (Acute) Tick bite of back (Acute) Cellulitis (Acute) Patellofemoral arthritis of right knee (Acute) Bilateral knee pain (Acute) Left knee pain (Acute) Malnutrition compromising bodily function (Acute) Much due to terrible dentition Tooth decay (Acute) Hypersomnia (Acute) Multifactorial from hydrocephalus, hyponatremia, mood disorder, and substance abuse (marijuana). Osteoarthritis of right knee (Acute) Daytime somnolence (Acute) JOSEPH Rojas Nonadherence to medication (Acute) Osteoarthritis of right patellofemoral joint (Chronic ~06/23/18) S/P right patellofemoral replacement S/P open synovectomy and realignment - DOS: 11/03/2018 Dr. Hillman Depression (Chronic) Fatigue (Chronic) Tremor (Chronic) SIADH (syndrome of inappropriate ADH production) (Chronic) Hyponatremia (Chronic) Memory loss (Chronic) Lethargy (Acute) Chronic fatigue (Acute) Right knee pain (Chronic) Aspiration and injection: 09/04/2018 Aspiration: 08/05/2018 Knee pain (Chronic) Wayne comes in today for a follow up. I have refilled his Clonazepam for him. He will f/u with NSX and neurology. I asked him to question them about his urinary incontinence. He would like to see urology again for the incontinence, although I am not sure much can be done through them, but I will arrange it for him. We will check on the ortho f/u. I will have him f/u here with me in a month, or sooner should he need anything prior to that. Urinary incontinence (Chronic 11/18/17) Tourette disease (Chronic 11/19/16) Tobacco use disorder (Chronic 07/03/16) S/P craniotomy (Chronic 10/22/17) a. Endoscopic third ventriculostomy with fenestration of septum pellucidum, brian hole craniotomy with coagulation of the choroid plexus, and EVD placement in September 2014 b. craniotomy with 3rd ventricle mass excision September 2017. Primary osteoarthritis of right knee (Chronic 03/31/17) Meningioma, cerebral (Chronic 10/22/17) a. Previously causing hydrocephalus s/p partial resection and EVD. b. hemorrhaged into 3rd ventricle in 2018, s/p resection Mass, brain (Chronic 09/24/17) IVH (intraventricular hemorrhage) (Chronic 09/24/17) Cerebral tumor (Chronic 06/26/17) BPH (benign prostatic hyperplasia) (Chronic 08/13/17) Anxiety (Chronic 11/19/16) Bipolar depression (Chronic 03/31/17) Seizure disorder (Chronic 11/19/16) Wayne is here today to follow up from recent hospital stay at [facility] from 08/31- for recent seizure and hyponatremia. Migraine (Chronic 07/02/16) Medical History (Updated 04/24/21 @ 17:27 by Allison Chiu) Carpal tunnel syndrome a. Diagnosed in 2010 by nerve conduction studies. b. Underwent right carpal tunnel release but did not have any improvement in symptoms. Depression Diverticulitis H/O alcohol abuse SARS-CoV-2 positive 03/09/21-pt reporting he received call from [facility] today of positive result. testing done at state site ([facility] drive through) Surgical History (Updated 01/30/21 @ 09:51 by Gina Banks RN) Amputation right Index Arthroplasty of knee (10/28/16) Dr Sheela Gomez knee-- chondroplasty of the patella and open lateral retinacular release Hernia Repair-L (04/13/94) rgt craiotomy for mass (09/24/17) Status post revision of total replacement of right knee 12/08/20 Dr Larson, [facility] [place] Subluxation of patella s/p replacement 06/2018; 2nd surgery 11/03/18 with Rafy Family History Mother Essential hypertension Cerebral aneurysm Father Neoplasm Lung Maternal Grandfather Heart disease Neoplasm Colorectal & Prostate Maternal Grandmother Neoplasm Colorectal Social History Smoking/Tobacco Use Status: Former Tobacco Use Quit status: not considering quitting Smoking risk assessment performed?: Yes Alcohol Intake: never Drug use: Daily Substance use type: marijuana Details: uses marijuana for pain Adopted: No Foster care: No Household members: spouse and children Number of Children: 5 Communication Needs: None 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; 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 Pets and animals: Yes Pets and animals: dog(s) Current gender identity: male What is your relationship status?: Panel score (0-1 are the most socially isolated patients): 0 What type of physical activity do you participate in: none Seatbelt use: always Drive intox or ride w/intox trailer driver: No Water heater temp set <120 deg: Yes Working smoke detector in home: Yes Carbon monox detector in home: Yes Do you feel safe at home: Yes Do you feel safe in your relationship?: Yes Additional Social history: Lives with ex- Edith Exam Extrem Right upper extremity: hand Details: abnormal to inspection Details: a deformity Location: of the 5th digit and tenderness Hand/finger images: 1. Deformity digit is angulated laterally suspect dislocation possible fracture Course Vital Signs Vital signs: Vital Signs Pulse 92 H 04/24/21 16:16 Respiratory Rate 18 04/24/21 16:16 Blood Pressure 142/76 H 04/24/21 16:16 Pulse Oximetry 98 04/24/21 16:16 Temperature Source Temporal Artery Scan 04/24/21 16:16 Pulse 92 H 04/24/21 16:16 Respiratory Rate 18 01/11/22 16:16 Respiratory Effort 04/24/21 16:23 Blood Pressure 142/76 H 04/24/21 16:16 Blood Pressure Position Sitting 04/24/21 16:16 Pulse Oximetry 98 04/24/21 16:16 Oxygen Delivery Method Room Air 04/24/21 16:16 Oxygen Flow Rate 0 04/24/21 16:16 Pain Level 10 04/24/21 16:23 Procedures Nerve Block Nerve Block 1: Time out performed: No Local Anesthetic: Bupivicaine 0.5% Amount of anesthesia used (mL): 4 Side: right Nerve Blocks: digital Procedure Successful: Yes Patient Tolerated Procedure: well and no complications Complications: none Orthopedic Joint Reduction Joint #1: Time Out Performed: No Side: right Joint Reduction Location: finger (Right little finger) Analgesia: digital block Local Anesthesia: Lidocaine 1% and Bupivicaine 0.5% Amount of anesthesic used (mL): 4 Technique used: traction/counter-traction and direct manipulation Post-reduction neuro exam: intact Post-reduction vascular: intact Post Reduction X-Ray Obtained: No Splint Applied: Yes Patient Tolerated Procedure: well
--- NOTE | 2021-04-24 17:17 | DI.VRAD_ITS ---
PROCEDURE INFORMATION: Exam: XR Left Finger(s) Exam date and time: 04/24/2021 4:33 PM Age: 50 years old Clinical indication: Other: Deformity TECHNIQUE: Imaging protocol: XR Left fingers. Views: Minimum 2 views. COMPARISON: No relevant prior studies available. FINDINGS: Bones/joints: There is a posterolateral dislocation of the PIP joint of the 5th digit. There is some impaction. No definite fracture is identified at this time. Soft tissues: Normal. IMPRESSION: Posterolateral dislocation PIP joint 5th digit. Dictated and Authenticated by: Lis Waters MD. Ordering:JESÚS Cooper MD
[2021-04-24 17:39] VITALS: BP 142/76; PULSE 92; RESP 18; O2SAT 98
== END 2021-04-24 17:41 | disposition home or self-care (01) ==
PROVIDERS: Emergency Provider Registered Nurse Emergency; PCP Nurse Practitioner
DX: S63.286A Dislocation of proximal interphalangeal joint of right little finger, initial encounter (principal); W00.0XXA Fall on same level due to ice and snow, initial encounter
CPT/HCPCS: 26770; 73140

== ENCOUNTER 2021-04-27 08:39 | Outpatient (CLI) | payer MEDICARE, MEDICAID, SELFPAY ==
--- NOTE | 2021-04-27 08:15 | DI.RAD_ITS ---
Exam(s) XR FINGER RT LITTLE EXAM: XR FINGER RT LITTLE CLINICAL HISTORY: RLF dislocation. TECHNIQUE: 2D digital imaging was performed. COMPARISON: None FINDINGS: There is some soft tissue swelling around the proximal aspect of the finger. Small osteophytic densi ty seen adjacent to the head of the proximal phalanx which is either an avulsion or possible radiopaq ue foreign body. There are no fracture lines evident in the parent bone. IMPRESSION: DATA REPOSITORY: RADIATION DOSE DELIVERED:
== END 2021-04-27 08:40 | disposition home or self-care (01) ==
LOC: DIORS 08:39
PROVIDERS: PCP Nurse Practitioner; Referring Provider Student in an Organized Health Care Education/Training Program
DX: S63.256A Unspecified dislocation of right little finger, initial encounter (principal); W00.0XXA Fall on same level due to ice and snow, initial encounter
CPT/HCPCS: 99213; 73140

== ENCOUNTER → 2021-05-21 08:17 | Outpatient (BNVA) | payer MEDICARE, MEDICAID, SELFPAY | PROVIDERS: PCP Nurse Practitioner; Visit Provider Psychiatry & Neurology Neurology | DX: G43.009 Migraine without aura, not intractable, without status migrainosus (principal); G40.909 Epilepsy, unspecified, not intractable, without status epilepticus; Z86.69 Personal history of other diseases of the nervous system and sense organs; E22.2 Syndrome of inappropriate secretion of antidiuretic hormone; R41.3 Other amnesia; G47.10 Hypersomnia, unspecified | CPT/HCPCS: 99213 ==

== ENCOUNTER 2021-08-03 01:49 | Outpatient (CLI) | payer MEDICARE, MEDICAID, SELFPAY ==
[2021-08-03 09:33] LABS: HCT 45.7 % (40.0-50.0); HGB 15.8 g/dL (13.5-17.5); MCH 30.2 pg (27.0-33.0); MCHC 34.6 % (32.0-36.0); MCV 87.4 fL (80-95); MPV 10.7 fL (8.0-11.0); Platelet Count 226 10^3/uL (130-400); RBC 5.23 10^6/uL (4.36-5.78); RDW 12.6 % (11.8-14.1); RDW-SD 40.7 fL; WBC 5.08 10^3/uL (4.4-10.8)
[2021-08-03 10:26] LABS: ALT 23 U/L (16-63); AST 15 U/L (15-37); Alkaline Phosphatase 79 U/L (46-116); Anion Gap 5.9 mmol/L (3-11); BUN 9 mg/dL (7-18); Bilirubin, Total 0.5 mg/dL (0.2-1.0); CO2 28.1 mmol/L (21.0-32.0); CREATININE 0.8 mg/dL (0.70-1.30); Calcium 8.5 mg/dL (8.5-10.1); Calculated LDL 88 mg/dL (<100); Chloride 99 mmol/L (98-107); Cholesterol 144 mg/dL (<200); Glucose 111 mg/dL (74-106); HDL Cholesterol 39 mg/dL (40-60); Potassium 4.4 mmol/L (3.5-5.1); Sodium 133 mmol/L (136-145); Total Protein 6.8 g/dL (6.4-8.2); Triglyceride 89 mg/dL (<150)
== END 2021-08-03 01:50 | disposition home or self-care (01) ==
LOC: LBO 01:50
PROVIDERS: PCP Nurse Practitioner; Visit Provider Nurse Practitioner
DX: E22.2 Syndrome of inappropriate secretion of antidiuretic hormone (principal); F31.30 Bipolar disorder, current episode depressed, mild or moderate severity, unspecified; G40.909 Epilepsy, unspecified, not intractable, without status epilepticus; I61.5 Nontraumatic intracerebral hemorrhage, intraventricular
CPT/HCPCS: 36415; 80053; 80061; 85027

== ENCOUNTER → 2021-10-22 08:13 | Outpatient (BNVA) | payer MEDICARE, MEDICAID, SELFPAY | PROVIDERS: PCP Nurse Practitioner; Referring Provider Nurse Practitioner; Visit Provider Psychiatry & Neurology Neurology | DX: R25.8 Other abnormal involuntary movements (principal); E87.1 Hypo-osmolality and hyponatremia; F12.90 Cannabis use, unspecified, uncomplicated; D32.0 Benign neoplasm of cerebral meninges; G43.009 Migraine without aura, not intractable, without status migrainosus; G40.909 Epilepsy, unspecified, not intractable, without status epilepticus; R41.3 Other amnesia; G47.10 Hypersomnia, unspecified | CPT/HCPCS: 99214 ==

== ENCOUNTER → 2021-11-26 11:15 | Outpatient (BNVA) | payer MEDICARE, MEDICAID, SELFPAY | PROVIDERS: PCP Nurse Practitioner; Referring Provider Nurse Practitioner; Visit Provider Psychiatry & Neurology Neurology | DX: G43.709 Chronic migraine without aura, not intractable, without status migrainosus (principal); Z86.011 Personal history of benign neoplasm of the brain; G40.909 Epilepsy, unspecified, not intractable, without status epilepticus; E87.1 Hypo-osmolality and hyponatremia; G47.10 Hypersomnia, unspecified; R41.3 Other amnesia | CPT/HCPCS: 99214 ==

== ENCOUNTER 2022-01-24 14:33 | Outpatient (REF) | payer MEDICARE, MEDICAID, SELFPAY ==
[2022-01-26 12:39] LABS: COVID-19 RT-PCR UVMMC Result Negative (Negative)
== END 2022-01-24 14:34 | disposition home or self-care (01) ==
LOC: LBN 14:33
PROVIDERS: PCP Nurse Practitioner; Visit Provider Nurse Practitioner
DX: Z20.822 Contact with and (suspected) exposure to COVID-19 (principal)
CPT/HCPCS: U0003

== ENCOUNTER → 2022-01-24 14:58 | Outpatient (CLI) | payer MEDICARE, MEDICAID, SELFPAY ==
--- NOTE | 2022-01-24 14:30 | DI.RAD_ITS ---
Exam(s) XR CHEST 2V PA LATERAL EXAM: XR CHEST 2V PA LATERAL CLINICAL HISTORY: cough, congestion over 2 weeks, R05.9, R09.89 TECHNIQUE: 2D digital imaging was performed of the chest. Two images were obtained. PA and lateral views were obtained. COMPARISON: CR XR CHEST 2V PA LATERAL from 10/30/2018 FINDINGS: MEDIASTINUM: Normal. HEART: Normal. PULMONARY VASCULATURE: Normal. LUNGS: Clear. PLEURAL SPACE: No pleural effusion or pneumothorax. BONE:Within normal limits for the patient's age. OTHER FINDINGS:Normal. IMPRESSION: No acute pulmonary findings. DATA REPOSITORY: RADIATION DOSE DELIVERED:
== END ==
PROVIDERS: PCP Nurse Practitioner; Visit Provider Nurse Practitioner
DX: R05.9 Cough, unspecified (principal); R09.89 Other specified symptoms and signs involving the circulatory and respiratory systems
CPT/HCPCS: 71046

== ENCOUNTER → 2022-05-27 09:43 | Outpatient (BNVA) | payer MEDICARE, MEDICAID, SELFPAY | PROVIDERS: PCP Nurse Practitioner; Visit Provider Psychiatry & Neurology Neurology | DX: G43.709 Chronic migraine without aura, not intractable, without status migrainosus (principal); G40.909 Epilepsy, unspecified, not intractable, without status epilepticus; E22.2 Syndrome of inappropriate secretion of antidiuretic hormone; R41.3 Other amnesia; G47.10 Hypersomnia, unspecified; D32.0 Benign neoplasm of cerebral meninges | CPT/HCPCS: 99214 ==

== ENCOUNTER 2022-10-22 13:14 | Outpatient (CLI) | payer MEDICARE, MEDICAID, SELFPAY ==
[2022-10-22 14:13] LABS: ALT 24 U/L (16-63); AST 17 U/L (15-37); Albumin 4.1 g/dL (3.4-5.0); Alkaline Phosphatase 93 U/L (46-116); Anion Gap 9.4 mmol/L (3-11); BUN 8 mg/dL (7-18); Bilirubin, Total 0.4 mg/dL (0.2-1.0); CO2 27.6 mmol/L (21.0-32.0); CREATININE 0.8 mg/dL (0.70-1.30); Calcium 8.6 mg/dL (8.5-10.1); Chloride 97 mmol/L (98-107); Estimated GFR 107.15 (mL/min/1.73m2); Glucose 96 mg/dL (74-106); Potassium 4.1 mmol/L (3.5-5.1); Sodium 134 mmol/L (136-145); Total Protein 7.2 g/dL (6.4-8.2)
[2022-10-22 14:15] LABS: CREATININE 0.8 mg/dL (0.70-1.30); Calculated LDL 96 mg/dL (<100); Cholesterol 167 mg/dL (<200); Estimated GFR 107.15 (mL/min/1.73m2); HDL Cholesterol 52 mg/dL (40-60); Triglyceride 95 mg/dL (<150)
== END 2022-10-22 13:15 | disposition home or self-care (01) ==
LOC: LBO 13:14
PROVIDERS: Psychiatry & Neurology Neurology; PCP Nurse Practitioner; Visit Provider Nurse Practitioner
DX: D32.0 Benign neoplasm of cerebral meninges (principal); G40.909 Epilepsy, unspecified, not intractable, without status epilepticus; I61.5 Nontraumatic intracerebral hemorrhage, intraventricular; E87.1 Hypo-osmolality and hyponatremia; Z79.899 Other long term (current) drug therapy
CPT/HCPCS: 36415; 80053; 80061; 82565

== ENCOUNTER 2022-11-08 20:23 | Outpatient (CLI) | payer MEDICARE, MEDICAID, SELFPAY ==
--- NOTE | 2022-11-08 16:15 | DI.RAD_ITS ---
Exam(s) XR KNEE LT 3V AP,LAT,JAQUI EXAM: XR KNEE LT 3V AP,LAT,JAQUI CLINICAL HISTORY: eval lft knee - pain just like rt before tkr, M25.562. TECHNIQUE: 2D digital imaging was performed. COMPARISON: CR XR KNEE RT 1V from 03/29/2019 FINDINGS: 3 views No evidence of acute fracture. Probable small joint effusion. Minimal degenerative changes. No oss eous lesions. Bone density normal. IMPRESSION: No acute fracture. Subtle joint effusion. DATA REPOSITORY: RADIATION DOSE DELIVERED:
--- NOTE | 2022-11-08 17:03 | DI.VRAD_ITS ---
PROCEDURE INFORMATION: Exam: XR Left Knee Exam date and time: 11/08/2022 4:27 PM Age: 51 years old Clinical indication: Other: Eval pain TECHNIQUE: Imaging protocol: Radiologic exam of the left knee. Views: 3 views. COMPARISON: CR XR KNEES MERCHANT ONLY 04/29/2018 11:33 AM FINDINGS: Bones/joints: Mild medial and patellofemoral joint space narrowing. No fracture. No chondrocalcinosis. No joint effusion. Soft tissues: Normal. IMPRESSION: No acute findings. Dictated and Authenticated by: Denis Payne MD. Ordering:FRANCK Hancock MD
== END 2022-11-08 20:43 ==
LOC: DI 20:27
PROVIDERS: PCP Nurse Practitioner; Visit Provider Student in an Organized Health Care Education/Training Program
DX: M25.562 Pain in left knee (principal); Z96.651 Presence of right artificial knee joint
CPT/HCPCS: 73562

== ENCOUNTER → 2022-11-11 09:14 | Outpatient (BNVA) | payer MEDICARE, MEDICAID, SELFPAY | PROVIDERS: PCP Nurse Practitioner; Referring Provider Nurse Practitioner; Visit Provider Psychiatry & Neurology Neurology | DX: G43.709 Chronic migraine without aura, not intractable, without status migrainosus (principal); G40.909 Epilepsy, unspecified, not intractable, without status epilepticus; Z87.820 Personal history of traumatic brain injury; E22.2 Syndrome of inappropriate secretion of antidiuretic hormone; G47.10 Hypersomnia, unspecified; F32.A Depression, unspecified; R41.3 Other amnesia; D32.0 Benign neoplasm of cerebral meninges | CPT/HCPCS: 99214 ==

== ENCOUNTER 2022-11-16 16:55 | Emergency (ER) | payer MEDICARE, MEDICAID, SELFPAY ==
[2022-11-16 17:00] VITALS: BP 139/82; PULSE 92; RESP 20; TEMP 37.2; O2SAT 98
--- NOTE | 2022-11-16 17:15 | DI.CT_ITS ---
Exam(s) CT ABDOMEN PELVIS W EXAM: CT ABDOMEN PELVIS W CLINICAL HISTORY: llq pain. TECHNIQUE: Imaging Protocol: Axial computed tomography images with coronal and sagittal reformatted images were created and reviewed CONTRAST MATERIAL: Intravenous: Omnipaque 350 Contrast volume:100 ml Oral: / no COMPARISON: CT ABD PELVIS WITH CONTRAST from 05/09/[address] BRAIN CTA from 05/10/2018 FINDINGS: ABDOMEN: Lung Bases: Normal where visualized. Liver: Enlarged. Fatty infiltration. No measurable mass. Gallbladder and biliary tract: No radiodense calculus or dilation. Pancreas: Normal density, no abnormal calcifications or inflammatory process. Spleen: Normal. Kidneys: Normal size, contour and axis. No radiodense stones or obstructive uropathy. Left renal cys t. No follow-up recommended. No suspicious masses seen. Adrenal glands: No masses seen. Abdominal Aorta: Abdominal portion non-dilated. Mild atherosclerotic changes. Soft tissues: Tiny fatty containing umbilical hernia. PELVIS: Bladder: No gross wall thickening. No calculi.No focal mass. Bowel: No obstruction. Arm diverticulosis of the lower descending and sigmoid colon. Wall thickeni ng and surrounding inflammation involving the sigmoid region consistent with diverticulitis. No perf oration or abscess. Appendix normal. Peritoneal cavity: Trace pelvic fluid. No abscess. No free air. Bones: Unremarkable for age. Reproductive organs: Within normal limits. Lymph nodes: Unremarkable. Impression: Sigmoid diverticulitis. RADIATION DOSE DELIVERED: 726.17mGy.cm Total DLP DATA REPOSITORY: All CT scans at this facility are submitted to the National Radiology Data Registry (NRDR) Dose Index Registry (DIR) with the [employer] (ACR). RADIATION OPTIMIZATION: All CT scans at this facility use at least one of these dose optimization te chniques: automated exposure control; mA and/or kV adjustment per patient size (includes targeted exa ms where dose is matched to clinical indication); or iterative reconstruction.
[2022-11-16] MEDS: ACETAMINOPHEN 1,000 MG/100 ML BTL 400 MG IVPB (17:32)
[2022-11-16 17:33] LABS: Abs Immature Grans 0.05 10^3/uL (0.0-0.06); Absolute Eosinophil Count 0.03 10^3/uL (0.0-0.7); Absolute Lymphocyte Count 0.81 10^3/uL (1.2-3.4); Basophils % 0.3; Eosinophils % 0.2; HCT 40.1 % (40.0-50.0); HGB 14.2 g/dL (13.5-17.5); Immature Grans % 0.3; Lymphocytes % 5.6; MCH 30.3 pg (27.0-33.0); MCHC 35.4 % (32.0-36.0); MCV 86 fL (80-95); MPV 9.6 fL (8.0-11.0); Monocytes % 6.2; Neutrophils % 87.4; Platelet Count 267 10^3/uL (130-400); RBC 4.69 10^6/uL (4.36-5.78); RDW 12.8 % (11.8-14.1); RDW-SD 39.7 fL; WBC 14.45 10^3/uL (4.4-10.8)
[2022-11-16] MEDS: Normal Saline 1,000 ML 1000 ML IV (17:33)
[2022-11-16 17:41] LABS: Absolute Basophil Count 0.04 10^3/uL (0.0-0.2); Absolute Neutrophil Count 12.63 10^3/uL (1.2-6.7)
[2022-11-16 17:43] LABS: Lactate 1.5 mmol/L (0.6-1.4)
[2022-11-16 18:03] LABS: ALT 19 U/L (16-63); AST 13 U/L (15-37); Albumin 3.8 g/dL (3.4-5.0); Alkaline Phosphatase 89 U/L (46-116); Anion Gap 9.8 mmol/L (3-11); BUN 6 mg/dL (7-18); Bilirubin, Total 0.7 mg/dL (0.2-1.0); CO2 26.2 mmol/L (21.0-32.0); CREATININE 0.8 mg/dL (0.70-1.30); Calcium 8.6 mg/dL (8.5-10.1); Chloride 95 mmol/L (98-107); Estimated GFR 107.15 (mL/min/1.73m2); Glucose 114 mg/dL (74-106); Magnesium 1.5 mg/dL (1.8-2.4); Potassium 3.7 mmol/L (3.5-5.1); Sodium 131 mmol/L (136-145); Total Protein 6.8 g/dL (6.4-8.2)
[2022-11-16] MEDS: Magnesium Oxide 400 MG TAB PO (18:24)
[2022-11-16] MEDS: Omnipaque 350 MG/ML 50 ML BTL 100 ML IJ (18:47)
[2022-11-16] MEDS: Normal Saline - Diluent 50 ML VIAL IJ (18:48)
--- NOTE | 2022-11-16 18:59 | DI.VRAD_ITS ---
PROCEDURE INFORMATION: Exam: CT Abdomen And Pelvis With Contrast Exam date and time: 11/16/2022 6:41 PM Age: 51 years old Clinical indication: Other: Llq pain TECHNIQUE: Imaging protocol: Computed tomography of the abdomen and pelvis with contrast. Radiation optimization: All CT scans at this facility use at least one of these dose optimization techniques: automated exposure control; mA and/or kV adjustment per patient size (includes targeted exams where dose is matched to clinical indication); or iterative reconstruction. Contrast material: OMNIPAQUE 350; Contrast volume: 100 ml; Contrast route: INTRAVENOUS (IV); COMPARISON: CT LOWER EXTREMITY RT WO 04/06/2019 3:55 PM FINDINGS: Liver: Hepatomegaly and diffuse fatty infiltration. Faint hypodensity in the right lobe too small to characterize Gallbladder and bile ducts: Normal. No calcified stones. No ductal dilation. Pancreas: Normal. No ductal dilation. Spleen: Normal. No splenomegaly. Adrenal glands: Normal. No mass. Kidneys and ureters: Left renal cyst and additional faint hypodensity in the upper pole No hydronephrosis. Stomach and bowel: Abnormal thickening in the mid sigmoid colon with scattered diverticula noted and luminal narrowing in keeping with diverticulitis No obstruction Appendix: No evidence of appendicitis. Intraperitoneal space: Minimal pelvic fluid No free air. No significant fluid collection. Vasculature: Atherosclerosis noted No abdominal aortic aneurysm. Lymph nodes: Unremarkable. No enlarged lymph nodes. Urinary bladder: Unremarkable as visualized. Reproductive: Unremarkable as visualized. Bones/joints: Unremarkable. No acute fracture. Soft tissues: Unremarkable. IMPRESSION: Colonic diverticulitis in the sigmoid colon without gross perforation or abscess Nonurgent findings as noted Dictated and Authenticated by: James Lambert MD. Ordering:DWAYNE Schultz MD
[2022-11-16] MEDS: PIPERACILLIN/TAZO 4.5 GM in Normal Saline 100 ML IVPB (19:41)
--- NOTE | 2022-11-16 20:16 | ED.GENADUL_ITS ---
Discharge Plan Disposition Patient Disposition: Home Discharge Details Clinical Impression: Diverticulitis Primary Care Provider: Colleen Mercado ED Provider: Antoine Rivas Home Meds and New Rx's Prescriptions: New amoxicillin-pot clavulanate 875-125 mg tablet 1 tab PO Q8H 7 Days Qty: 21 0RF No Action albuterol sulfate 90 mcg/actuation aerosol powdr breath activated 2 inh IH Q6H PRN (Reason: shortness of breath or wheezing) Qty: 1 12RF levetiracetam [Keppra] 1,000 mg tablet 1,000 mg PO BID Qty: 180 3RF gabapentin 800 mg tablet 800 mg PO TID Qty: 270 3RF methylphenidate HCl 10 mg tablet See Rx Instructions PO DIRECTED MDD 30mg daily Qty: 90 0RF Rx Instructions: orally as directed; 20mg daily in am with another 10mg at lunch for fatigue clonidine HCl 0.2 mg tablet 0.4 mg PO BID Qty: 120 5RF mirabegron 50 mg tablet extended release 24 hr 50 mg PO DAILY Qty: 30 11RF tamsulosin [Flomax] 0.4 mg capsule 0.4 mg PO HS Qty: 30 12RF sodium chloride 1 gram tablet 1,000 mg PO BID Qty: 60 11RF acetaminophen 500 mg tablet 1,000 mg PO Q8H PRN (Reason: pain) Qty: 90 0RF naproxen 500 mg tablet 500 mg PO BID PRN (Reason: pain) Qty: 40 0RF Rx Instructions: Start by taking with food 2x/d x4 days, then PRN pain. diclofenac sodium [Voltaren Arthritis Pain] 1 % gel 4 g topical QID PRN (Reason: pain) Qty: 100 0RF Rx Instructions: Apply to L knee up to 4x/day for pain. (DME) underpads [Air Permeable Underpad] 1 EACH pad 1 ea Miscellaneous Q4H PRN Qty: 300 (DME) Depend Underwear For Women S-M 1 EACH misc 1 ea Miscellaneous Q4H PRN Qty: 300 Rx Instructions: use 1 brief 1-2 times daily aspirin [Adult Low Dose Aspirin] 81 mg tablet,delayed release (DR/EC) 81 mg PO BID Rx Instructions: X 30 days post [place] [place] cyclobenzaprine 10 mg tablet 10 mg PO BID PRN (Reason: muscle spasm) Qty: 30 0RF diazepam 5 mg tablet 5 mg PO DIRECTED PRN (Reason: claustrophobia) Qty: 2 0RF Rx Instructions: Take 1 tab 30min prior to MRI. Ok to take 2nd if still claustrophobic. fluoxetine 40 mg capsule 80 mg PO DAILY Qty: 60 12RF aripiprazole [Abilify] 5 mg tablet 5 mg PO HS Qty: 30 1RF ibuprofen 600 mg tablet 600 mg PO TID Qty: 30 1RF Rx Instructions: WITH FOOD (may decrease to 2/day after 3 days) Discharge Instructions Instructions: Diverticulitis (ED), Diverticulitis Diet (ED) Additional Instructions: Please take antibiotic this evening before bed and then every 8 hours. Please follow-up with your primary care provider preferably next 3 days for reassessment or return the emergency department for any new or significant worsening of symptoms. If possible please start with a clear liquid diet for the next 24 hours and slowly advance diet as tolerated by pain and discomfort. Referrals: Colleen Mercado NP [Primary Care Provider] - 5 days Discharge Data Discharge Date/Time-TO BE ENTERED AT DEPARTURE: 11/16/22 20:35 Medical Decision Making Patient presenting to the emergency department for chief complaint of abdominal pain. Patient reports that pain started this morning and denies any nausea vomiting or diarrhea. Pain is intermittent he does report that this is similar to previous episodes where he has had diverticulitis. Patient denies fever chills, chest pain respiratory symptoms or any other complaints. Physical exam shows left lower quadrant and suprapubic tenderness to palpation otherwise normal active bowel sounds and exam otherwise unremarkable. Given patient's history will check labs and CT imaging. Patient denies any need for pain medication pending results Review of patient's labs show a significant leukocytosis with white count of 14.45 and elevated neutrophils monocytes and low lymphocytes, patient's lactate slightly elevated at 1.5, sodium of 131, chloride of 95, magnesium slightly low 1.5. All other labs nondiagnostic are unremarkable. CT imaging does reveal fairly significant diverticulitis. But no perforation or abscess. Patient given IV Zosyn and started on Augmentin and will follow-up with primary care provider for reassessment. After discussion of diagnosis and plan of care patient has no further needs, questions, or concerns and states clear understanding to return to the emergency department for any worsening symptoms. This documentation was generated using [employer] dictation system, please disregard any oddities of phrase or misspellings. Imaging Data Radiologic Study: Imaging: CT Scan Radiologist's impression: Exam(s) PROCEDURE INFORMATION: Exam: CT Abdomen And Pelvis With Contrast Exam date and time: 11/16/2022 6:41 PM Age: 51 years old Clinical indication: Other: Llq pain TECHNIQUE: Imaging protocol: Computed tomography of the abdomen and pelvis with contrast. Radiation optimization: All CT scans at this facility use at least one of these dose optimization techniques: automated exposure control; mA and/or kV adjustment per patient size (includes targeted exams where dose is matched to clinical indication); or iterative reconstruction. Contrast material: OMNIPAQUE 350; Contrast volume: 100 ml; Contrast route: INTRAVENOUS (IV); COMPARISON: CT LOWER EXTREMITY RT WO 04/06/2019 3:55 PM FINDINGS: Liver: Hepatomegaly and diffuse fatty infiltration. Faint hypodensity in the right lobe too small to characterize Gallbladder and bile ducts: Normal. No calcified stones. No ductal dilation. Pancreas: Normal. No ductal dilation. Spleen: Normal. No splenomegaly. Adrenal glands: Normal. No mass. Kidneys and ureters: Left renal cyst and additional faint hypodensity in the upper pole No hydronephrosis. Stomach and bowel: Abnormal thickening in the mid sigmoid colon with scattered diverticula noted and luminal narrowing in keeping with diverticulitis No obstruction Appendix: No evidence of appendicitis. Intraperitoneal space: Minimal pelvic fluid No free air. No significant fluid collection. Vasculature: Atherosclerosis noted No abdominal aortic aneurysm. Lymph nodes: Unremarkable. No enlarged lymph nodes. Urinary bladder: Unremarkable as visualized. Reproductive: Unremarkable as visualized. Bones/joints: Unremarkable. No acute fracture. Soft tissues: Unremarkable. IMPRESSION: Colonic diverticulitis in the sigmoid colon without gross perforation or abscess Nonurgent findings as noted Lab Data Lab results reviewed: Yes I reviewed the patient's lab results. HPI General Mode of arrival: ambulatory . Date/Time Provider Initiated Documentation: 11/16/22 17:09 . Limitations to Documentation: no limitations . Information obtained by: patient and RN notes reviewed . History of Present Illness 51 year old M presents to the emergency department with the chief complaint of Abdominal pain, described as moderate and similar to prior episodes, Quality is described as aching, and is localized to the abdomen. Patient reports no radiation. Patient started experiencing this hour(s) (9) and it has been constant. No relieving factors improve symptom(s), No exacerbating factors reported . Patient notes no other symptoms.. Patient did receive the following treatments prior to arrival, none Related Data Home Medications Medication Instructions Recorded Confirmed diaper,brief,adult,disposable #300 ea 12/09/17 11/11/22 (Depend Underwear For Women Small-Medium) underpads 23 X 36 (Air Permeable #300 ea 12/09/17 11/11/22 Underpad) albuterol sulfate 90 mcg/actuation 2 inh inhalation Q6H PRN shortness 04/19/20 11/11/22 breath activated powder inhaler of breath or wheezing #1 ea aspirin 81 mg tablet,delayed 81 mg PO BID 12/11/20 11/11/22 release (Adult Low Dose Aspirin) cyclobenzaprine 10 mg tablet 10 mg PO BID PRN muscle spasm #30 07/31/21 11/11/22 tab-caps clonidine HCl 0.2 mg tablet 0.4 mg PO BID #120 tabs 10/22/21 11/11/22 mirabegron 50 mg tablet,extended 50 mg PO DAILY #30 tabs 10/22/21 11/11/22 release 24 hr sodium chloride 1 gram tablet 1,000 mg PO BID #60 tabs 10/22/21 11/11/22 tamsulosin 0.4 mg capsule (Flomax) 0.4 mg PO HS #30 tab-caps 10/22/21 11/11/22 gabapentin 800 mg tablet 800 mg PO TID #270 tabs 05/27/22 11/11/22 levetiracetam 1,000 mg tablet 1,000 mg PO BID #180 tabs 05/27/22 11/11/22 (Keppra) acetaminophen 500 mg tablet 1,000 mg PO Q8H PRN pain #90 tabs 07/22/22 11/11/22 diclofenac sodium 1 % topical gel 4 g topical QID PRN pain #100 grams 07/22/22 11/11/22 (Voltaren Arthritis Pain) naproxen 500 mg tablet 500 mg PO BID PRN pain #40 tabs 07/22/22 11/11/22 diazepam 5 mg tablet 5 mg PO DIRECTED PRN 09/25/22 11/11/22 claustrophobia #2 tabs fluoxetine 40 mg capsule 80 mg PO DAILY #60 tab-caps 10/28/22 11/11/22 aripiprazole 5 mg tablet (Abilify) 5 mg PO HS #30 tab-caps 11/04/22 11/11/22 ibuprofen 600 mg tablet 600 mg PO TID #30 tabs 11/11/22 methylphenidate HCl 10 mg tablet See Rx Instructions PO DIRECTED 11/11/22 11/11/22 #90 tabs amoxicillin 875 mg-potassium 1 tab PO Q8H 7 days #21 tabs 11/16/22 clavulanate 125 mg tablet Previous Rx's Medication Instructions Recorded albuterol sulfate 90 mcg/actuation 2 inh inhalation Q6H PRN shortness 04/19/20 breath activated powder inhaler of breath or wheezing #1 ea cyclobenzaprine 10 mg tablet 10 mg PO BID PRN muscle spasm #30 07/31/21 tab-caps clonidine HCl 0.2 mg tablet 0.4 mg PO BID #120 tabs 10/22/21 mirabegron 50 mg tablet,extended 50 mg PO DAILY #30 tabs 10/22/21 release 24 hr sodium chloride 1 gram tablet 1,000 mg PO BID #60 tabs 10/22/21 tamsulosin 0.4 mg capsule (Flomax) 0.4 mg PO HS #30 tab-caps 10/22/21 gabapentin 800 mg tablet 800 mg PO TID #270 tabs 05/27/22 levetiracetam 1,000 mg tablet 1,000 mg PO BID #180 tabs 05/27/22 (Keppra) acetaminophen 500 mg tablet 1,000 mg PO Q8H PRN pain #90 tabs 07/22/22 diclofenac sodium 1 % topical gel 4 g topical QID PRN pain #100 grams 07/22/22 (Voltaren Arthritis Pain) naproxen 500 mg tablet 500 mg PO BID PRN pain #40 tabs 07/22/22 diazepam 5 mg tablet 5 mg PO DIRECTED PRN 09/25/22 claustrophobia #2 tabs fluoxetine 40 mg capsule 80 mg PO DAILY #60 tab-caps 10/28/22 aripiprazole 5 mg tablet (Abilify) 5 mg PO HS #30 tab-caps 11/04/22 ibuprofen 600 mg tablet 600 mg PO TID #30 tabs 11/11/22 methylphenidate HCl 10 mg tablet See Rx Instructions PO DIRECTED 11/11/22 #90 tabs amoxicillin 875 mg-potassium 1 tab PO Q8H 7 days #21 tabs 11/16/22 clavulanate 125 mg tablet Allergies Allergy/AdvReac Type Severity Reaction Status Date / Time oxycodone HCl [From Percocet] AdvReac Intermediate VOMITING Verified 11/12/22 15:11 General Stated Complaint: Abd Prob MIRIAM: 3 Review of Systems Constitutional Constitutional: Denies chills, Denies fever(s) and Reports poor appetite Cardiovascular Cardiovascular: Denies chest pain and Denies dyspnea Respiratory Respiratory: Denies cough and Denies dyspnea Gastrointestinal Gastrointestinal: Reports as per HPI, Reports abdominal pain, Denies melena, Denies change in bowel habits, Denies constipation, Denies diarrhea, Denies nausea and Denies vomiting Genitourinary Genitourinary: Denies hematuria, Denies difficulty urinating, Denies urinary hesitancy, Denies urinary incontinence and Denies urinary urgency Integumentary/Breasts Skin/Breast: Denies rash PFSH All Active Problems (Updated 11/16/22 @ 20:21 by Antoine Rivas NP) Diverticulitis (Chronic) Bipolar depression (Acute) Tick bite of back (Acute) Cellulitis (Acute) Patellofemoral arthritis of right knee (Acute) Bilateral knee pain (Acute) Left knee pain (Acute) Malnutrition compromising bodily function (Acute) Much due to terrible dentition Tooth decay (Acute) Hypersomnia (Acute) Multifactorial from hydrocephalus, hyponatremia, mood disorder, and substance abuse (marijuana). Osteoarthritis of right knee (Acute) Daytime somnolence (Acute) JOSEPH Rojas Nonadherence to medication (Acute) Osteoarthritis of right patellofemoral joint (Chronic ~06/23/18) S/P right patellofemoral replacement S/P open synovectomy and realignment - DOS: 11/03/2018 Dr. Hillman Depression (Chronic) Fatigue (Chronic) Tremor (Chronic) SIADH (syndrome of inappropriate ADH production) (Chronic) Hyponatremia (Chronic) Memory loss (Chronic) Lethargy (Acute) Chronic fatigue (Acute) Right knee pain (Chronic) Aspiration and injection: 09/04/2018 Aspiration: 08/05/2018 Knee pain (Chronic) Wayne comes in today for a follow up. I have refilled his Clonazepam for him. He will f/u with NS[facility] and neurology. I asked him to question them about his urinary incontinence. He would like to see urology again for the incontinence, although I am not sure much can be done through them, but I will arrange it for him. We will check on the ortho f/u. I will have him f/u here with me in a month, or sooner should he need anything prior to that. Urinary incontinence (Chronic 11/18/17) Tourette disease (Chronic 11/19/16) Tobacco use disorder (Chronic 07/03/16) S/P craniotomy (Chronic 10/22/17) a. Endoscopic third ventriculostomy with fenestration of septum pellucidum, brian hole craniotomy with coagulation of the choroid plexus, and EVD placement in September 2014 b. craniotomy with 3rd ventricle mass excision September 2017. Primary osteoarthritis of right knee (Chronic 03/31/17) Meningioma, cerebral (Chronic 10/22/17) a. Previously causing hydrocephalus s/p partial resection and EVD. b. hemorrhaged into 3rd ventricle in 2018, s/p resection Mass, brain (Chronic 09/24/17) IVH (intraventricular hemorrhage) (Chronic 09/24/17) Cerebral tumor (Chronic 06/26/17) BPH (benign prostatic hyperplasia) (Chronic 08/13/17) Anxiety (Chronic 11/19/16) Bipolar depression (Chronic 03/31/17) Seizure disorder (Chronic 11/19/16) Wayne is here today to follow up from recent hospital stay at [facility] from 08/31- for recent seizure and hyponatremia. Migraine (Chronic 07/02/16) Medical History Carpal tunnel syndrome a. Diagnosed in 2010 by nerve conduction studies. b. Underwent right carpal tunnel release but did not have any improvement in symptoms. Depression Diverticulitis H/O alcohol abuse SARS-CoV-2 positive 03/09/21-pt reporting he received call from [facility] today of positive result. testing done at state site ([facility] drive through) Surgical History Amputation right Index Arthroplasty of knee (10/28/16) Dr Sheela Gomez knee-- chondroplasty of the patella and open lateral retinacular release Hernia Repair-L (04/13/94) rgt craiotomy for mass (09/24/17) Status post revision of total replacement of right knee 12/08/20 Dr [place] [facility] [place] Subluxation of patella s/p replacement 06/2018; 2nd surgery 11/03/18 with Rafy Family History Mother Essential hypertension Cerebral aneurysm Father Neoplasm Lung Maternal Grandfather Heart disease Neoplasm Colorectal & Prostate Maternal Grandmother Neoplasm Colorectal Social History Smoking/Tobacco Use Status: Former Tobacco Use Quit status: not considering quitting Smoking risk assessment performed?: Yes Alcohol Intake: never Drug use: Daily Substance use type: marijuana Counseling given: Yes Details: uses marijuana for pain Adopted: No Foster care: No Household members: significant other and children Number of Children: 5 Communication Needs: None 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; 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 Pets and animals: Yes Pets and animals: dog(s) Current gender identity: male What is your relationship status?: How often do you talk on the phone with friends or family?: twice per week How often do you get together with friends or relatives?: twice per week Panel score (0-1 are the most socially isolated patients): 1 What type of physical activity do you participate in: none Seatbelt use: always Drive intox or ride w/intox train driver: No Water heater temp set <120 deg: Yes Working smoke detector in home: Yes Carbon monox detector in home: Yes Do you feel safe at home: Yes Do you feel safe in your relationship?: Yes Victim of physical abuse: No Victim of emotional abuse: No Additional Social history: Lives with ex- Edith Exam Const General: cooperative Orientation: alert, awake and oriented x3 Resp Effort & Inspection: normal respiratory effort and able to speak in complete sentences Auscultation: clear to auscultation bilaterally Cardio Rate: regular rate Rhythm: regular rhythm Heart Sounds: S1 normal and S2 normal GI Palpation: soft, no hepatosplenomegaly, not firm, no guarding, no masses, no pulsatile masses, not rigid, no splenomegaly and tender in the LLQ and suprapubicly Auscultation: normal bowel sounds Back/Spine/Pelvis Back: no CVA tenderness Neuro General: patient alert, patient awake, patient oriented x3, gait normal and moves all extremities Course Vital Signs Vital signs: Vital Signs Temperature 37.2 C 11/16/22 17:00 Pulse 92 H 11/16/22 17:00 Respiratory Rate 20 11/16/22 17:00 Blood Pressure 139/82 11/16/22 17:00 Pulse Oximetry 98 11/16/22 17:00 Temperature 37.2 C 11/16/22 17:00 Temperature Source Oral 11/16/22 17:00 Pulse 92 H 11/16/22 17:00 Respiratory Rate 20 11/16/22 17:00 Blood Pressure 139/82 11/16/22 17:00 Blood Pressure Position Sitting 11/16/22 17:00 Pulse Oximetry 98 11/16/22 17:00 Oxygen Delivery Method Room Air 11/16/22 17:00 Oxygen Flow Rate 0 11/16/22 17:00 Pain Level 8 11/16/22 17:00 Lab/Test Results Lab/Test Results: Laboratory Tests Range/Units 11/16/22 11/16/22 11/16/22 17:19 17:19 17:19 WBC (4.4-10.8) 10^3/uL 14.45 H RBC (4.36-5.78) 10^6/uL 4.69 Hgb (13.5-17.5) g/dL 14.2 Hct (40.0-50.0) % 40.1 MCV (80-95) fL 86 MCH (27.0-33.0) pg 30.3 MCHC (32.0-36.0) % 35.4 RDW (11.8-14.1) % 12.8 Plt Count (130-400) 10^3/uL 267 MPV (8.0-11.0) fL 9.6 Immature Gran % 0.3 Neutrophils % 87.4 Lymphocytes % 5.6 Monocytes % 6.2 Eosinophils % 0.2 Basophils % 0.3 Nucleated RBC % (0.0-0.3) % 0.0 Absolute Neutrophils (1.2-6.7) 10^3/uL 12.63 H Absolute Lymphocytes (1.2-3.4) 10^3/uL 0.81 L Absolute Monocytes (0.1-0.8) 10^3/uL 0.90 H Absolute Eosinophils (0.0-0.7) 10^3/uL 0.03 Absolute Basophils (0.0-0.2) 10^3/uL 0.04 VBG Lactate (0.6-1.4) mmol/L 1.5 H Sodium (136-145) mmol/L 131 L Potassium (3.5-5.1) mmol/L 3.7 Chloride (98-107) mmol/L 95 L Carbon Dioxide (21.0-32.0) mmol/L 26.2 Anion Gap (3-11) mmol/L 9.8 BUN (7-18) mg/dL 6 L Creatinine (0.70-1.30) mg/dL 0.8 Est GFR (CKD-EPI 2020) (mL/min/1.73m2) 107.15 Glucose (74-106) mg/dL 114 H Calcium (8.5-10.1) mg/dL 8.6 Magnesium (1.8-2.4) mg/dL 1.5 L Total Bilirubin (0.2-1.0) mg/dL 0.7 AST (15-37) U/L 13 L ALT (16-63) U/L 19 Alkaline Phosphatase (46-116) U/L 89 Total Protein (6.4-8.2) g/dL 6.8 Albumin (3.4-5.0) g/dL 3.8
[2022-11-16] MEDS: Amox. 875/Clav. 125, 2 TABS/BTL 1 TAB PO (20:31)
--- NOTE | 2022-11-16 20:33 | NUR.NOTE ---
Pt placed on referral list to primary per Evelyn for a recheck of Diverticulitis, to be seen within 3 days
--- NOTE | 2022-11-18 12:12 | PDOC.CMPRO ---
Date of service: 11/18/22 Time of Service: 12:12 Care Management Progress Note Progress Note Text Progress Note Text: CM faxed referral to [facility] requesting follow up within three days. MAURA to contact pt directly to schedule follow up appt.
== END 2022-11-16 20:35 | disposition home or self-care (01) ==
PROVIDERS: Emergency Provider Nurse Practitioner Family; PCP Nurse Practitioner
DX: R10.32 Left lower quadrant pain; K57.32 Diverticulitis of large intestine without perforation or abscess without bleeding; Z87.19 Personal history of other diseases of the digestive system
CPT/HCPCS: 80053; 96374; 96375; 99285; 74177; 83605; 83735; 85025; 99284; J0131; J2543; Q9967

== ENCOUNTER → 2023-01-01 13:31 | Outpatient (BNVA) | payer MEDICARE, MEDICAID, SELFPAY | PROVIDERS: PCP Nurse Practitioner; Referring Provider Nurse Practitioner; Visit Provider Surgery | DX: Z12.11 Encounter for screening for malignant neoplasm of colon (principal) ==

== ENCOUNTER → 2023-02-03 12:17 | Outpatient (BNVA) | payer MEDICARE, MEDICAID, SELFPAY | PROVIDERS: PCP Nurse Practitioner; Referring Provider Nurse Practitioner; Visit Provider Psychiatry & Neurology Neurology | DX: D32.0 Benign neoplasm of cerebral meninges (principal); E22.2 Syndrome of inappropriate secretion of antidiuretic hormone; G43.709 Chronic migraine without aura, not intractable, without status migrainosus; G40.909 Epilepsy, unspecified, not intractable, without status epilepticus; R41.3 Other amnesia; G47.10 Hypersomnia, unspecified | CPT/HCPCS: 99214 ==

== ENCOUNTER → 2023-04-05 10:56 | Outpatient (REF) | payer MEDICARE, MEDICAID, SELFPAY ==
--- NOTE | 2023-04-05 | DI.RAD_ITS ---
Exam(s) XR WRIST RT COMPL NAVICULAR EXAM: XR WRIST RT COMPL NAVICULAR CLINICAL HISTORY: PAIN. TECHNIQUE: 2D digital imaging was performed. COMPARISON: No exams were available for comparison FINDINGS: Four views. No evidence of fracture or dislocation nor significant ulnar variance. No degenerative changes nor e rosions. Bone density normal. No osseous lesions. IMPRESSION: No significant osseous findings in the wrist. DATA REPOSITORY: RADIATION DOSE DELIVERED:
--- NOTE | 2023-04-05 11:16 | DI.VRAD_ITS ---
PROCEDURE INFORMATION: Exam: XR Right Wrist Exam date and time: 04/05/2023 11:04 AM Age: 52 years old Clinical indication: Pain; Wrist; Right TECHNIQUE: Imaging protocol: Radiologic exam of the right wrist. Views: 3 or more views. COMPARISON: CR XR FINGER RT LITTLE 04/27/2021 8:44 AM FINDINGS: Bones/joints: Normal. Soft tissues: Normal. IMPRESSION: No acute findings. Dictated and Authenticated by: Dony Jamil MD. Ordering:JENIFER Varela MD
== END ==
LOC: DI 10:56
PROVIDERS: PCP Nurse Practitioner; Visit Provider Physician Assistant Medical
DX: M25.531 Pain in right wrist (principal)
CPT/HCPCS: 73110

== ENCOUNTER 2023-06-03 11:29 | Outpatient (CLI) | payer MEDICARE, MEDICAID, SELFPAY ==
[2023-06-03 10:57] LABS: Anion Gap 6.4 mmol/L (3-11); BUN 11 mg/dL (7-18); CO2 30.6 mmol/L (21.0-32.0); CREATININE 0.9 mg/dL (0.70-1.30); Calcium 9.1 mg/dL (8.5-10.1); Chloride 98 mmol/L (98-107); Estimated GFR 102.76 (mL/min/1.73m2); Glucose 105 mg/dL (74-106); Potassium 4.2 mmol/L (3.5-5.1); Sodium 135 mmol/L (136-145)
[2023-06-03 11:28] LABS: TSH (W/Ref FT4) 1.01 uIU/mL (0.36-3.74); Vitamin B12 527 pg/mL (193-986)
== END 2023-06-03 11:30 | disposition home or self-care (01) ==
LOC: LBO 11:29
PROVIDERS: PCP Nurse Practitioner; Visit Provider Psychiatry & Neurology Neurology
DX: G62.9 Polyneuropathy, unspecified (principal); R41.3 Other amnesia; E87.1 Hypo-osmolality and hyponatremia
CPT/HCPCS: 36415; 80048; 82607; 84443

== ENCOUNTER → 2023-08-11 11:00 | Outpatient (BNVA) | payer MEDICARE, MEDICAID, SELFPAY | PROVIDERS: PCP Nurse Practitioner; Visit Provider Psychiatry & Neurology Neurology | DX: G43.009 Migraine without aura, not intractable, without status migrainosus (principal); G40.909 Epilepsy, unspecified, not intractable, without status epilepticus; D32.0 Benign neoplasm of cerebral meninges; E22.2 Syndrome of inappropriate secretion of antidiuretic hormone; G47.10 Hypersomnia, unspecified; G62.9 Polyneuropathy, unspecified; R41.3 Other amnesia | CPT/HCPCS: 99213 ==

== ENCOUNTER 2023-10-12 14:08 | Emergency (ER) | payer MEDICARE, MEDICAID, SELFPAY ==
[2023-10-12 14:12] VITALS: BP 195/90; PULSE 78; RESP 18; TEMP 36.6
--- NOTE | 2023-10-12 14:30 | DI.RAD_ITS ---
Exam(s) XR KNEE LT 3V AP,LAT,JAQUI EXAM: XR KNEE LT 3V AP,LAT,JAQUI CLINICAL HISTORY: atraumatic painful swollen knee. TECHNIQUE: 2D digital imaging was performed of the left knee. Three images were obtained. AP, late ral and PA tunnel views were obtained. COMPARISON: CR,XR XR KNEE LT 3V AP,LAT,JAQUI from 11/08/2022 FINDINGS: BONES: No acute fracture is present. No bony destructive lesion is seen. JOINTS: Small osteophytes are seen in the medial femoral tibial the posterior patellofemoral joints. There is a small joint effusion. No loose body. SOFT TISSUE: Normal. IMPRESSION: 1. Mild degenerative changes in the knee. 2. No acute fracture or dislocation. 3. Small joint effusion. DATA REPOSITORY: RADIATION DOSE DELIVERED:
--- NOTE | 2023-10-12 14:35 | ED.GENADUL_ITS ---
Discharge Plan Disposition Patient Disposition: Eloped Condition: Stable Discharge Details Chief Complaint: Orthopedic Clinical Impression: Knee pain, Joint effusion Primary Care Provider: Colleen Mercado ED Provider: Bruno Santana Home Meds and New Rx's Prescriptions: No Action albuterol sulfate 90 mcg/actuation aerosol powdr breath activated 2 inh IH Q6H PRN (Reason: shortness of breath or wheezing) Qty: 1 12RF dicyclomine 20 mg tablet 20 mg PO TID PRN (Reason: abdominal pain) Qty: 30 0RF bisacodyl [Dulcolax (bisacodyl)] 5 mg tablet,delayed release (DR/EC) 5 mg PO ONCE Qty: 4 0RF Rx Instructions: take per colonoscopy instructions cyclobenzaprine 10 mg tablet 10 mg PO BID PRN (Reason: muscle spasm) Qty: 60 3RF mirabegron 50 mg tablet extended release 24 hr 50 mg PO DAILY Qty: 30 11RF tamsulosin [Flomax] 0.4 mg capsule 0.4 mg PO HS Qty: 30 12RF sodium chloride 1 gram tablet 1,000 mg PO BID Qty: 60 11RF acetaminophen 500 mg tablet 1,000 mg PO Q8H PRN (Reason: pain) Qty: 90 0RF naproxen 500 mg tablet 500 mg PO BID PRN (Reason: pain) Qty: 40 0RF Rx Instructions: Start by taking with food 2x/d x4 days, then PRN pain. diclofenac sodium [Voltaren Arthritis Pain] 1 % gel 4 g topical QID PRN (Reason: pain) Qty: 100 0RF Rx Instructions: Apply to L knee up to 4x/day for pain. lamotrigine 25 mg tablet 25 mg PO DAILY Rx Instructions: take 25 mg for 5 days, then increase to 50mg. levetiracetam [Keppra] 1,000 mg tablet 1,000 mg PO BID Qty: 180 3RF gabapentin 800 mg tablet 800 mg PO TID Qty: 270 3RF (DME) underpads [Air Permeable Underpad] 1 EACH pad 1 ea Miscellaneous Q4H PRN Qty: 300 (DME) Depend Underwear For Women S-M 1 EACH misc 1 ea Miscellaneous Q4H PRN Qty: 300 Rx Instructions: use 1 brief 1-2 times daily aspirin [Adult Low Dose Aspirin] 81 mg tablet,delayed release (DR/EC) 81 mg PO BID Rx Instructions: X 30 days post op TKA 12/08/20 ([facility] [place]) fluoxetine 40 mg capsule 80 mg PO DAILY Qty: 60 12RF aripiprazole 5 mg tablet See Rx Instructions .ROUTE .COMPLEX Qty: 30 12RF Dose Instruction: TAKE ONE TABLET BY MOUTH AT BEDTIME Rx Instructions: TAKE ONE TABLET BY MOUTH AT BEDTIME ibuprofen 600 mg tablet See Rx Instructions .ROUTE .COMPLEX Qty: 90 3RF Dose Instruction: TAKE ONE TABLET BY MOUTH THREE TIMES A DAY WITH FOOD; MAY DEREASE TO TWO PER DAY AFTER 3 DAYS Rx Instructions: TAKE ONE TABLET BY MOUTH THREE TIMES A DAY WITH FOOD; MAY DEREASE TO TWO PER DAY AFTER 3 DAYS methylphenidate HCl 10 mg tablet 20 mg PO BID MDD 40mg Qty: 120 0RF Rx Instructions: Take am and noon HPI General Date/Time Provider Initiated Documentation: 10/12/23 14:25 . HPI Narrative: 52-year-old male history of total knee replacement right knee presents with atraumatic left knee discomfort swelling over the last week denies fevers chills or systemic signs of illness, denies recent tick bite. Is able to ambulate with some discomfort Related Data Home Medications Medication Instructions Recorded Confirmed diaper,brief,adult,disposable #300 ea 12/09/17 10/12/23 ([employer]wear [employer] Small-Medium) underpads 23 X 36 (Air Permeable #300 ea 12/09/17 10/12/23 Underpad) albuterol sulfate 90 mcg/actuation 2 inh inhalation Q6H PRN shortness 04/19/20 10/12/23 breath activated powder inhaler of breath or wheezing #1 ea aspirin 81 mg tablet,delayed 81 mg PO BID 12/11/20 10/12/23 release (Adult Low Dose Aspirin) mirabegron 50 mg tablet,extended 50 mg PO DAILY #30 tabs 10/22/21 10/12/23 release 24 hr sodium chloride 1 gram tablet 1,000 mg PO BID #60 tabs 10/22/21 10/12/23 tamsulosin 0.4 mg capsule (Flomax) 0.4 mg PO HS #30 tab-caps 10/22/21 10/12/23 acetaminophen 500 mg tablet 1,000 mg (2 x 500 mg) PO Q8H PRN 07/22/22 10/12/23 pain #90 tabs diclofenac sodium 1 % topical gel 4 g topical QID PRN pain #100 grams 07/22/22 10/12/23 (Voltaren Arthritis Pain) naproxen 500 mg tablet 500 mg PO BID PRN pain #40 tabs 07/22/22 10/12/23 fluoxetine 40 mg capsule 80 mg (2 x 40 mg) PO DAILY #60 10/28/22 10/12/23 tab-caps dicyclomine 20 mg tablet 20 mg PO TID PRN abdominal pain 12/06/22 10/12/23 #30 tabs aripiprazole 5 mg tablet See Rx Instructions .Route 12/30/22 10/12/23 .COMPLEX #30 tabs bisacodyl 5 mg tablet,delayed 5 mg PO ONCE colonscopy bowel prep 01/01/23 10/12/23 release (Dulcolax (bisacodyl)) #4 tabs ibuprofen 600 mg tablet See Rx Instructions .Route 07/22/23 10/12/23 .COMPLEX #90 tabs cyclobenzaprine 10 mg tablet 10 mg PO BID PRN muscle spasm #60 08/06/23 10/12/23 tab-caps gabapentin 800 mg tablet 800 mg PO TID #270 tabs 08/11/23 10/12/23 lamotrigine 25 mg tablet 25 mg PO DAILY 08/11/23 10/12/23 levetiracetam 1,000 mg tablet 1,000 mg PO BID #180 tabs 08/11/23 10/12/23 (Keppra) methylphenidate HCl 10 mg tablet 20 mg (2 x 10 mg) PO BID #120 tabs 09/15/23 10/12/23 Previous Rx's Medication Instructions Recorded albuterol sulfate 90 mcg/actuation 2 inh inhalation Q6H PRN shortness 04/19/20 breath activated powder inhaler of breath or wheezing #1 ea mirabegron 50 mg tablet,extended 50 mg PO DAILY #30 tabs 10/22/21 release 24 hr sodium chloride 1 gram tablet 1,000 mg PO BID #60 tabs 10/22/21 tamsulosin 0.4 mg capsule (Flomax) 0.4 mg PO HS #30 tab-caps 10/22/21 acetaminophen 500 mg tablet 1,000 mg (2 x 500 mg) PO Q8H PRN 07/22/22 pain #90 tabs diclofenac sodium 1 % topical gel 4 g topical QID PRN pain #100 grams 07/22/22 (Voltaren Arthritis Pain) naproxen 500 mg tablet 500 mg PO BID PRN pain #40 tabs 07/22/22 fluoxetine 40 mg capsule 80 mg (2 x 40 mg) PO DAILY #60 10/28/22 tab-caps dicyclomine 20 mg tablet 20 mg PO TID PRN abdominal pain 12/06/22 #30 tabs aripiprazole 5 mg tablet See Rx Instructions .Route 12/30/22 .COMPLEX #30 tabs bisacodyl 5 mg tablet,delayed 5 mg PO ONCE colonscopy bowel prep 01/01/23 release (Dulcolax (bisacodyl)) #4 tabs ibuprofen 600 mg tablet See Rx Instructions .Route 07/22/23 .COMPLEX #90 tabs cyclobenzaprine 10 mg tablet 10 mg PO BID PRN muscle spasm #60 08/06/23 tab-caps gabapentin 800 mg tablet 800 mg PO TID #270 tabs 08/11/23 levetiracetam 1,000 mg tablet 1,000 mg PO BID #180 tabs 08/11/23 (Keppra) methylphenidate HCl 10 mg tablet 20 mg (2 x 10 mg) PO BID #120 tabs 09/15/23 Allergies Allergy/AdvReac Type Severity Reaction Status Date / Time oxycodone HCl [From Percocet] AdvReac Intermediate VOMITING Verified 10/12/23 14:11 General Stated Complaint: Orthopedic MIRIAM: 4 Review of Systems Narrative: Review of Systems Constitutional: negative Eyes: negative ENT: negative Cardiovascular: negative Respiratory: negative Gastrointestinal: negative : negative Musculoskeletal: Left knee pain, swelling Skin: negative Neurologic: negative Psych: negative Exam Narrative Exam Narrative: Physical Examination General: alert, awake, cooperative, resting comfortably, no acute distress HEENT: normocephalic, atraumatic; PERRL, EOM intact, conjunctiva normal; no nasal discharge; moist mucous membranes, oral and pharyngeal mucosa normal, tolerating secretions Neck: supple, trachea midline; full ROM Skin: no lesions, rashes or trauma appreciated Neuro: AAOx3, normal speech, moving all extremities Extremities: Moderate effusion to left knee with some warmth no induration or erythema, patient able to fully extend at knee, is only able to bend to 90 degrees due to discomfort and swelling, soft compartments sensate extremity, DP pulse intact ambulatory without assistance no laxity or crepitus noted, no deformity Psych: Appropriate mood and affect Course Vital Signs Vital signs: Vital Signs Temperature 36.6 C 10/12/23 14:12 Pulse 78 10/12/23 14:12 Respiratory Rate 18 10/12/23 14:12 Blood Pressure 195/90 H 10/12/23 14:12 Temperature 36.6 C 10/12/23 14:12 Pulse 78 10/12/23 14:12 Respiratory Rate 18 10/12/23 14:12 Respiratory Effort Normal 10/12/23 14:19 Blood Pressure 195/90 H 10/12/23 14:12 Pain Level 9 10/12/23 14:12 Procedures Joint Aspiration/Injection Joint Asp./Inject. 1: Time Out Performed: Yes Side of body: left Joint Aspirated: knee Skin Prep: Chlorhexidene Local Anesthetic: Lidocaine 1% Amount of anesthesia used (mL): 3 Needle Size Used: 18G Fluid Obtained: clear Total fluid obtained (mL): 60 Patient Tolerated Procedure: well Additional Comments: 60 cc of clear straw-colored synovial fluid removed from left knee joint; aspiration site hemostatic, fluid sent for Gram stain culture cell count differential crystal analysis Lyme PCR protein LDH Medical Decision Making 52-year-old male history of total knee replacement right lower extremity, presents with atraumatic pain to left knee over the last week, moderate joint effusion on examination, able to extend fully however only able to flex to 90 degrees given discomfort and tension of effusion, warm to the touch without induration or erythema, no crepitus, no bulla, soft compartments, sensate extremity DP pulse intact, ambulatory without assistance, consider progressive osteoarthritis versus Lyme arthritis versus gout versus pseudogout versus less likely traumatic hemarthrosis versus less likely acute septic joint given timeframe and examination. Will obtain screening x-ray of knee will attempt arthrocentesis will obtain tick panel pending appearance of joint fluid will consider oral anti-inflammatory and steroid versus further medical workup 19:33 Gram stain negative for bacteria, small amount of white cells on Gram stain and cell count, patient ambulatory with good range of motion. Patient did not want to wait for results and eloped Quality:SDOH Health Related Social Needs: No Data to Display PFSH All Active Problems (Updated 10/12/23 @ 19:35 by Bruno Santana MD) Joint effusion (Acute) Knee pain (Acute) Bipolar depression (Acute) Tick bite of back (Acute) Cellulitis (Acute) Patellofemoral arthritis of right knee (Acute) Bilateral knee pain (Acute) Left knee pain (Acute) Malnutrition compromising bodily function (Acute) Much due to terrible dentition Tooth decay (Acute) Hypersomnia (Acute) Multifactorial from hydrocephalus, hyponatremia, mood disorder, and substance abuse (marijuana). Osteoarthritis of right knee (Acute) Daytime somnolence (Acute) JOSEPH Rojas Nonadherence to medication (Acute) Osteoarthritis of right patellofemoral joint (Chronic ~06/23/18) S/P right patellofemoral replacement S/P open synovectomy and realignment - DOS: 11/03/2018 Dr. Hillman Depression (Chronic) Fatigue (Chronic) Tremor (Chronic) SIADH (syndrome of inappropriate ADH production) (Chronic) Hyponatremia (Chronic) Memory loss (Chronic) Lethargy (Acute) Chronic fatigue (Acute) Right knee pain (Chronic) Aspiration and injection: 09/04/2018 Aspiration: 08/05/2018 Knee pain (Chronic) Wayne comes in today for a follow up. I have refilled his Clonazepam for him. He will f/u with NSX and neurology. I asked him to question them about his urinary incontinence. He would like to see urology again for the incontinence, although I am not sure much can be done through them, but I will arrange it for him. We will check on the ortho f/u. I will have him f/u here with me in a month, or sooner should he need anything prior to that. Urinary incontinence (Chronic 11/18/17) Tourette disease (Chronic 11/19/16) Tobacco use disorder (Chronic 07/03/16) S/P craniotomy (Chronic 10/22/17) a. Endoscopic third ventriculostomy with fenestration of septum pellucidum, brian hole craniotomy with coagulation of the choroid plexus, and EVD placement in September 2014 b. craniotomy with 3rd ventricle mass excision September 2017. Primary osteoarthritis of right knee (Chronic 03/31/17) Meningioma, cerebral (Chronic 10/22/17) a. Previously causing hydrocephalus s/p partial resection and EVD. b. hemorrhaged into 3rd ventricle in 2018, s/p resection Mass, brain (Chronic 09/24/17) IVH (intraventricular hemorrhage) (Chronic 09/24/17) Cerebral tumor (Chronic 06/26/17) BPH (benign prostatic hyperplasia) (Chronic 08/13/17) Anxiety (Chronic 11/19/16) Bipolar depression (Chronic 03/31/17) Seizure disorder (Chronic 11/19/16) Wayne is here today to follow up from recent hospital stay at [facility] from 08/31- for recent seizure and hyponatremia. Migraine (Chronic 07/02/16) Medical History SARS-CoV-2 positive 03/09/21-pt reporting he received call from [facility] today of positive result. testing done at [facility] site ([facility] drive through) H/O alcohol abuse Diverticulitis Depression Carpal tunnel syndrome a. Diagnosed in 2010 by nerve conduction studies. b. Underwent right carpal tunnel release but did not have any improvement in symptoms. Surgical History Status post revision of total replacement of right knee 12/08/20 Dr Larson, [facility] [place] Subluxation of patella s/p replacement 06/2018; 2nd surgery 11/03/18 with Rafy herrera craiotomy for mass (09/24/17) Hernia Repair-L (04/13/94) Arthroplasty of knee (10/28/16) Dr Sheela Gomez knee-- chondroplasty of the patella and open lateral retinacular release Amputation right Index Family History Mother Essential hypertension Cerebral aneurysm Father Neoplasm Lung Maternal Grandfather Heart disease Neoplasm Colorectal & Prostate Maternal Grandmother Neoplasm Colorectal Social History Smoking/Tobacco Use Status: Former Tobacco Use Quit Date: 01/12/22 Quit status: not considering quitting Smoking risk assessment performed?: Yes Alcohol Intake: never Drug use: Daily Substance use type: marijuana Counseling given: Yes Details: uses marijuana for pain Adopted: No Foster care: No Household members: significant other and children Number of Children: 5 Communication Needs: None 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; 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 Pets and animals: Yes Pets and animals: dog(s) Current gender identity: male What is your relationship status?: How often do you talk on the phone with friends or family?: twice per week How often do you get together with friends or relatives?: twice per week Panel score (0-1 are the most socially isolated patients): 1 What type of physical activity do you participate in: none Seatbelt use: always Drive intox or ride 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
--- NOTE | 2023-10-12 15:36 | DI.VRAD_ITS ---
PROCEDURE INFORMATION: Exam: XR Left Knee Exam date and time: 10/12/2023 3:01 PM Age: 52 years old Clinical indication: Left; Patient HX: Atraumatic painful swollen knee TECHNIQUE: Imaging protocol: Radiologic exam of the left knee. Views: 3 views. COMPARISON: CR XR KNEE LT 3V AP,LAT,JAQUI 11/08/2022 4:27 PM FINDINGS: Bones/joints: There is a large joint effusion present. Bone density appears appropriate. Alignment is grossly anatomic. Soft tissues: Normal. IMPRESSION: Joint effusion. Dictated and Authenticated by: Lis Waters MD. Ordering:GIOVANA Carr MD
[2023-10-12] MEDS: Lidocaine 1% Pres-Free 5 ML VIAL IJ (15:44)
[2023-10-12 15:59] VITALS: BP 145/92; PULSE 60; RESP 14; TEMP 36.4; O2SAT 98
[2023-10-12] MEDS: Acetaminophen 325 MG TAB 650 MG PO (16:25)
[2023-10-12] MEDS: Ketorolac 10 MG TAB PO (16:25)
[2023-10-12 16:32] LABS: Clarity Clear; Source Synovial
[2023-10-12 16:50] LABS: Crystals (BF) No Crystals seen; Source Synovial
[2023-10-12 17:29] LABS: Polynuclear Cells 6 %
[2023-10-12 17:30] LABS: Mononuclear Cells 94 %; Nucleated Cells 283 uL (0)
--- NOTE | 2023-10-13 12:27 | NUR.NOTE ---
Accessed chart, lab called asking about the lyme test in the send out section. They were asking if it was on blood or body fluids. Dr. Moore will be here at 2pm and they will contact him at that time for the answer. Nursing Note:
[2023-10-14 10:00] LABS: Lyme Ab w Rflx to Lyme Confirm Negative (Negative)
[2023-10-14 17:08] LABS: Fluid Type Synovial; Lactate Dehydrogenase (LD), BF 101 U/L
[2023-10-15 10:17] LABS: Fluid Type Synovial; Protein,Total, BF 5.9 g/dL
[2023-10-16 16:20] LABS: Anaplasma phagocytophilum Negative (Negative); B. miyamotoi PCR Negative (Negative); Babesia divergens/MO-1 Negative (Negative); Babesia duncani Negative (Negative); Babesia microti Negative (Negative); Ehrlichia chaffeensis Negative (Negative); Ehrlichia ewingii/canis Negative (Negative); Ehrlichia muris eauclairensis Negative (Negative)
== END 2023-10-12 19:32 | disposition left against medical advice (07) ==
PROVIDERS: Emergency Provider Emergency Medicine; PCP Nurse Practitioner
DX: M25.462 Effusion, left knee (principal); M25.562 Pain in left knee
CPT/HCPCS: 20610; 36415; 73562; 87476; 87798; 99284; 83615; 84157; 86618; 87070; 87205; 89051; 89060; J2003

== ENCOUNTER 2023-11-13 14:45 | Outpatient (CLI) | payer MEDICARE, MEDICAID, SELFPAY ==
[2023-11-13 12:02] LABS: Abs Immature Grans 0.02 10^3/uL (0.0-0.06); Absolute Basophil Count 0.04 10^3/uL (0.0-0.2); Absolute Eosinophil Count 0.02 10^3/uL (0.0-0.7); Absolute Lymphocyte Count 0.79 10^3/uL (1.2-3.4); Absolute Monocyte Count 0.38 10^3/uL (0.1-0.8); Absolute Neutrophil Count 5.37 10^3/uL (1.2-6.7); Basophils % 0.6 %; Eosinophils % 0.3 %; HCT 45.1 % (40.0-50.0); HGB 15.8 g/dL (13.5-17.5); Immature Grans % 0.3 %; Lymphocytes % 11.9 %; MCH 29.7 pg (27.0-33.0); MCV 85 fL (80-95); MPV 9.9 fL (8.0-11.0); Monocytes % 5.7 %; Neutrophils % 81.2 %; Platelet Count 266 10^3/uL (130-400); RBC 5.32 10^6/uL (4.36-5.78); RDW 12.6 % (11.8-14.1); RDW-SD 38.8 fL; WBC 6.62 10^3/uL (4.4-10.8)
[2023-11-13 12:52] LABS: ALT 18 U/L (16-63); AST 16 U/L (15-37); Alkaline Phosphatase 105 U/L (46-116); Anion Gap 6.9 mmol/L (3-11); BUN 8 mg/dL (7-18); Bilirubin, Total 0.64 mg/dL (0.2-1.0); CO2 28.1 mmol/L (21.0-32.0); Calcium 8.6 mg/dL (8.5-10.1); Calculated LDL 96 mg/dL (<100); Chloride 97 mmol/L (98-107); Cholesterol 152 mg/dL (<200); Estimated GFR 90.56 (mL/min/1.73m2); Glucose 118 mg/dL (74-106); HDL Cholesterol 43 mg/dL (40-60); Potassium 3.9 mmol/L (3.5-5.1); Sodium 132 mmol/L (136-145); TSH (W/Ref FT4) 0.82 uIU/mL (0.36-3.74); Total Protein 7.2 g/dL (6.4-8.2); Triglyceride 68 mg/dL (<150); Vitamin B12 547 pg/mL (193-986); Vitamin D 25 Total 24.7 ng/mL (30-100)
[2023-11-13 12:55] LABS: Hemoglobin A1C 5.1 % (<5.7)
[2023-11-14 07:53] LABS: PSA, Diagnostic 6.4 ng/mL (<=3.5)
== END 2023-11-13 14:46 | disposition home or self-care (01) ==
LOC: LBO 14:47
PROVIDERS: Visit Provider Nurse Practitioner Family
DX: I10 Essential (primary) hypertension (principal); E55.9 Vitamin D deficiency, unspecified
CPT/HCPCS: 36415; 80053; 80061; 82306; 82607; 83036; 84153; 84443; 85025

== ENCOUNTER → 2024-02-09 10:35 | Outpatient (BNVA) | payer MEDICARE, MEDICAID, SELFPAY | PROVIDERS: PCP Nurse Practitioner; Referring Provider Nurse Practitioner; Visit Provider Psychiatry & Neurology Neurology | DX: G43.009 Migraine without aura, not intractable, without status migrainosus (principal); G40.909 Epilepsy, unspecified, not intractable, without status epilepticus; D32.0 Benign neoplasm of cerebral meninges; E22.2 Syndrome of inappropriate secretion of antidiuretic hormone; G47.10 Hypersomnia, unspecified; R41.3 Other amnesia | CPT/HCPCS: 99213 ==

== ENCOUNTER 2024-04-16 12:53 | Outpatient (CLI) | payer MEDICARE, MEDICAID, SELFPAY ==
--- NOTE | 2024-04-16 | DI.RAD_ITS ---
Exam(s) XR CHEST 2V PA LATERAL EXAM: XR CHEST 2V PA LATERAL CLINICAL HISTORY: Uncomplicated asthma, J45.909. TECHNIQUE: 2D digital imaging was performed. COMPARISON: CR XR CHEST 2V PA LATERAL from 01/24/2022 FINDINGS: 2 views: Heart size is normal. The mediastinum is not widened. Lungs are clear. No infiltrates nor pleural effusions. IMPRESSION: No acute pulmonary findings.No significant change compared to January 2022. DATA REPOSITORY: RADIATION DOSE DELIVERED:
== END 2024-04-16 13:13 ==
LOC: DI 12:54
PROVIDERS: PCP Nurse Practitioner Family; Visit Provider Nurse Practitioner Family
DX: J45.909 Unspecified asthma, uncomplicated (principal)
CPT/HCPCS: 71046

== ENCOUNTER 2024-04-20 12:10 | Outpatient (CLI) | payer MEDICARE, MEDICAID, SELFPAY ==
[2024-04-20] MEDS: Levalbuterol HFA 15 GM INH 4 PUFF IH (14:21)
[2024-04-20] MEDS: Inhaler, Assist Device 1 EACH MC (14:21)
--- NOTE | 2024-04-27 16:46 | W.PFT ---
Date of service: 04/20/24 Time of Service: 12:56 Pulmonary Function Test Result Indications: Asthma Interpretation Spirometry: There is moderate airflow limitation. There is a significant bronchodilator response. Lung Volumes: There is hyperinflation and air trapping. Diffusion Capacity: Normal diffusion Airway Pressure: Normal airways resistance Impression Moderate airflow obstruction with a bronchodilator response with air trapping and a normal diffusion. Clinical Correlation therefore is recommended.
== END 2024-04-20 12:11 | disposition home or self-care (01) ==
LOC: RT 12:10
PROVIDERS: PCP Nurse Practitioner Family; Visit Provider Student in an Organized Health Care Education/Training Program
DX: J45.909 Unspecified asthma, uncomplicated (principal)
CPT/HCPCS: 94060; 94726; 94729

== ENCOUNTER → 2024-04-27 12:49 | Outpatient (BNVA) | payer MEDICARE, MEDICAID, SELFPAY | PROVIDERS: PCP Nurse Practitioner Family; Referring Provider Nurse Practitioner; Visit Provider Nurse Practitioner Gerontology ==

== ENCOUNTER 2024-04-27 13:42 | Outpatient (REF) | payer MEDICARE, MEDICAID, SELFPAY ==
[2024-04-27 16:35] LABS: Bilirubin Negative (Negative); Blood Trace-intact (Negative); Clarity Clear (Clear); Glucose Negative (Negative); Ketones Negative (Negative); Leukocyte Esterase Negative (Negative); Nitrite Negative (Negative); Urobilinogen 0.2 mg/dL (Up to 0.2); pH 6.5 (5-8)
[2024-04-27 16:44] LABS: Bacteria Rare HPF (Negative); C & S Indicated? No; Casts Negative LPF (Negative); Crystals Negative HPF (Negative); Epithelial Cells Negative HPF (Negative); Mucus Negative (Negative); Other Cells Negative (Negative); RBC 0-2 HPF (0-2); WBC Negative HPF (0-5)
== END 2024-04-27 13:43 | disposition home or self-care (01) ==
LOC: LBN 13:42
PROVIDERS: PCP Nurse Practitioner Family; Visit Provider Nurse Practitioner Gerontology
DX: R35.0 Frequency of micturition (principal)
CPT/HCPCS: 81003; 81015

== ENCOUNTER 2024-04-27 15:48 | Outpatient (CLI) | payer MEDICARE, MEDICAID, SELFPAY | END 2024-04-27 15:49 | disposition home or self-care (01) | LOC: LBO 15:49 | PROVIDERS: PCP Nurse Practitioner Family; Referring Provider Nurse Practitioner Gerontology; Visit Provider Nurse Practitioner Gerontology | DX: N40.1 Benign prostatic hyperplasia with lower urinary tract symptoms (principal) | CPT/HCPCS: 36415; 51798; 81003; 84153; 99215 ==

== ENCOUNTER 2024-04-30 00:23 | Outpatient (CLI) | payer MEDICARE, MEDICAID, SELFPAY ==
--- NOTE | 2024-04-30 | DI.CTLCSR_ITS ---
Exam(s) CT CHEST LUNG CANCER SCREEN EXAM: CT CHEST LUNG CANCER SCREEN CLINICAL HISTORY: Screening, personal h/o nicotine dependence, Z87.891 TECHNIQUE: Imaging Protocol: Axial computed tomography images with coronal and sagittal reformatted images were created and reviewed. Low dose screening protocol. COMPARISON: CR XR CHEST 2V PA LATERAL from 04/16/2024 FINDINGS: Tracheobronchial tree: No bronchiectasis or mucus plugging. Mediastinum and Shanika: No dominant adenopathy or fluid collection. Pulmonary parenchyma: No consolidation or dominant measurable mass. Mild emphysematous changes. No si gnificant interstitial changes. Lung Nodules: 4 millimeter nodule left upper lobe. Pleura: No effusion. No pneumothorax. Heart: The heart is not dilated. No coronary artery calcifications are seen. No pericardial effusion. Aorta: Thoracic aorta non-dilated. Upper abdomen: Unremarkable. Bones: Unremarkable for age. Soft Tissues: Unremarkable. IMPRESSION: 4 millimeter nodule left upper lobe. Lung RADS Cat 2 - Benign Appearance / Behavior: Nodules with a very low likelihood of becoming a clin ically active cancer due to size or lack of growth Lung-RADS 1.0 CATEGORIES: Category 0 - Prior chest CT exam(s) being located for comparison. Category 1 - Annual screening in 12 months. No nodules or definitely benign nodules. Category 2 - Annual screening in 12 months. Benign appearance. Nodules with low likelihood of becomin g active cancer. Category 3 - 6-month follow-up. Probably benign. Short-term follow-up suggested. Nodules with low lik elihood of becoming active cancer. Category 4A - 3-month follow-up and CT/PET if >8 mm in size. Suspicious finding. Findings which requi re additional testing. Category 4B - Findings which require additional testing and tissue sampling. Category 4X - Category 3 or 4 nodules with additional features or imaging findings that increases the suspicion of malignancy. Modifier S- Potentially clinically significant findings (non lung cancer) RADIATION DOSE DELIVERED: !Error Total DLP DATA REPOSITORY: All CT scans at this facility are submitted to the National Radiology Data Registry (NRDR) Dose Index Registry (DIR) with the [employer] (ACR). RADIATION OPTIMIZATION: All CT scans at this facility use at least one of these dose optimization te chniques: automated exposure control; mA and/or kV adjustment per patient size (includes targeted exa ms where dose is matched to clinical indication); or iterative reconstruction.
== END 2024-04-30 00:43 ==
LOC: DI 00:23
PROVIDERS: PCP Nurse Practitioner Family; Visit Provider Nurse Practitioner Family
DX: Z87.891 Personal history of nicotine dependence (principal); Z12.2 Encounter for screening for malignant neoplasm of respiratory organs; R91.1 Solitary pulmonary nodule
CPT/HCPCS: 71271

== ENCOUNTER 2024-05-12 13:29 | Outpatient (CLI) | payer MEDICARE, MEDICAID, SELFPAY ==
--- NOTE | 2024-05-12 | DI.RAD_ITS ---
Exam(s) XR KNEE LT 3V AP,LAT,JAQUI EXAM: XR KNEE LT 3V AP,LAT,JAQUI CLINICAL HISTORY: Contusion of left knee, S80.02XA. TECHNIQUE: 2D digital imaging was performed. Three images were obtained. AP, lateral and PA tunnel views were obtained. COMPARISON: CR,XR XR KNEE LT 3V AP,LAT,JAQUI from 10/12/2023 CR XR CHEST 2V PA LATERAL from 04/16/2024 FINDINGS: BONES: There are stable post operative changes of a left total knee arthroplasty present. No fractur e or dislocation. There are tiny densities at the superior aspect of the patella of indeterminate acu ity. JOINTS: The orthopedic hardware is in good position. No evidence of hardware loosening. There is a small joint effusion. SOFT TISSUE: There is soft tissue swelling anteriorly. IMPRESSION: 1. Stable left total knee arthroplasty. 2. No definite acute fracture is seen at this time. DATA REPOSITORY: RADIATION DOSE DELIVERED:
== END 2024-05-12 13:49 ==
PROVIDERS: PCP Nurse Practitioner Family; Visit Provider Nurse Practitioner Family
DX: S80.02XD Contusion of left knee, subsequent encounter (principal); Z98.890 Other specified postprocedural states; Z96.652 Presence of left artificial knee joint; X58.XXXD Exposure to other specified factors, subsequent encounter
CPT/HCPCS: 73562

== ENCOUNTER 2024-06-29 08:35 | Emergency (ER) | payer MEDICARE, MEDICAID, SELFPAY ==
[2024-06-29 08:58] VITALS: BP 160/92; PULSE 78; RESP 16; TEMP 36.5; O2SAT 98
[2024-06-29 09:02] VITALS: PULSE 71; RESP 16; TEMP 36.6; O2SAT 98
--- NOTE | 2024-06-29 09:13 | ED.GENADUL_ITS ---
Discharge Plan Disposition Patient Disposition: Home Condition: Stable Discharge Details Clinical Impression: Late effect of open wound of tongue Primary Care Provider: Cara Sandhu ED Provider: Allison Chiu Home Meds and New Rx's Prescriptions: Continued albuterol sulfate 90 mcg/actuation aerosol powdr breath activated 2 inh IH Q6H PRN (Reason: shortness of breath or wheezing) Qty: 1 12RF cyclobenzaprine 10 mg tablet 10 mg PO BID PRN (Reason: muscle spasm) Qty: 60 3RF levetiracetam [Keppra] 1,000 mg tablet 1,000 mg PO BID Qty: 180 3RF naproxen 500 mg tablet 500 mg PO BID PRN (Reason: pain) Qty: 40 0RF Rx Instructions: Start by taking with food 2x/d x4 days, then PRN pain. lamotrigine 25 mg tablet 25 mg PO DAILY Rx Instructions: take 25 mg for 5 days, then increase to 50mg. (DME) underpads [Air Permeable Underpad] 1 EACH pad 1 ea Miscellaneous Q4H PRN Qty: 300 (DME) Depend Underwear For Women S-M 1 EACH misc 1 ea Miscellaneous Q4H PRN Qty: 300 Rx Instructions: use 1 brief 1-2 times daily fluoxetine 40 mg capsule 80 mg PO DAILY Qty: 180 3RF triamcinolone acetonide 0.5 % cream 1 applic topical BID gabapentin 800 mg tablet 800 mg PO TID Qty: 270 3RF aripiprazole 5 mg tablet See Rx Instructions .ROUTE .COMPLEX Qty: 30 12RF Dose Instruction: TAKE ONE TABLET BY MOUTH AT BEDTIME Rx Instructions: TAKE ONE TABLET BY MOUTH AT BEDTIME ibuprofen 600 mg tablet See Rx Instructions .ROUTE .COMPLEX Qty: 90 3RF Dose Instruction: TAKE ONE TABLET BY MOUTH THREE TIMES A DAY WITH FOOD, MAY DECREASE TO TWO PER DAY AFTER 3 DAYS Rx Instructions: TAKE ONE TABLET BY MOUTH THREE TIMES A DAY WITH FOOD, MAY DECREASE TO TWO PER DAY AFTER 3 DAYS ondansetron 4 mg tablet,disintegrating 4 mg PO Q8H PRN pantoprazole 40 mg tablet,delayed release (DR/EC) 40 mg PO DAILY lisinopril 40 mg tablet 40 mg PO DAILY budesonide-formoterol 160-4.5 mcg/actuation HFA aerosol inhaler 2 puff inhalation BID methylphenidate HCl 10 mg tablet 20 mg PO BID MDD 40mg Qty: 120 0RF Rx Instructions: Take am and noon Discharge Instructions Instructions: Mouth and dental injuries in adults Additional Instructions: Continue to rest your mouth out with warm salt water after eating or drinking anything. At this time I do not feel it is necessary to give any additional antibiotics. You do have a new upcoming appointment within a week on July 05 at 1 PM. Please keep that appointment with the ear nose and throat. Follow up with primary care provider in 3-5 days. Return to ED sooner if any worsening or concerns. Please take Tylenol or Ibuprofen with food every 4-6 hours as needed for pain and swelling. Thank you for allowing us to care for you today. Referrals: Armand James MD [ [facility] STAFF PHYSICIAN] - 07/05/24 1:00 pm HPI General Mode of arrival: ambulatory . Date/Time Provider Initiated Documentation: 06/29/24 08:36 . Limitations to Documentation: no limitations . Information obtained by: patient, RN notes reviewed and old records reviewed . HPI Narrative: 53-year-old male presents to the ER for a delayed healing laceration to the right lateral side of his tongue. This occurred approximately 3 weeks ago when he bit the right side of his tongue breaking a tooth. He was been seen by his PCP and reportedly has finished a course of Augmentin and some Magic mouthwash with dexamethasone. He was sent here by his PCP to see if he can get a sooner appointment with ear nose and throat. He reports that he has an appointment on July 13. He speaking in full sentences denies any throat pain no swelling of his throat. He is a non-smoker. Past medical history includes epilepsy, hypertension, wheezing depression diverticulitis history of craniotomy for a brain mass. Related Data Home Medications ?Medication ?Instructions ?Recorded ?Confirmed diaper,brief,adult,disposable #300 ea 12/09/17 06/29/24 (Depend Underwear For Women Small-Medium) underpads 23 X 36 (Air Permeable #300 ea 12/09/17 06/29/24 Underpad) albuterol sulfate 90 mcg/actuation 2 inh inhalation Q6H PRN shortness 04/19/20 06/29/24 breath activated powder inhaler of breath or wheezing #1 ea naproxen 500 mg tablet 500 mg PO BID PRN pain #40 tabs 04/10/23 03/18/25 cyclobenzaprine 10 mg tablet 10 mg PO BID PRN muscle spasm #60 08/06/23 06/29/24 tab-caps lamotrigine 25 mg tablet 25 mg PO DAILY 08/11/23 06/29/24 fluoxetine 40 mg capsule 80 mg (2 x 40 mg) PO DAILY #180 11/26/23 06/29/24 tab-caps triamcinolone acetonide 0.5 % 1 applic topical BID 12/16/23 06/29/24 topical cream gabapentin 800 mg tablet 800 mg PO TID #270 tabs 12/24/23 06/29/24 aripiprazole 5 mg tablet See Rx Instructions .Route 01/05/24 06/29/24 .COMPLEX #30 tabs levetiracetam 1,000 mg tablet 1,000 mg PO BID #180 tabs 02/09/24 06/29/24 (Keppra) ibuprofen 600 mg tablet See Rx Instructions .Route 03/22/24 06/29/24 .COMPLEX #90 tabs budesonide-formoterol HFA 160 2 puff inhalation BID 06/15/24 06/29/24 mcg-4.5 mcg/actuation aerosol inhaler lisinopril 40 mg tablet 40 mg PO DAILY 06/15/24 06/29/24 ondansetron 4 mg disintegrating 4 mg PO Q8H PRN 06/15/24 06/29/24 tablet pantoprazole 40 mg tablet,delayed 40 mg PO DAILY 06/15/24 06/29/24 release methylphenidate HCl 10 mg tablet 20 mg (2 x 10 mg) PO BID #120 tabs 06/21/24 06/29/24 Previous Rx's ?Medication ?Instructions ?Recorded albuterol sulfate 90 mcg/actuation 2 inh inhalation Q6H PRN shortness 04/19/20 breath activated powder inhaler of breath or wheezing #1 ea naproxen 500 mg tablet 500 mg PO BID PRN pain #40 tabs 07/22/22 cyclobenzaprine 10 mg tablet 10 mg PO BID PRN muscle spasm #60 08/06/23 tab-caps fluoxetine 40 mg capsule 80 mg (2 x 40 mg) PO DAILY #180 11/26/23 tab-caps gabapentin 800 mg tablet 800 mg PO TID #270 tabs 12/24/23 aripiprazole 5 mg tablet See Rx Instructions .Route 01/05/24 .COMPLEX #30 tabs levetiracetam 1,000 mg tablet 1,000 mg PO BID #180 tabs 02/09/24 (Keppra) ibuprofen 600 mg tablet See Rx Instructions .Route 03/22/24 .COMPLEX #90 tabs methylphenidate HCl 10 mg tablet 20 mg (2 x 10 mg) PO BID #120 tabs 06/21/24 Allergies Allergy/AdvReac Type Severity Reaction Status Date / Time oxycodone HCl (From Percocet) AdvReac Intermediate VOMITING Verified 06/29/24 08:55 General Stated Complaint: DentalOral MIRIAM: 3 Review of Systems All systems reviewed & are unremarkable except as noted in HPI and below ENT Ears, Nose, Mouth, and Throat: Reports mouth lesions Exam Const General: cooperative, comfortable, well developed and well groomed Nutritional Appearance: average body habitus Orientation: alert, awake and oriented x3 HENMT Mouth: oral mucosae normal, lip normal, no drooling and tongue abnormal laceration (old laceration noted to the right lateral tongue) Mouth/tongue images: 2 1. Approximately 2 cm deep wound noted to right lateral side of tongue. No drainage. Teeth and gingiva: poor dentition Throat: posterior oropharynx normal Resp Effort & Inspection: normal respiratory effort and able to speak in complete sentences Course Vital Signs Vital signs: Vital Signs Temperature 36.5 C 06/29/24 08:58 Pulse 78 06/29/24 08:58 Respiratory Rate 16 06/29/24 08:58 Blood Pressure 160/92 H 06/29/24 08:58 Pulse Oximetry 98 06/29/24 08:58 Temperature 36.6 C 06/29/24 09:02 Temperature Source Oral 06/29/24 09:02 Pulse 71 06/29/24 09:02 Respiratory Rate 16 06/29/24 09:02 Blood Pressure 160/92 H 06/29/24 08:58 Blood Pressure Position Sitting 06/29/24 08:58 Pulse Oximetry 98 06/29/24 09:02 Oxygen Delivery Method Room Air 06/29/24 09:02 Oxygen Flow Rate 0 06/29/24 08:58 Pain Level 8 06/29/24 09:06 Medical Decision Making 53-year-old male presents to the ER for a delayed healing laceration to the right lateral side of his tongue. This occurred approximately 3 weeks ago when he bit the right side of his tongue breaking a tooth. He was been seen by his PCP and reportedly has finished a course of Augmentin and some Magic mouthwash with dexamethasone. He was sent here by his PCP to see if he can get a sooner appointment with ear nose and throat. He reports that he has an appointment on July 13. He speaking in full sentences denies any throat pain no swelling of his throat. He is a non-smoker. Past medical history includes epilepsy, hypertension, wheezing depression diverticulitis history of craniotomy for a brain mass. ENT office called by community health program coordinator he does have a sooner appointment on 07/05 at 1 PM. Which is in 1 week. Will give this information to the patient. In the meantime will instruct patient to continue with salt water rinses after eating or drinking anything. This time I do not feel that an additional antibiotic treatment is warranted. Patient is speaking in full sentences no throat pain. Hemodynamically stable. Instructed home care verbalized understanding. Follow up with primary care provider in 3-5 days. Return to ED sooner if any worsening or concerns. Medical Records Medical records reviewed: Yes I reviewed the patient's medical records. Quality:SDOH Health Related Social Needs: 2 No Data to Display PFSH All Active Problems (Updated 06/29/24 @ 09:28 by Allison Chiu NP) Late effect of open wound of tongue (Acute) Localized swelling, mass and lump, head (Acute) Incomplete emptying of bladder (Acute) BPH w urinary obs/LUTS (Acute) Osteoarthritis of left knee (Acute) 01/21/24 L total knee arthroplasty being planned Vitamin D deficiency (Acute) Alcohol dependence (Acute) Atopic dermatitis (Acute) Hypo-osmolality and hyponatremia (Acute) Melanocytic nevi, unspecified (Acute) Chronic pain syndrome (Chronic) Traumatic brain injury without loss of consciousness (Acute) Elevated PSA (Acute) PTSD (post-traumatic stress disorder) (Acute) Primary osteoarthritis of left knee (Acute) 11/26/23 [facility] [place]o [place] Bipolar depression (Acute) Tick bite of back (Acute) Cellulitis (Acute) Patellofemoral arthritis of right knee (Acute) Bilateral knee pain (Acute) Left knee pain (Acute) Malnutrition compromising bodily function (Acute) Much due to terrible dentition Tooth decay (Acute) Hypersomnia (Acute) Multifactorial from hydrocephalus, hyponatremia, mood disorder, and substance abuse (marijuana). Osteoarthritis of right knee (Acute) Daytime somnolence (Acute) JOSEPH Rojas Nonadherence to medication (Acute) Osteoarthritis of right patellofemoral joint (Chronic ~06/23/18) S/P right patellofemoral replacement S/P open synovectomy and realignment - DOS: 11/03/2018 Dr. Hillman Depression (Chronic) Fatigue (Chronic) Tremor (Chronic) SIADH (syndrome of inappropriate ADH production) (Chronic) Hyponatremia (Chronic) Memory loss (Chronic) Lethargy (Acute) Chronic fatigue (Acute) Right knee pain (Chronic) Aspiration and injection: 09/04/2018 Aspiration: 08/05/2018 Knee pain (Chronic) Wayne comes in today for a follow up. I have refilled his Clonazepam for him. He will f/u with NSX and neurology. I asked him to question them about his urinary incontinence. He would like to see urology again for the incontinence, although I am not sure much can be done through them, but I will arrange it for him. We will check on the ortho f/u. I will have him f/u here with me in a month, or sooner should he need anything prior to that. Urinary incontinence (Chronic 11/18/17) Tourette disease (Chronic 11/19/16) Tobacco use disorder (Chronic 07/03/16) S/P craniotomy (Chronic 10/22/17) a. Endoscopic third ventriculostomy with fenestration of septum pellucidum, brian hole craniotomy with coagulation of the choroid plexus, and EVD placement in September 2014 b. craniotomy with 3rd ventricle mass excision September 2017. Primary osteoarthritis of right knee (Chronic 03/31/17) Meningioma, cerebral (Chronic 10/22/17) a. Previously causing hydrocephalus s/p partial resection and EVD. b. hemorrhaged into 3rd ventricle in 2018, s/p resection Mass, brain (Chronic 09/24/17) IVH (intraventricular hemorrhage) (Chronic 09/24/17) Cerebral tumor (Chronic 06/26/17) BPH (benign prostatic hyperplasia) (Chronic 08/13/17) Anxiety (Chronic 11/19/16) Bipolar depression (Chronic 03/31/17) Seizure disorder (Chronic 11/19/16) Wayne is here today to follow up from recent hospital stay at [facility] from 08/31- for recent seizure and hyponatremia. Migraine (Chronic 07/02/16) Medical History Alcohol abuse Generalized pain of knee region Cannabis abuse Bipolar disorder Epilepsy History of malignant neoplasm of brain Intracerebral hemorrhage Essential hypertension Disorder of skin or subcutaneous tissue Tongue swelling Pain Lesion of tongue Contusion of left knee Intermittent asthma Wheezing Contusion of knee Solitary lung nodule Uncomplicated asthma SARS-CoV-2 positive 03/09/21-pt reporting he received call from [facility] today of positive result. testing done at [facility] site ([facility] [address] through) H/O alcohol abuse Diverticulitis Depression Carpal tunnel syndrome a. Diagnosed in 2010 by nerve conduction studies. b. Underwent right carpal tunnel release but did not have any improvement in symptoms. Surgical History Status post revision of total replacement of right knee 12/08/20 Dr Larson, [facility] [place] Subluxation of patella s/p replacement 06/2018; 2nd surgery 11/03/18 with Rafy herrera craiotomy for mass (09/24/17) Hernia Repair-L (04/13/94) Arthroplasty of knee (10/28/16) Dr Sheela Gomez knee-- chondroplasty of the patella and open lateral retinacular release Amputation right Index Family History Mother Essential hypertension Cerebral aneurysm Father Neoplasm Lung Maternal Grandfather Heart disease Neoplasm Colorectal & Prostate Maternal Grandmother Neoplasm Colorectal Social History Smoking/Tobacco Use Status: Former Tobacco Use Quit Date: 01/12/22 Quit status: not considering quitting Smoking risk assessment performed?: Yes Alcohol Intake: never Drug use: Daily Substance use type: marijuana Counseling given: Yes Details: uses marijuana for pain Adopted: No Foster care: No Household members: significant other and children Housing: apartment Number of Children: 5 Communication Needs: None 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; 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 Pets and animals: Yes Pets and animals: dog(s) Current gender identity: male What is your relationship status?: How often do you talk on the phone with friends or family?: twice per week How often do you get together with friends or relatives?: twice per week Panel score (0-1 are the most socially isolated patients): 1 What type of physical activity do you participate in: none Seatbelt use: always Drive intox or ride w/intox driver supervisor: No Water heater temp set <120 deg: Yes Working smoke detector in home: Yes Carbon monox detector in home: Yes Do you feel safe at home: Yes Do you feel safe in your relationship?: Yes Victim of physical abuse: No Victim of emotional abuse: No Additional Social history: Lives with ex- Edith
[2024-06-29 10:03] VITALS: BP 155/91; PULSE 70; RESP 16; TEMP 36.5; O2SAT 98
== END 2024-06-29 10:03 | disposition home or self-care (01) ==
LOC: ER 09:57
PROVIDERS: Emergency Provider Registered Nurse Emergency; PCP Nurse Practitioner Family
DX: S01.502D Unspecified open wound of oral cavity, subsequent encounter (principal); Z87.891 Personal history of nicotine dependence; X58.XXXD Exposure to other specified factors, subsequent encounter
CPT/HCPCS: 99283

== ENCOUNTER 2024-07-05 14:58 | Outpatient (REF) | payer MEDICARE, MEDICAID, SELFPAY ==
--- NOTE | 2024-07-05 13:05 | TONG_PTH ---
PATIENT: Wayne Salazar LOC: [facility] U#:[id number] AGE/SX: 53/M ROOM: RE07/05/[address]: Tri Davis : 1970 BED: DIS: 07/05/2024 SPEC #: [id number] RECD: 07/05/24 17:39 STATUS: VENKATESH REJody #: [id number] CATALINA: 07/05/24 13:[address]: Tri Davis DEPT: Surgical Specimen RECD BY: Rosi Peña ENTERED: 07/05/24 17:39 SP TYPE: ANNA RODRIGUEZ DR: Cara Sandhu Tissues: 1 - TONGUE BIOPSY Procedures: GROSS AND MICRO LEVEL 4 SPECIAL STAIN 1 Comments: [id number]
== END 2024-07-05 14:59 | disposition home or self-care (01) ==
LOC: NCHCN 14:58
PROVIDERS: PCP Nurse Practitioner Family; Visit Provider Registered Nurse Maternal Newborn
DX: K13.6 Irritative hyperplasia of oral mucosa (principal)
CPT/HCPCS: 88305; 88312

== ENCOUNTER → 2024-10-04 12:08 | Outpatient (BNVA) | payer MEDICARE, MEDICAID, SELFPAY | PROVIDERS: PCP Nurse Practitioner Family; Visit Provider Psychiatry & Neurology Neurology | DX: D32.0 Benign neoplasm of cerebral meninges (principal); G43.009 Migraine without aura, not intractable, without status migrainosus; G40.909 Epilepsy, unspecified, not intractable, without status epilepticus; E22.2 Syndrome of inappropriate secretion of antidiuretic hormone; R41.3 Other amnesia; G47.10 Hypersomnia, unspecified | CPT/HCPCS: 99214 ==

== ENCOUNTER 2024-11-18 03:03 | Outpatient (CLI) | payer MEDICARE, MEDICAID, SELFPAY ==
--- NOTE | 2024-11-18 06:30 | DI.MRI_ITS ---
Exam(s) MR BRAIN WO/W EXAM: MR BRAIN WO/W CLINICAL HISTORY: monitoring for meningioma recurrence,cerebral,s/p craniotomy,d32.0,z98.890 TECHNIQUE: Multiplanar multisequence MRI of the brain was performed. CONTRAST MATERIAL: IV Contrast: 18 mL of Dotarem contrast administered. COMPARISON: MR HEAD ADULT from 11/09/2022 FINDINGS: The examination is limited due to patient motion artifact. VENTRICLES AND EXTRA AXIAL SPACES: There is stable enlargement of the anterior horn of the left lateral ventricle. There is a stable extra-axial fluid collection deep to the right frontal bone. There again seen findings of prior callosotomy. HEMORRHAGE: There are stable chronic microhemorrhages present. No new microhemorrhages are seen. CEREBRAL PARENCHYMA: No focus of restricted diffusion to suggest acute infarct. No space-occupying lesion identified. There are stable areas of gliosis seen predominantly in the frontal lobes. MIDLINE SHIFT: None. BRAINSTEM/CEREBELLUM: Normal. CALVARIUM: Normal. ENHANCEMENT: No suspicious enhancement identified. No evidence of a mass or enhancing lesion. VISUALIZED PARANASAL SINUSES/MASTOIDS: Clear. [place]: Normal flow void. PITUITARY GLAND: Unremarkable. OTHER FINDINGS: IMPRESSION: 1. No evidence of tumor recurrence. 2. Stable MRI findings in the abdomen. 3. No acute abnormality. DATA REPOSITORY:
[2024-11-18] MEDS: Normal Saline Flush 10 ML SYR IVP (07:46)
[2024-11-18] MEDS: Gadoterate meglumine 20 ML SYRINGE 18 ML IVP (07:46)
== END 2024-11-18 03:23 ==
LOC: DI 03:03
PROVIDERS: PCP Nurse Practitioner Family; Visit Provider Psychiatry & Neurology Neurology
DX: D32.0 Benign neoplasm of cerebral meninges (principal); Z98.890 Other specified postprocedural states
CPT/HCPCS: 70553

== ENCOUNTER → 2025-01-25 13:44 | Outpatient (BNVA) | payer MEDICARE, MEDICAID, SELFPAY | PROVIDERS: PCP Nurse Practitioner Family; Referring Provider Nurse Practitioner Family; Visit Provider Psychiatry & Neurology Neurology | DX: G43.009 Migraine without aura, not intractable, without status migrainosus (principal); G40.909 Epilepsy, unspecified, not intractable, without status epilepticus; D32.0 Benign neoplasm of cerebral meninges; E22.2 Syndrome of inappropriate secretion of antidiuretic hormone; R41.3 Other amnesia; G47.10 Hypersomnia, unspecified | CPT/HCPCS: 99214 ==